=== PATIENT | female | born 1940 | race Caucasian/White ===

== ENCOUNTER 2023-06-01 11:30 | Outpatient (AMB) | payer MEDICARE, SELFPAY ==
[2023-06-01 11:34] VITALS: BP 140/72; PULSE 72; O2SAT 97; BMI 22.7
--- NOTE | 2023-06-01 11:34 | HO.NEPHOV_ITS ---
HPI HPI Comments History of Present Illness Details Ting is a pleasant 83-year-old woman with a history of chronic hyponatremia. Serum sodium has been fluctuating from the mid 120s to low 130s. Few years ago she had diverticulosis and underwent bowel surgery. At that time she was advised by the surgeon to drink plenty of water to avoid constipation. She has been drinking lots of water and apparently she was hospitalized in [facility] with severe hyponatremia with a sodium of 125 or so. Recently serum sodium was 127. She was put on of p.o. fluid restriction. Repeat serum sodium was 132 as of yesterday. She has been referred for further evaluation of hyponatremia. Recent thyroid function was normal. Renal function is normal with a creatinine of 0.5. Usually she drinks 1 cup of tea and 2 cups of coffee. Prior to last week she was drinking plenty of water but she has no cut back on water intake. She has replaced with Gatorade. She has a history of smoking several years ago smoked half pack to 1 pack for almost 20 years and quit smoking more than 20 years ago. She has COPD and is being followed by Dr. Gallego She is also undergoing cardiac evaluation. Today she denies any shortness of breath. No nausea vomiting. No polyuria polydipsia. No edema. All systems were reviewed [facility] Surgical History H/O: hysterectomy (~1993) Family History Father CHF (congestive heart failure) Mother CHF (congestive heart failure) HTN (hypertension) Social History Comment: Social Patient Tobacco Use Status: Former Tobacco user Vital Signs 06/01/23 11:34 Height 5 ft 1 in Weight 120 lb BMI 22.7 BP 140/72 H Blood Pressure Location Lt brachial Position Sitting Pulse 72 Pulse Source Pulse Oximeter Pulse Oximetry (%) 97 Oxygen Delivery Method Room Air Physical Exam Vital Signs: Last Vital Signs Pulse 72 06/01/23 11:34 BP 140/72 H 06/01/23 11:34 Pulse Ox 97 06/01/23 11:34 Oxygen Delivery Method Room Air 06/01/23 11:34 BMI result Body Mass Index 22.7 Const General: comfortable Nutritional Appearance: well nourished Orientation/consciousness: patient oriented x3 HEENT Head: No normal to inspection Mouth: moist mucous membranes Eyes Other: Strabismus Neck Neck: Yes supple and Yes no JVD Resp Auscultation: clear to auscultation bilaterally, no rales and rub present Cardio Jugular venous distension: no JVD Palpation: no palpable S3 and no palpable S4 Heart sounds: no rubs GI Palpation (GI): Soft to palpation and nontender Percussion: No Fluid wave present General: Yes no CVA tenderness Back/Spine/Pelvis Back: no CVA tenderness Skin General skin exam: no rashes or lesions noted Neuro General: patient oriented x3 Extrem General: Yes no pedal edema and No clubbing Assessment & Plan Assessment & Plan (1) Hyponatremia: Comment: Elderly woman with hyponatremia in the setting of COPD and excessive free water intake Code(s): E87.1 - Hypo-osmolality and hyponatremia Plan: Ting most likely has non osmotic ADH release in setting of COPD. Hyponatremia was confounded by consuming excess free water Thyroid function seems normal No clinical evidence to support adrenal insufficiency. Recommendations Check urine for sodium, creatinine, osmolality Check serum osmolality Goal is to maintain serum sodium more than 130 millimoles. I have encouraged her to limit free water intake. She can replace free water with Gatorade. Total fluid intake can be maintained around 40 oz. Given the history of hypertension I have encouraged her to stay on a regular sodium diet and I am not adding salt tablets. Recheck serum sodium in 1-2 weeks. If the serum sodium is less than 125 despite p.o. water restriction, I would consider adding urea powder to increase osmotic load. (2) HTN (hypertension): Code(s): I10 - Essential (primary) hypertension Plan: Blood pressure is acceptable No changes in antihypertensive regimen. Orders: Orders 2 Creatinine Urine 1 Week E87.1 - Hypo-osmolality and hyponatremia, I10 - Essential (primary) hypertension, N05.9 - Unspecified nephritic syndrome with unspecified morphologic changes Sodium Urine Random 1 Week E87.1 - Hypo-osmolality and hyponatremia, I10 - Essential (primary) hypertension, N18.9 - Chronic kidney disease, unspecified Basic Metabolic Panel 1 Week E87.1 - Hypo-osmolality and hyponatremia, I10 - Essential (primary) hypertension Osmolality, Serum 1 Week E87.1 - Hypo-osmolality and hyponatremia, I10 - Essential (primary) hypertension Osmolality Urine 1 Week E87.1 - Hypo-osmolality and hyponatremia, I10 - Essential (primary) hypertension UA and rflx microscopic 1 Week E87.1 - Hypo-osmolality and hyponatremia, I10 - Essential (primary) hypertension Coding Level of Care Code New Pt Level 4 (44314) Diagnoses Hyponatremia E87.1 HTN (hypertension) I10 Results Reviewed Results Reviewed: As of 05/31/2023 Serum sodium 132 Serum creatinine 0.5 Nephrology Results: No Data to Display
== END 2023-06-01 12:15 | disposition home or self-care (01) ==
PROVIDERS: PCP Internal Medicine; Referring Provider Internal Medicine; Visit Provider Internal Medicine Hypertension Specialist
DX: E87.1 Hypo-osmolality and hyponatremia (principal); I10 Essential (primary) hypertension
CPT/HCPCS: 99204

== ENCOUNTER → 2023-06-01 11:30 | Outpatient (BNVA) | payer MEDICARE, SELFPAY | PROVIDERS: PCP Internal Medicine; Referring Provider Internal Medicine; Visit Provider Internal Medicine Hypertension Specialist | DX: E87.1 Hypo-osmolality and hyponatremia (principal); I10 Essential (primary) hypertension | CPT/HCPCS: 99202 ==

== ENCOUNTER 2023-06-29 10:29 | Outpatient (REF) | payer MEDICARE, SELFPAY ==
[2023-06-29 12:18] LABS: Appearance Urine Clear; Color Urine Yellow; Glucose Urine UA Negative (Negative); Leukocyte Esterase Urine Negative (Negative); Nitrite Urine Negative (Negative); PH 6.5 (5.0-9.0); Urine Blood Negative (Negative); Urine Ketones Negative (Negative); Urine Protein Negative (Neg-Trace)
[2023-06-29 12:48] LABS: Creatinine Urine 20.06 mg/dL
[2023-06-29 13:04] LABS: Osmolality Urine 249 mosm/kg (373-1093)
== END 2023-06-29 10:30 | disposition home or self-care (01) ==
LOC: HO.HKASLDS 10:29
PROVIDERS: PCP Internal Medicine; Visit Provider Internal Medicine Hypertension Specialist
DX: I12.9 Hypertensive chronic kidney disease with stage 1 through stage 4 chronic kidney disease, or unspecified chronic kidney disease (principal); E87.1 Hypo-osmolality and hyponatremia; N05.9 Unspecified nephritic syndrome with unspecified morphologic changes; J44.9 Chronic obstructive pulmonary disease, unspecified; N18.9 Chronic kidney disease, unspecified; Z87.891 Personal history of nicotine dependence
CPT/HCPCS: 36415; 80048; 81003; 82570; 83930; 83935; 84300; 99212

== ENCOUNTER 2023-06-29 10:29 | Outpatient (AMB) | payer MEDICARE, SELFPAY ==
--- NOTE | 2023-06-29 10:32 | HO.NEPHOV ---
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 Serum sodium has been fluctuating from the mid 120s to low 130s. Few years ago she had diverticulosis and underwent bowel surgery. At that time she was advised by the surgeon to drink plenty of water to avoid constipation. She has been drinking lots of water and apparently she was hospitalized in [facility] with severe hyponatremia with a sodium of 125 or so. Recently serum sodium was 127. She was put on of p.o. fluid restriction. Repeat serum sodium was 132 as of yesterday. She has been referred for further evaluation of hyponatremia. Recent thyroid function was normal. Renal function is normal with a creatinine of 0.5. Usually she drinks 1 cup of tea and 2 cups of coffee. Prior to last week she was drinking plenty of water but she has no cut back on water intake. She has replaced with Gatorade. She has a history of smoking several years ago smoked half pack to 1 pack for almost 20 years and quit smoking more than 20 years ago. She has COPD and is being followed by Dr. Gallego She is also undergoing cardiac evaluation. Today she denies any shortness of breath. No nausea vomiting. No polyuria polydipsia. No edema. All systems were reviewed' 06/29/23 Feels better She has cut back on water [facility] Surgical History H/O: hysterectomy (~1993) Family History Father CHF (congestive heart failure) Mother CHF (congestive heart failure) HTN (hypertension) Social History Comment: Social Patient Tobacco Use Status: Former Tobacco user Physical Exam Vital Signs: Last Vital Signs BP 152/74 H 06/29/23 10:33 BMI result Body Mass Index 21.9 Const General: comfortable Nutritional Appearance: well nourished Orientation/consciousness: patient oriented x3 HEENT Head: No normal to inspection Mouth: moist mucous membranes Eyes Other: Strabismus Neck Neck: Yes supple and Yes no JVD Resp Auscultation: clear to auscultation bilaterally, no rales and rub present Cardio Jugular venous distension: no JVD Palpation: no palpable S3 and no palpable S4 Heart sounds: no rubs GI Palpation (GI): Soft to palpation and nontender Percussion: No Fluid wave present General: Yes no CVA tenderness Back/Spine/Pelvis Back: no CVA tenderness Skin General skin exam: no rashes or lesions noted Neuro General: patient oriented x3 Extrem General: Yes no pedal edema and No clubbing Results Reviewed Nephrology Results: No Data to Display Assessment & Plan Assessment & Plan (1) Hyponatremia: Comment: Elderly woman with hyponatremia in the setting of COPD and excessive free water intake Code(s): E87.1 - Hypo-osmolality and hyponatremia Category: Medical Plan: Ting most likely has non osmotic ADH release in setting of COPD. Hyponatremia was confounded by consuming excess free water Thyroid function seems normal No clinical evidence to support adrenal insufficiency. Goal is to maintain serum sodium more than 130 millimoles. I have encouraged her to limit free water intake. She can replace free water with Gatorade. Total fluid intake can be maintained around 40 oz. Given the history of hypertension I have encouraged her to stay on a regular sodium diet and I am not adding salt tablets. (2) HTN (hypertension): Code(s): I10 - Essential (primary) hypertension Category: Medical Plan: Blood pressure is acceptable No changes in antihypertensive regimen. Orders: Orders Basic Metabolic Panel Today E87.1 - Hypo-osmolality and hyponatremia Coding Level of Care Code Est Pt Level 4 (49534) Diagnoses Hyponatremia E87.1 HTN (hypertension) I10
[2023-06-29 10:33] VITALS: BP 152/74; BMI 21.9
== END 2023-06-29 10:55 | disposition home or self-care (01) ==
PROVIDERS: PCP Internal Medicine; Visit Provider Internal Medicine Hypertension Specialist
DX: E87.1 Hypo-osmolality and hyponatremia (principal); I10 Essential (primary) hypertension
CPT/HCPCS: 99214

== ENCOUNTER 2023-06-29 10:59 | Outpatient (REF) | payer MEDICARE, SELFPAY ==
[2023-06-29 12:53] LABS: Anion Gap 14 (12-20); Blood Urea Nitrogen 13 mg/dL (9-16); Calcium 9.6 mg/dL (8.4-10.2); Carbon Dioxide 24 mmol/L (22-29); Chloride 97 mmol/L (96-108); Estimated Glomerular Filt Rate > 60; Glucose Random 99 mg/dL (60-115); Potassium 4.5 mmol/L (3.3-5.1); Sodium 130 mmol/L (135-145)
[2023-06-29 13:00] LABS: Osmolality, Serum 272 mosm/kg (281-305)
== END 2023-06-29 11:00 | disposition home or self-care (01) ==
LOC: HO.HKASLDS 10:59
PROVIDERS: Visit Provider Internal Medicine Hypertension Specialist
DX: Z13.89 Encounter for screening for other disorder (principal)
CPT/HCPCS: 36415; 80048; 83930

== ENCOUNTER 2023-12-07 13:47 | Outpatient (AMB) | payer MEDICARE, SELFPAY ==
[2023-12-07 13:51] VITALS: BP 108/48; PULSE 65; O2SAT 97; BMI 21.3
--- NOTE | 2023-12-07 13:51 | HO.NEPHOV ---
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 Accompanied by: Self / Same As Patient Allergies No Known Allergies Allergy (Verified 12/07/23 13:55) Medication List - Last Reconciled 12/07/23 by Miguel Grover MD alprazolam 0.5 mg PO BID amlodipine 10 mg PO DAILY ascorbic acid (vitamin C) mg PO atorvastatin 10 mg PO DAILY cholecalciferol (vitamin D3) 25 mcg PO DAILY coenzyme Q10 (Co Q-10) 10 mg PO TID docusate sodium 50 mg PO DAILY famotidine (Pepcid) 20 mg PO DAILY fluticasone furoate-vilanterol 100-25 mcg/dose (Breo Ellipta) 1 ea inhalation DAILY fluticasone propion-salmeterol 250-50 mcg/dose (Advair Diskus) 1 inh inhalation BID folic acid 1 mg PO DAILY methotrexate sodium 20 mg PO QWEEK metoprolol tartrate 25 mg PO BID multivitamin 1 tab PO DAILY niacinamide 500 mg PO DAILY olmesartan 40 mg PO DAILY valacyclovir 500 mg PO DAILY vitamins A,C,H-kbol-qsyaqj 2,148 mcg-113 mg-45 mg-17.4mg (PreserVision AREDS) 2 tabs PO BID HPI Comments Details: Ting is a pleasant 83-year-old woman with a history of chronic hyponatremia. Serum sodium has been fluctuating from the mid 120s to low 130s. Few years ago she had diverticulosis and underwent bowel surgery. At that time she was advised by the surgeon to drink plenty of water to avoid constipation. She has been drinking lots of water and apparently she was hospitalized in [facility] with severe hyponatremia with a sodium of 125 or so. Recently serum sodium was 127. She was put on of p.o. fluid restriction. Repeat serum sodium was 132 as of yesterday. She has been referred for further evaluation of hyponatremia. Recent thyroid function was normal. Renal function is normal with a creatinine of 0.5. Usually she drinks 1 cup of tea and 2 cups of coffee. Prior to last week she was drinking plenty of water but she has no cut back on water intake. She has replaced with Gatorade. She has a history of smoking several years ago smoked half pack to 1 pack for almost 20 years and quit smoking more than 20 years ago. She has COPD and is being followed by Dr. Gallego She is also undergoing cardiac evaluation. Today she denies any shortness of breath. No nausea vomiting. No polyuria polydipsia. No edema. All systems were reviewed' 06/29/23;Feels better;She has cut back on water [facility] Surgical History H/O: hysterectomy (~1993) Family History Father CHF (congestive heart failure) Mother CHF (congestive heart failure) HTN (hypertension) Social History Comment: Social Patient Tobacco Use Status: Former Tobacco user Physical Exam Vital Signs: Last Vital Signs Pulse 65 12/07/23 13:51 BP 108/48 L 12/07/23 13:51 Pulse Ox 97 12/07/23 13:51 Oxygen Delivery Method Room Air 12/07/23 13:51 BMI result Body Mass Index 21.3 Results Reviewed Nephrology Results: Sodium 130 mmol/L (135-145) L 06/29/23 Potassium 4.5 mmol/L (3.3-5.1) 06/29/23 Chloride 97 mmol/L (96-108) 06/29/23 Carbon Dioxide 24 mmol/L (22-29) 06/29/23 BUN 13 mg/dL (9-16) 06/29/23 Creatinine 0.62 mg/dL (0.5-1.4) 06/29/23 Calcium 9.6 mg/dL (8.4-10.2) 06/29/23 Urine Protein Negative mg/dL (Neg-Trace) 06/29/23 Urine Creatinine 20.06 mg/dL 06/29/23 Assessment & Plan Assessment & Plan (1) Hyponatremia: Comment: Elderly woman with hyponatremia in the setting of COPD and excessive free water intake Code(s): E87.1 - Hypo-osmolality and hyponatremia Category: Medical Plan: Ting most likely has non osmotic ADH release in setting of COPD. Hyponatremia was confounded by consuming excess free water Thyroid function seems normal No clinical evidence to support adrenal insufficiency. Goal is to maintain serum sodium more than 130 millimoles. I have encouraged her to limit free water intake. She can replace free water with Gatorade. Total fluid intake can be maintained around 40 oz. Given the history of hypertension I have encouraged her to stay on a regular sodium diet and I am not adding salt tablets. Lab work schdeuled for tomorrow Shall track results (2) HTN (hypertension): Code(s): I10 - Essential (primary) hypertension Category: Medical Plan: Blood pressure is LOW Would decrease AMLODIPINE to 5 mg QD from 10mg QD Coding Level of Care Code Est Pt Level 4 (99076) Diagnoses Hyponatremia E87.1 HTN (hypertension) I10
[2023-12-07 14:17] VITALS: BP 110/50
== END 2023-12-07 14:19 | disposition home or self-care (01) ==
PROVIDERS: PCP Internal Medicine; Visit Provider Internal Medicine Hypertension Specialist
DX: E87.1 Hypo-osmolality and hyponatremia (principal); I10 Essential (primary) hypertension; J44.9 Chronic obstructive pulmonary disease, unspecified
CPT/HCPCS: 99214

== ENCOUNTER → 2023-12-07 13:47 | Outpatient (BNVA) | payer MEDICARE, SELFPAY | PROVIDERS: PCP Internal Medicine; Visit Provider Internal Medicine Hypertension Specialist | DX: E87.1 Hypo-osmolality and hyponatremia (principal); I10 Essential (primary) hypertension | CPT/HCPCS: 99212 ==

== ENCOUNTER 2024-03-01 09:36 | Outpatient (AMB) | payer MEDICARE, SELFPAY ==
[2024-03-01 09:37] VITALS: BP 134/62; PULSE 70; O2SAT 99; BMI 21.5
--- NOTE | 2024-03-01 09:37 | A.OFFVIS_ITS ---
Vital Signs 03/01/24 09:37 Height 5 ft 1 in Weight 114 lb BMI 21.5 BP 134/62 Blood Pressure Location Rt brachial Position Sitting Pulse 70 Pulse Source Doppler Pulse Oximetry (%) 99 Oxygen Delivery Method Nasal Cannula Oxygen Flow Rate 4 Intake Visit Reasons: COPD Allergies No Known Allergies Allergy (Verified 12/07/23 13:55) HPI HPI COPD: Details: 83-year-old lady, former 20-25 pack-year smoker, quit 1989 with underlying COPD supplemental oxygen dependent, using Inogen at [facility] for and home oxygen concentrator up to 4 L, previously followed by Dr. Gallego presents for evaluation. Patient states that she has not been using albuterol MDI or any other bronchodilators. She denies having recent pulmonary function testing. Patient does have CT chest from 2022 showing no pulmonary fibrosis. Patient complains of significant dyspnea on exertion and intermittent tachycardia. Patient denies family history of lung disease. [facility] Surgical History H/O: hysterectomy (~1993) Family History Father CHF (congestive heart failure) Mother CHF (congestive heart failure) HTN (hypertension) Social History Comment: Social Patient Tobacco Use Status: Former Tobacco user Review of Systems Const Denies daytime sleepiness, Denies excessive sweating, Denies fatigue, Denies fever(s), Denies lethargy, Denies malaise, Denies night sweats, Denies snoring and Denies weight loss Eyes Denies blurry vision and Denies itchy eyes ENT Denies nasal congestion, Denies post nasal drip, Denies sinus pain, Denies sinus pressure and Denies other ( Thrush) Card Reports lightheadedness, Reports palpitations and Reports dyspnea on exertion Resp Denies cough, Denies hemoptysis, Denies excessive phlegm production, Reports dyspnea on exertion, Denies snoring and Denies wheezing GI Denies abdominal pain and Denies heartburn Musc Denies myalgias, Denies arthralgias and Denies joint swelling Skin/Breast Denies rash Neuro Denies memory loss and Denies seizure-like activity Psych Denies abnormal sleep pattern, Denies anxiety and Denies memory loss Endo Denies excessive sweating, Denies fatigue and Reports palpitations Romel/Lymph Denies easy bruising Aller/Immun Denies itchy eyes and Denies wheezing Physical Exam Vital Signs: Last Vital Signs Pulse 70 03/01/24 09:37 BP 134/62 03/01/24 09:37 Pulse Ox 99 03/01/24 09:37 Oxygen Delivery Method Nasal Cannula 03/01/24 09:37 Oxygen Flow Rate 4 03/01/24 09:37 BMI result Body Mass Index 21.5 Const General: no acute distress and alert Nutritional Appearance: thin Orientation/consciousness: Other orientation findings ( oriented) HEENT Head: Yes atraumatic Eyes General: appearance normal, both eyes and all related structures Sclerae: sclerae normal EOM: EOMs intact bilaterally Neck Neck: Yes supple Lymphatic: no lymphadenopathy noted Resp Effort & Inspection: normal respiratory effort and no use of accessory muscles Auscultation: clear to auscultation bilaterally Cardio Rate: regular rate Rhythm: regular rhythm Heart sounds: no gallops, no murmurs and no rubs Skin General skin exam: other ( warm) Extrem General: No clubbing, No cyanosis and No edema Office Procedures 6 Minute Walk Time:: 10:20 SPO2 % at rest: 99 Pulse at rest: 73 SPO2 % during excercise: 84 Pulse during excercise: 88 SPO2 % after excercise: 94 Pulse after excercise: 82 Distance in yards walked: 50 Samira Score: 7 Performance Observations:: Patient walked on level ground unassisted. After 10 yards O2 saturation dropped to 84%. Stopped briefly and O2 applied at 1L with little effect. Increased to 2L via nasal cannula and after just 5 yards O2 saturation dropped again to 85%. O2 increased to 3 and then 4liters and was able to continue walk and maintain O2 saturation of 96%. Patient tires and has knee pain with ambulation. O2 switched to POC at level 3 and after approx 10 yards O2 saturation dropped to 89%. POC increased to level 4 and patient was able to complete the walk maintaining O2 saturation of 93-94%. [id number] - 6 Minute Walk Assessment & Plan Assessment & Plan (1) COPD (chronic obstructive pulmonary disease): Code(s): J44.9 - Chronic obstructive pulmonary disease, unspecified Category: Medical Plan: Likely underlying COPD of unclear severity suboptimally controlled. Start Anoro and albuterol MDI. Will obtain full PFT. (2) Supplemental oxygen dependent: Code(s): Z99.81 - Dependence on supplemental oxygen Category: Medical Plan: 6 minute walk test/supplemental oxygen evaluation performed. Patient continues to require supplemental oxygen utilizing Inogen setting 4 to maintain normal oximetry with exertion. Orders: Orders PFT pulmonary function test Today J44.9 - Chronic obstructive pulmonary disease, unspecified AMB 6 minute walk Today J44.9 - Chronic obstructive pulmonary disease, uns pecified Medications: New umeclidinium-vilanterol 62.5-25 mcg/actuation (Anoro Ellipta) 1 inh inhalation DAILY 1 ea 6RF albuterol sulfate 90 mcg/actuation 2 puffs inhalation 6XD PRN 1 ea 6RF shortness of breath or wheezing Coding Level of Care Code New Pt Level 4 (76329) Diagnoses COPD (chronic obstructive pulmonary disease) J44.9 Supplemental oxygen dependent Z99.81 CPT Codes Coding ([id number])
--- OUTSIDE RECORDS SUMMARY | 2024-03-01 10:48 | XMS_ITS ---
Author Name [facility] Organization Unknown Results Test Name/Text Value Interpretation Date Range Source TB AG 1-NIL 0.0191 Normal [id number] CTT MH TB AG 2-NIL 0.0241 Normal [id number] [facility] MH NIL 0.0191 Normal [id number] [facility] LYMPHOCYTES NO. BLD AUTO 1.5K/uL Normal [id number] 1 - 3.2 [facility] EOSINOPHIL NO. BLD AUTO 0K/uL Normal [id number] 0 - 0.5 [facility] MONOCYTES NFR BLD AUTO 15.4% Above high normal [id number] 2 - 12 [facility] LYMPHOCYTES NFR BLD AUTO 20.7% Normal [id number] 20 - 48 [facility] EOSINOPHIL NFR BLD AUTO 0.3% Normal [id number] 0 - 6 [facility] NEUTROPHILS NO. BLD AUTO 4.7K/uL Normal [id number] 1.8 - 7.8 [facility] BASOPHILS NFR BLD AUTO 0.6% Normal [id number] 0 - 2 [facility] MONOCYTES NO. BLD AUTO 1.1K/uL Above high normal [id number] 0 - 0.[address] [facility] NEUTROP[facility]IL[facility] NFR BLD AUTO 63% Normal [id number] 44 - [address] [facility] BASOPHILS IN BLOOD BY AUTOMATED COUNT 0K/uL Normal [id number] 0 - 0.2 [facility] CALCIUM SERPL MCNC 9.6mg/dL Normal [id number] 8.4 - 10 .2 [facility] ANION GAP SERPL SCNC 8mmol/L Normal 5 - 14 [facility] Glomerular filtration rate/1.73 sq M. predicted 90 Normal [id number] 60 - [facility] HCO3 SER SCNC 28mmol/L Normal 24 - 32 [facility] AST SERPL CCNC 28U/L Normal 5 - 40 [facility] GLUCOSE SERPL MCNC 92mg/dL Normal 70 - 199 [facility] BUN SERPL MCNC 16mg/dL Normal [id number] 7 - 17 [facility] CHLORIDE SERPL SCNC 95mmol/L Below low normal [id number] 98 - 107 [facility] ALBUMIN SERPL BCG MCNC 4.6g/dL Normal [id number] 3.5 - 5 [facility] ALP SERPL-CCNC 74U/L Normal 34 - 104 [facility] ALT SERPL CCNC 35U/L Normal 7 - [facility] CREAT [facility] MCNC 0.6mg/dL Normal [id number] 0.5 - 1 [facility] SODIUM SERPL SCNC 131mmol/L Below low normal [id number] 13 5 - 145 [facility] PROT SERPL MCNC 6.3g/dL Below low normal [id number] 6.4 - 8.5 [facility] BILIRUB SERPL MCNC 0.6mg/dL Normal 0.3 - 1 [facility] POTASSIUM SERPL SCNC 4.6mmol/L Normal [id number] 3.5 - 5.1 [facility] DIFFERENTIAL TYPE AUTOMATED Normal [facility] PLATELET NO. BLD AUTO 399K/uL Normal [id number] 150 - 450 [facility] RBC NO. BLD AUTO 3.11M/uL Below low normal [id number] 4.2 - 5.4 [facility] MCH RBC QN AUTO 36.9pg Above high normal [id number] 25 - 33 [facility] MCHC RBC AUTO MCNC 34.2g/dL Normal [id number] 32 - 36 [facility] HGB BLD MCNC 11.5g/dL Below low normal [id number] 12.5 - 16 [facility] WBC NO. BLD AUTO 7.3K/uL Normal [id number] 4 - 10.5 [facility] MCV RBC AUTO 107.9fL Above high normal [id number] 78 - 1 00 [facility] PMV BLD AUTO 6.9fL Below low normal [id number] 7.4 - 1 1.4 [facility] RDW RBC AUTO RTO 15.3% Normal [id number] 12.1 - 16. 2 [facility] HCT VFR BLD AUTO 33.6% Below low normal 37 - 47 [facility] ESR Bld Qn Photometric 3mm/h Normal 0 - 20 [facility] TSH SerPl DL<=0.005 mIU/L-aCnc 0.87uIU/mL Normal 0.45 - 5.33 [facility] VIT B12 SER MCNC 810pg/mL Normal 180 - 914 [facility] FOLATE SERPL MCNC 15.5ng/mL Normal 3 - [facility] PROT SERPL MCNC 6.4g/dL Normal 6.4 - 8.5 C [facility] BILIRUB SERPL MCNC 0.5mg/dL Normal 0.3 - 1 [facility] ALBUMIN/GLOB SERPL MRTO 2.6 Normal [facility] AST SERPL CCNC 23U/L Normal 5 - 40 [facility] ALBUMIN SERPL BCG MCNC 4.6g/dL Normal 3.5 - 5 [facility] ALP SERPL-CCNC 60U/L Normal 34 - 104 [facility] ALT SERPL CCNC 32U/L Normal 7 - 52 [facility] BILIRUB DIRECT SERPL MCNC 0.1mg/dL Normal 0 - 0.2 [facility] CREAT SERPL MCNC 0.5mg/dL Normal 0.5 - 1 [facility] CALCIUM SERPL MCNC 9.5mg/dL Normal 8.4 - 10 .2 [facility] SODIUM SERPL SCNC 130mmol/L Below low normal 13 5 - 145 [facility] ANION GAP SERPL SCNC 9mmol/L Normal 5 - 14 [facility] Glomerular filtration rate/1.73 sq M. predicted 94 Normal 60 - [facility] HCO3 SER SCNC 26mmol/L Normal 24 - 32 [facility] GLUCOSE SERPL MCNC 95mg/dL Normal [id number] 70 - 199 [facility] BUN SERPL MCNC 15mg/dL Normal [id number] 7 - 17 [facility] CHLORIDE SERPL SCNC 95mmol/L Below low normal [id number] 98 - 107 [facility] POTASSIUM SERPL SCNC 4.5mmol/L Normal [id number] 3.5 - 5.1 [facility] LDLc SerPl Calc-mCnc 51mg/dL Normal [id number] 50 - 1 30 [facility] TRIGL SERPL-MCNC 56mg/dL Normal [id number] - 150 [facility] CHOLEST SERPL-MCNC 139mg/dL Normal [id number] 0 - 200 [facility] HDLC SERPL-MCNC 77mg/dL Normal [id number] 33 - 92 C [facility] HGB BLD MCNC 11.2g/dL Below low normal [id number] 12.5 - 16 [facility] PLATELET NO. BLD AUTO 384K/uL Normal 150 - 450 [facility] WBC NO. BLD AUTO 8.3K/uL Normal [id number] 4 - 10.5 [facility] RBC NO. BLD AUTO 3.22M/uL Below low normal [id number] 4.2 - 5.4 [facility] MCH RBC QN AUTO 34.9pg Above high normal [id number] 25 - 33 [facility] MCHC RBC AUTO MCNC 33.4g/dL Normal [id number] 32 - 36 [facility] MCV RBC AUTO 104.6fL Above high normal [id number] 78 - 1 00 [facility] PMV BLD AUTO 7.5fL Normal [id number] 7.4 - 11.4 CTT HS RDW RBC AUTO RTO 15.4% Normal [id number] 12.1 - 16. 2 [facility] HCT VFR BLD AUTO 33.7% Below low normal [id number] 37 - 47 [facility] VIT B12 SER MCNC 665pg/mL Normal 180 - 914 [facility] FOLATE SERPL MCNC 16.2ng/mL Normal 3 - [facility] TSH SerPl DL<=0.005 mIU/L-aCnc 0.8uIU/mL Normal [id number] 0.45 - 5.33 [facility] PROT SERPL MCNC 6.7g/dL Normal [id number] 6.4 - 8.5 C [facility] BILIRUB SERPL MCNC 0.6mg/dL Normal [id number] 0.3 - 1 [facility] ALBUMIN/GLOB SERPL MRTO 2.2 Normal [id number] [facility] AST SERPL CCNC 26U/L Normal [id number] 5 - 40 [facility] ALBUMIN SERPL BCG MCNC 4.6g/dL Normal [id number] 3.5 - 5 [facility] ALP SERPL-CCNC 68U/L Normal [id number] 34 - 104 [facility] ALT SERPL CCNC 29U/L Normal [id number] 7 - 52 [facility] BILIRUB DIRECT SERPL MCNC 0.1mg/dL Normal [id number] 0 - 0.2 [facility] LDLc SerPl Calc-mCnc 55mg/dL Normal [id number] 50 - 1 30 [facility] TRIGL SERPL-MCNC 65mg/dL Normal [id number] - 150 [facility] CHOLEST SERPL-MCNC 135mg/dL Normal [id number] 0 - 200 [facility] HDLC SERPL-MCNC 67mg/dL Normal [id number] 33 - 92 C [facility] CREAT SERPL MCNC 0.4mg/dL Below low normal [id number] 0.5 - 1 [facility] CALCIUM SERPL MCNC 9.8mg/dL Normal [id number] 8.4 - 10 .2 [facility] SODIUM SERPL SCNC 128mmol/L Below low normal [id number] 13 5 - 145 [facility] ANION GAP SERPL SCNC 7mmol/L Normal [id number] 5 - 14 [facility] Glomerular filtration rate/1.73 sq M. predicted 99 Normal [id number] 60 - [facility] HCO3 SER SCNC 28mmol/L Normal [id number] 24 - 32 CTT [facility] GLUCOSE SERPL MCNC 91mg/dL Normal [id number] 70 - 199 [facility] BUN SERPL MCNC 11mg/dL Normal 7 - 17 [facility] CHLORIDE SERPL SCNC 93mmol/L Below low normal [id number] 98 - [address] [facility] POTASSIUM SERPL SCNC 5mmol/L Normal 3.5 - 5.1 [facility] ESR Bld Qn Photometric 6mm/h Normal 0 - 20 [facility] DIFFERENTIAL TYPE AUTOMATED Normal [facility] PLATELET NO. BLD AUTO 411K/uL Normal 150 - [address] [facility] RBC NO. BLD AUTO 3.31M/uL Below low normal 4.2 - 5.[address] [facility] LYMPHOCYTES NO. BLD AUTO 1K/uL Normal 1 - 3.[address] [facility] EOSINOPHIL NO. BLD AUTO 0K/uL Normal 0 - 0.5 [facility] MCH RBC QN AUTO 34.5pg Above high normal 25 - 33 [facility] MCHC RBC AUTO MCNC 34.3g/dL Normal 32 - 36 [facility] MONOCYTES NFR BLD AUTO 10.6% Normal 2 - 12 [facility] LYMPHOCYTES NFR BLD AUTO 15.7% Below low normal 20 - 48 [facility] EOSINOPHIL NFR BLD AUTO 0.5% Normal 0 - 6 [facility] HGB BLD MCNC 11.4g/dL Below low normal 12.5 - 16 [facility] NEUTROPHILS NO. BLD AUTO 4.7K/uL Normal 1.8 - 7.8 [facility] WBC NO. BLD AUTO 6.5K/uL Normal 4 - 10.5 [facility] BASOPHILS NFR BLD AUTO 0.6% Normal 0 - 2 [facility] MONOCYTES NO. BLD AUTO 0.7K/uL Normal 0 - 0.8 [facility] MCV RBC AUTO 100.5fL Above high normal 78 - 1 00 [facility] NEUTROPHILS NFR BLD AUTO 72.6% Normal 44 - 74 [facility] BASOPHILS IN BLOOD BY AUTOMATED COUNT 0K/uL Normal 0 - 0.[address] [facility] PMV BLD AUTO 7.4fL Normal 7.4 - 11.4 [facility] RDW RBC AUTO RTO 15.1% Normal [id number] 12.1 - 16. 2 [facility] HCT VFR BLD AUTO 33.3% Below low normal [id number] 37 - 47 [facility] Troponin I SerPl HS-mCnc 7ng/L Normal [id number] 0 - 14 [facility] CREAT SERPL MCNC 0.5mg/dL Normal [id number] 0.5 - 1 [facility] SODIUM SERPL SCNC 133mmol/L Below low normal [id number] 13 5 - 145 [facility] GLUCOSE SERPL MCNC 91mg/dL Normal [id number] 70 - 199 [facility] Glomerular filtration rate/1.73 sq M. predicted 94 Normal [id number] 60 - [facility] CHLORIDE SERPL SCNC 98mmol/L Normal [id number] 98 - 10 7 [facility] HCO3 SER SCNC 28mmol/L Normal [id number] 24 - 32 [facility] POTASSIUM SERPL SCNC 3.8mmol/L Normal [id number] 3.5 - 5.1 [facility] ANION GAP SERPL SCNC 7mmol/L Normal [id number] 5 - 14 [facility] BUN SERPL MCNC 9mg/dL Normal 7 - 17 [facility] CALCIUM SERPL MCNC 9mg/dL Normal [id number] 8.4 - 10 .2 [facility] BNP BLD MCNC 331pg/mL Above high normal [id number] 0 - 10 0 [facility] Troponin I SerPl HS-mCnc 6ng/L Normal [id number] 0 - 14 [facility] PT TIME PPP 12.3sec Normal [id number] 10.5 - 13.3 [facility]TT [facility] INR PPP 1 Normal [id number] 0.8 - 1.1 [facility] AN DIFFERENTIAL TYPE AUTOMATED Normal [id number] [facility] NEUTROPHILS NFR BLD AUTO 68.5% Normal [id number] 44 - 74 [facility] BASOPHILS NFR BLD AUTO 0.8% Normal [id number] 0 - 2 [facility] MONOCYTES NFR BLD AUTO 11.9% Normal [id number] 2 - 12 [facility] HCT VFR BLD AUTO 33.2% Below low normal [id number] 37 - 47 [facility] MONOCYTES NO. BLD AUTO 0.7K/uL Normal [id number] 0 - 0.8 [facility] RDW RBC AUTO RTO 15% Normal [id number] 12.1 - 16. 2 [facility] PLATELET NO. BLD AUTO 346K/uL Normal [id number] 150 - 450 [facility] EOSINOPHIL NO. BLD AUTO 0.2K/uL Normal [id number] 0 - 0.5 [facility] RBC NO. BLD AUTO 3.25M/uL Below low normal [id number] 4.2 - 5.4 [facility] MCH RBC QN AUTO 34.2pg Above high normal [id number] 25 - 33 [facility] MCHC RBC AUTO MCNC 33.5g/dL Normal [id number] 32 - 36 [facility] HGB BLD MCNC 11.1g/dL Below low normal [id number] 12.5 - 16 [facility] BASOPHILS IN BLOOD BY AUTOMATED COUNT 0K/uL Normal [id number] 0 - 0.2 [facility] WBC NO. BLD AUTO 6K/uL Normal [id number] 4 - 10.5 [facility] EOSINOPHIL NFR BLD AUTO 2.6% Normal [id number] 0 - 6 [facility] LYMPHOCYTES NFR BLD AUTO 16.2% Below low normal [id number] 20 - 48 [facility] MCV RBC AUTO 102.3fL Above high normal [id number] 78 - 1 00 [facility] NEUTROPHILS NO. BLD AUTO 4.1K/uL Normal [id number] 1.8 - 7.8 [facility] LYMPHOCYTES NO. BLD AUTO 1K/uL Normal [id number] 1 - 3.2 [facility] PMV BLD AUTO 7.1fL Below low normal [id number] 7.4 - 1 1.4 [facility] History of Medication Use Medication Directions Dispensed Refills Start Date End Date Status tobramycin 0.3 %-dexamethasone 0.1 % eye drops,suspension INSTILL 1 DROP INTO RIGHT EYE THREE TIMES A DAY SHAKE WELL 02/13 active chlorhexidine gluconate 0.12 % mouthwash RINSE MOUTH 3 TIMES DAILY DIRECTED DO NOT SWALLOW 024 02/13 active polymyxin B sulfate 10,000 unit-trimethoprim 1 mg/mL eye drops INSTILL 1 DROP INTO BOTH EYES 3 TIMES A DAY 02/13 active methotrexate sodium 2.5 mg tablet TAKE 8 TABLETS BY MOUTH ONE TIME PER WEEK 02/13 active olmesartan 40 mg tablet 1 02/13 active amlodipine 10 mg tablet 1 02/13 active atorvastatin 10 mg tablet 02/13 active prednisone 10 mg tablet 4 TABS X 2 DAYS, 2 TABS X 2 DAYS, 1 TAB X 2 DAYS THEN ORALLY ONCE A DAY 02/13 active albuterol sulfate HFA 90 mcg/actuation aerosol inhaler TAKE 2 PUFFS BY MOUTH EVERY 4-6 HOURS NEEDED 02/13 active triamcinolone acetonide 40 mg/mL suspension for injection Take 40 mg by injection route. 02/13 active clotrimazole 10 mg juan DISSOLVE SLOWLY IN MOUTH 5 TIMES A DAY FOR 14 DAYS. 02/13 active dexamethasone 0.75 mg tablet PLEASE SEE ATTACHED FOR DETAILED DIRECTIONS 02/13 active alprazolam 0.5 mg tablet TAKE 1 TABLET B Y MOUTH TWICE A DAY 02/13 active omeprazole 20 mg capsule,delayed release TAKE 1 CAPSULE BY MOUTH 2 TIMES A DAY 02/13 active halobetasol propionate 0.05 % topical cream APPLY TO AFFECTED AREAS OF HYPERTROPHIC LICHEN PLANUS TWICE A DAY NEEDED 02/13 active azithromycin 250 mg tablet TAKE 2 TABLETS BY MOUTH TODAY, THEN TAKE 1 TABLET DAILY FOR 4 DAYS DIRECTED 02/13 active cyclobenzaprine 5 mg tablet 1 TABLET ORALLY TWICE A DAY, NEEDED 14 DAYS 02/13 active folic acid 1 mg tablet TAKE 1 TABLET BY MOUTH EVERY DAY 02/13 active valacyclovir 500 mg tablet TAKE 1 TABLET EVERY DAY 02/13 active metaxalone 800 mg tablet TAKE 1 TABLET B Y MOUTH THREE TIMES A DAY FOR 10 DAYS 02/13 active lidocaine (PF) 100 mg/5 mL (2 %) injection syringe Take 4 mL by injection route. 02/13 active cephalexin 500 mg capsule TAKE 1 CAPSULE BY MOUTH TWICE A DAY FOR 10 DAYS 02/[address] 0.3 %-0.05 % eye drops,suspension INSTILL 1 DROP INTO AFFECTED EYE THREE TIMES A DAY NEEDED SHAKE WELL 02/13 active mupirocin 2 % topical ointment APPLY TOPICALLY TO OPEN SORES TWICE A DAY NEEDED 02/13 active celecoxib 200 mg capsule TAKE 1 CAPSULE BY MOUTH EVERY DAY WITH FOOD FOR 30 DAYS 02/13 active neomycin 3.5 mg/g-polymyxin B 10,000 unit/g-dexameth 0.1 % eye oint APPLY A SMALL AMOUNT OF OINTMENT ON RIGHT UPPER EYELID AND IN THE RIGHT EYE TWICE DAILY FOR ONE WEEK 02/13 active furosemide 20 mg tablet TAKE 1 TABLET BY MOUTH EVERY OTHER DAY 02/13 active metoprolol tartrate 25 mg tablet 02/13 active valacyclovir 1 gram tablet TAKE 1 TABLET BY MOUTH ONCE A DAY 02/13 active loteprednol etabonate 0.5 % eye drops,suspension INSTILL 1 DROP INTO BOTH EYES TWICE A DAY 02/13 active Breo Ellipta 100 mcg-25 mcg/dose powder for inhalation 02/13 active atorvastatin (LIPITOR) 10 mg tablet Take 1 tablet (10 mg total) by mouth. active propylene glycoL (SYSTANE BALANCE) 0.6 % ophthalmic solution Apply to eye. active Bifidobacterium infantis (ALIGN) 4 mg capsule Take 1 capsule (4 mg total) by mouth daily. active loteprednol (LOTEMAX) 0.5 % ophthalmic suspension INSTILL ONE DROP INTO RIGHT EYE THREE TIMES DAILY. active clotrimazole (MYCELEX) 10 mg juan DISSOLVE SLOWLY IN MOUTH 5 TIMES A DAY FOR 14 DAYS. active valACYclovir (VALTREX) 1000 mg tablet Take 1 tablet (1,000 mg total) by mouth daily. active metoprolol tartrate (LOPRESSOR) 25 mg Immediate Release tablet Take by mouth. active coenzyme Q10 200 mg capsule Take by mouth. active methotrexate 2.5 mg tablet active losartan (COZAAR) 100 mg tablet Take by mouth. active carboxymethylcellulose sodium (REFRESH TEARS) 0.5 % ophthalmic solution Apply to eye. active mupirocin (BACTROBAN) 2 % ointment APPLY TOPICALLY TO OPEN SORES TWICE A DAY NEEDED active TOBRADEX ST ophthalmic solution INSTILL 1 DROP INTO AFFECTED EYE THREE TIMES A DAY NEEDED SHAKE WELL active polymyxin B sulfate-trimethoprim (POLYTRIM) 10,000 unit- 1 mg/mL ophthalmic solution INSTILL 1 DROP INTO BOTH EYES 3 TIMES A DAY active olmesartan (BENICAR) 40 mg tablet Take 1 tablet (40 mg total) by mouth daily. active docusate sodium (COLACE) 100 mg capsule Take 1 capsule (100 mg total) by mouth. active oacvciub-iphchvsfl-mjirf ethasone (DEXACINE) 3.5 mg-10,000 unit/g-0.1 % ophthalmic ointment APPLY A SMALL AMOUNT OF OINTMENT ON RIGHT UPPER EYELID AND IN THE RIGHT EYE TWICE DAILY FOR ONE WEEK active albuterol sulfate 90 mcg/actuation HFA aerosol inhaler TAKE 2 PUFFS BY MOUTH EVERY 4-6 HORS NEEDED active ALPRAZolam (XANAX) 0.5 mg tablet active amLODIPine (NORVASC) 10 mg tablet active folic acid (FOLVITE) 1 mg tablet active docusate sodium (COLACE) 100 MG capsule Take 1 capsule (100 mg total) by mouth 2 (two) times a day. active Calcium Carbonate (CALCIUM 600 PO) Take by mouth. active valACYclovir (VALTREX) 500 MG tablet Take 1 tablet (500 mg total) by mouth every night at bedtime. active niacinamide 500 MG tablet Take 1 tablet (500 mg total) by mouth 2 (two) times a day. active albuterol 108 (90 Base) MCG/ACT inhaler TAKE 2 PUFFS BY MOUTH EVERY 4 TO 6 HOURS NEEDED active metoprolol tartrate (LOPRESSOR) 25 MG tablet TAKE 1 TABLET BY MOUTH TWICE DAILY active ALPRAZolam (XANAX) 0.5 MG tablet Take 1 tablet (0.5 mg total) by mouth every night at bedtime as needed for sleep. active amLODIPine (NORVASC) tablet 10 mg TAKE 1 TABLET BY MOUTH DAILY active olmesartan (BENICAR) tablet 40 mg Take 1 tablet (40 mg total) by mouth daily. active halobetasol (ULTRAVATE) 0.05 % cream Apply topically. active folic acid (FOLVITE) tablet 1 mg Take 3 tablets (3 mg total) by mouth daily. active METHOTREXATE PO Take 20 mg by mouth once a week. active atorvastatin (LIPITOR) 10 MG tablet Take 1 tablet (10 mg total) by mouth every evening. active Coenzyme Q10 (COQ-10) 200 MG CAPS Take by mouth. active Cholecalciferol (VITAMIN D) 1000 UNITS tablet Take by mouth. active METHOTREXATE PO Take 20 mg by mouth once a week. active olmesartan (BENICAR) tablet 40 mg Take 1 tablet (40 mg total) by mouth daily. active metoprolol tartrate (LOPRESSOR) 25 MG tablet TAKE 1 TABLET BY MOUTH TWICE DAILY active albuterol 108 (90 Base) MCG/ACT inhaler TAKE 2 PUFFS BY MOUTH EVERY 4 TO 6 HOURS NEEDED active Cholecalciferol (VITAMIN D) 1000 UNITS tablet Take by mouth. active atorvastatin (LIPITOR) 10 MG tablet Take 1 tablet (10 mg total) by mouth every evening. active ALPRAZolam (XANAX) 0.5 MG tablet Take 1 tablet (0.5 mg total) by mouth every night at bedtime as needed for sleep. active docusate sodium (COLACE) 100 MG capsule Take 1 capsule (100 mg total) by mouth 2 (two) times a day. active folic acid (FOLVITE) tablet 1 mg Take 3 tablets (3 mg total) by mouth daily. active furosemide (LASIX) 20 MG tablet Take 1 tablet (20 mg total) by mouth every other day. active amLODIPine (NORVASC) tablet 10 mg TAKE 1 TABLET BY MOUTH DAILY active halobetasol (ULTRAVATE) 0.05 % cream Apply topically. active XJS-SWG-Ounaxoav Oil-Vitamin E (THERA TEARS NUTRITION PO) Take by mouth. active Breo Ellipta 100-25 MCG/ACT inhaler active methotrexate 2.5 MG tablet Take 1 tablet (2.5 mg total) by mouth once a week. Pt takes 8 tabs once a week active Coenzyme Q10 (COQ-10) 200 MG CAPS Take by mouth. active iopamidol (ISOVUE-370) 76 % injection 110 mL 110 mL, Intravenous, IMG once as needed, contrast, Starting on 06/06/23 at 1138, For 1 dose, Radiology ContrastLot #: [id number] Date: 02/04/2026 completed niacinamide 500 MG tablet Take 1 tablet (500 mg total) by mouth 2 (two) times a day. active valACYclovir (VALTREX) 500 MG tablet Take 1 tablet (500 mg total) by mouth every night at bedtime. active carboxymethylcellulose (REFRESH PLUS) 0.5 % SOLN Apply to eye. active nitroglycerin (NITROSTAT) 2 % ointment 1 inch 1 inch, Topical, Once, On Tue06/06/23 at 1130, For 1 dose completed benzocaine-menthol (CEPACOL) lozenge 1 lozenge 1 lozenge, Oral, Once, On Tue06/06/23 at 0645, For 1 dose completed Breo ElliptaTakeNo date recordedNo form recordedNo frequency recordedNo route recordedNo set duration recordedNo set duration amount recordedactiveNo dosage strength recordedNo dosage strength units of measure recorded active methotrexateTakeNo date recordedNo form recordedNo frequency recordedNo route recordedNo set duration recordedNo set duration amount recordedsuspendedNo dosage strength recordedNo dosage strength units of measure recorded suspended prednisoneTakeNo natalia e recordedNo form recordedNo frequency recordedNo route recordedNo set duration recordedNo set duration amount recordedsuspendedNo dosage strength recordedNo dosage strength units of measure recorded suspended AlignTakeNo date recordedNo form recordedNo frequency recordedNo route recordedNo set duration recordedNo set duration amount recordedactiveNo dosage strength recordedNo dosage strength units of measure recorded active niacinamide 500 MG tablet Take 1 tablet (500 mg total) by mouth 2 (two) times a day. active losartanTakeNo date recordedNo form recordedNo frequency recordedNo route recordedNo set duration recordedNo set duration amount recordedsuspendedNo dosage strength recordedNo dosage strength units of measure recorded suspended amLODIPine (NORVASC) tablet 10 mg TAKE 1 TABLET BY MOUTH DAILY active traMADol (ULTRAM) 50 MG tablet Take 1 tablet (50 mg total) by mouth 2 times daily (every 12 hours) as needed for severe pain. Take every 8-12 hours as needed for pain active methotrexate 2.5 MG tablet Take 1 tablet (2.5 mg total) by mouth once a week. Pt takes 8 tabs once a week active Breo Ellipta 100-25 MCG/ACT inhaler active home oxygen 4 litersTakeNo date recordedNo form recordedNo frequency recordedNo route recordedNo set duration recordedNo set duration amount recordedactiveNo dosage strength recordedNo dosage strength units of measure recorded active alprazolamTake (oral)[id number] o frequency recordedoralNo set duration recordedNo set duration amount recordedactive0.5mg active TheraTearsTakeNo natalia e recordedNo form recordedNo frequency recordedNo route recordedNo set duration recordedNo set duration amount recordedactiveNo dosage strength recordedNo dosage strength units of measure recorded active furosemide (LASIX) 20 MG tablet Take 1 tablet (20 mg total) by mouth every other day. active amlodipineTake (oral)[id number] o frequency recordedoralNo set duration recordedNo set duration amount [id number] active folic acidTakeNo natalia e recordedNo form recordedNo frequency recordedNo route recordedNo set duration recordedNo set duration amount recordedactiveNo dosage strength recordedNo dosage strength units of measure recorded active Cholecalciferol (VITAMIN D) 1000 UNITS tablet Take by mouth. active Systane Ultra (PF)TakeNo date recordedNo form recordedNo frequency recordedNo route recordedNo set duration recordedNo set duration amount recordedactiveNo dosage strength recordedNo dosage strength units of measure recorded active olmesartanTakeNo natalia e recordedNo form recordedNo frequency recordedNo route recordedNo set duration recordedNo set duration amount recordedactiveNo dosage strength recordedNo dosage strength units of measure recorded active betamethasone acetate-betamethasone sodium phosphate (CELESTONE) injection 12 mg 12 mg, Intra-articular, Once PRN Procedure, Starting on Tue04/08/23 at 1100, For 1 dose completed ColaceTakeNo date recordedNo form recordedNo frequency recordedNo route recordedNo set duration recordedNo set duration amount recordedactiveNo dosage strength recordedNo dosage strength units of measure recorded active PreserVision AREDSTakeNo date recordedNo form recordedNo frequency recordedNo route recordedNo set duration recordedNo set duration amount recordedactiveNo dosage strength recordedNo dosage strength units of measure recorded active albuterol 108 (90 Base) MCG/ACT inhaler TAKE 2 PUFFS BY MOUTH EVERY 4 TO 6 HOURS NEEDED active Colace 100mg capsule 09/14 active acetaminophen (TYLENOL) 500 MG tablet Take 2 tablets (1,000 mg total) by mouth 3 times daily (every 8 hours). active metoprolol tartrateTakeNo date recordedNo form recordedNo frequency recordedNo route recordedNo set duration recordedNo set duration amount recordedsuspendedNo dosage strength recordedNo dosage strength units of measure recorded suspended olmesartanTakeNo natalia e recordedNo form recordedNo frequency recordedNo route recordedNo set duration recordedNo set duration amount recordedactiveNo dosage strength recordedNo dosage strength units of measure recorded active betamethasone acetate-betamethasone sodium phosphate (CELESTONE) injection 12 mg 12 mg, Intra-articular, Once PRN Procedure, Starting on Tue04/08/23 at 1100, For 1 dose completed ColaceTakeNo date recordedNo form recordedNo frequency recordedNo route recordedNo set duration recordedNo set duration amount recordedactiveNo dosage strength recordedNo dosage strength units of measure recorded active PreserVision AREDSTakeNo date recordedNo form recordedNo frequency recordedNo route recordedNo set duration recordedNo set duration amount recordedactiveNo dosage strength recordedNo dosage strength units of measure recorded active albuterol 108 (90 Base) MCG/ACT inhaler TAKE 2 PUFFS BY MOUTH EVERY 4 TO 6 HOURS NEEDED active XanaxTakeNo date recordedNo form recordedNo frequency recordedNo route recordedNo set duration recordedNo set duration amount recordedactiveNo dosage strength recordedNo dosage strength units of measure recorded active lidocaine (XYLOCAINE) 1 % injection 1 mL 1 mL, Intra-articular, Once PRN Procedure, Starting on Tue07/29/22 at 1412, For 1 dose completed olmesartan (BENICAR) tablet 40 mg Take 1 tablet (40 mg total) by mouth daily. active methotrexate sodiumTake (oral)[id number] o frequency recordedoralNo set duration recordedNo set duration amount recordedactive2.5mg active folic acid (FOLVITE) tablet 1 mg Take 3 tablets (3 mg total) by mouth daily. active mupirocinTake (topical)[id number] mentNo frequency recordedtopicalNo set duration recordedNo set duration amount recordedsuspended2% suspended carboxymethylcellulose (REFRESH PLUS) 0.5 % SOLN Apply to eye. active halobetasol (ULTRAVATE) 0.05 % cream Apply topically. active halobetasol propionateTakeNo date recordedNo form recordedNo frequency recordedNo route recordedNo set duration recordedNo set duration amount recordedactiveNo dosage strength recordedNo dosage strength units of measure recorded active valACYclovir (VALTREX) 500 MG tablet Take 1 tablet (500 mg total) by mouth every night at bedtime. active aspirinTakeNo date recordedNo form recordedNo frequency recordedNo route recordedNo set duration recordedNo set duration amount recordedactiveNo dosage strength recordedNo dosage strength units of measure recorded active niacinamideTakeNo date recordedNo form recordedNo frequency recordedNo route recordedNo set duration recordedNo set duration amount recordedactiveNo dosage strength recordedNo dosage strength units of measure recorded active ValtrexTakeNo date recordedNo form recordedNo frequency recordedNo route recordedNo set duration recordedNo set duration amount recordedactiveNo dosage strength recordedNo dosage strength units of measure recorded active docusate sodium (COLACE) 100 MG capsule Take 1 capsule (100 mg total) by mouth 2 (two) times a day. active metoprolol tartrate (LOPRESSOR) 25 MG tablet TAKE 1 TABLET BY MOUTH TWICE DAILY active atorvastatin (LIPITOR) 10 MG tablet Take 1 tablet (10 mg total) by mouth every evening. active Co q-10 200mg extra strength softgel active atorvastatinTake (oral)[id number] o frequency recordedoralNo set duration recordedNo set duration amount [id number] active [id number] Oil-Vitamin E (THERA TEARS NUTRITION PO) Take by mouth. 01/14/2 024 active methotrexateTakeNo date recordedNo form recordedNo frequency recordedNo route recordedNo set duration recordedNo set duration amount recordedsuspendedNo dosage strength recordedNo dosage strength units of measure recorded 024 suspended BREO ELLIPTA 100mcg-25mcg/actuation Powder for Inhalation active amlodipineTakeNo natalia e recordedNo form recordedNo frequency recordedNo route recordedNo set duration recordedNo set duration amount recordedsuspendedNo dosage strength recordedNo dosage strength units of measure recorded 024 suspended Co Q-10TakeNo date recordedNo form recordedNo frequency recordedNo route recordedNo set duration recordedNo set duration amount recordedactiveNo dosage strength recordedNo dosage strength units of measure recorded 024 active Coenzyme Q10 (COQ-10) 200 MG CAPS Take by mouth. active metoprolol tartrateTake (oral)[id number] o frequency recordedoralNo set duration recordedNo set duration amount [id number] active ALPRAZolam (XANAX) 0.5 MG tablet Take 1 tablet (0.5 mg total) by mouth every night at bedtime as needed for sleep. 024 active nystatinTake 5 ml (oral) 4 times per day for 7 days use for 72 hours after symptoms [id number] sion4 times per [id number] 100,000unit/mL 024 suspended KeflexTake 1 tablet (oral) 3 times per day for 10 [id number] times per [id number] d500mg 024 suspended albuterol sulfateTakeNo date recordedNo form recordedNo frequency recordedNo route recordedNo set duration recordedNo set duration amount recordedactiveNo dosage strength recordedNo dosage strength units of measure recorded active Olmesartan Medoxomil 40mg Tablet 023 active Amlodipine besylate 10mg tablet 023 active No known medications No known medications active lidocaine (XYLOCAINE) 1 % injection 1.5 mL 1.5 mL, Intra-articular, Once PRN Procedure, Starting on Amairani 07/29/22 at 1412, For 1 dose 07/07/2 023 completed bupivacaine (PF) (MARCAINE) 0.75 % injection 1 mL 1 mL, Intra-articular, Once PRN Procedure, Starting on Amairani 07/29/22 at 1412, For 1 dose 023 completed Problems Problem Status Onset Date Problem Type Date of Resolution Source Paronychia of toe active 2014-05-16 1 ProblemAct E[facility]_PODCRCT Nail dystrophy active 2023-11-15 8 EncounterDiagnosisAct ENS_PODCRCT PAD (peripheral artery disease) ([facility]) active EncounterDiagnosisAct CTTH NEMG Mitral annular calcification active EncounterDiagnosisAct CTTHN EMG Coronary artery disease involving [place] coronary artery of [place] heart without angina pectoris active EncounterDiagnosisAct CTTHNE MG Primary osteoarthritis of both knees active EncounterDiagnosisAct HHCCT Hypercholesteremia active ProblemAct CTTHJMH Hypertension active ProblemAct CTTHJM H Syncope active ProblemAct CTTHJMH Unspecified hearing loss, left ear active ProblemAct CT_PHYSONE Essential (primary) hypertension active ProblemAct CT_PHYSONE Chronic obstructive pulmonary disease, unspecified active ProblemAct CT_PHYSONE Paroxysmal supraventricular tachycardia active ProblemAct CTTHJMH Dislocation of left shoulder joint active 4 ProblemAct CTTHJMH Sprain of calcaneofibular ligament of right ankle, initial encounter active 2019-06-15 4 ProblemAct ENS_PODCR[facility] Hammer toe active 2019-12-17 0 ProblemAct [facility] Porokeratoma active 2016-08-14 8 ProblemAct ENS_PODCR[facility] Skin fissures - including other specified disorders of the skin and subcutaneous tissue active 2019-07-18 0 ProblemAct ENS_PODCRCT Tinea unguium, onychomycosis active 2 ProblemAct ENS_PODCRCT Hammer toe active 2019-12-17 0 ProblemAct ENS_PODCR[facility] Neuralgia and neuritis active 2019-10-17 5 ProblemAct E[facility]ODCR[facility] Other sprain of right foot, subsequent encounter active 8 ProblemAct ENS_PODCR[facility] XEROSIS active 7 ProblemAct ENS_PODCRCT INGROWING NAIL active 7 ProblemAct ENS_PODCRCT Cellulitis of left toe, paronychia active 2015-10-18 0 ProblemAct ENS_PODCRCT Wishes to postpone menstruation active 2 ProblemAct ENS_PODCRCT Epidermoid cyst active 2014-06-15 1 ProblemAct ENS[facility]POD[facility] CONTUSION OF TOE active 2 ProblemAct ENS_PODCRCT Abrasion, left great toe, initial encounter active 2018-09-15 9 ProblemAct ENS_PODCRCT Supraventricular tachycardia active ProblemAct CT_PHYSONE Traumatic complete tear of left rotator cuff active 2020-03-17 0 ProblemAct CTTHJMH Feared complaint without diagnosis active EncounterDiagnosisAct C T_YALEUC Ingrowing nail active 2023-11-15 8 EncounterDiagnosisAct ENS_PODCRCT Activity, walking, marching and hiking active 2018-09-15 9 ProblemAct ENS_PODCRCT Fall from chair or bed (event) active 2019-06-15 4 ProblemAct ENS_PODCRCT Pain in left toe(s) active 2 ProblemAct ENS_PODCRCT BUNION active 9 ProblemAct ENS_PODCRCT Contusion of right great toe with damage to nail, initial encounter active 2019-08-16 4 ProblemAct ENS_PODCRCT Other sprain of right foot, initial encounter active 2019-06-15 4 ProblemAct ENS_PODCRCT Hypertrophic lichen planus active EncounterDiagnosisAct CTTHJM H Arthritis of right knee active 4 ProblemAct CTTHJMH Hypertrophic lichen planus active ProblemAct CT_PHYSONE Acute pharyngitis, unspecified active 2023-05-16 8 ProblemAct CT_PHYSONE SOB (shortness of breath) active 6 ProblemAct CTTHJMH Diverticulosis of intestine, part unspecified, without perforation or abscess without bleeding active ProblemAct CT_PHYSONE Pain in right toe(s) active 2 ProblemAct ENS_PODCRCT Chest pain active EncounterDiagnosisAct CTTHSFRAN
[2024-03-01 10:56] VITALS: PULSE 73; O2SAT 99
== END 2024-03-01 11:50 | disposition home or self-care (01) ==
PROVIDERS: PCP Internal Medicine; Visit Provider Internal Medicine Pulmonary Disease
DX: J44.9 Chronic obstructive pulmonary disease, unspecified (principal); Z99.81 Dependence on supplemental oxygen
CPT/HCPCS: 94060; 94618; 94727; 94729; 99204

== ENCOUNTER → 2024-03-01 09:36 | Outpatient (BNVA) | payer MEDICARE, SELFPAY | PROVIDERS: PCP Internal Medicine; Visit Provider Internal Medicine Pulmonary Disease ==

== ENCOUNTER 2024-03-30 11:40 | Outpatient (AMB) | payer MEDICARE, SELFPAY ==
[2024-03-30 11:42] VITALS: BP 128/62; PULSE 72; O2SAT 100; BMI 21.5
--- NOTE | 2024-03-30 11:42 | A.OFFVIS_ITS ---
Vital Signs 03/30/24 11:42 Height 5 ft 1 in Weight 114 lb BMI 21.5 BP 128/62 Blood Pressure Location Rt brachial Position Sitting Pulse 72 Pulse Source Doppler Pulse Oximetry (%) 100 Oxygen Delivery Method Nasal Cannula Oxygen Flow Rate 4 Intake Visit Reasons: COPD/PFT Follow Up Allergies No Known Allergies Allergy (Verified 03/30/24 11:54) HPI HPI COPD/PFT Follow Up: Details: 83-year-old lady, former 20-25 pack-year smoker, quit 1989 with underlying COPD supplemental oxygen dependent, using Inogen at setting 4 and home oxygen concentrator up to 4 L, previously followed by Dr. Gallego presents for evaluation. Patient states that she has not been using albuterol MDI or any other bronchodilators. She denies having recent pulmonary function testing. Patient does have CT chest from 2022 showing no pulmonary fibrosis. Patient complains of significant dyspnea on exertion and intermittent tachycardia. Patient denies family history of lung disease. After the last office visit patient started on Anoro with some improvement her symptoms, she also finished a pulmonary function test. She denies acute exacerbations. [facility] Surgical History H/O: hysterectomy (~1993) Family History Father CHF (congestive heart failure) Mother CHF (congestive heart failure) HTN (hypertension) Social History Comment: Social Patient Tobacco Use Status: Former Tobacco user Review of Systems Const Denies daytime sleepiness, Denies excessive sweating, Denies fatigue, Denies fever(s), Denies lethargy, Denies malaise, Denies night sweats, Denies snoring and Denies weight loss Eyes Denies blurry vision and Denies itchy eyes ENT Denies nasal congestion, Denies post nasal drip, Denies sinus pain, Denies sinus pressure and Denies other ( Thrush) Card Denies chest pain, Denies pedal edema, Denies dyspnea, Reports dyspnea on exertion, Denies orthopnea and Denies paroxysmal nocturnal dyspnea Resp Denies cough, Denies hemoptysis, Denies excessive phlegm production, Denies dyspnea, Reports dyspnea on exertion, Denies snoring and Denies wheezing GI Denies abdominal pain and Denies heartburn Musc Denies myalgias, Denies arthralgias and Denies joint swelling Skin/Breast Denies rash Neuro Denies memory loss and Denies seizure-like activity Psych Denies abnormal sleep pattern, Denies anxiety and Denies memory loss Endo Denies excessive sweating, Denies fatigue and Denies heat intolerance Romel/Lymph Denies easy bruising Aller/Immun Denies itchy eyes, Denies seasonal rhinorrhea and Denies wheezing Physical Exam Vital Signs: Last Vital Signs Pulse 72 03/30/24 11:42 BP 128/62 03/30/24 11:42 Pulse Ox 100 03/30/24 11:42 Oxygen Delivery Method Nasal Cannula 03/30/24 11:42 Oxygen Flow Rate 4 03/30/24 11:42 BMI result Body Mass Index 21.5 Const General: no acute distress and alert Nutritional Appearance: not obese Orientation/consciousness: Other orientation findings ( oriented) HEENT Head: Yes atraumatic Eyes General: appearance normal, both eyes and all related structures Sclerae: sclerae normal EOM: EOMs intact bilaterally Neck Neck: Yes supple Lymphatic: no lymphadenopathy noted Resp Effort & Inspection: normal respiratory effort and no use of accessory muscles Auscultation: clear to auscultation bilaterally Cardio Rate: regular rate Rhythm: regular rhythm Heart sounds: no gallops, no murmurs and no rubs Skin General skin exam: other ( warm) Extrem General: No clubbing, No cyanosis and No edema Assessment & Plan Assessment & Plan (1) COPD (chronic obstructive pulmonary disease): Code(s): J44.9 - Chronic obstructive pulmonary disease, unspecified Category: Medical Plan: Pulmonary function test reviewed, underlying mild COPD. Now well controlled on Anoro and albuterol MDI. Continue current regimen. (2) Supplemental oxygen dependent: Code(s): Z99.81 - Dependence on supplemental oxygen Category: Medical Plan: Continue supplemental oxygen to maintain O2 saturation above 89%. (3) Dyspnea on exertion: Code(s): R06.09 - Other forms of dyspnea Category: Medical Plan: Multifactorial. Will start on iron supplement and obtain cardiopulmonary exercise test. Orders: Orders CA cardiopulmonary stress test Today R06.09 - Other forms of dyspnea Medications: New ferrous sulfate 325 mg PO DAILY 30 tabs 6RF Coding Level of Care Code Est Pt Level 4 (50485) Complex EM visit Add On G2211 Diagnoses COPD (chronic obstructive pulmonary disease) J44.9 Supplemental oxygen dependent Z99.81 Dyspnea on exertion R06.09
--- OUTSIDE RECORDS SUMMARY | 2024-03-30 12:24 | XMS_ITS | Encounter Summary ---
Author Organization [facility] Address [address] [place] [address] Care Team Providers Care Screen Stretcher Name Role Phone Jose Carlos Borja MD Primary Care Provider [phone] Encounter Details Date Type Department Care Team (Late st Contact Info) Description 08/12/2022 Telephone [facility] [address] [place] [phone] Nick Granados PA-C [address] [facility] [address] [place] [address] Social History Tobacco Use Types Packs/Day Years Used Date Smoking Tobacco: Never Assessed Sex and Gender Information Value Date Recorded Sex Assigned at Not on file Gender Identity Not on file Sexual Orientation Not on file documented as of this encounter Plan of Treatment Upcoming Encounters Date Type Department Care Team (Late st Contact Info) Description 08/29/2024 10:00 AM EDT Clinical Support [facility] [place] [address] [facility] [place] [phone] Ronaldo Hardwick MD [address] [place] [phone] [address]illo [address] [place], [place] [id number] documented as of this encounter Visit Diagnoses Not on filedocumented in this encounter Care Teams Screen Stretcher Relationship Specialty Start Date End Date Jose Carlos Borja MD PCP - General Internal Medicine 11/25/15 documented as of this encounter
--- OUTSIDE RECORDS SUMMARY | 2024-03-30 12:24 | XMS_ITS | Encounter Summary ---
Author Organization [facility] Address [address] [place] [address] Care Team Providers Care Jacket Preparer Name Role Phone Jose Carlos Borja MD Primary Care Provider Encounter Details Date Type Department Care Team (Late st Contact Info) Description 03/05/2022 Scanned Document [facility] [place] at [address] [phone] Provider, Generic Social History Tobacco Use Types Packs/Day Years Used Date Smoking Tobacco: Never Assessed Sex and Gender Information Value Date Recorded Sex Assigned at Not on file Gender Identity Not on file Sexual Orientation Not on file documented as of this encounter Plan of Treatment Upcoming Encounters Date Type Department Care Team (Late st Contact Info) Description 08/29/2024 10:00 AM EDT Clinical Support [facility] [address] [facility] [place] [phone] Ronaldo Hardwick MD [address] [place] [phone] Zee Portillo [address] [place], [place] [id number] documented as of this encounter Procedures Procedure Name Priority Date/Time Associated Diagnosis Comments BOOKING SHEETS-SCAN 03/05/2022 documented in this encounter Results * BOOKING SHEETS-SCAN (03/05/2022) Narrative 03/05/2022 Ordered by an unspecified provider. Generic Provider HX AMB PROCEDURES documented in this encounter Visit Diagnoses Not on filedocumented in this encounter Care Teams Jacket Preparer Relationship Specialty Start Date End Date Jose Carlos Borja MD PCP - General Internal Medicine 11/25/15 documented as of this encounter
--- OUTSIDE RECORDS SUMMARY | 2024-03-30 12:24 | XMS_ITS ---
Author Name Miley Morgan DPM Address [address] [place] [address] Phone Organization [facility] Care Team Providers Care Upward Bound Director Name Role Phone Jose Carlos Borja Primary Care Physician Jose Carlos Borja Unavailable Miley Morgan DPM Attending Physician [phone] Insurance Insurance Plan Name Insurance ID Group # Subscriber Name Relation Start and End Dates Insurance Type [employer] Medicare Complete [id number] MACKENZIE TURNER Self - Commercia l Social History Social History Observation Description SNOMED Code Qualifiers Comments Date Reported Category Start Date End Date Former smoker Former smoker [id number] 03/15/2024 Sm oking Status 2013 - - Problems Condition Effective Dates Condition Status Problem Name SNOMED Code ICD9/10 Code Painful left hallux 05/14/2010 Active INGROWING NAIL 05/14/2010 Active 727672633 - I ngrowing nail 693131281 703.0 PARONYCHIA TOE 05/14/2010 Active 478505319 - P aronychia of toe 906230056 681.11 INGROWING NAIL 10/23/2010 Active 781306299 - I ngrowing nail 242728321 703.0 BUNION 10/23/2010 Active 822406329 - Swe lling of first metatarsophalangeal joint of hallux 109861250 727.1 Painful left hallux 10/23/2010 Active CONTUSION OF TOE 08/16/2011 Active 924 .3 Painful left 4th toe 08/16/2011 Active INGROWING NAIL 04/20/2012 Active 225389039 - I ngrowing nail 792391405 703.0 XEROSIS 04/20/2012 Active 706.8 Painful nail left hallux 04/20/2012 Active Paronychia of toe 06/04/2014 Active 458131250 - Paronychia of toe 996489499 681.11 Epidermoid cyst 07/04/2014 Active 513797635 - Epidermoid cyst 940095312 706.2 Cellulitis of left toe, paronychia 11/14/2015 Active L03.032 Ingrowing nail 11/14/2015 Active 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 L85.2 Activity, walking, marching and hiking 10/12/2018 Active Y93.01 Abrasion, left great toe, initial encounter 10/12/2018 Active S90.412A Pain in left toe(s) 05/17/2019 Active M79.675 Tinea unguium, onychomycosis 05/17/2019 Active B35.1 Wishes to postpone menstruation 05/17/2019 Active 313453776 - Wishes t o postpone menstruation 653467920 Z41.8 Pain in right toe(s) 05/17/2019 Active M79.674 Sprain of calcaneofibular ligament of right ankle, initial encounter 06/28/2019 Active S93.411A Fall from chair or bed (event) 06/28/2019 Active 935171579 - Fall fro m chair or bed (event) 895502603 W07.XXXA Other sprain of right foot, initial encounter 06/28/2019 Active S93.691A Other sprain of right foot, subsequent encounter 07/23/2019 Active S93.691D Skin fissures - including other specified disorders of the skin and subcutaneous tissue 08/14/2019 Active L98.8 Contusion of right great toe with damage to nail, initial encounter 09/07/2019 Active S90.211A Dystrophia unguium 11/02/2019 Active 57008196 - Dystrophia unguium 95873850 L60.3 Neuralgia and neuritis 11/09/2019 Active M79.2 Hammer toe 01/04/2020 Active 092005522 - Hammer toe 13612 1008 M20.42 Hammer toe 01/04/2020 Active 463980033 - Hammer toe 25972 1008 M20.41 Medications RxNorm Code Drug Name Route Dose Frequency Date Status Generic Name NDC Code Verified on Colace 100mg capsule Oral 2015 Active 67662594 110 03/15/2024 11:56:00 AM Valtrex 500 MG Tablet Oral 2010 Active 18746510 930 03/15/2024 11:56:00 AM 8642476 BREO ELLIPTA 100mcg-25 mcg/actua tion Powder for Inhalatio n Respirato ry (Inhalati on) 0 Inhalant Inhale 1 Inhalation once daily 023 Active Fluticasone Furoate;Brayan anterol 69782059 910 03/15/2024 11:56:00 AM Vitamin d-1000 tablet Oral 018 Active 09633468 139 03/15/2024 11:56:00 AM Amlodipin e besylate 10mg tablet Oral 018 Active 86437759 509 03/15/2024 11:56:00 AM Methotrex ate fci Unknown 02/02 Active 96465835 102 03/15/2024 11:56:00 AM Folic Acid 02/02 Active [id number] 598 03/15/2024 11:56:00 AM Atorvasta tin calcium 10mg tablet Oral 018 Active 08960936 405 03/15/2024 11:56:00 AM Align Capsule Oral 2014 Active 03456967 866 03/15/2024 11:56:00 AM Multivita mins Tablet Oral 2010 Active 12181193 610 03/15/2024 11:56:00 AM Tears naturale forte lubricant eye drops Ophthalmi c 2015 Active 06409454 315 03/15/2024 11:56:00 AM Olmesarta n Medoxomil 40mg Tablet Oral 0 Tablet Take 1 Tablet by mouth once daily 023 Active 71006912 330 03/15/2024 11:56:00 AM 146674 Co q-10 200mg extra strength softgel Oral 018 Active Co-Enzyme Q-10 (Ubiquinone ) 08450377 414 03/15/2024 11:56:00 AM Xanax 0.5MG Tablet Oral 2014 Active 85514940 503 03/15/2024 11:56:00 AM Allergies, adverse reactions, alerts Medication/Agent Allergy Reaction Concern Status Date Recorded RxNorm Code Severity SNOMED Code Occur Date .No Known Drug Allergies 05/14/2010 12:05:38 PM Vital Signs Vital Name (Units) 03/15/2024 Time Loinc 12/02/2023 Time Loinc 09/14/2023 Time Loinc 07/01/2023 Time Loinc 05/17/2023 Time Loinc 12/02/2022 Time Loinc 09/23/2022 Time Loinc 07/30/2022 Time Loinc 06/18/2022 Time Loinc 05/20/2022 Time Loinc 03/23/2022 T lamonte Loinc 03/18/2022 Time Loinc 02/22/2022 Time Loinc 11/18/2021 Time Loinc 2021 Time Loinc 09/04/2021 Time Loinc 08/06/2021 Time Loinc 04/28/2021 Time Loinc Time Loinc 01/26/2021 Time Loinc 11/20/2020 Time Loinc 10/30/2020 Time Loinc 08/14/2020 Time Loinc 06/17/2020 Time Loinc 04/22/2020 Time Loinc 02/28/2020 Time L oinc 01/04/2020 Time Loinc 12/03/2019 Time Loinc 11/09/2019 Time Loinc Time Loinc 10/05/2019 Time Loinc 09/07/2019 Time Loinc 08/14/2019 Time Loinc 07/23/2019 Time Loinc 06/28/2019 Time Loinc 06/06/2019 Time Loinc 05/17/2019 Time Loinc 04/19/2019 Time Loinc 03/19/2019 Time Loinc 02/21/2019 Time Loinc 11/08/2018 Time L oinc 10/12/2018 Time Loinc 10/05/2018 Time Loinc 09/04/2018 Time Loinc 08/18/2018 Time Loinc 06/07/2018 Time Loinc 04/27/2018 Time Loinc 02/02/2018 Time Loinc 12/29/2017 Time Loinc 03/28/2017 Time Loinc 03/21/2017 Time Loinc 02/03/2017 Time Lo inc 01/18/2017 Time Loinc 11/15/2016 Time Loinc 08/31/2016 Time Loinc 05/25/2016 Time Loinc 11/14/2015 Time Loinc 07/04/2014 Time Loinc 06/20/2014 Time Loinc 06/10/2014 Time Loinc 06/04/2014 Time Loinc 05/28/2014 Time Loinc 04/20/2012 Time Loinc 08/16/2011 Time Loinc 10/23/2010 Time Loinc 05/14/2010 Time Loinc Height/L ength ([cm]) 160.02 11:57 8302-2 160.02 14:00 8302-2 160.02 09:27 8302-2 160.02 08:31 8302-2 160.02 11:46 8302-2 160.02 11:55 8302-2 160.02 12:24 8302-2 160.02 09:22 8302-2 160.02 10:47 8302-2 160.02 12:11 8302-2 160.02 09:56 8302-2 160.02 11:41 8302-2 160.02 13:47 8302-2 160.02 14:18 8302-2 160.02 10:23 8302-2 160.02 09:47 8302-2 160.02 11:04 8302-2 160.02 12:19 8302-2 160.02 10:51 8302-2 160.02 11:55 8302-2 160.02 10:32 8302-2 160.02 09:40 8302-2 160.02 09:22 8302-2 160.02 08:02 8302-2 160.02 14:15 8302-2 160.02 09:41 8302-2 160.02 09:43 8302-2 160.02 11:56 8302-2 160.02 10:06 8302-2 160.02 10:41 8302-2 160.02 13:02 8302-2 160.02 09:07 8302-2 160.02 15:15 8302-2 160.02 13:39 8302-2 160.02 09:01 8302-2 160.02 13:47 8302-2 160.02 10:27 8302-2 160.02 12:11 8302-2 160.02 10:31 8302-2 160.02 13:29 8302-2 160.02 13:32 8302-2 160.02 13:49 8302-2 160.02 11:48 8302-2 160.02 09:18 8302-2 160.02 11:50 8302-2 160.02 12:29 8302-2 160.02 14:46 8302-2 160.02 13:40 8302-2 160.02 14:14 8302-2 160.02 13:04 8302-2 160.02 11:05 8302-2 160.02 13:31 8302-2 160.02 10:56 8302-2 160.02 08:54 8302-2 160.02 09:22 8302-2 160.02 11:15 8302-2 160.02 08:33 8302-2 160.02 08:51 8302-2 160.02 11:42 8302-2 160.02 16:33 8302-2 160.02 14:30 8302-2 160.02 08:48 8302-2 160.02 10:10 8302-2 160.02 11:31 8302-2 160.02 09:29 8302-2 160.02 12:11 8302-2 Weight (kg) 53.52 11:57 06530- 7 53.52 14:00 44506- 7 51.71 09:27 49306- 7 52.62 08:31 92906- 7 54.43 11:46 09025- 7 54.43 11:55 00369- 7 54.43 12:24 91316- 7 54.43 09:22 39772- 7 54.43 10:47 48621- 7 53.52 12:11 74560- 7 57.61 09:56 37792- 7 57.61 11:41 59675- 7 53.98 13:47 00088- 7 57.61 14:18 70926- 7 56.25 10:23 08577- 7 57.61 09:47 13232- 7 57.61 11:04 39738- 7 57.61 12:19 96399- 7 57.61 10:51 14193- 7 57.61 11:55 80439- 7 58.06 10:32 19998- 7 58.06 09:40 56069- 7 58.51 09:22 45187- 7 58.06 08:02 78613- 7 58.97 14:15 28124- 7 58.97 09:41 98871- 7 58.97 09:43 74406- 7 57.61 11:56 80841- 7 59.42 10:06 01772- 7 61.24 10:41 20826- 7 60.78 13:02 64812- 7 60.78 09:07 57741- 7 62.14 15:15 51347- 7 62.14 13:39 97976- 7 68.95 09:01 96253- 7 63.5 13:47 67633- 7 63.5 10:27 95791- 7 63.05 12:11 81602- 7 61.69 10:31 62323- 7 62.6 13:29 15012- 7 62.14 13:32 51698- 7 62.14 13:49 74253- 7 61.24 11:48 67359- 7 62.14 09:18 11353- 7 62.14 11:50 78078- 7 62.14 12:29 06275- 7 61.24 14:46 97627- 7 61.69 13:40 18834- 7 65.77 14:14 16762- 7 65.77 13:04 51415- 7 65.77 11:05 48003- 7 65.32 13:31 62007- 7 64.86 10:56 22438- 7 64.86 08:54 52676- 7 64.86 09:22 46779- 7 64.86 11:15 03314- 7 63.5 08:33 79041- 7 57.15 08:51 49599- 7 57.15 11:42 20642- 7 57.15 16:33 05957- 7 57.15 14:30 10177- 7 58.51 08:48 65881- 7 64.45 10:10 80713- 7 64.45 11:31 05703- 7 65.36 09:29 60114- 7 64.8 12:11 18407- 7 Blood Pressure -Diastol ic (mm[Hg] - - - - - - - - - - - - - - - - - - - - - - - - - - - - - - - - - - - - - - - - - - - - - - - - - - - - - - - - - - - - - - 82 10:10 8462-4 79 11:31 8462-4 79 09:29 846 2-4 - Blood Pressure -Systoli c (mm[Hg]) - - - - - - - - - - - - - - - - - - - - - - - - - - - - - - - - - - - - - - - - - - - - - - - - - - - - - - - - - - - - - - 140 10:10 8480-6 143 11:31 8480-6 143 09: 29 8480-6 - O2 % BldC Oximetry (%) - - - - - - - - - - - - - - - - - - - - - - - - - - - - - - - - - - - - - - - - - - - - - - - - - - - - - - - - - - - - - - - - - - Body Temperat ure (Aneta) - - - - - - - - - - - - - - - - - - - - - - - - - - - - - - - - - - - - - - - - - - - - - - - - - - - - - - - - - - - - - - - - - - Heart Rate (/min) - - - - - - - - - - - - - - - - - - - - - - - - - - - - - - - - - - - - - - - - - - - - - - - - - - - - - - - - - - - - - - - - - - Respirat ion Rate (/min) - - - - - - - - - - - - - - - - - - - - - - - - - - - - - - - - - - - - - - - - - - - - - - - - - - - - - - - - - - - - - - - - - - Inhaled Oxygen Concentr ation (%) - - - - - - - - - - - - - - - - - - - - - - - - - - - - - - - - - - - - - - - - - - - - - - - - - - - - - - - - - - - - - - - - - - Body Mass Index (kg/m2) 20.9 11:57 47214- 5 20.9 14:00 34285- 5 20.2 09:27 80181- 5 20.5 08:31 90043- 5 21.3 11:46 07654- 5 21.3 11:55 60335- 5 21.3 12:24 73629- 5 21.3 09:22 42790- 5 21.3 10:47 38882- 5 20.9 12:11 01343- 5 22.5 09:56 81533- 5 22.5 11:41 04945- 5 21.1 13:47 06338- 5 22.5 14:18 10186- 5 22 10:23 44873- 5 22.5 09:47 72513- 5 22.5 11:04 69497- 5 22.5 12:19 70442- 5 22.5 10:51 44685- 5 22.5 11:55 72367- 5 22.7 10:32 11764- 5 22.7 09:40 74339- 5 22.8 09:22 63474- 5 22.7 08:02 12015- 5 23 14:15 42228- 5 23 09:41 09741- 5 23 09:43 25272- 5 22.5 11:56 70328- 5 23.2 10:06 44988- 5 23.9 10:41 01910- 5 23.7 13:02 65317- 5 23.7 09:07 73890- 5 24.3 15:15 80424- 5 24.3 13:39 23956- 5 26.9 09:01 41650- 5 24.8 13:47 74820- 5 24.8 10:27 45315- 5 24.6 12:11 50016- 5 24.1 10:31 67947- 5 24.4 13:29 99857- 5 24.3 13:32 12750- 5 24.3 13:49 04350- 5 23.9 11:48 80874- 5 24.3 09:18 61317- 5 24.3 11:50 60364- 5 24.3 12:29 61321- 5 23.9 14:46 58481- 5 24.1 13:40 48863- 5 25.7 14:14 87043- 5 25.7 13:04 67880- 5 25.7 11:05 20050- 5 25.5 13:31 60215- 5 25.3 10:56 24013- 5 25.3 08:54 62742- 5 25.3 09:22 84598- 5 25.3 11:15 02110- 5 24.8 08:33 07681- 5 22.3 08:51 42864- 5 22.3 11:42 97129- 5 22.3 16:33 31646- 5 22.3 14:30 18268- 5 22.8 08:48 42025- 5 25.2 10:10 24024- 5 25.2 11:31 09672- 5 25.5 09:29 92704- 5 25.31 12:11 81197- 5 Body Surface Area (m2) 2 11:57 3140-1 2 14:00 3140-1 2 09:27 3140-1 2 08:31 3140-1 2 11: 46 3140-1 2 11:55 3140-1 2 12:24 3140-1 2 09:22 3140-1 2 10:47 3140-1 2 12:11 31 40-1 2 09:56 3140-1 2 11:41 3140-1 2 13:47 3140-1 2 14:18 3140-1 2 10:23 31 40-1 2 09:47 3140-1 2 11:04 3140-1 2 12:19 3140-1 2 10:51 3140-1 2 11:55 3140-1 2 10:32 3140-1 2 09:40 3140-1 2 09:22 3140-1 2 08:02 3140-1 2 14:15 3140-1 2 09:41 3140-1 2 09:43 3140-1 2 11:56 3140-1 2 10:06 3140-1 2 10:41 3140-1 2 13:02 3140-1 2 09:07 3140-1 2 15:15 3140-1 2 13:39 3140-1 2 09:01 3140-1 2 13:47 3140-1 2 10:27 3140-1 2 12:11 3140-1 2 10:31 3140-1 2 13:29 3140-1 2 13:32 3140-1 2 13:49 3140-1 2 11:48 3140-1 2 09:18 3140-1 2 11:50 3140-1 2 12:29 3140-1 2 14:46 3140-1 2 13:40 3140-1 2 14:14 3140-1 2 13:04 3140-1 2 11:05 3140-1 2 13:31 3140-1 2 10:56 3140-1 2 08:54 3140-1 2 09:22 3140-1 2 11:15 3140-1 2 08:33 3140-1 2 08:51 3140-1 2 11:42 3140-1 2 16:33 3140-1 2 14:30 3140-1 2 08:48 3140-1 2 10:10 3140-1 2 11:31 3140-1 2 09:29 3140-1 2 12:11 3140-1 Height/L ength ([in_us] ) 63 11:57 8302-2 63 14:00 8302-2 63 09:27 8302-2 63 08:31 8302-2 63 11:46 8302-2 63 11:55 8302-2 63 12:24 8302-2 63 09:22 8302-2 63 10:47 8302-2 6 3 12:11 8302-2 63 09:56 8302-2 63 11:41 8302-2 63 13:47 8302-2 63 14:18 8302-2 6 3 10:23 8302-2 63 09:47 8302-2 63 11:04 8302-2 63 12:19 8302-2 63 10:51 8302-2 6 3 11:55 8302-2 63 10:32 8302-2 63 09:40 8302-2 63 09:22 8302-2 63 08:02 8302-2 6 3 14:15 8302-2 63 09:41 8302-2 63 09:43 8302-2 63 11:56 8302-2 63 10:06 8302-2 6 3 10:41 8302-2 63 13:02 8302-2 63 09:07 8302-2 63 15:15 8302-2 63 13:39 8302-2 6 3 09:01 8302-2 63 13:47 8302-2 63 10:27 8302-2 63 12:11 8302-2 63 10:31 8302-2 6 3 13:29 8302-2 63 13:32 8302-2 63 13:49 8302-2 63 11:48 8302-2 63 09:18 8302-2 6 3 11:50 8302-2 63 12:29 8302-2 63 14:46 8302-2 63 13:40 8302-2 63 14:14 8302-2 6 3 13:04 8302-2 63 11:05 8302-2 63 13:31 8302-2 63 10:56 8302-2 63 08:54 8302-2 6 3 09:22 8302-2 63 11:15 8302-2 63 08:33 8302-2 63 08:51 8302-2 63 11:42 8302-2 6 3 16:33 8302-2 63 14:30 8302-2 63 08:48 8302-2 63 10:10 8302-2 63 11:31 8302-2 6 3 09:29 8302-2 63 12:11 8302-2 Weight ([lb_av] ) 118 11:57 13878- 7 118 14:00 56483- 7 114 09:27 68646- 7 116 08:31 16238- 7 120 11:46 92513- 7 120 11:55 02025- 7 120 12:24 40236- 7 120 09:22 16919- 7 120 10:47 00390- 7 118 12:11 87200- 7 127 09:56 11539- 7 127 11:41 17663- 7 119 13:47 64392- 7 127 14:18 99520- 7 124 10:23 88153- 7 127 09:47 34598- 7 127 11:04 39530- 7 127 12:19 99978- 7 127 10:51 08943- 7 127 11:55 47153- 7 128 10:32 49491- 7 128 09:40 78294- 7 129 09:22 81044- 7 128 08:02 34950- 7 130 14:15 01989- 7 130 09:41 03551- 7 130 09:43 82014- 7 127 11:56 10389- 7 131 10:06 11746- 7 135 10:41 05106- 7 134 13:02 62776- 7 134 09:07 15882- 7 137 15:15 92838- 7 137 13:39 49993- 7 152 09:01 46738- 7 140 13:47 49406- 7 140 10:27 89875- 7 139 12:11 65155- 7 136 10:31 24263- 7 138 13:29 48889- 7 137 13:32 27022- 7 137 13:49 65082- 7 135 11:48 90310- 7 137 09:18 25493- 7 137 11:50 78647- 7 137 12:29 28366- 7 135 14:46 24099- 7 136 13:40 52041- 7 145 14:14 34811- 7 145 13:04 55768- 7 145 11:05 75821- 7 144 13:31 88286- 7 143 10:56 63639- 7 143 08:54 92926- 7 143 09:22 32990- 7 143 11:15 76309- 7 140 08:33 13128- 7 126 08:51 72155- 7 126 11:42 60157- 7 126 16:33 75667- 7 126 14:30 22007- 7 129 08:48 31770- 7 142 10:10 16752- 7 142 11:31 05923- 7 144 09:29 18828- 7 144 12:11 20886- 7 Body Temperat ure ([degF]) - - - - - - - - - - - - - - - - - - - - - - - - - - - - - - - - - - - - - - - - - - - - - - - - - - - - - - - - - - - - - - - - - - BMI Percenti le (%) - - - - - - - - - - - - - - - - - - - - - - - - - - - - - - - - - - - - - - - - - - - - - - - - - - - - - - - - - - - - - - - - - - Weight for Length Percenti le (%) - - - - - - - - - - - - - - - - - - - - - - - - - - - - - - - - - - - - - - - - - - - - - - - - - - - - - - - - - - - - - - - - - - Head Occipita l frontal Circumfe rence Percenti le (%) - - - - - - - - - - - - - - - - - - - - - - - - - - - - - - - - - - - - - - - - - - - - - - - - - - - - - - - - - - - - - - - - - - Procedures Procedure Name CPT Code SNOMED Code Diagnosis Provider Service Date Status OFFICE ESTABLISHED 10 MIN 34985 CONTUSION OF TOE Ronald Marquez, DPM 08/16/2011 PQRS: Non Smoker 1036F INGROWING NAIL Colt rt Rian, DPM 05/28/2014 PQRS: PNEUMOCOCCAL VAC GIVEN 4040F INGROWING NAIL Ton Modi, DPM 05/28/2014 ESTABLISHED OFFICE VISIT REGULAR 14220 BUNION Ton Modi, DPM 05/28/2014 ESTABLISHED OFFICE VISIT REGULAR 99211 INGROWING NAIL Ton Modi, DPM 05/28/2014 PQRS: BMI Normal G8420 INGROWING NAIL Colt rt Rian, DPM 05/28/2014 INITIAL OFFICE VISIT REGULAR 03560 PARONYCHIA TOE Ton Modi, DPM 06/04/2014 NAIL AVULSION 01015 INGROWING NAIL Ton Modi, DPM 06/10/2014 NAIL AVULSION 04386 PARONYCHIA TOE Miley Eddie, DPM 06/20/2014 NAIL AVULSION 90778 INGROWING NAIL Miley Eddie, DPM 06/20/2014 ESTABLISHED OFFICE VISIT REGULAR 63042 POROKERATOMA Miley Morgan, DPM 07/04/2014 NAIL AVULSION 40942 Cellulitis of left toe, paronychia Ronald Marquez, DPM 11/14/2015 NAIL AVULSION 85253 Ingrowing nail Ronald Marquez, DPM 11/14/2015 NAIL AVULSION 36540 Cellulitis of left toe, paronychia Ronald Marquez, DPM 05/25/2016 NAIL AVULSION 15998 Ingrowing nail Ronald Marquez, DPM 05/25/2016 NAIL AVULSION 71275 Cellulitis of left toe, paronychia Miley Morgan, DPM 08/31/2016 NAIL AVULSION 29602 Ingrowing nail Miley Morgan, DPM 08/31/2016 NAIL AVULSION 83241 Cellulitis of left toe, paronychia Miley Morgan, DPM 11/15/2016 NAIL AVULSION 44497 Ingrowing nail Miley Morgan, DPM 11/15/2016 NAIL AVULSION 06982 Cellulitis of left toe, paronychia Miley Morgan, DPM 01/18/2017 NAIL AVULSION 33530 Ingrowing nail Miley Morgan, DPM 01/18/2017 ESTABLISHED OFFICE VISIT REGULAR 20417 Ingrowing nail Miley Morgan, DPM 02/03/2017 ESTABLISHED OFFICE VISIT REGULAR 25110 Ingrowing nail Miley Morgan, DPM 03/21/2017 NAIL AVULSION 98226 Cellulitis of left toe, paronychia Miley Morgan, DPM 03/28/2017 NAIL AVULSION 52732 Ingrowing nail Miley Morgan, DPM 03/28/2017 ESTABLISHED OFFICE VISIT REGULAR 82351 Ingrowing nail Miley Morgan, DPM 12/29/2017 ESTABLISHED OFFICE VISIT REGULAR 74890 Ingrowing nail Miley Morgan, DPM 02/02/2018 ESTABLISHED OFFICE VISIT REGULAR 83052 Ingrowing nail Miley Morgan, DPM 03/06/2018 ESTABLISHED OFFICE VISIT REGULAR 47711 Ingrowing nail Miley Morgan, DPM 04/27/2018 ESTABLISHED OFFICE VISIT REGULAR 53459 Ingrowing nail Miley Morgan, DPM 06/07/2018 ESTABLISHED OFFICE VISIT REGULAR 61346 Ingrowing nail Ebony Arias, DPM 08/18/2018 ESTABLISHED OFFICE VISIT REGULAR 02704 Ingrowing nail Miley Morgan, DPM 09/04/2018 ESTABLISHED OFFICE VISIT REGULAR 58828 Ingrowing nail Miley Morgan, DPM 10/05/2018 NAIL AVULSION 09452 Cellulitis of left toe, paronychia Miley Morgan, DPM 10/12/2018 ESTABLISHED OFFICE VISIT REGULAR 97296 Abrasion, left great toe, initial encounter Miley Morgan, DPM 10/12/2018 ESTABLISHED OFFICE VISIT REGULAR 95256 Activity, walking, marching and hiking Miley Morgan, DPM 10/12/2018 ESTABLISHED OFFICE VISIT REGULAR 83664 Ingrowing nail Ebony Arias, DPM 11/08/2018 ESTABLISHED OFFICE VISIT REGULAR 29648 Ingrowing nail Miley Morgan, DPM 01/16/2019 ESTABLISHED OFFICE VISIT REGULAR 56293 Ingrowing nail Ebony Arias, DPM 02/21/2019 ESTABLISHED OFFICE VISIT REGULAR 77103 Ingrowing nail Miley Zamudios, DPM 03/19/2019 ESTABLISHED OFFICE VISIT REGULAR 64871 Ingrowing nail Miley Zamudios, DPM 04/19/2019 TRIMMING NONDYSTROPHIC NAILS GY - NON COVERED 77827LQ Non-covered foot care Mileylina Morgan, DPM 05/17/2019 ESTABLISHED OFFICE VISIT REGULAR 22536 Tinea unguium, onychomycosis Miley Eddie, DPM 05/17/2019 ESTABLISHED OFFICE VISIT REGULAR 82264 Pain in left toe(s) Miley Morgan, DPM 05/17/2019 ESTABLISHED OFFICE VISIT REGULAR 93449 Pain in right toe(s) Miley Morgan, DPM 05/17/2019 ESTABLISHED OFFICE VISIT REGULAR 72154 Ingrowing nail Miley Morgan, DPM 05/17/2019 NAIL AVULSION 48797 Cellulitis of left toe, paronychia Miley Eddie, DPM 06/06/2019 NAIL AVULSION 21962 Ingrowing nail Miley Zamudios, DPM 06/06/2019 XRAY ANKLE 2 VIEWS - RIGHT 42132RQ Sprain of calcaneofibular ligament of right ankle, initial encounter Miley Morgan, DPM 06/28/2019 XRAY FOOT 3 VIEWS - RIGHT 10856BH Other sprain of right foot, initial encounter Miley Morgan, DPM 06/28/2019 ESTABLISHED OFFICE VISIT EXTENDED 79203 Other sprain of right foot, initial encounter Mileylina Morgan, DPM 06/28/2019 ESTABLISHED OFFICE VISIT EXTENDED 71306 Fall from chair, initial encounter Mileylina Morgan, DPM 06/28/2019 ESTABLISHED OFFICE VISIT EXTENDED 13898 Sprain of calcaneofibular ligament of right ankle, initial encounter Miley Morgan, DPM 06/28/2019 ESTABLISHED OFFICE VISIT EXTENDED 23135 Ingrowing nail Miley Zamudios, DPM 06/28/2019 TRIMMING NONDYSTROPHIC NAILS GY - NON COVERED [id number] Non-covered foot care Miley Morgan, DPM 07/23/2019 ESTABLISHED OFFICE VISIT EXTENDED 55294 Tinea unguium, onychomycosis Miley Eddie, DPM 07/23/2019 ESTABLISHED OFFICE VISIT EXTENDED 33601 Pain in left toe(s) Miley Eddie, DPM 07/23/2019 ESTABLISHED OFFICE VISIT EXTENDED 79294 Pain in right toe(s) Miley Eddie, DPM 07/23/2019 ESTABLISHED OFFICE VISIT EXTENDED 51207 Other sprain of right foot, initial encounter Miley Morgan, DPM 07/23/2019 ESTABLISHED OFFICE VISIT EXTENDED 41526 Other sprain of right foot, subsequent encounter Miley Eddie, DPM 07/23/2019 ESTABLISHED OFFICE VISIT EXTENDED 20685 Activity, walking, marching and hiking Miley Morgan, DPM 07/23/2019 ESTABLISHED OFFICE VISIT REGULAR 84724 Skin fissures - including other specified disorders of the skin and subcutaneous tissue Miley Morgan, DPM 08/14/2019 ESTABLISHED OFFICE VISIT REGULAR 68894 Ingrowing nail Ebony Arias, DPM 09/07/2019 ESTABLISHED OFFICE VISIT REGULAR 72807 Contusion of right great toe with damage to nail, initial encounter Ebony Arias, DPM 09/07/2019 ESTABLISHED OFFICE VISIT REGULAR 59280 Activity, walking, marching and hiking Ebony Arias, DPM 09/07/2019 TRIMMING NONDYSTROPHIC NAILS GY - NON COVERED [id number] Non-covered foot care Miley Morgan, DPM 10/05/2019 NAIL AVULSION 09680 Cellulitis of left toe, paronychia Ebony Arias, DPM 11/02/2019 NAIL AVULSION 38930 Ingrowing nail Ebony Reid, DPM 11/02/2019 ESTABLISHED OFFICE VISIT REGULAR 00186 Nail dystrophy Ebony Arias, DPM 11/02/2019 ESTABLISHED OFFICE VISIT REGULAR 75169 Tinea unguium, onychomycosis Ebony Arias, DPM 11/02/2019 ESTABLISHED OFFICE VISIT REGULAR 76527 Ingrowing nail Ebony Arias, DPM 11/09/2019 ESTABLISHED OFFICE VISIT REGULAR 21317 Neuralgia and neuritis Ebony Arias, DPM 11/09/2019 ESTABLISHED OFFICE VISIT REGULAR 39972 Ingrowing nail Ebony Arias, DPM 12/03/2019 ESTABLISHED OFFICE VISIT REGULAR 94312 Tinea unguium, onychomycosis Ebony Richey Jeanette, DPM 12/03/2019 ESTABLISHED OFFICE VISIT REGULAR 85704 Nail dystrophy Ebony Rossi Reid, DPM 12/03/2019 ESTABLISHED OFFICE VISIT REGULAR 42691 Tinea unguium, onychomycosis Ebony Richey Jeanette, DPM 01/04/2020 ESTABLISHED OFFICE VISIT REGULAR 84001 Other hammer toe(s) (acquired), right foot Ebony Richey Jeanette, DPM 01/04/2020 ESTABLISHED OFFICE VISIT REGULAR 64184 Other hammer toe(s) (acquired), left foot Ebony Richey Jeanette, DPM 01/04/2020 TRIMMING NONDYSTROPHIC NAILS GY - NON COVERED [id number] Non-covered foot care Miley Morgan, DPM 02/28/2020 ESTABLISHED OFFICE VISIT REGULAR 03057 Tinea unguium, onychomycosis Miley Morgan, DPM 02/28/2020 ESTABLISHED OFFICE VISIT REGULAR 62408 Ingrowing nail Ebony Rossi Reid, DPM 04/22/2020 TRIMMING NONDYSTROPHIC NAILS GY - NON COVERED [id number] Non-covered foot care Miley Morgan, DPM 06/17/2020 ESTABLISHED OFFICE VISIT REGULAR 65708 Tinea unguium, onychomycosis Miley Morgan, DPM 06/17/2020 TRIMMING NONDYSTROPHIC NAILS GY - NON COVERED [id number] Non-covered foot care Miley Morgan, DPM 08/14/2020 TRIMMING NONDYSTROPHIC NAILS GY - NON COVERED [id number] Non-covered foot care Miley Morgan, DPM 10/30/2020 NAIL AVULSION 00689 Cellulitis of left toe, paronychia Miley Morgan, DPM 11/20/2020 NAIL AVULSION 43733 Ingrowing nail Miley Morgan, DPM 11/20/2020 TRIMMING NONDYSTROPHIC NAILS GY - NON COVERED [id number] Non-covered foot care Miley Morgan, DPM 01/26/2021 ESTABLISHED OFFICE VISIT Level 2 80220 Ingrowing nail Miley Morgan, DPM 02/03/2021 TRIMMING NONDYSTROPHIC NAILS GY - NON COVERED [id number] Non-covered foot care Miley Morgan, DPM 04/28/2021 TRIMMING NONDYSTROPHIC NAILS GY - NON COVERED [id number] Non-covered foot care Miley Morgan, DPM 08/06/2021 NAIL AVULSION 59935 Cellulitis of left toe, paronychia Miley Zamudios, DPM 09/04/2021 NAIL AVULSION 44572 Ingrowing nail Miley Zamudios, DPM 09/04/2021 TRIMMING NONDYSTROPHIC NAILS GY - NON COVERED [id number] Non-covered foot care Miley Morgan, DPM 10/15/2021 ESTABLISHED OFFICE VISIT Level 3 11422 Ingrowing nail Ebony Rossi Reid, DPM 11/18/2021 TRIMMING NONDYSTROPHIC NAILS GY - NON COVERED [id number] Non-covered foot care Miley Morgan, DPM 02/22/2022 NAIL AVULSION 49356 Cellulitis of left toe, paronychia Mileyfrederic Zamudios, DPM 02/22/2022 NAIL AVULSION 16821 Ingrowing nail Miley Zamudios, DPM 02/22/2022 NAIL AVULSION 99782 Cellulitis of left toe, paronychia Miley Zamudios, DPM 03/18/2022 NAIL AVULSION 95644 Ingrowing nail Miley Zamudios, DPM 03/18/2022 ESTABLISHED OFFICE VISIT Level 3 72197 Cellulitis of left toe, paronychia Miley Zamudios, DPM 03/23/2022 ESTABLISHED OFFICE VISIT Level 3 40137 Ingrowing nail Miley Zamudios, DPM 03/23/2022 TRIMMING NONDYSTROPHIC NAILS GY - NON COVERED [id number] Non-covered foot care Miley Morgan, DPM 05/20/2022 ESTABLISHED OFFICE VISIT Level 2 85032 Ingrowing nail Ebony Arias, DPM 06/18/2022 ESTABLISHED OFFICE VISIT Level 2 19989 Pain in left toe(s) Ebony Arias, DPM 06/18/2022 ESTABLISHED OFFICE VISIT Level 3 17909 Ingrowing nail Ebony Arias, DPM 07/30/2022 ESTABLISHED OFFICE VISIT Level 3 17494 Pain in left toe(s) Ebony Arias, DPM 07/30/2022 TRIMMING NONDYSTROPHIC NAILS GY - NON COVERED [id number] Non-covered foot care Miley Morgan, DPM 09/23/2022 TRIMMING NONDYSTROPHIC NAILS GY - NON COVERED [id number] Non-covered foot care Miley Morgan, DPM 12/02/2022 ESTABLISHED OFFICE VISIT Level 3 57749 Ingrowing nail Ebony Richey Jeanette, DPM 01/05/2023 ESTABLISHED OFFICE VISIT Level 3 70257 Pain in left toe(s) Ebony Rossi Reid, DPM 01/05/2023 NAIL AVULSION 85595 Cellulitis of left toe, paronychia Miley Morgan, DPM 05/17/2023 NAIL AVULSION 85877 Ingrowing nail Miley Morgan, DPM 05/17/2023 ESTABLISHED OFFICE VISIT Level 3 08011 Pain in left toe(s) Ebony Rossi Reid, DPM 07/01/2023 ESTABLISHED OFFICE VISIT Level 3 95378 Nail dystrophy Ebony Rossi Reid, DPM 07/01/2023 ESTABLISHED OFFICE VISIT Level 3 98678 Pain in left toe(s) Ebony Rossi Reid, DPM 09/14/2023 ESTABLISHED OFFICE VISIT Level 3 05676 Ingrowing nail Ebony Rossi Reid, DPM 09/14/2023 ESTABLISHED OFFICE VISIT Level 3 08442 Nail dystrophy Ebony Rossi Reid, DPM 12/02/2023 ESTABLISHED OFFICE VISIT Level 3 32370 Ingrowing nail Ebony Rossi Reid, DPM 12/02/2023 TRIMMING NONDYSTROPHIC NAILS GY - NON COVERED [id number] Non-covered foot care Miley Morgan, DPM 03/15/2024 Instructions No known clinical instructions No known recommended patient decision aids Family History Description SNOMED Code Relation Comments Date Reported Oc cur Date .[place] Mother 03/15/2024 .Circulatory Problems Father .Circulatory Problems Mother .Diabetes Sister 03/15/2024 .Diabetes Mother 03/15/2024 .Heart Disease Father 03/15/2024 .Heart Disease Mother 03/15/2024 arthritis Sister 03/15/2024 arthritis Mother 03/15/2024 History of encounters Condition Effective Dates Condition Status Problem Type SNOMED Code ICD9/10 Code 032467887 - Wishes to postpone menstruation 03/15/2024 Active 908605060 - Wishes to postpone menstruation 552045662 Z41.8 Plan of Treatment Planned Care Start Date Pending Lab Test -Pathology Request JANI 12/03/2019 12:46:21 PM
--- OUTSIDE RECORDS SUMMARY | 2024-03-30 12:24 | XMS_ITS | Clinical Summary ---
Author Organization [facility] Address [address] [address] Phone Care Team Providers Care Salt Maker Name Role Phone Jose Carlos Borja MD Primary Care Provider [phone] Allergies No known active allergies Medications amLODIPine (NORVASC) 10 MG tablet Take 10 mg by mouth 1 (one) time each day Active valACYclovir (VALTREX) 500 MG tablet Take 500 mg by mouth 1 (one) time each day Active metoprolol tartrate 25 MG tablet Take 25 mg by mouth 2 (two) times a day Active losartan (COZAAR) 100 MG tablet Take 100 mg by mouth 1 (one) time each day Active ALPRAZolam (XANAX) 0.5 MG tablet Take 0.5 mg by mouth at night if needed for anxiety Active atorvastatin (LIPITOR) 10 MG tablet Take 10 mg by mouth 1 (one) time each day Active Propylene Glycol (Systane Balance) 0.6 % solution Administer into affected eye(s) Active Multiple Vitamins-Minera ls (CENTRUM SILVER 50+WOMEN PO) Take 1 tablet by mouth 1 (one) time each day Active calcium carbonate-vitam in D 600-400 MG-UNIT per tablet Take 1 tablet by mouth 1 (one) time each day Active Coenzyme Q10 (Co Q10) 200 MG capsule Take 1 capsule by mouth 1 (one) time each day Active Probiotic Product (Align) capsule Take 1 capsule by mouth 1 (one) time each day Active docusate sodium (COLACE) 100 MG capsule Take 100 mg by mouth 1 (one) time each day Active Multiple Vitamins-Minera ls (PRESERVISION AREDS 2 PO) Take 1 capsule by mouth 2 (two) times a day Active predniSONE (DELTASONE) 1 MG tablet Take 6 mg by mouth 1 (one) time each day Active methotrexate (TREXALL) 10 MG tablet Take 20 mg by mouth 1 (one) time per week Follow directions carefully, and ask to explain any part you do not understand. Take exactly as directed. Active niacinamide 500 MG tablet Take 500 mg by mouth 1 (one) time each day Active folic acid (FOLVITE) 1 MG tablet Take 1 mg by mouth 1 (one) time each day Not on tu Active halobetasol (ULTRAVATE) 0.05 % cream Apply topically if needed Active Active Problems Problem Noted Date Diagnosed Date Hypo-osmolality and hyponatremia 12/01/2020 Hypertension 12/01/2020 Resolved Problems Problem Noted Date Diagnosed Date Resolved Date Hypercholesterolemia 12/01/2020 021 Paroxysmal supraventricular tachycardia 12/01/2020 12/01/2020 Syncope 12/01/2020 12/01/2020 Traumatic rupture of rotator cuff 2020 12/01/2020 Dislocation of shoulder joint 02/18/2020 12/01/2020 Arthritis of right knee 11/17/201811/14 Family History Medical History Relation Comments Heart disease Father hardening of the arteries Diabetes Mother Gout Mother Heart disease Mother several massive heart attacks Hypertension Mother Cancer Sibling sister Diana muhammad at age 71 Cancer Sister ovarian cancer Relation Status Comments Father Mother Sibling Sister Social History Tobacco Use Types Packs/Day Years Used Date Smoking Tobacco: Former Cigarettes 0.5 22 0 02/14/1967 - 1989 Smokeless Tobacco: Former Comments:Smoking History Inf o:Every day Alcohol Use Standard Drinks/Week Comments Yes 1 (1 standard drink = 0.6 oz pure alcohol) Alcoholic Drinks/day: Occasional social drink Comments Unknown Sex and Gender Information Value Date Recorded Sex Assigned at Not on file Legal Sex Female 5:00 PM EST Gender Identity Not on file Sexual Orientation Not on file Last Filed Vital Signs Vital Sign Reading Time Taken Comments Blood Pressure 130/80 12/01/2020 1:53 PM EDT Pulse 85 12/01/2020 1:53 PM EDT Temperature - - Respiratory Rate - - Oxygen Saturation 98% 12/01/2020 1:53 PM EDT Inhaled Oxygen Concentration - - Weight 61.2 kg (135 lb) 02/20/2018 12:01 PM EST Height 160 cm (5' 3 ) 02/20/2018 12:01 PM EST Body Mass Index 23.91 02/20/2018 12:01 PM EST Plan of Treatment Health Maintenance Due Date Last Done Comments Pneumococcal Vaccine: 65+ Ye ars (1 of 2 - PCV) 1946 Influenza Vaccine (#1) 2023 Hepatitis B Vaccine Aged Out No longe r eligible based on patient's age to complete this topic Insurance [facility] Care Teams Salt Maker Relationship Specialty Start Date End Date Jose Carlos Borja MD [address] [place] [address] PCP - General Internal Medicine 09/09/20
--- OUTSIDE RECORDS SUMMARY | 2024-03-30 12:24 | XMS_ITS | Clinical Summary ---
Author Organization [facility] Address [address] [place] [address] Phone Care Team Providers Care Expense Analyst Name Role Phone Jose Carlos Borja MD Primary Care Provider + [phone] Medications albuterol HFA (PROAIR HFA ; PROVENTIL HFA ; VENTOLIN HFA) 90 mcg/actuation inhaler TAKE 2 PUFFS BY MOUTH EVERY 4 TO 6 HOURS NEEDED 05/09/19 23 Active ALPRAZolam (XANAX) 0.5 mg tablet Take 1 tablet (0.5 mg total) by mouth at bedtime as needed. Max Daily Amount: 0.5 mg Active amLODIPine (NORVASC) 10 mg tablet TAKE 1 TABLET BY MOUTH DAILY 10/12/19 23 Active atorvastatin (LIPITOR) 10 mg tablet Take 1 tablet (10 mg total) by mouth at bedtime. Active fluticasone furoate-vilant Kari (Breo Ellipta) 100-25 mcg/dose inhaler 05/08/19 23 Active calcium carbonate (CALCIUM 600 ORAL) Take by mouth. Calcium Carbonate (CALCIUM 600 PO) Active carboxymethylc ellulose (Refresh Tears) 0.5 % ophthalmic solution Administer into affected eye(s). Active cholecalcifero l (VITAMIN D-3) 25 mcg (1,000 unit) tablet Take by mouth. Activ e coenzyme Q-10 200 mg capsule Take by mouth. Active UNABLE TO FIND Take by mouth. WIM-DWC-Reeklc ed Oil-Vitamin E (THERA TEARS NUTRITION PO) Active docusate sodium (COLACE) 100 mg capsule Take 1 capsule (100 mg total) by mouth 2 (two) times a day. 02/14/19 21 Active folic acid (FOLVITE) 1 mg tablet Take 3 tablets (3 mg total) by mouth 1 (one) time each day. 10/05/19 18 Active furosemide (LASIX) 20 mg tablet Take 1 tablet (20 mg total) by mouth every other day. 02/25/19 24 Active halobetasol (ULTRAVATE) 0.05 % cream Apply topically. Active methotrexate 2.5 mg tablet Take 1 tablet (2.5 mg total) by mouth 1 (one) time per week 12/12/19 18 Active metoprolol tartrate (LOPRESSOR) 25 mg tablet TAKE 1 TABLET BY MOUTH TWICE DAILY 11/13/19 23 Active niacinamide 500 mg tablet Take 1 tablet (500 mg total) by mouth 2 (two) times a day. 04/05/19 19 Active valACYclovir (VALTREX) 500 mg tablet Take 1 tablet (500 mg total) by mouth at bedtime. Active L. acidophilus/Bi fid. animalis (DAILY PROBIOTIC ORAL) Take by mouth. Activ e olmesartan (BENICAR) 40 mg tablet TAKE 1 TABLET BY MOUTH DAILY 90 tablet 1 03/27/19 25 Active olmesartan (BENICAR) 40 mg tablet Take 1 tablet (40 mg total) by mouth 1 (one) time each day. 04/12/19 23 025 Discontinued Active Problems Problem Noted Date Diagnosed Date Syncope 04/07/2023 Hypercholesteremia 04/07/2023 Hypertension 04/07/2023 Paroxysmal supraventricular tachycardia 04/07/19 24 SOB (shortness of breath) 01/19/2023 Traumatic complete tear of left rotator cuff 11/2020 Dislocation of left shoulder joint 02/18/2020 Arthritis of right knee 11/17/2018 Encounters Date Type Department Care Team Description 02/17/2024 2:03 PM EST - 02/17/2024 11:59 PM EST Hospital Encounter [facility] MRI [address] [place] [id number] Headache, unspecified; Dizziness Discharge Disposition: Home or Self Care from Last 3 Months Immunizations Name Administration Dates Next [employer] (ages 12 & older) [place] S-CoV-2 COVID-19, mRNA, LNP-S, jones-sucrose, preservative free 06/09/2021 [facility] SARS-CoV-2 COVID-19, mRNA, LNP-S, preservative free 12/25/2020,05/06/2020,04/15/2020 Surgical History Surgery Date Site/Laterality Comments HYSTERECTOMY PROCEDURE:HYSTERECTOMY COLECTOMY PROCEDURE:LAPAROSCOPIC COLON RESECTION;COMMENT:simoid diverculitis 2014 STEREOTACTIC CORE BIOPSY Right unknown Medical History Medical History Date Comments Hypertension DX:Hypertension Diverticulitis DX:Diverticuliti s Hypercholesteremia glaucoma DX:Hyperchole steremia Glaucoma DX:Glaucoma Deafness DX:Deafness Vertigo DX:Vertigo Syncope DX:Syncope Anemia DX:Anemia Paroxysmal supraventricular tachycardia (CMS/HCC) DX:Paroxysmal supraventricul ar tachycardia (HCC) Hypertrophic lichen planus 2017 DX:Hy pertrophic lichen planus;COMMENT:lower extremities Oxygen dependent DX:Oxygen depen dent Family History Medical History Relation Name Comments Heart disease Father Heart disease Mother Relation Name Status Comments Father Mother Social History Tobacco Use Types Packs/Day Years Used Date Smoking Tobacco: Former Cigarettes Q uit: 08/23/1989 Smokeless Tobacco: Never Alcohol Use Standard Drinks/Week Comments Yes 2 (1 standard drink = 0.6 oz pur e alcohol) Comments No Sex and Gender Information Value Date Recorded Sex Assigned at Not on file Legal Sex Female 2:48 PM EST Gender Identity Not on file Sexual Orientation Not on file Obstetrics History Para Term AB IAB SAB Ectopic Multiple Livin g Live Births 0 Last Filed Vital Signs Vital Sign Reading Time Taken Comments Blood Pressure 156/62 07/13/2023 10:24 AM EDT Sitting Right arm Pulse 63 07/13/2023 10:24 AM EDT Temperature - - Respiratory Rate - - Oxygen Saturation - - Inhaled Oxygen Concentration - - Weight 52.2 kg (115 lb) 12/20/2023 10:1 7 AM EST Height 154.9 cm (5' 1 ) 12/20/2023 10:1 7 AM EST Body Mass Index 21.73 12/20/2023 10:17 AM EST Plan of Treatment Upcoming Encounters Date Type Department Care Team (Late st Contact Info) Description 04/11/2024 9:30 AM EST Office Visit [facility] Cardiology - [place] [address] [place] [address] Mariely Flannery MD [address] [place] [address] Health Maintenance Due Date Last Done Comments DTaP,Tdap,and Td Vaccines (1 - Tdap) 1959 Pneumococcal Vaccine: 50+ Years (1 of 2 - PCV) 1960 Zoster Vaccines (1 of 2) 1991 Depression Screening 01/13/2022 Falls Risk Assessment 01/13/2022 Medicare Annual Wellness Visit 01/13/2022 Social Influencers of Health Screening 01/13/2022 COVID-19 Vaccine ( season) 2023 03/03/2023, 02/20/2022, 06/09/2021, Additional history exists Influenza Vaccine (#1) 2023 , 12/17/2020, 12/27/2018, Additional history exists Hypertension/CHF/CAD Annual BMP Blood Test 01/17/2025 01/18/2024, 12/08/2023, 12/08/2023, Additional history exists Cholesterol Screening (Lipid Panel) 08/09/2028 08/10/2023, 08/10/2023, 07/20/2023, Additional history exists Osteoporosis Screening (Bone Density Screening) 12/19/2033 12/20/2023, 06/15/2021, 12/29/2017 RSV Immunization Patients 60+ Years Old Completed 03/18/2023 HIB Vaccines Aged Out No longer eligi ble based on patient's age to complete this topic HPV Vaccines Aged Out No longer eligi ble based on patient's age to complete this topic Hepatitis A Vaccines Aged Out No long er eligible based on patient's age to complete this topic Hepatitis B Vaccines Aged Out No long er eligible based on patient's age to complete this topic IPV Vaccines Aged Out No longer eligi ble based on patient's age to complete this topic MMR Vaccines Aged Out No longer eligi ble based on patient's age to complete this topic Meningococcal ACWY Vaccine Aged Out N o longer eligible based on patient's age to complete this topic Meningococcal B Vacine Aged Out No lo nger eligible based on patient's age to complete this topic RSV Immunization Patients Under 20 months Aged Out No longer eligible based on patient's age to complete this topic Varicella Vaccines Aged Out No longer eligible based on patient's age to complete this topic Procedures Procedure Name Priority Date/Time Associated Diagnosis Comments MR ANGIO HEAD WO CONTRAST Routine 02/17/2024 3:54 PM EST Headache, unspecified Dizziness THYROID STIMULATING HORMONE Routine 01/18/2024 10:04 AM EST Essential hypertension, malignant 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) Chronic fatigue Idiopathic atrophic hypothyroidism Hyposmolality syndrome Shortness of breath Facial pain BASIC METABOLIC PANEL Routine 01/18/2024 10:04 AM EST Essential hypertension, malignant 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) Chronic fatigue Idiopathic atrophic hypothyroidism Hyposmolality syndrome Shortness of breath Facial pain COMPLETE BLOOD COUNT Routine 01/18/2024 10:04 AM EST Essential hypertension, malignant 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) Chronic fatigue Idiopathic atrophic hypothyroidism Hyposmolality syndrome Shortness of breath Facial pain C-REACTIVE PROTEIN Routine 01/18/2024 10 :04 AM EST Essential hypertension, malignant 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) Chronic fatigue Idiopathic atrophic hypothyroidism Hyposmolality syndrome Shortness of breath Facial pain SEDIMENTATION RATE Routine 01/18/2024 10 :04 AM EST Essential hypertension, malignant 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) Chronic fatigue Idiopathic atrophic hypothyroidism Hyposmolality syndrome Shortness of breath Facial pain B-TYPE NATRIURETIC PEPTIDE Routine 01/18/2024 10:04 AM EST Essential hypertension, malignant 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 ??No intracranial aneurysm. -------- FINAL REPORT -------- Dictated By: JULIANNE CODY Dictated Date: 02/20/2024 09:54 ET Assigned Physician: JULIANNE CODY Reviewed and Electronically Signed By: JULIANNE CODY Signed Date: 02/20/2024 09:57 ET Workstation ID: [id number] Transcribed By: Self Edit Transcribed Date: 02/20/2024 09:54 ET Narrative 02/20/2024 9:57 AM EST PROCEDURE: Head MRA INDICATION: Headache, aneurysm TECHNIQUE: Multiplanar, multisequence MRI of the brain Without contrast. ??Head MRA was performed without contrast using [id number] technique. ??3-D/MIP images were created on an independent workstation with direct supervision by the radiologist. COMPARISON: ??Brain MRI 12/18/2022 FINDINGS: Diffusion weighted imaging demonstrate no acute infarct, mass effect, hydrocephalus, or hemorrhage. Gqyu-za-[id number] MRA demonstrates patent intracranial vertebral arteries. Basilar and superior cerebellar arteries are patent. There is type origin of the right posterior cerebral artery, a normal variant. ??The posterior cerebral arteries are patent. The intracranial internal carotid arteries are patent. ??M1 and A1 segments are patent bilaterally. ??The more distal portions of the anterior and middle cerebral arteries are patent. No intracranial aneurysm. Procedure Note Julianne Cody MD - 02/20/2024 PROCEDURE: Head MRA INDICATION: Headache, aneurysm TECHNIQUE: Multiplanar, multisequence MRI of the brain Without contrast.Head MRA was performed without contrast using [id number] technique.3-D/MIP images were created on an independent workstation with directsupervision by the radiologist. COMPARISON: Brain MRI 12/18/2022 FINDINGS: Diffusion weighted imaging demonstrate no acute infarct, mass effect,hydrocephalus, or hemorrhage. Jcmj-jj-aljagd MRA demonstrates patent intracranial vertebral arteries. Basilar and superior cerebellar arteries are patent. There is type origin of the right posterior cerebral artery, anormal variant. The posterior cerebral arteries are patent. The intracranial internal carotid arteries are patent. M1 and A1 segmentsare patent bilaterally. The more distal portions of the anterior andmiddle cerebral arteries are patent. No intracranial aneurysm. IMPRESSION: Normal head MRA. No intracranial aneurysm. -------- FINAL REPORT -------- Dictated By: JULAINNE CODY Dictated Date: 02/20/2024 09:54 ET Assigned Physician: JULIANNE CODY Reviewed and Electronically Signed By: JULIANNE CODY Signed Date: 02/20/2024 09:57 ET Workstation ID: [id number] Transcribed By: Self Edit Transcribed Date: 02/20/2024 09:54 ET us Jose Carlos Borja MD IMG MRI PROCEDURES Final Res ult * Sedimentation rate (01/18/2024 10:04 AM EST) Sed Rate 10 0 - 20 mm/hr LAB HEMETOLOGY METHOD 01/18/2024 4:09 PM EST [facility] Blood Venous blood specimen / Unknown Venipuncture / Unknown 01/18/2024 10:04 AM EST 01/18/2024 10:04 AM EST us Jose Carlos Borja MD LAB BLOOD ORDERABLES Final R esult [facility] [address] [place] [address], [place] [phone] * (ABNORMAL) Complete blood count (01/18/2024 10:04 AM EST) WBC 7.6 4.0 - 10.5 K/mcL LAB HEMETOLOGY METHOD 01/18/2024 3:51 PM EST [facility] RBC 3.18(L) 4.20 - 5.40 M/mcL LAB HEMETOLOGY METHOD 01/18/2024 3:51 PM EST [facility] Hemoglobin 11.8(L) 12.5 - 16.0 g/dL LAB HEMETOLOGY METHOD 01/18/2024 3:51 PM [facility] Hematocrit 34.7(L) 37.0 - 47.0 % LAB HEMETOLOGY METHOD 01/18/2024 3:51 PM EST [facility] MCV 109.0(H) 78.0 - 100.0 FL LAB HEMETOLOGY METHOD 01/18/2024 3:51 PM [facility] MCH 37.0(H) 25.0 - 33.0 pcg LAB HEMETOLOGY METHOD 01/18/2024 3:51 PM [facility] MCHC 34.0 32.0 - 36.0 g/dL LAB HEMETOLOGY METHOD 01/18/2024 3:51 PM EST [facility] RDW 15.5 12.1 - 16.2 % LAB HEMETOLOGY METHOD 01/18/2024 3:51 PM [facility] Platelets 374 150 - 450 K/mcL LAB HEMETOLOGY METHOD 01/18/2024 3:51 PM [facility] MPV 7.5 7.4 - 11.4 FL LAB HEMETOLOGY METHOD 01/18/2024 3:51 PM [facility] Blood Venous blood specimen / Unknown Venipuncture / Unknown 01/18/2024 10:04 AM EST 01/18/2024 10:04 AM EST Jose Carlos Borja MD LAB BLOOD ORDERABLES Final R esult [facility] [address] [place] [phone], * C-reactive protein (01/18/2024 10:04 AM EST) C-Reactive Protein <0.5 <=0.9 mg/dL LAB CHEMISTRY METHOD 01/18/2024 3:17 PM EST [facility] Blood Venous blood specimen / Unknown Venipuncture / Unknown 01/18/2024 10:04 AM EST 01/18/2024 10:04 AM EST us Jose Carlos Borja MD LAB BLOOD ORDERABLES Final R esult Performing Organization Address City/[facility]/ZIP Co de Phone Number [facility] [address] [place] [phone], * Thyroid stimulating hormone (01/18/2024 10:04 AM EST) Pathologist [facility] TSH 1.16 0.45 - 5.33 mcIU/mL LAB CHEMISTRY METHOD 01/18/2024 3:26 PM EST [facility] Blood Venous blood specimen / Unknown Venipuncture / Unknown 01/18/2024 10:04 AM EST 01/18/2024 10:04 AM EST us Jose Carlos Borja MD LAB BLOOD ORDERABLES Final R esult Performing Organization Address City/[facility]/ZIP Co de Phone Number [facility] [address] [place] [phone], * (ABNORMAL) B-type natriuretic peptide (01/18/2024 10:04 AM EST) BNP 335(H) 0 - 100 pcg/mL LAB CHEMISTRY METHOD 01/18/2024 3:36 PM EST [facility] Blood Venous blood specimen / Unknown Venipuncture / Unknown 01/18/2024 10:04 AM EST 01/18/2024 10:04 AM EST us Jose Carlos Borja MD LAB BLOOD ORDERABLES Final R esult [facility] [address] [place] [address], [place] [phone] * (ABNORMAL) Basic metabolic panel (01/18/2024 10:04 AM EST) Sodium 134(L) 135 - 145 mmol/L LAB CHEMISTRY METHOD 01/18/2024 3:17 PM [facility] Potassium 4.6 3.5 - 5.1 mmol/L LAB CHEMISTRY METHOD 01/18/2024 3:17 PM [facility] Chloride 96(L) 98 - 107 mmol/L LAB CHEMISTRY METHOD 01/18/2024 3:17 PM [facility] CO2 30 24 - 32 mmol/L LAB CHEMISTRY METHOD 01/18/2024 3:17 PM [facility] Anion Gap 8 5 - 14 LAB CHEMISTRY METHOD 01/18/2024 3:17 PM [facility] Glucose 92 70 - 199 mg/dL LAB CHEMISTRY METHOD 01/18/2024 3:17 PM [facility] BUN 15 7 - 17 mg/dL LAB CHEMISTRY METHOD 01/18/2024 3:17 PM [facility] Creatinine 0.50 0.50 - 1.00 mg/dL LAB CHEMISTRY METHOD 01/18/2024 3:17 PM [facility] eGFR 94 >=60 mL/min/1. 73m2 LAB CHEMISTRY METHOD 01/18/2024 3:17 PM [facility] Comment:Calculation based on the??Chronic Kidney Disease Epidemiology Collaboration (CKD-EPI) equation refit??without adjustment for race. BUN/Creatinine Ratio 30.0(H) 12.0 - 20.0 LAB CHEMISTRY METHOD 01/18/2024 3:17 PM [facility] Calcium 9.6 8.4 - 10.2 mg/dL LAB CHEMISTRY METHOD 01/18/2024 3:17 PM [facility] Blood Venous blood specimen / Unknown Venipuncture / Unknown 01/18/2024 10:04 AM EST 01/18/2024 10:04 AM EST us Jose Carlos Borja MD LAB BLOOD ORDERABLES Final R esult [facility] [address] [place] [address], * BD Bone Density DXA Axial Skeleton (12/20/2023 11:45 AM EST) Anatomical Region Laterality Modality Wrist, Hip, L-spine Bone Densito metry 12/20/2023 12:0 6 PM EST Impressions 12/20/2023 12:08 PM EST 1. Osteoporosis. ??There has been a decrease of 1.4% in bone mineral density in the lumbar spine since the prior examination of 06/15/2021. ??There has been a decrease of 9.3% in bone mineral density in the right femur and a decrease of 7.7% in bone mineral density in the left femur. 2. FRAX analysis yields a 10-year probability of major osteoporotic fracture of 27.7% and a 10-year probability of hip fracture of 10.4%. Code [address] [facility] T[facility] -------- FINAL REPORT -------- Dictated By: Jose Maria Mayes Dictated Date: 12/20/2023 12:06 ET Assigned Physician: Jose Maria Mayes Reviewed and Electronically Signed By: Jose Maria Mayes Signed Date: 12/20/2023 12:08 ET Workstation ID: [id number] Transcribed By: Self Edit Transcribed Date: 12/20/2023 12:06 ET Narrative 12/20/2023 12:08 PM EST HISTORY: ??The patient is an 83-year-old postmenopausal female with clinical concern for metabolic bone disease. FINDINGS: ??Dual energy x-ray absorptiometry of the lumbar spine and femurs is performed. The mean bone mineral density at L1-L4 is 1.275 gm/cm2 which is 108% of that of young normals and 140% of that of age matched controls. This yields a T- score of 0.8 and a Z-score of 3.1 and there is therefore no evidence of osteoporosis or osteopenia here. The mean bone mineral density of the femurs bilaterally is 0.759 gm/cm2 which is 75% of that of young normals and 88% of that of age matched controls. ??This yields a T-score of -2.0 and a Z-score of 0.4 which is diagnostic of osteopenia. ??However, the T-score of the right femoral neck is -2.7 and that of the left femoral neck is -2.5 which is diagnostic of osteoporosis. Procedure Note Jose Maria Mayes MD - 12/20/2023 HISTORY: The patient is an 83-year-old postmenopausal female withclinical concern for metabolic bone disease. FINDINGS: Dual energy x-ray absorptiometry of the lumbar spine and femursis performed. The mean bone mineral density at L1-L4 is 1.275 gm/cm2 whichis 108% of that of young normals and 140% of that of age matched controls.This yields a T- score of 0.8 and a Z-score of 3.1 and there is thereforeno evidence of osteoporosis or osteopenia here. The mean bone mineral density of the femurs bilaterally is 0.759 gm/iw1zadwt is 75% of that of young normals and 88% of that of age matchedcontrols. This yields a T-score of -2.0 and a Z-score of 0.4 which isdiagnostic of osteopenia. However, the T-score of the right femoral neckis -2.7 and that of the left femoral neck is - 2.5 which is diagnostic ofosteoporosis. IMPRESSION: 1. Osteoporosis. There has been a decrease of 1.4% in bone mineraldensity in the lumbar spine since the prior examination of 06/15/2021.There has been a decrease of 9.3% in bone mineral density in the rightfemur and a decrease of 7.7% in bone mineral density in the left femur. 2. FRAX analysis yields a 10-year probability of major osteoporoticfracture of 27.7% and a 10-year probability of hip fracture of 10.4%. Code [facility]4667 [facility] T[facility] -------- FINAL REPORT -------- Dictated By: Jose Maria Mayes Dictated Date: 12/20/2023 12:06 ET Assigned Physician: Jose Maria Mayes Reviewed and Electronically Signed By: Jose Maria Mayes Signed Date: 12/20/2023 12:08 ET Workstation ID: [id number] Transcribed By: Self Edit Transcribed Date: 12/20/2023 12:06 ET Jose Carlos Borja MD IMG DXA PROCEDURES Final Res ult from Last 3 Months or Most Recently Relevant to Health Maintenance Insurance [employer] [place] [address] Care Teams Expense Analyst Relationship Specialty Start Date End Date Jose Carlos Borja MD [address] [place] [phone] PCP - General Internal Medicine 04/28/09
--- OUTSIDE RECORDS SUMMARY | 2024-03-30 12:24 | XMS_ITS | Clinical Summary ---
Author Organization [address] Address [address] [place] [phone] Care Team Providers Care System Consultant Name Role Phone No, Pcp (Do Not Change Name) Primary Care Provid er Unavailable Allergies No known active allergies Medications albuterol sulfate 90 mcg/actuation HFA aerosol inhaler TAKE 2 PUFFS BY MOUTH EVERY 4-6 HORS NEEDED 4 Active ALPRAZolam (XANAX) 0.5 mg tablet Active amLODIPine (NORVASC) 10 mg tablet 4 Active atorvastatin (LIPITOR) 10 mg tablet Take 1 tablet (10 mg total) by mouth. Active Bifidobacterium infantis (ALIGN) 4 mg capsule Take 1 capsule (4 mg total) by mouth daily. Active carboxymethylce llulose sodium (REFRESH TEARS) 0.5 % ophthalmic solution Apply to eye. Active clotrimazole (MYCELEX) 10 mg juan DISSOLVE SLOWLY IN MOUTH 5 TIMES A DAY FOR 14 DAYS. 4 Active docusate sodium (COLACE) 100 mg capsule Take 1 capsule (100 mg total) by mouth. Active folic acid (FOLVITE) 1 mg tablet Active losartan (COZAAR) 100 mg tablet Take by mouth. Activ e loteprednol (LOTEMAX) 0.5 % ophthalmic suspension INSTILL ONE DROP INTO RIGHT EYE THREE TIMES DAILY. 4 Active methotrexate 2.5 mg tablet Active metoprolol tartrate (LOPRESSOR) 25 mg Immediate Release tablet Take by mouth. 3 Active mupirocin (BACTROBAN) 2 % ointment APPLY TOPICALLY TO OPEN SORES TWICE A DAY NEEDED 4 Active neomycin-polymy savi-dexamethaso ne (DEXACINE) 3.5 mg-10,000 unit/g-0.1 % ophthalmic ointment APPLY A SMALL AMOUNT OF OINTMENT ON RIGHT UPPER EYELID AND IN THE RIGHT EYE TWICE DAILY FOR ONE WEEK 4 Active olmesartan (BENICAR) 40 mg tablet Take 1 tablet (40 mg total) by mouth daily. 4 Active polymyxin B sulfate-trimeth oprim (POLYTRIM) 10,000 unit- 1 mg/mL ophthalmic solution INSTILL 1 DROP INTO BOTH EYES 3 TIMES A DAY 4 Active propylene glycoL (SYSTANE BALANCE) 0.6 % ophthalmic solution Apply to eye. Active TOBRADEX ST ophthalmic solution INSTILL 1 DROP INTO AFFECTED EYE THREE TIMES A DAY NEEDED SHAKE WELL 4 Active coenzyme Q10 200 mg capsule Take by mouth. Active valACYclovir (VALTREX) 1000 mg tablet Take 1 tablet (1,000 mg total) by mouth daily. 4 Active Active Problems No known active problems Social History Tobacco Use Types Packs/Day Years Used Date Smoking Tobacco: Never Passive Smoke Exposure: Never Smokeless Tobacco: Never Tobacco Cessation:Counseling Given: Not Answered Alcohol Use Standard Drinks/Week Comments Never 0 (1 standard drink = 0.6 oz pur e alcohol) Comments Unknown Sex and Gender Information Value Date Recorded Sex Assigned at Not on file Legal Sex Female 9:24 AM EST Gender Identity Not on file Sexual Orientation Not on file Last Filed Vital Signs Vital Sign Reading Time Taken Comments Blood Pressure 131/67 10/14/2023 8:56 AM EDT Pulse 70 10/14/2023 8:56 AM EDT Temperature 36.8 ??C (98.2 ??F) 10/14/2023 8:56 AM ED T Respiratory Rate 20 10/14/2023 8:56 AM EDT Oxygen Saturation 100% 10/14/2023 8:56 AM EDT 4L 02 Inhaled Oxygen Concentration - - Weight 52.2 kg (115 lb) 10/14/2023 8:56 AM EDT Height 154.9 cm (5' 1 ) 10/14/2023 8:56 AM EDT Body Mass Index 21.73 10/14/2023 8:56 AM EDT Plan of Treatment Health Maintenance Due Date Last Done Comments Pneumococcal Vaccine (50+ years) (1 of 2 - PCV) 1947 HIV screening 1954 Tetanus adult (Td q 10,TDAP once) 1961 Lipid disorder screening 1981 Diabetes screening 1986 Shingles vaccine (Shingrix) (1 of 2 - Shingrix (RZV) 2 Dose Standard Series) 1991 Osteoporosis screening (bone density) 2006 RSV Discussion (1 - 1-dose 75+ series) 2016 Influenza vaccine 09/15/2023 03/03/2022 Covid-19 vaccine series ( season) 2023 06/09/2021, 12/25/2020, 05/06/2020, Additional history exists Breast cancer screening Discontinued Cervical cancer screening Discontinued Meningococcal Vaccine Aged Out No amalia susana eligible based on patient's age to complete this topic Insurance [facility] MGD Care Teams System Consultant Relationship Specialty Start Date End Date No, Pcp (Do Not Change Name) PCP - General 10/14/23
--- OUTSIDE RECORDS SUMMARY | 2024-03-30 12:24 | XMS_ITS | Clinical Summary ---
Author Organization [facility] Address [address] [place] [address] Care Team Providers Care Senior Care Manager Name Role Phone Jose Carlos Borja MD Primary Care Provider [phone] Allergies No known active allergies Medications Medication Sig Dispensed Refills Start Date End Date Status ALPRAZolam (XANAX) 0.5 MG tablet Take 1 tablet (0.5 mg total) by mouth every night at bedtime as needed for sleep. 0 Active atorvastatin (LIPITOR) 10 MG tablet Take 1 tablet (10 mg total) by mouth every evening. 0 Active valACYclovir (VALTREX) 500 MG tablet Take 1 tablet (500 mg total) by mouth every night at bedtime. 0 Active Coenzyme Q10 (COQ-10) 200 MG CAPS Take by mouth. 0 Active Cholecalciferol (VITAMIN D) 1000 UNITS tablet Take by mouth. 0 Active Probiotic Product (PROBIOTIC DAILY PO) Take by mouth. 0 Active ELC-BJU-Dejxpcnp Oil-Vitamin E (THERA TEARS NUTRITION PO) Take by mouth. 0 A ctive folic acid (FOLVITE) tablet 1 mg Take 3 tablets (3 mg total) by mouth daily. 3 10/04/2017 Active Calcium Carbonate (CALCIUM 600 PO) Take by mouth. 0 Acti ve niacinamide 500 MG tablet Take 1 tablet (500 mg total) by mouth 2 (two) times a day. 3 04/05/2018 Active docusate sodium (COLACE) 100 MG capsule Take 1 capsule (100 mg total) by mouth 2 (two) times a day. 30 capsule 0 02/15/2020 Active halobetasol (ULTRAVATE) 0.05 % cream Apply topically. 0 Active albuterol 108 (90 Base) MCG/ACT inhaler TAKE 2 PUFFS BY MOUTH EVERY 4 TO 6 HOURS NEEDED 0 05/08/2022 Active olmesartan (BENICAR) tablet 40 mg Take 1 tablet (40 mg total) by mouth daily. 90 tablet 3 04/11/2023 Active METHOTREXATE PO Take 20 mg by mouth once a week. 0 Active metoprolol tartrate (LOPRESSOR) 25 MG tablet TAKE 1 TABLET BY MOUTH TWICE DAILY 180 tablet 3 09/22/2023 Active amLODIPine (NORVASC) tablet 10 mg TAKE 1 TABLET BY MOUTH DAILY 90 tablet 3 09/22/2023 Active Active Problems Problem Noted Date Diagnosed Date SOB (shortness of breath) 01/19/2023 Traumatic complete tear of left rotator cuff 11/2020 Dislocation of left shoulder joint 02/18/2020 Arthritis of right knee 11/17/2018 Syncope Hypercholesteremia Hypertension Paroxysmal supraventricular tachycardia Family History Medical History Relation Name Comments Heart disease Father Heart disease Mother Relation Name Status Comments Father Mother Social History Tobacco Use Types Packs/Day Years Used Date Smoking Tobacco: Former Cigarettes Q uit: 08/23/1989 Smokeless Tobacco: Never Tobacco Cessation:Counseling Given: Not Answered Alcohol Use Standard Drinks/Week Comments Yes 2 (1 standard drink = 0.6 oz pur e alcohol) Drinks twice per week Sex and Gender Information Value Date Recorded Sex Assigned at Female 02/15/2020 4:02 PM EST Gender Identity Not on file Sexual Orientation Not on file Job Start Date Occupation Industry Not on file Not on file Not on file Last Filed Vital Signs Vital Sign Reading Time Taken Comments Blood Pressure 156/62 07/13/2023 10:24 AM EDT Pulse 63 07/13/2023 10:24 AM EDT Temperature 36.3 ??C (97.4 ??F) 06/06/2023 2:00 PM ED T Respiratory Rate 20 06/06/2023 2:15 PM EDT Oxygen Saturation 99% 07/13/2023 10:24 AM EDT Inhaled Oxygen Concentration - - Weight 52.2 kg (115 lb) 07/13/2023 10:24 AM EDT Height 154.9 cm (5' 1 ) 07/13/2023 10:24 AM EDT Body Mass Index 21.73 07/13/2023 10:24 AM EDT Plan of Treatment Health Maintenance Due Date Last Done Comments Depression Screening 1953 Preventative Health Evaluation 1959 DTap / Tdap / Td (1 - Tdap) 1960 Shingrix-Zoster Vaccine (1 of 2) 1991 Fall Risk Assessment 2006 Osteoporosis Screening (DEXA Scan) 2006 Pneumococcal Vaccine (1 of 1 - PCV) 2006 RSV Adult > 60+ Yrs or (1 - 1-dose 75+ series) 2016 COVID-19 Vaccine ( season) 2023 06/09/2021, 12/25/2020, 05/06/2020, Additional history exists Influenza Vaccine (#1) 2023 , 12/17/2020, 12/27/2018, Additional history exists Hepatitis B Vaccines Aged Out No long er eligible based on patient's age to complete this topic RSV Ped < 20 months Aged Out No longe r eligible based on patient's age to complete this topic Care Teams Senior Care Manager Relationship Specialty Start Date End Date Jose Carlos Borja MD [address] [address] PCP - General Internal Medicine 03/19/14
--- OUTSIDE RECORDS SUMMARY | 2024-03-30 12:24 | XMS_ITS | Continuity of Care Document ---
Author Organization [facility] Address [address] [place] [address] Phone [phone] Care Team Providers Care Animal Warden Name Role Phone Jose Carlos Borja M.D. Care Team Information Recei vane [phone] Problems Active Problems Provider Date Essential hypertension Drake Velasco M.D. O nset: 02/04/2022 Multinodular goiter Drake Velasco M.D. Onse t: 02/04/2022 Lichen planus Drake Velasco M.D. Onset: 1 04/07/2021 Social History Type Date Description Comments Sex Unknown ETOH Use Occasionally consumes alcoho l Tobacco Use Start: Unknown End: Unknown Patient is a former smoker Allergies and adverse reactions Description No Known Drug Allergies Medications Active Medications SIG Qnty Indications Ordering Provider Date Oadwaaj61vz Tablets 1 tab by mouth at supper 90tabs Drake Velasco M.D. 02/04/2022 Losartan Upipahjpz168ge Tablets 1 tab by mouth every day Unknown Metoprolol Ngwkjina89bm Tablets 1 tab by mouth twice a day 60tabs Unknown Amlodipine Jcpvnzqy71cu Tablets Unknown 0 000 Folic Fujp4lq Tablets Take 1 Tablet By Mouth Every Day Jomar Nix M.D. Qsoxoti504je Tablets 1 tab by mouth every day 42tabs Elvis Mac MD Alprazolam0.5mg Tablets Take 1 Tablet By Mouth Twice A Day Unknown Methotrexate2.5mg Tablets Take 8 Tablets By Mouth One Time Per Week Jomar Nix M.D. Vital Signs Date Vital Result Comment 05/25/2023 1:03pm BP Systolic 126 mmHg BP Diastolic 74 mmHg Heart Rate 72 /min Height 61.5 inches 5'1.50 Weight 120.25 lb BMI (Body Mass Index) 22.4 kg/m2 Medical Devices Description No Information Available Encounters Type Date Location Provider Dx Diagnosis Office Visit 05/25/2023 1:00p Main Office Drake Velasco M.D. E04.2 Nontoxic multinodular goiter Assessments Date Code Description Provider 05/25/2023 E04.2 Multinodular goiter Drake Bowles M.D. Plan of Treatment Future Appointment(s):* 05/24/2024 10:30 am - Drake Velasco M.D. at Main Office 05/25/2023 - Drake Velasco M.D.* E04.2 Multinodular goiter* New Xrays:* Ultrasound Thyroid, Scheduled: 07/21/23 Functional Status Description No Information Available Mental Status Description No Information Available Referrals Description No Information Available
--- OUTSIDE RECORDS SUMMARY | 2024-03-30 12:24 | XMS_ITS | Encounter Summary ---
Author Organization [facility] Address [address] [place] [address] Care Team Providers Care Sales Assistants And Salespersons Name Role Phone Jose Carlos Borja MD Primary Care Provider [phone] Encounter Details Date Type Department Care Team (Late st Contact Info) Description 03/02/2023 Telephone [facility] [address] [place] [phone] Nick Granados PA-C [address] [facility] [address] [place] [address] Social History Tobacco Use Types Packs/Day Years Used Date Smoking Tobacco: Never Assessed Sex and Gender Information Value Date Recorded Sex Assigned at Not on file Gender Identity Not on file Sexual Orientation Not on file documented as of this encounter Plan of Treatment Upcoming Encounters Date Type Department Care Team (Late st Contact Info) Description 08/29/2024 10:00 AM EDT Clinical Support [facility] [place] [address] [facility], [place] [phone] Ronaldo Hardwick MD [address] [place] [phone] Zee Portillo Au.D [address] [place], [place] [phone] documented as of this encounter Visit Diagnoses Not on filedocumented in this encounter Care Teams Sales Assistants And Salespersons Relationship Specialty Start Date End Date Jose Carlos Borja MD PCP - General Internal Medicine 11/25/15 documented as of this encounter
--- OUTSIDE RECORDS SUMMARY | 2024-03-30 12:24 | XMS_ITS | Clinical Summary ---
Author Organization [facility] Address [address] [place] [address] Care Team Providers Care Senior Java Engineer Name Role Phone Jose Carlos Borja MD Primary Care Provider [phone] Allergies No known active allergies Medications Medication Sig Dispensed Refills Start Date End Date Status traMADol (ULTRAM) 50 MG tabletIndications:Prim brittanie osteoarthritis of knee, unspecified laterality Take 1 tablet (50 mg total) by mouth 2 times daily (every 12 hours) as needed for severe pain. Take every 8-12 hours as needed for pain 15 tablet 08/12/2022 Active acetaminophen (TYLENOL) 500 MG tabletIndications:Prim brittanie osteoarthritis of knee, unspecified laterality Take 2 tablets (1,000 mg total) by mouth 3 times daily (every 8 hours). 120 tablet 08/12/2022 Active Active Problems No known active problems Encounters Date Type Department Care Team Description 02/29/2024 10:00 AM EST Office Visit [facility] [address], [place] [address] Ronaldo Hardwick MD Asymmetrical hearing loss (Primary Dx); Bilateral impacted cerumen from Last 3 Months Social History Tobacco Use Types Packs/Day Years Used Date Smoking Tobacco: Never Assessed Sex and Gender Information Value Date Recorded Sex Assigned at Not on file Gender Identity Not on file Sexual Orientation Not on file Last Filed Vital Signs Vital Sign Reading Time Taken Comments Blood Pressure - - Pulse - - Temperature - - Respiratory Rate - - Oxygen Saturation - - Inhaled Oxygen Concentration - - Weight 52.6 kg (116 lb) 02/29/2024 9:56 AM EST Height 154.9 cm (5' 1 ) 02/29/2024 9:56 AM EST Body Mass Index 21.92 02/29/2024 9:56 AM EST Plan of Treatment Upcoming Encounters Date Type Department Care Team (Late st Contact Info) Description 08/29/2024 10:00 AM EDT Clinical Support [facility] [place] [address] [facility], [place] [address] Ronaldo Hardwick MD [address] [address] Zee Portillo Au.D [address] [place], [place] [id number] Health Maintenance Due Date Last Done Comments DTaP/Tdap/Td Vaccines (1 - Tdap) 1960 Pneumococcal Vaccines 50+ (1 of 1 - PCV) 1991 Zoster (Shingles) Vaccine (1 of 2) 1991 DXA Bone Density (Females,Ages 65 and older) 2006 RSV Vaccine 60 years and older and Patients (1 - 1-dose 75+ series) 2016 Influenza Vaccine 09/15/2023 03/03/2022, , 12/27/2018, Additional history exists COVID-19 Vaccine ( season) 2023 03/03/2023, 02/20/2022, 06/09/2021, Additional history exists Hepatitis B Vaccines Aged Out No long er eligible based on patient's age to complete this topic Care Teams Senior Java Engineer Relationship Specialty Start Date End Date Jose Carlos Borja MD PCP - General Internal Medicine 11/25/15
--- OUTSIDE RECORDS SUMMARY | 2024-03-30 12:24 | XMS_ITS | Encounter Summary ---
Author Organization [facility] Address [address] [place] [address] Care Team Providers Care Vice President Diversity Name Role Phone Jose Carlos Borja MD Primary Care Provider Reason for Visit * Reason Comments Follow-up Hearing loss Encounter Details Date Type Department Care Team (Late st Contact Info) Description 02/29/2024 10:00 AM EST Office Visit [facility] [address] [place] [phone] Ronaldo Hardwick MD [address] [phone] Asymmetrical hearing loss (Primary Dx); Bilateral impacted cerumen Social History Tobacco Use Types Packs/Day Years Used Date Smoking Tobacco: Never Assessed Sex and Gender Information Value Date Recorded Sex Assigned at Not on file Gender Identity Not on file Sexual Orientation Not on file documented as of this encounter Last Filed Vital Signs Vital Sign Reading Time Taken Comments Blood Pressure - - Pulse - - Temperature - - Respiratory Rate - - Oxygen Saturation - - Inhaled Oxygen Concentration - - Weight 52.6 kg (116 lb) 02/29/2024 9:56 AM EST Height 154.9 cm (5' 1 ) 02/29/2024 9:56 AM EST Body Mass Index 21.92 02/29/2024 9:56 AM EST documented in this encounter Progress Notes * Ronaldo Hardwick MD - 02/29/2024 10:00 AM EST Images from the original note were not included. [address] [facility] [id number] Loc: [phone] Encounter Date: 02/29/2024 History of Present Illness: Ting Corrales is a 83 y.o. female returning today for a 6 month ear blockage follow-up. She is not hearing noises/voices as frequently as she was last visit. She had an MRA head and notes noise in the ears during the procedure and inquires about how she can avoid this issue next time. She is not on any blood thinning medications. Ting is feeling well with no new concerns today otherwise. Physical Exam General- No acute distress, Alert Eyes- Extra ocular muscles-intact, no scleral icterus Resp- Easy work of breathing, No Stridor/Stertor Neuro- CN II-XII grossly intact bilaterally Ears- Right: Normal pinna. No significant EAC edema, tympanic membrane visible and intact and without erythema. Left: Normal pinna. No significant EAC edema, tympanic membrane visible and intact and without erythema. Bilateral: impacted cerumen, left > right Procedures CERUMEN REMOVAL: Binocular microscopy was used to evaluate both ears today with cerumen found to beobstructing both ear canals. Under microscopy, the cerumen was removed with curette and microinstruments with improvement in visualization and patient symptoms. Visit Orders. 1. Bilateral impacted cerumen 2. Asymmetrical hearing loss Assessment & Plan Cerumen Impaction - Binocular microscopy was used to remove cerumen with use of several instrumentswith improvement in symptoms today. Follow up in 6 months. 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 Audiogram 08/17/23 showed normal sloping to moderate SNHL on the right and moderately-severe sloping to profound SNHL on the left. Continue hearing amplification. We will get an updated audiogram at follow-up. Ronaldo Hardwick MD I, Jasmine Dean, personally scribed the services dictated to me by Dr. Ronaldo Hardwick in this documentation on this date 02/29/2024. documented in this encounter Plan of Treatment Upcoming Encounters Date Type Department Care Team (Late st Contact Info) Description 08/29/2024 10:00 AM EDT Clinical Support [facility] [place] [address] [facility], [place] [phone] Ronaldo Hardwick MD [address] [place] [phone] Zee Portillo Au.D [address] [place], [place] [phone] documented as of this encounter Visit Diagnoses Diagnosis Asymmetrical hearing loss- Primary Unspecified hearing loss Bilateral impacted cerumen Impacted cerumen documented in this encounter Care Teams Vice President Diversity Relationship Specialty Start Date End Date Jose Carlos Borja MD PCP - General Internal Medicine 11/25/15 documented as of this encounter
--- OUTSIDE RECORDS SUMMARY | 2024-03-30 12:24 | XMS_ITS | Encounter Summary ---
Author Organization [facility] Address [address] [place] [address] Care Team Providers Care Tube Splicer Name Role Phone Jose Carlos Borja MD Primary Care Provider Encounter Details Date Type Department Care Team (Late st Contact Info) Description 10/06/2022 Scanned Document [facility] [address] [place], [place] [phone] Hermes Rubi MD [address] [place] [address] Social History Tobacco Use Types Packs/Day Years Used Date Smoking Tobacco: Never Assessed Sex and Gender Information Value Date Recorded Sex Assigned at Not on file Gender Identity Not on file Sexual Orientation Not on file documented as of this encounter Plan of Treatment Upcoming Encounters Date Type Department Care Team (Late st Contact Info) Description 08/29/2024 10:00 AM EDT Clinical Support [facility] [place] [address] [facility], [place] [phone] Ronaldo Hardwick MD [address] [address] Zee Portillo Au.D [address] [place], [place] [address] documented as of this encounter Visit Diagnoses Not on filedocumented in this encounter Care Teams Tube Splicer Relationship Specialty Start Date End Date Jose Carlos Borja MD PCP - General Internal Medicine 11/25/15 documented as of this encounter
== END 2024-03-30 12:14 | disposition home or self-care (01) ==
PROVIDERS: PCP Internal Medicine; Visit Provider Internal Medicine Pulmonary Disease
DX: J44.9 Chronic obstructive pulmonary disease, unspecified (principal); Z99.81 Dependence on supplemental oxygen; R06.09 Other forms of dyspnea
CPT/HCPCS: 99214; G2211

== ENCOUNTER → 2024-03-30 11:40 | Outpatient (BNVA) | payer MEDICARE, SELFPAY | PROVIDERS: PCP Internal Medicine; Visit Provider Internal Medicine Pulmonary Disease | DX: J44.9 Chronic obstructive pulmonary disease, unspecified (principal); R06.09 Other forms of dyspnea; Z99.81 Dependence on supplemental oxygen; Z79.899 Other long term (current) drug therapy | CPT/HCPCS: 99212 ==

== ENCOUNTER 2024-05-09 13:42 | Outpatient (AMB) | payer MEDICARE, SELFPAY ==
[2024-05-09 13:42] VITALS: BP 118/60; PULSE 73; O2SAT 100
--- NOTE | 2024-05-09 13:42 | HO.NEPHOV ---
Vital Signs 05/09/24 13:42 Height 5 ft 1 in BP 118/60 Blood Pressure Location Lt brachial Position Sitting Pulse 73 Pulse Source Pulse Oximeter Pulse Oximetry (%) 100 Oxygen Delivery Method Nasal Cannula Intake Visit Reasons: 5mon follow up/ Conf Animal Keeper Head Required: No Accompanied by: Friend Allergies No Known Allergies Allergy (Verified 05/09/24 13:44) Medication List - Last Reconciled 05/09/24 by Miguel Grover MD albuterol sulfate 90 mcg/actuation 2 puffs inhalation 6XD PRN alprazolam 0.5 mg PO BID amlodipine 10 mg PO DAILY ascorbic acid (vitamin C) mg PO atorvastatin 10 mg PO DAILY celecoxib 200 mg PO DAILY cholecalciferol (vitamin D3) 25 mcg PO DAILY coenzyme Q10 (Co Q-10) 10 mg PO TID docusate sodium 50 mg PO DAILY famotidine (Pepcid) 20 mg PO DAILY ferrous sulfate 325 mg PO DAILY folic acid 1 mg PO DAILY loteprednol etabonate 0.5% drps ophthalmic (eye) methotrexate sodium 20 mg PO QWEEK metoprolol tartrate 25 mg PO BID multivitamin 1 tab PO DAILY niacinamide 500 mg PO DAILY olmesartan 40 mg PO DAILY umeclidinium-vilanterol 62.5-25 mcg/actuation (Anoro Ellipta) 1 inh inhalation DAILY valacyclovir 500 mg PO DAILY vitamins A,C,U-dhcg-ubavrm 2,148 mcg-113 mg-45 mg-17.4mg (PreserVision AREDS) 2 tabs PO BID HPI Comments Details: Ting is a pleasant 83-year-old woman with a history of chronic hyponatremia. Serum sodium has been fluctuating from the mid 120s to low 130s. Few years ago she had diverticulosis and underwent bowel surgery. At that time she was advised by the surgeon to drink plenty of water to avoid constipation. She has been drinking lots of water and apparently she was hospitalized in [facility] with severe hyponatremia with a sodium of 125 or so. Recently serum sodium was 127. She was put on of p.o. fluid restriction. Repeat serum sodium was 132 as of yesterday. She has been referred for further evaluation of hyponatremia. Recent thyroid function was normal. Renal function is normal with a creatinine of 0.5. Usually she drinks 1 cup of tea and 2 cups of coffee. Prior to last week she was drinking plenty of water but she has no cut back on water intake. She has replaced with Gatorade. She has a history of smoking several years ago smoked half pack to 1 pack for almost 20 years and quit smoking more than 20 years ago. She has COPD and is being followed by Dr. Gallego She is also undergoing cardiac evaluation. Today she denies any shortness of breath. No nausea vomiting. No polyuria polydipsia. No edema. All systems were reviewed' 06/29/23;Feels better;She has cut back on water 05/09/24 c/o joint pains Started on Celebrex 3 days ago. Recent Na 130 PFSH Surgical History H/O: hysterectomy (~1993) Family History Father CHF (congestive heart failure) Mother CHF (congestive heart failure) HTN (hypertension) Social History Comment: Social Patient Tobacco Use Status: Former Tobacco user Physical Exam Vital Signs: Last Vital Signs Pulse 73 05/09/24 13:42 BP 118/60 05/09/24 13:42 Pulse Ox 100 05/09/24 13:42 Oxygen Delivery Method Nasal Cannula 05/09/24 13:42 Const General: comfortable Nutritional Appearance: well nourished Orientation/consciousness: patient oriented x3 HEENT Head: No normal to inspection Mouth: moist mucous membranes Eyes Other: Strabismus Neck Neck: Yes supple and Yes no JVD Resp Auscultation: clear to auscultation bilaterally and no rales Cardio Jugular venous distension: no JVD Palpation: no palpable S3 and no palpable S4 Heart sounds: no rubs GI Palpation (GI): Soft to palpation and nontender Percussion: No Fluid wave present General: Yes no CVA tenderness Back/Spine/Pelvis Back: no CVA tenderness Skin General skin exam: no rashes or lesions noted Neuro General: patient oriented x3 Extrem General: Yes no pedal edema and No clubbing Results Reviewed Nephrology Results: Sodium 130 mmol/L (135-145) L 06/29/23 Potassium 4.5 mmol/L (3.3-5.1) 06/29/23 Chloride 97 mmol/L (96-108) 06/29/23 Carbon Dioxide 24 mmol/L (22-29) 06/29/23 BUN 13 mg/dL (9-16) 06/29/23 Creatinine 0.62 mg/dL (0.5-1.4) 06/29/23 Calcium 9.6 mg/dL (8.4-10.2) 06/29/23 Urine Protein Negative mg/dL (Neg-Trace) 06/29/23 Urine Creatinine 20.06 mg/dL 06/29/23 Assessment & Plan Assessment & Plan (1) Hyponatremia: Comment: Elderly woman with hyponatremia in the setting of COPD and excessive free water intake Code(s): E87.1 - Hypo-osmolality and hyponatremia Category: Medical Plan: Ting most likely has non osmotic ADH release in setting of COPD. Hyponatremia was confounded by consuming excess free water Thyroid function seems normal No clinical evidence to support adrenal insufficiency. Goal is to maintain serum sodium more than 130 millimoles. I have encouraged her to limit free water intake. She can replace free water with Gatorade. Total fluid intake can be maintained around 40 oz. Given the history of hypertension I have encouraged her to stay on a regular sodium diet and I am not adding salt tablets. Currently on Celebrex Watch creatinine (2) HTN (hypertension): Code(s): I10 - Essential (primary) hypertension Category: Medical Plan: Blood pressure is acceptable. Orders: Orders Basic Metabolic Panel 1 Day E87.1 - Hypo-osmolality and hyponatremia Coding Level of Care Code Est Pt Level 4 (56908) Diagnoses Hyponatremia E87.1 HTN (hypertension) I10
--- OUTSIDE RECORDS SUMMARY | 2024-05-09 16:23 | XMS_ITS | Encounter Summary ---
Author Organization [facility] Address [address] [place] [address] Care Team Providers Care Digital Artist Name Role Phone JoseC arlos Borja MD Primary Care Provider [phone] Encounter Details Date Type Department Care Team (Late st Contact Info) Description 08/12/2022 [facility]phone [facility] [address] [place] [phone] Nick Granados PA-C [address] [facility] [address] [place] [address] Social History Tobacco Use Types Packs/Day Years Used Date Smoking Tobacco: Never Assessed Sex and Gender Information Value Date Recorded Sex Assigned at Not on file Gender Identity Not on file Sexual Orientation Not on file documented as of this encounter Plan of Treatment Upcoming Encounters Date Type Department Care Team (Late st Contact Info) Description 08/29/2024 10:00 AM EDT Clinical Support [facility] [place] [address] [facility] [place] [phone] Ronaldo Hardwick MD [address] [place] [phone] Zee Portillo Au.D [address] [place], [place] [id number] documented as of this encounter Visit Diagnoses Not on filedocumented in this encounter Care Teams Digital Artist Relationship Specialty Start Date End Date Jose Carlos Borja MD PCP - General Internal Medicine 11/25/15 documented as of this encounter
--- OUTSIDE RECORDS SUMMARY | 2024-05-09 16:23 | XMS_ITS | Encounter Summary ---
Author Organization [facility] Address [address] [place] [address] Care Team Providers Care Wire Technician Name Role Phone Jose Carlos Borja MD Primary Care Provider [phone] Encounter Details Date Type Department Care Team (Late st Contact Info) Description 03/05/2022 Scanned Document [facility] [place] at [address] [phone] Provider, Generic Social History Tobacco [...] Description 08/29/2024 10:00 AM EDT Clinical Support [facility] [address] [facility] [place] [phone] Ronaldo Hardwick MD [address] [place] [phone] Zee Portillo Au.D [address] [place], [place] [address] documented as of this encounter Procedures Procedure Name Priority Date/Time Associated Diagnosis Comments BOOKING SHEETS-SCAN 03/05/2022 documented in this encounter Results * BOOKING SHEETS-SCAN (03/05/2022) Narrative 03/05/2022 Ordered by an unspecified provider. Generic Provider HX AMB PROCEDURES documented in this encounter Visit Diagnoses Not on filedocumented in this encounter Care Teams Wire Technician Relationship Specialty Start Date End Date Jose Carlos Borja MD PCP - General Internal Medicine 11/25/15 documented as of this encounter
--- OUTSIDE RECORDS SUMMARY | 2024-05-09 16:23 | XMS_ITS | Encounter Summary ---
Author Organization [facility] Address [address] [place] [address] Phone Care Team Providers Care Community Outreach Advocate Name Role Phone Jose Carlos Borja MD Primary Care Provider [phone] Reason for Visit * Reason Comments Sore Throat Voice hoarseness. St arted Tuesday and has henrique increasing. Sore throat, she has pain in her right ear. Pt is on oxygen at baseline. She feels like her chest is congested. Her throat is burning. Cough Fever Encounter Details Date Type Department Care Team (Late st Contact Info) Description 04/23/2024 12:00 PM EDT Office Visit [facility] [address] [place] [address] Corby Machado PA [address] [place] [phone] Sore throat (Primary Dx); Viral URI with cough Social History Tobacco Use Types Packs/Day Years Used Date Smoking Tobacco: Never Passive Smoke Exposure: Never Smokeless Tobacco: Never Alcohol Use Standard Drinks/Week Comments Never 0 [...] Sign Reading Time Taken Comments Blood Pressure 140/74 04/23/2024 12:14 PM EDT Pulse 83 04/23/2024 12:14 PM EDT Temperature 36.8 ??C (98.2 ??F) 04/23/2024 1 2:14 PM EDT Respiratory Rate 20 04/23/2024 12:1 4 PM EDT Oxygen Saturation 100% 04/23/2024 12: 14 PM EDT on 4lpm, via a oxygen converter Inhaled Oxygen Concentration - - Weight 52.2 kg (115 lb) 04/23/2024 12:1 4 PM EDT Height - - Body Mass Index 21.73 10/14/2023 8:56 AM EDT documented in this encounter Patient Instructions * Patient Instructions* Corby Machado PA - 04/23/2024 12:00 PM EDT Patient Education Upper Respiratory Infection ED General Information You came to the Emergency Department (ED) for an upper respiratory infection or URI. A URI can affect your nose, throat, ears, and sinuses. A virus is the cause of almost all URIs and antibiotics will not help you feel better more quickly. The common cold is an example of a viral URI. URIs are easy to spread from person to person, most often through coughing or sneezing. A URI will almost always get better in a week or two without any treatment. What care is needed at home? Call your regular doctor to let them know you were in the ED. Make a follow-up appointment if you were told to. If you smoke, try to quit. Your doctor or nurse can help. Drink lots of fluids like water, juice, or broth. This will help replace any fluids lost if you have a runny nose or fever. Warm tea or soup can help soothe a sore throat. If the air in your home feels dry, use a cool mist humidifier. This can help a stuffy nose and makeit easier to breathe. You can also use saline nose drops or spray to relieve stuffiness. If you decide to take ilsw-ncb-ztqxvqe cough or cold medicines, follow the directions on the label carefully. Be sure you do not take more than 1 medicine that contains acetaminophen. Also, if you have a heart problem or high blood pressure, check with your doctor before you take any of these medicines. Wash your hands often. Cough or sneeze into a tissue or your elbow instead of your hands. When around others, you might also want to wear a face mask. These steps can help keep others around you healthy. When do I need to get emergency help? Return to the ED if: You have trouble breathing when talking or sitting still. When do I need to call the doctor? You have a fever of 100.4??F (38??C) or higher for several days, chills, a very bad sore throat, ramesh or sinus pain. You develop a new fever after several days of feeling the same or improving. You develop chest pain when you cough. You have a cough that lasts more than 10 days. You cough up blood. You have new or worsening symptoms. Last Reviewed Date 2021-03-17 Consumer Information Use and Disclaimer This generalized information is a limited summary of diagnosis, treatment, and/or medication information. It is not meant to be comprehensive and should be used as a tool to help the user understand and/or assess potential diagnostic and treatment options. It does NOT include all information about conditions, treatments, medications, side effects, or risks that may apply to a specific patient. Itis not intended to be medical advice or a substitute for the medical advice, diagnosis, or treatment of a health care provider based on the health care provider's examination and assessment of a patient???s specific and unique circumstances. Patients must speak with a health care provider for complete information about their health, medical questions, and treatment options, including any risks orbenefits regarding use of medications. This information does not endorse any treatments or medications as safe, effective, or approved for treating a specific patient. [employer]. and its affiliates disclaim any warranty or liability relating to this information or the use thereof. The use of this information is governed by the Terms of Use, available at https://www.[employer].com/en/know/uunkyvhq-fiarwbtsdnlaj-qimch Copyright Copyright ?? 3 [employer]. and its affiliates and/or licensors. All rights reserved. documented in this encounter Progress Notes * Corby Machado PA - 04/23/2024 12:00 PM EDT Subjective: Reason for Visit: Sore Throat (Voice hoarseness. Started Tuesday and has henrique increasing. Sore throat, she has pain in her right ear. Pt is on oxygen at baseline. She feels like her chest is congested. Her throat is burning. ), Cough, and Fever History provided by: self 84-year-old female with history of COPD presents to the urgent care with complaints of throat in nature times 1-2 days. No substernal chest pain or shortness of breath, currently wears oxygen daily. Mild cough which is nonproductive no fever or chills. Sore Throat Associated symptoms include coughing and a fever. Cough Associated symptoms include a fever. Fever Associated symptoms include coughing. History: No Known Allergies Past Medical History: Diagnosis Date COPD (chronic obstructive pulmonary disease) (HC Code) Deaf, left Dry eye Hyperlipidemia Hypoxemia PSVT (paroxysmal supraventricular tachycardia) (HC Code) Past Surgical History: Procedure Laterality Date CATARACT EXTRACTION COLON SURGERY HYSTERECTOMY KNEE SURGERY WRIST SURGERY Current Outpatient Medications: albuterol sulfate, TAKE 2 PUFFS BY MOUTH EVERY 4-6 HORS NEEDED ALPRAZolam, amLODIPine, atorvastatin, Take 1 tablet (10 mg total) by mouth. Bifidobacterium infantis, Take 1 capsule (4 mg total) by mouth daily. coenzyme Q10, Take by mouth. docusate sodium, Take 1 capsule (100 mg total) by mouth. methotrexate, metoprolol tartrate, Take by mouth. olmesartan, Take 1 tablet (40 mg total) by mouth daily. Systane Balance, Apply to eye. valACYclovir, Take 1 tablet (1,000 mg total) by mouth daily. carboxymethylcellulose sodium, Apply to eye. (Patient not taking: Reported on 04/23/2024) clotrimazole, DISSOLVE SLOWLY IN MOUTH 5 TIMES A DAY FOR 14 DAYS. (Patient not taking: Reported on 04/23/2024) folic acid, losartan, Take by mouth. loteprednol, INSTILL ONE DROP INTO RIGHT EYE THREE TIMES DAILY. mupirocin, APPLY TOPICALLY TO OPEN SORES TWICE A DAY NEEDED ivqkzott-nmvkxnred-awkmgsljtglvu, APPLY A SMALL AMOUNT OF OINTMENT ON RIGHT UPPER EYELID AND IN THERIGHT EYE TWICE DAILY FOR ONE WEEK polymyxin B sulfate-trimethoprim, INSTILL 1 DROP INTO BOTH EYES 3 TIMES A DAY Tobradex ST, INSTILL 1 DROP INTO AFFECTED EYE THREE TIMES A DAY NEEDED SHAKE WELL Objective: BP (!) 140/74 Pulse 83 Temp 98.2 ??F (36.8 ??C) (Oral) Resp 20 Wt 52.2 kg SpO2 100% Comment: on 4lpm, via a oxygen converter BMI 21.73 kg/m?? Physical Exam Vitals and nursing note reviewed. Constitutional: Appearance: Normal appearance. She is normal weight. HENT: Head: Normocephalic and atraumatic. Right Ear: Tympanic membrane, ear canal and external ear normal. Left Ear: Tympanic membrane, ear canal and external ear normal. Nose: Congestion present. Mouth/Throat: Mouth: Mucous membranes are moist. Pharynx: Oropharynx is clear. No oropharyngeal exudate or posterior oropharyngeal erythema. Eyes: Extraocular Movements: Extraocular movements intact. Conjunctiva/sclera: Conjunctivae normal. Pupils: Pupils are equal, round, and reactive to light. Cardiovascular: Rate and Rhythm: Normal rate and regular rhythm. Pulmonary: Effort: Pulmonary effort is normal. Breath sounds: Normal breath sounds. No wheezing, rhonchi or rales. Musculoskeletal: Cervical back: Normal range of motion and neck supple. Skin: General: Skin is warm and dry. Capillary Refill: Capillary refill takes less than 2 seconds. Neurological: General: No focal deficit present. Mental Status: She is alert and oriented to person, place, and time. Mental status is at baseline. Psychiatric: Mood and Affect: Mood normal. Behavior: Behavior normal. Thought Content: Thought content normal. Judgment: Judgment normal. Results Results for orders placed or performed in visit on 04/23/24 POCT SARS COV-2 (COVID-19) PCR/Influenza A+B (In-Clinic) Result Value Ref Range POC SARS-CoV-2 (COVID-19) PCR Not Detected Not Detected POC Influenza A Not Detected Not Detected POC Influenza B Not Detected Not Detected POC Kit Lot Number [id number] POC Expiration Date 1408550 POCT Strep A(In-Clinic) Result Value Ref Range POC Strep A Not Detected Not Detected POC Kit Lot Number [id number] POC Expiration Date [id number] No orders to display Orders Placed This Encounter Procedures POCT SARS COV-2 (COVID-19) PCR/Influenza A+B (In-Clinic) POCT Strep A(In-Clinic) Procedures Assessment & Plan: Encounter Diagnoses Code Name Primary? J02.9 Sore throat Yes Requested Prescriptions No prescriptions requested or ordered in this encounter Medical Decision Making: PCR testing is negative. Symptoms appear viral in nature. Plan is for her to olive picker Coricidin Keven medication anbn-qdx-umgqvfy for symptoms along with Alfredadebbie Manavjulia in a course of Medrol. Written instructions for viral URI. Antibiotics not indicated. Electronically Signed by NIGEL Jamison, April 23, 2024 documented in this encounter Plan of Treatment Not on file documented as of this encounter Procedures Procedure Name Priority Date/Time Associated Diagnosis Comments POCT SARS COV-2 (COVID-19) PCR/INFLUENZA A+B ([facility]) Routine 04/23/2024 12:42 PM EDT Sore throat POCT STREP A ([facility]) Routine 04/23/2024 12:41 PM EDT Sore throat documented in this encounter Results * POCT SARS COV-2 (COVID-19) PCR/Influenza A+B (In-Clinic) (04/23/2024 12:42 PM EDT) POC SARS-CoV-2 (COVID-19) PCR Not Detected Not Detected POC Influenza A Not Detected Not Detected POC Influenza B Not Detected Not Detected POC Kit Lot Number [id number] POC Expiration Date [id number] Nasal Swab 04/23/2024 12:4 2 PM EDT Corby MANNING POINT OF CARE ORDERS W/FUTURE Final Result * POCT Strep A(In-Clinic) (04/23/2024 12:41 PM EDT) POC Strep A Not Detected Not Detected POC Kit Lot Number [id number] POC Expiration Date [id number] Throat 04/23/2024 12:4 1 PM EDT Corby MANNING POINT OF CARE ORDERS W/FUTURE Final Result documented in this encounter Visit Diagnoses Diagnosis Sore throat- Primary Acute pharyngitis Viral URI with cough Acute upper respiratory infections of unspecified site documented in this encounter Care Teams Community Outreach Advocate Relationship Specialty Start Date End Date Jose Carlos Borja MD [address] [phone] PCP - General Internal Medicine 04/23/24 documented as of this encounter
--- OUTSIDE RECORDS SUMMARY | 2024-05-09 16:23 | XMS_ITS | Clinical Summary ---
Author Organization [facility] Address [address] [place] [address] Phone Care Team Providers Care Prospect Manager Name Role Phone Jose Carlos Borja MD Primary Care Provider + [phone] Allergies No known active allergies Medications albuterol HFA (PROAIR HFA ; PROVENTIL HFA ; VENTOLIN HFA) 90 mcg/actuation inhaler TAKE 2 PUFFS BY MOUTH EVERY 4 TO 6 HOURS NEEDED 3 Active ALPRAZolam (XANAX) 0.5 mg tablet Take 1 tablet (0.5 mg total) by mouth at bedtime as needed. Active amLODIPine (NORVASC) 10 mg tablet TAKE 1 TABLET BY MOUTH DAILY 3 Active atorvastatin (LIPITOR) 10 mg tablet Take 1 tablet (10 mg total) by mouth at bedtime. Active fluticasone furoate-vilante roL (Breo Ellipta) 100-25 mcg/dose inhaler 3 Active calcium carbonate (CALCIUM 600 ORAL) Take by mouth. Calcium Carbonate (CALCIUM 600 PO) Active carboxymethylce llulose (Refresh Tears) 0.5 % ophthalmic solution Administer into affected eye(s). Active cholecalciferol (VITAMIN D-3) 25 mcg (1,000 unit) tablet Take by mouth. Ac tive coenzyme Q-10 200 mg capsule Take by mouth. Active UNABLE TO FIND Take by mouth. FMI-VGL-Fmcfmcf d Oil-Vitamin E (THERA TEARS NUTRITION PO) Active docusate sodium (COLACE) 100 mg capsule Take 1 capsule (100 mg total) by mouth 2 (two) times a day. 1 Active folic acid (FOLVITE) 1 mg tablet Take 3 tablets (3 mg total) by mouth 1 (one) time each day. 8 Active furosemide (LASIX) 20 mg tablet Take 1 tablet (20 mg total) by mouth every other day. 4 Active halobetasol (ULTRAVATE) 0.05 % cream Apply topically. Active methotrexate 2.5 mg tablet Take 1 tablet (2.5 mg total) by mouth 1 (one) time per week 8 Active metoprolol tartrate (LOPRESSOR) 25 mg tablet TAKE 1 TABLET BY MOUTH TWICE DAILY 3 Active niacinamide 500 mg tablet Take 1 tablet (500 mg total) by mouth 2 (two) times a day. 9 Active valACYclovir (VALTREX) 500 mg tablet Take 1 tablet (500 mg total) by mouth at bedtime. Active L. acidophilus/Bif id. animalis (DAILY PROBIOTIC ORAL) Take by mouth. Active olmesartan (BENICAR) 40 mg tablet TAKE 1 TABLET BY MOUTH DAILY 90 tablet 1 5 Active Active Problems Problem Noted Date Diagnosed Date Syncope 04/07/2023 Hypercholesteremia 04/07/2023 Hypertension 04/07/2023 Paroxysmal supraventricular tachycardia 04/07/19 24 SOB (shortness of breath) 01/19/2023 Traumatic complete tear of left rotator cuff 11/2020 Dislocation of left shoulder joint 02/18/2020 Arthritis of right knee 11/17/2018 Encounters Date Type Department Care Team Description 05/08/2024 Telephone [facility] [address] [place] [address] Willow Aguirre RN Results 04/11/2024 9:30 AM EST Office Visit [facility] [address] [place] [address] Mariely Flannery MD 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 (Primary Dx); Primary hypertension; Pure hypercholesterolemia; PAD (peripheral artery disease) ([facility]); PSVT (paroxysmal supraventricular tachycardia) (CMS/HCC); Shortness of breath 02/17/2024 2:03 PM EST - 02/17/2024 11:59 PM EST Hospital Encounter [facility] MRI [address] [place] [address] Headache, unspecified; Dizziness Discharge Disposition: Home or Self Care from Last 3 Months Immunizations Name Administration Dates Next Due Pfizer (ages 12 & older) ILIANA S-CoV-2 COVID-19, mRNA, LNP-S, jones-sucrose, preservative free 06/09/2021 Pfizer SARS-CoV-2 COVID-19, mRNA, LNP-S, preservative free 12/25/2020,05/06/2020,04/15/2020 [...] Sign Reading Time Taken Comments Blood Pressure 128/80 04/11/2024 9:43 AM EST Pulse 63 04/11/2024 9:43 AM EST Temperature - - Respiratory Rate - - Oxygen Saturation 97% 04/11/2024 9:43 AM EST Inhaled Oxygen Concentration - - Weight 55.8 kg (123 lb) 04/11/2024 9:43 AM EST Height 154.9 cm (5' 1 ) 04/11/2024 9:43 AM EST Body Mass Index 23.24 04/11/2024 9:43 AM EST Plan of Treatment Upcoming Encounters Date Type Department Care Team (Late st Contact Info) Description 05/29/2024 11:00 AM EDT Ancillary Procedure [facility] Cardiology [facility] [address] [place] [address] 10/10/2024 10:30 AM EDT Office Visit [facility] [address] [place] [address] Mariely Flannery MD [address] [place], [place] [id number] Health Maintenance Due Date Last Done Comments [...] Procedure Name Priority Date/Time Associated Diagnosis Comments ECG 12-LEAD Routine 04/11/2024 11:13 AM EST 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 MR ANGIO HEAD WO CONTRAST Routine 02/17/2024 3:54 PM EST Headache, unspecified Dizziness BASIC METABOLIC PANEL Routine 01/18/2024 10:04 AM EST Essential hypertension, 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 ??Nonspecific J-point elevation in V2. us Mariely Flannery MD ECG ORDERABLES Final Result * MR Angio Head wo Contrast (02/17/2024 [...] Signed Date: 02/20/2024 09:57 ET Workstation ID: [id number] Transcribed By: Self Edit Transcribed Date: 02/20/2024 09:54 ET Narrative 02/20/2024 9:57 AM EST PROCEDURE: Head MRA INDICATION: Headache, aneurysm TECHNIQUE: Multiplanar, multisequence MRI of the brain Without contrast. ??Head MRA was performed without contrast using [id number] technique. ??3-D/MIP images were created on an independent workstation with direct supervision by the radiologist. COMPARISON: ??Brain MRI 12/18/2022 FINDINGS: Diffusion weighted imaging demonstrate no acute infarct, mass effect, hydrocephalus, or hemorrhage. Lagz-et-ycjrvh MRA demonstrates patent intracranial vertebral arteries. Basilar [...] contrast.Head MRA was performed without contrast using [id number]-iv-[id number] technique.3-D/MIP images were created on an independent workstation with directsupervision by the radiologist. COMPARISON: Brain MRI 12/18/2022 FINDINGS: Diffusion weighted imaging demonstrate no acute infarct, mass effect,hydrocephalus, or hemorrhage. [id number]-yw-[id number] MRA demonstrates patent intracranial vertebral arteries. Basilar [...] Signed Date: 02/20/2024 09:57 ET Workstation ID: [id number] Transcribed By: Self Edit Transcribed Date: 02/20/2024 09:54 ET Jose Carlos Borja MD IMG MRI PROCEDURES Final Res ult * (ABNORMAL) Basic metabolic panel (01/18/2024 10:04 AM EST) Sodium 134(L) 135 - 145 mmol/L LAB CHEMISTRY METHOD 01/18/2024 3:17 PM [facility] Potassium 4.6 3.5 - 5.1 mmol/L LAB CHEMISTRY METHOD 01/18/2024 3:17 PM [facility] Chloride 96(L) 98 - 107 mmol/L LAB CHEMISTRY METHOD 01/18/2024 3:17 PM [facility] CO2 30 24 - 32 mmol/L LAB CHEMISTRY METHOD 01/18/2024 3:17 PM [facility] Anion Gap 8 5 - 14 LAB CHEMISTRY METHOD 01/18/2024 3:17 PM [facility] Glucose 92 70 - 199 mg/dL LAB CHEMISTRY METHOD 01/18/2024 3:17 PM [facility] BUN 15 7 - 17 mg/dL LAB CHEMISTRY METHOD 01/18/2024 3:17 PM [facility] Creatinine 0.50 0.50 - 1.00 mg/dL LAB CHEMISTRY METHOD 01/18/2024 3:17 PM EST [facility] eGFR 94 >=60 mL/min/1. 73m2 LAB CHEMISTRY METHOD 01/18/2024 3:17 PM EST [facility] Comment:Calculation based on the??Chronic Kidney Disease Epidemiology Collaboration (CKD-EPI) equation refit??without adjustment for race. BUN/Creatinine Ratio 30.0(H) 12.0 - 20.0 LAB CHEMISTRY METHOD 01/18/2024 3:17 PM EST [facility] Calcium 9.6 8.4 - 10.2 mg/dL LAB CHEMISTRY METHOD 01/18/2024 3:17 PM EST [facility] Blood Venous blood specimen / Unknown Venipuncture / Unknown 01/18/2024 10:04 AM EST 01/18/2024 10:04 AM EST Jose Carlos Borja MD LAB BLOOD ORDERABLES Final R esult [facility] [address] [place] [address], [place] [phone] * BD Bone Density DXA Axial Skeleton [...] probability of hip fracture of 10.4%. Code [address] [facility] -------- FINAL REPORT -------- Dictated By: Jose Maria Mayes Dictated Date: 12/20/2023 12:06 ET Assigned Physician: Jose Maria Mayes Reviewed and Electronically Signed By: Jose Maria Mayes Signed Date: 12/20/2023 12:08 ET Workstation ID: [id number] Transcribed By: Self Edit Transcribed Date: 12/20/2023 [...] density of the femurs bilaterally is 0.759 gm/cf5fzbld is 75% of that of young normals [...] probability of hip fracture of 10.4%. Code [address]4556 [facility] -------- FINAL REPORT -------- Dictated By: Jose Maria Mayes Dictated Date: 12/20/2023 12:06 ET Assigned Physician: Jose Maria Mayes Reviewed and Electronically Signed By: Jose Maria Mayes Signed Date: 12/20/2023 12:08 ET Workstation ID: [id number] Transcribed By: Self Edit Transcribed Date: 12/20/2023 12:06 ET Jose Carlos Borja MD IMG DXA PROCEDURES Final Res ult from Last 3 Months or Most Recently Relevant to Health Maintenance Insurance [employer] Care Teams Prospect Manager Relationship Specialty Start Date End Date Jose Carlos Borja MD [address] [place] [address] PCP - General Internal Medicine 04/28/09
--- OUTSIDE RECORDS SUMMARY | 2024-05-09 16:23 | XMS_ITS | Encounter Summary ---
Author Organization [facility] Address [address] [place] [address] Care Team Providers Care Can Vacuum Tester Name Role Phone Jose Carlos Borja MD Primary Care Provider Encounter Details Date Type Department Care Team (Late st Contact Info) Description 10/06/2022 Scanned Document [facility] [address] [place], [place] [phone] Hermes Rubi MD [address] [place] [address] Social History Tobacco Use Types Packs/Day Years Used Date Smoking Tobacco: Never Assessed Sex and Gender Information Value Date Recorded Sex Assigned at Not on file Gender Identity Not on file Sexual Orientation Not on file documented as of this encounter Plan of Treatment Upcoming Encounters Date Type Department Care Team (Late st Contact Info) Description 08/29/2024 10:00 AM EDT Clinical Support [facility] [place] [address] [facility], [place] [phone] Ronaldo Hardwick MD [address] [address] Zee Portillo Au.D [address] [place], [place] [address] documented as of this encounter Visit Diagnoses Not on filedocumented in this encounter Care Teams Can Vacuum Tester Relationship Specialty Start Date End Date Jose Carlos Borja MD PCP - General Internal Medicine 11/25/15 documented as of this encounter
--- OUTSIDE RECORDS SUMMARY | 2024-05-09 16:23 | XMS_ITS | Encounter Summary ---
Author Organization [facility] Address [address] [place] [address] Care Team Providers Care Director Cpg Name Role Phone Jose Carlos Borja MD Primary Care Provider Reason for Referral * Imaging (Routine) - Authorized Specialty Diagnoses / Procedures Referred By Contac t Referred To Contact Cardiology Diagnoses Primary hypertension Shortness of breath Procedures Transthoracic echocardiogram (TTE) complete with PRN contrast, bubble, strain, and 3D order panel PA TTE W 2D IMAGE COMPLETE W DOPPLER ECHO & COLOR FLOW DOPPLER ECHO PA PRICE 2D COMPLETE W/CONTRAST OR W & WO CONTRAST WITH DOPPLER Mariely Paiz MD [address] [place] [address] Phone: tel: fax: [facility] [place] Referral ID Status Reason Start Date Expiration Date V isits Requested Visits Authorized [id number] Authorized 04/25/2024 04/11/2025 1 1 Reason for Visit * Reason Comments Follow-up Encounter Details Date Type Department Care Team (Latest Contact Info) Description 04/11/2024 9:30 AM EST Office Visit [facility] [address] [place] [phone] Mariely Paiz MD [address] [place] [id number] Atherosclerosis of afognak coronary artery of afognak heart without angina pectoris (Primary Dx); Primary hypertension; Pure hypercholesterolemia; PAD (peripheral artery disease) (CMS/HCC); PSVT (paroxysmal supraventricular tachycardia) (CMS/HCC); Shortness of breath Social History Tobacco Use Types Packs/Day Years [...] Mass Index 23.24 04/11/2024 9:43 AM EST documented in this encounter Progress Notes * Mariely Paiz MD - 04/11/2024 9:30 AM EST [facility] [address] [facility] [address] [place] [address] Ting Corrales is a 84 y.o. female who is here for Chief Complaint Patient presents with Follow-up Subjective: Routine follow up. Currently follows with Dr. 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 Requires 4 L NC for COPD. With O2 supplementation she is able to walk with walker assistance at least 300 feet, with limitingcomplaint of knee pain. No chest pain, palpitations. No fainting spells. No leg swelling. Review of Systems: GENERAL: No fatigue or malaise; HEENT: + hard of hearing CVS: No CP, palpitations, orthopnea or PND RSP: No cough or cold GI: no abdominal pain, nausea, vomiting, hematemesis, melena or hematochezia : No frequency or dysuria ID: no fever or chills MS: no myalgia ; + joint pain hands neck and knees Skin: no rashes Heme: no unusual bleeding or bruising Neurologic: no headache, + tingling in fingers periodically Psychiatric: No anxiety or depression Allergy/Immune: No hayfever/hives Past Medical History: Past Medical History: Diagnosis Date Anemia DX:Anemia Deafness DX:Deafness Diverticulitis DX:Diverticulitis Glaucoma DX:Glaucoma Hypercholesteremia glaucoma DX:Hypercholesteremia Hypertension DX:Hypertension Hypertrophic lichen planus 2017 DX:Hypertrophic lichen planus;COMMENT:lower extremities Oxygen dependent DX:Oxygen dependent Paroxysmal supraventricular tachycardia (CMS/HCC) DX:Paroxysmal supraventricular tachycardia (HCC) Syncope DX:Syncope Vertigo DX:Vertigo Past Surgical History: Past Surgical History: Procedure Laterality Date COLECTOMY PROCEDURE:LAPAROSCOPIC COLON RESECTION;COMMENT:simoid diverculitis 2014 HYSTERECTOMY PROCEDURE:HYSTERECTOMY STEREOTACTIC CORE BIOPSY Right unknown Medication: Current Outpatient Medications Medication Sig Dispense Refill albuterol HFA (PROAIR HFA ; PROVENTIL HFA ; VENTOLIN HFA) 90 mcg/actuation inhaler TAKE 2 PUFFS BY MOUTH EVERY 4 TO 6 HOURS NEEDED ALPRAZolam (XANAX) 0.5 mg tablet Take 1 tablet (0.5 mg total) by mouth at bedtime as needed. amLODIPine (NORVASC) 10 mg tablet TAKE 1 TABLET BY MOUTH DAILY atorvastatin (LIPITOR) 10 mg tablet Take 1 tablet (10 mg total) by mouth at bedtime. calcium carbonate (CALCIUM 600 ORAL) Take by mouth. Calcium Carbonate (CALCIUM 600 PO) carboxymethylcellulose (Refresh Tears) 0.5 % ophthalmic solution Administer into affected eye(s). cholecalciferol (VITAMIN D-3) 25 mcg (1,000 unit) tablet Take by mouth. coenzyme Q-10 200 mg capsule Take by mouth. docusate sodium (COLACE) 100 mg capsule Take 1 capsule (100 mg total) by mouth 2 (two) times a day. fluticasone furoate-vilanteroL (Breo Ellipta) 100-25 mcg/dose inhaler folic acid (FOLVITE) 1 mg tablet Take 3 tablets (3 mg total) by mouth 1 (one) time each day. furosemide (LASIX) 20 mg tablet Take 1 tablet (20 mg total) by mouth every other day. halobetasol (ULTRAVATE) 0.05 % cream Apply topically. L. acidophilus/Bifid. animalis (DAILY PROBIOTIC ORAL) Take by mouth. methotrexate 2.5 mg tablet Take 1 tablet (2.5 mg total) by mouth 1 (one) time per week metoprolol tartrate (LOPRESSOR) 25 mg tablet TAKE 1 TABLET BY MOUTH TWICE DAILY niacinamide 500 mg tablet Take 1 tablet (500 mg total) by mouth 2 (two) times a day. olmesartan (BENICAR) 40 mg tablet TAKE 1 TABLET BY MOUTH DAILY 90 tablet 1 UNABLE TO FIND Take by mouth. ODR-BMD-Zfoepzhw Oil-Vitamin E (THERA TEARS NUTRITION PO) valACYclovir (VALTREX) 500 mg tablet Take 1 tablet (500 mg total) by mouth at bedtime. No current facility-administered medications for this visit. Allergies: No Known Allergies Social History: Social History Tobacco Use Smoking status: Former Current packs/day: 0.00 Types: Cigarettes Quit date: 08/23/1989 Years since quittin.6 Smokeless tobacco: Never Substance Use Topics Alcohol use: Yes Alcohol/week: 2.0 standard drinks of alcohol Drug use: No Family History: Family History Problem Relation Name Age of Onset Heart disease Mother Heart disease Father Physical Examination: Visit Vitals BP 128/80 Pulse 63 Ht 1.549 m (61 ) Wt 55.8 kg (123 lb) SpO2 97% BMI 23.24 kg/m?? OB Status Postmenopausal Smoking Status Former BSA 1.54 m?? Gen: Well appearing, no acute distress Psych: Affect is appropriate Heent: Head and neck examination demonstrates anicteric sclerae and pink conjunctivae. Vasc: Jugular venous pulse is normal. No hepatojugular reflux. Carotid upstroke is brisk bilaterally and without bruits. Resp: Lungs are clear to auscultation. Card: Cardiac examination demonstrates regular rate and rhythm, no murmurs, no gallops or rubs. GI: Abdomen soft and non tender to palpation, + normoactive BS Ext: No peripheral edema. Superficial varicosities noted. DP pulses 2+ bilateral. Skin: Skin appears fragile with easy bruising otherwise warm and dry. 12 LEAD ECG: Normal sinus rhythm, 63 bpm. Nonspecific J-point elevation in V2. I have reviewed all recent available bloodwork Lab Results Component Value Date WBC 7.6 01/18/2024 RBC 3.18 (L) 01/18/2024 HCT 34.7 (L) 01/18/2024 HGB 11.8 (L) 01/18/2024 MCV 109.0 (H) 01/18/2024 MCH 37.0 (H) 01/18/2024 MCHC 34.0 01/18/2024 RDW 15.5 01/18/2024 MPV 7.5 01/18/2024 Lab Results Component Value Date BUN 15 01/18/2024 CREATININE 0.50 01/18/2024 NA 134 (L) 01/18/2024 K 4.6 01/18/2024 CL 96 (L) 01/18/2024 CO2 30 01/18/2024 CALCIUM 9.6 01/18/2024 No results found for: CHOL , HDL , LDLCALC , VLDL , TRIG No results found for: HGBA1C No results found for this or any previous visit. Assessment: Problem List Items Addressed This Visit Hypertension Relevant Orders CBC and differential Basic metabolic panel Transthoracic echocardiogram (TTE) complete with PRN contrast, bubble, strain, and 3D order panel Other Visit Diagnoses Atherosclerosis of afognak coronary artery of afognak heart without angina pectoris - Primary Relevant Orders Lipid panel CBC and differential Basic metabolic panel ECG 12 lead Pure hypercholesterolemia Relevant Orders Lipid panel Hepatic function panel PAD (peripheral artery disease) (CMS/HCC) Relevant Orders CBC and differential PSVT (paroxysmal supraventricular tachycardia) (CMS/HCC) Relevant Orders CBC and differential Shortness of breath Relevant Orders Transthoracic echocardiogram (TTE) complete with PRN contrast, bubble, strain, and 3D order panel Plan: 1. Coronary atherosclerosis - diagnosed by CT imaging of the chest 02/2022 LST 03/2022 : Normal LV ejection fraction 70%. Normal perfusion. Recent noncardiac chest pain for which she went to the ER. CTA coronaries: 05/2023: Mild LAD stenosis secondary to calcific plaque, mild RCA disease, heavily calcified mitral annulus. No interval chest pain. Has planned cardiopulmoary stress test care of Pulmonology. I reassured her that it is safe from cardiac standpoint to do so. Continue ASA 81 mg PO qd. Continue Metoprolol tartrate at 25 mg po bid Continue Atorvastatin 10 mg PO qhs. 2. Exertional shortness of breath in the setting of O2 dependent COPD and also with established history of diastolic dysfunction Obtain 2d echocardiogram to reevaluate filling pressure and cardiac structure. 3. Essential hypertension - BP well controlled on current therapy. Continue Metoprolol tartrate 25 mg PO BID Continue Amlodipine 10 mg PO qd. Continue Olmesartan 40 mg PO qd. Note that she has not been taking Furosemide 20 mg qod. She is euvolemic on exam. Okay to stay off this medication at this time. 4. Hyperlipidemia Lipids at goal as of 07/2023 Continue Atorvastatin 10 mg PO qhs. 5. PSVT No palpitations. Continue Metoprolol tartrate 25 mg PO BID. 6. Peripheral arterial disease USG carotids 10/2021: Mild atherosclerotic disease in bilateral carotid bulbs. CTA 08/2021 Head and neck - atherosclerotic plaque carotid bulbs Had RAULITO at [facility] okay. Abnormal LE thigh-brachial index, recommendation for LE arterial studies ( Outside Documents Tab) Most recent repeat carotid USG 01/2024: Less than 50% stenosis within bilateral internal carotid arteries. Incidental finding of thyroid nodules. I will defer to PCP in this regard. No new neurologic symptoms. No claudication Distal perfusion remains intact. Continue aspirin and statin as above. Orders Placed This Encounter Procedures Lipid panel Standing Status: Future Standing Expiration Date: 04/11/2025 Order Specific Question: Has the Patient Fasted? Answer: Yes Hepatic function panel Standing Status: Future Standing Expiration Date: 04/11/2025 Order Specific Question: Has the Patient Fasted? Answer: Yes CBC and differential Standing Status: Future Standing Expiration Date: 04/11/2025 Basic metabolic panel Standing Status: Future Standing Expiration Date: 04/11/2025 Order Specific Question: Has the Patient Fasted? Answer: Yes ECG 12 lead Order Specific Question: Reason for Exam: Answer: Hypertension, Unspec Transthoracic echocardiogram (TTE) complete with PRN contrast, bubble, strain, and 3D order panel Standing Status: Future Standing Expiration Date: 04/11/2025 Order Specific Question: Contrast Enhancement (Bubble Study or Definity) may be used if criteria listed in established evidence-based protocol has been identified. Answer: Contrast per evidence based protocol Comments: Alma Delia Order Specific Question: In what REGION should this be scheduled? Answer: [facility] CT [[id number]] MARIELY PAIZ MD [facility] Tel No [phone] documented in this encounter Plan of Treatment Upcoming Encounters Date Type Department Care Team (Late st Contact Info) Description 05/29/2024 11:00 AM EDT Ancillary Procedure [facility] [address] [place] [phone] 10/10/2024 10:30 AM EDT Office Visit [facility] [address] [place] [address] Mariely Paiz MD [address] [place] [address] [phone] Scheduled Orders Name Type Priority Associated Diagnoses Orde r Schedule Lipid panel Lab Routine Atherosclerosis of afognak coronary artery of afognak heart without angina pectoris Pure hypercholesterolemia 1 Occurrences starting 04/11/2024 until 04/11/2025 Hepatic function panel Lab Routine Pure hypercholesterolemia 1 Occurrences starting 04/11/2024 until 04/11/2025 CBC and differential Lab Routine Atherosclerosis of afognak coronary artery of afognak heart without angina pectoris Primary hypertension PAD (peripheral artery disease) (CMS/HCC) PSVT (paroxysmal supraventricular tachycardia) ([facility]/HCC) 1 Occurrences starting 04/11/2024 until 04/11/2025 Basic metabolic panel Lab Routine Atherosclerosis of afognak coronary artery of afognak heart without angina pectoris Primary hypertension 1 Occurrences starting 04/11/2024 until 04/11/2025 Transthoracic echocardiogram (TTE) complete with PRN contrast, bubble, strain, and 3D order panel Echocardiography Routine Primary hypertension Shortness of breath 1 Occurrences starting 04/11/2024 until 04/11/2025 documented as of this encounter Procedures Procedure Name Priority Date/Time Associated Diagnosis Comments ECG 12-LEAD Routine 04/11/2024 11:13 AM EST Atherosclerosis of afognak coronary artery of afognak heart without angina pectoris documented in this encounter Results * ECG 12 lead (04/11/2024 11:13 AM EST) Impressions Anna Marie Cabello - 04/11/2024 11:13 AM EST Normal sinus rhythm, 63 bpm. ??Nonspecific J-point elevation in V2. us Mariely Paiz MD ECG ORDERABLES Final Result documented in this encounter Visit Diagnoses Diagnosis Atherosclerosis of afognak coronary artery of afognak heart without angina pectoris- Primary Primary hypertension Unspecified essential hypertension Pure hypercholesterolemia PAD (peripheral artery disease) ([facility]) Unspecified peripheral vascular disease PSVT (paroxysmal supraventricular tachycardia) ([facility]) Paroxysmal supraventricular tachycardia Shortness of breath documented in this encounter Care Teams Director Cpg Relationship Specialty Start Date End Date Jose Carlos Borja MD [address] [place] [id number] PCP - General Internal Medicine 04/28/09 documented as of this encounter
--- OUTSIDE RECORDS SUMMARY | 2024-05-09 16:23 | XMS_ITS | Clinical Summary ---
Author Organization [facility] Address [address] [place] [address] Care Team Providers Care Drop Forge Operator Name Role Phone Jose Carlos Borja MD Primary Care Provider [phone] Allergies No known active allergies Medications Medication [...] Description 02/29/2024 10:00 AM EST Office Visit [facility] [address], [place] [address] Ronaldo Hardwick MD Asymmetrical hearing [...] Description 08/29/2024 10:00 AM EDT Clinical Support [facility] [place] [address] [facility], [place] [address] Ronaldo Hardwick MD [address] [address] Zee Portillo [address]D [address] [place], [place] [id number] Health Maintenance Due Date Last Done Comments [...] age to complete this topic Care Teams Drop Forge Operator Relationship Specialty Start Date End Date Jose Carlos Borja MD PCP - General Internal Medicine 11/25/15
--- OUTSIDE RECORDS SUMMARY | 2024-05-09 16:23 | XMS_ITS | Continuity of Care Document ---
Author Organization [facility] Address [address] [place] [address] Phone [phone] Care Team Providers Care Tooling Engineer Name Role Phone Jose Carlos Borja M.D. Care Team Information Recei vane [phone] Problems Active Problems Provider Date Essential hypertension [...] Medications SIG Qnty Indications Ordering Provider Date [id number] Tablets 1 tab by mouth at supper 90tabs Drake Velasco M.D. 02/04/2022 Losartan [id number] Tablets 1 tab by mouth every day Unknown Metoprolol [id number] Tablets 1 tab by mouth twice a day 60tabs Unknown Amlodipine [id number] Tablets Unknown 0 000 Folic Psuv2ox Tablets Take 1 Tablet By Mouth Every Day Jomar Nix M.D. [id number] Tablets 1 tab by mouth every day [...]
--- OUTSIDE RECORDS SUMMARY | 2024-05-09 16:23 | XMS_ITS | Clinical Summary ---
Author Organization [facility] Address [address] [address] Phone Care Team Providers Care Instructional Technologist Name Role Phone Jose Carlos Borja MD Primary Care Provider [phone] Allergies No known active allergies Medications amLODIPine [...] patient's age to complete this topic Insurance [facility] Care Teams Instructional Technologist Relationship Specialty Start Date End Date Jose Carlos Borja MD [address] [place] [address] PCP - General Internal Medicine 09/09/20
--- OUTSIDE RECORDS SUMMARY | 2024-05-09 16:23 | XMS_ITS | Data Portability ---
Author Organization [facility], [facility] Address [address] [place] [address] Care Team Providers Care Rigging And Controls Aircraft Mechanic Name Role Phone SHER JEAN Primary Care Provider [phone] Assessment No assessment recorded. Plan of Treatment Reminders Order Date Submit Date Provider Last Modified By Organization Details Last Modified Time Details Appointments None record ed. Lab None record ed. Referral None record ed. Procedures None record ed. Surgeries None record ed. Imaging None record ed. Medication Orders None record ed. Patient TargetsNo targets recorded. Patient InstructionsNo instructions recorded. Reason for Referral None Reported. Results Created Date Observation Date Name Description Value Unit Range Abnormal Flag Note LastModifiedBy Organization Detail LastModifiedTime 10/14/19 24 03/19/2020 imagi ng/di agnos tic resul t No observ ation record ed. [email or web address] Not Available 09/16 22:00:26 10/14/19 24 05/08/2020 imagi ng/di agnos tic resul t No observ ation record ed. [email or web address] Not Available 09/16 22:00:32 Result Notes None recorded. Problems Name Problem SNOMED Code Status Onset Date Resolution Date Notes Provider Name and Address Organization Details Recorded Time No complaint s [id number] Active Status: 'I'; Not Available [facility] 09:15:49 Closed fracture of distal phalanx of right thumb 256027179169 [id number] Active 2014 Problem Code: S62.524A ; Problem Code Type: ICD-10; Status: 'A'; Not Available [facility] 11:27:42 Pain of right shoulder joint [id number] 29811 Active 2015 Problem Code: M25.511; Problem Code Type: ICD-10; Status: 'A'; Not Available [facility] 11:27:42 Problem Notes None recorded. Procedures Surgical History Date Name Laterality Status Provider Name and Address Organization Details Recorded Time 4 Sports Shoulder Bilateral completed Frank Young PA-C [address], [place], [address], [facility] 11/24/2023 07:26:37 4 Sports Shoulder completed Frank Young PA-C [address], [place], [address], [facility] 08/25/2023 09:33:55 Imaging Results Imaging Date Name Status LastModified by Organiz ation Details LastModified Time 03/19/2020 imaging/diag nostic result completed Information not available 10/14/2023 22:00:26 05/08/2020 imaging/diag nostic result completed Information not available 10/14/2023 22:00:32 Procedure Notes None recorded. Medical Equipment None Reported. Medications Name Sig Start Date Stop Date Status Note LastModified by Organization Details LastModified Time celecoxib 200 mg capsule TAKE 1 CAPSULE BY MOUTH EVERY DAY WITH FOOD FOR 30 DAYS active Not Available Not Available No t Available clotrimazol e 10 mg juan DISSOLVE SLOWLY IN MOUTH 5 TIMES A DAY FOR 14 DAYS. active Not Available Not Available No t Available prednisone 10 mg tablet 4 TABS X 2 DAYS, 2 TABS X 2 DAYS, 1 TAB X 2 DAYS THEN ORALLY ONCE A DAY active Not Available Not Available No t Available atorvastati n 20 mg tablet active Not Available Not Available Not Available acitretin 10 mg capsule active Not Available Not Available Not Available atorvastati n 10 mg tablet 11/23 completed Not Available Not Available Not Available azithromyci n 250 mg tablet TAKE 2 TABLETS BY MOUTH TODAY, THEN TAKE 1 TABLET DAILY FOR 4 DAYS DIRECTED active Not Available Not Available No t Available valacyclovi r 1 gram tablet TAKE 1 TABLET BY MOUTH ONCE A DAY 11/23 completed Not Available Not Available Not Available valacyclovi r 500 mg tablet TAKE 1 TABLET EVERY DAY active Not Available Not Available No t Available tramadol 50 mg tablet PLEASE SEE ATTACHED FOR DETAILED DIRECTION S active Not Available Not Available No t Available alprazolam 0.5 mg tablet TAKE 1 TABLET BY MOUTH TWICE A DAY active Not Available Not Available No t Available methotrexat e sodium 2.5 mg tablet TAKE 8 TABLETS BY MOUTH ONE TIME PER WEEK active Not Available Not Available No t Available amlodipine 10 mg tablet active Not Available Not Available Not Available cephalexin 500 mg capsule TAKE 1 CAPSULE BY MOUTH TWICE A DAY FOR 10 DAYS active Not Available Not Available No t Available polymyxin B sulfate 10,000 unit-trimet hoprim 1 mg/mL eye drops INSTILL 1 DROP INTO BOTH EYES 3 TIMES A DAY active Not Available Not Available No t Available dexamethaso ne 0.75 mg tablet PLEASE SEE ATTACHED FOR DETAILED DIRECTION S active Not Available Not Available No t Available omeprazole 20 mg capsule,del ayed release TAKE 1 CAPSULE BY MOUTH 2 TIMES A DAY active Not Available Not Available No t Available folic acid 1 mg tablet TAKE 1 TABLET BY MOUTH EVERY DAY active Not Available Not Available No t Available halobetasol propionate 0.05 % topical cream APPLY TO AFFECTED AREAS OF HYPERTROP HIC LICHEN PLANUS TWICE A DAY NEEDED active Not Available Not Available No t Available mupirocin 2 % topical ointment APPLY TOPICALLY TO OPEN SORES TWICE A DAY NEEDED active Not Available Not Available No t Available furosemide 20 mg tablet TAKE 1 TABLET BY MOUTH EVERY OTHER DAY active Not Available Not Available No t Available loteprednol etabonate 0.5 % eye drops,suspe nsion INSTILL 1 DROP INTO BOTH EYES TWICE A DAY active Not Available Not Available No t Available albuterol sulfate HFA 90 mcg/actuati on aerosol inhaler TAKE 2 PUFFS BY MOUTH EVERY 4-6 HOURS NEEDED active Not Available Not Available No t Available tobramycin 0.3 %-dexametha sone 0.1 % eye drops,suspe nsion INSTILL 1 DROP INTO RIGHT EYE THREE TIMES A DAY SHAKE WELL active Not Available Not Available No t Available neomycin 3.5 mg/g-polymy savi B 10,000 unit/g-dexa meth 0.1 % eye oint APPLY A SMALL AMOUNT OF OINTMENT ON RIGHT UPPER EYELID AND IN THE RIGHT EYE TWICE DAILY FOR ONE WEEK active Not Available Not Available No t Available olmesartan 40 mg tablet TAKE 1 TABLET BY MOUTH EVERY DAY active Not Available Not Available No t Available metaxalone 800 mg tablet TAKE 1 TABLET BY MOUTH THREE TIMES A DAY FOR 10 DAYS active Not Available Not Available No t Available cyclobenzap rine 5 mg tablet 1 TABLET ORALLY TWICE A DAY, NEEDED 14 DAYS active Not Available Not Available No t Available metoprolol tartrate 25 mg tablet active Not Available Not Available No t Available chlorhexidi ne gluconate 0.12 % mouthwash RINSE MOUTH 3 TIMES DAILY DIRECTED DO NOT SWALLOW active Not Available Not Available No t Available Valtrex Valtrex 500MG Tablet 02/10 completed Statu s: 'Disc ontin ued'; Not Available Not Available Not Available Tobradex ST 0.3 %-0.05 % eye drops,suspe nsion INSTILL 1 DROP INTO AFFECTED EYE THREE TIMES A DAY NEEDED SHAKE WELL active Not Available Not Available No t Available Breo Ellipta 100 mcg-25 mcg/dose powder for inhalation active Not Available Not Available N ot Available Vitals Date Recorded Body height Body mass index (BMI) Body weight Provider Name and Address Organization Details Last Updated DateTime 08/02/2023 154.94 cm 21.7 kg/m2 73916.12 g [facility] 08/02/2023 13:01:13 Date Recorded Body height Body mass index (BMI) Body weight Provider Name and Address Organization Details Last Updated DateTime 08/25/2023 154.94 cm 21.7 kg/m2 85665.12 g [facility] 08/25/2023 08:58:50 Date Recorded Body height Body mass index (BMI) Body weight Provider Name and Address Organization Details Last Updated DateTime 11/24/2023 154.94 cm 21.7 kg/m2 62567.12 g [facility] 11/24/2023 09:40:02 Social History None recorded. Functional Status None recorded. Mental Status None recorded. Family History Nothing Reported. Medical History No medical history recorded. Gynecological HistoryNo gynecological history recorded. 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 [id number] 7115684 M05.811 M05.812 Congestive heart failure 75487054 I50.30 [id number] [facility] [address] [place] [address] 08/25/2023 08:54:49 08/25/2023 09:38:41 Full thickness rotator cuff tear 836405850 M75.121 M75.559 [id number] [facility] [address] [place] [address] 11/24/2023 09:27:39 11/24/2023 11:12:06 Full thickness rotator cuff tear 312533633 M75.121 M75.122 Health Concerns Section Related Observation LastModified by Organization Detai ls LastModified Time None Recorded Concern Status LastModified by Organization Details LastModified Time None Recorded Advance Directives Directive None Recorded Payers Encounter Date Sequence Insurance Name Policy Number Policy Morales Covered Member ID Morales Member ID Guarantor Name 08/02/2023 1 [facility] (MEDICARE REPLACEMENT/A DVANTAGE - PPO) [id number] Ting Corrales [id number] Ting Corrales 08/25/2023 1 [facility] (MEDICARE REPLACEMENT/A DVANTAGE - PPO) [id number] Ting Corrales [id number] Ting Corrales 11/24/2023 1 [facility] (MEDICARE REPLACEMENT/A DVANTAGE - PPO) [id number] Ting Corrales [id number] Ting Corrales Notes Date Note Type Note Provider Name and Address Organization Details Recorded Time 08/02/2023 text/html I am seeing the patient today under the supervision of Dr. Knutson who was available but who did not see the patient.HPI: Ting typically receives bilateral shoulder injections. Here today for prescheduled bilateral shoulder injection. She however recently started oral dexamethasone for a skin condition and is on an 18 day course. She has questions regarding whether she should receive additional corticosteroid on top of her current oral treatment.Past family, medical, social history and review of systems has been reviewed, updated and signed by me and is located in the patient? s chart.Examination: Exam deferred today.Impression: Rotator cuff arthropathy of bilateral shouldersPlan: Patient with a known history of bilateral shoulder rotator cuff arthropathy. Here today for repeat injection however given the information that she shares with her new oral regimen of dexamethasone I am recommending against additive corticosteroid at this time. She is a somewhat frail 83-year-old female. Administering multiple corticosteroids would increase her risk of complications such as adrenal insufficiency, Lan's disease, GI perforation and bleeding. She has arranged a follow-up appointment in 20 days so that we can do corticosteroid injection after completion of her dexamethasone taper. She is comfortable with this recommendation and plan. Frank Young PA-C [address] [place] [address] [address], [place], [address], [facility] 08/02/2023 13:30:44 08/25/2023 text/html I am seeing the patient today under the supervision of Dr. Cruz who was available but who did not see the patient.REASON FOR VISITPatient comes to the office with known bilateral shoulder rotator cuff arthropathy in an 83-year-old female. Here today for corticosteroid injection. The patient has done well with conservative management for their shoulder pain. Recently reports increasing discomfort over the past several weeks without injury. Pain is generalized about the shoulder and discomfort is noted at night.PAST MEDICAL/SURGICAL HISTORYCurrent medications and surgeries were reviewed per intake sheet.PHYSICAL FINDINGSThe patient is well appearing, in no apparent distress, alert and oriented to person, place and time. Gait is symmetric. No significant swelling, warmth or erythema about either shoulder.Bilateral Shoulder exam : ROM forward elevation 150? ? ?, ER 60? ? ?, IR to L5 there is mild tenderness to palpation about the shoulder, moderate pain through mid range manipulations. 4/5 strength of the shoulder. Good stability of the shoulder.Peripheral, vascular, lymphatic examination, skin, neurologic coordination, reflexes, sensation are within normal limits.ASSESSMENTChro jesus rotator cuff tears bilateral shoulders with rotator cuff arthropathy.PLANThe patient has done well with conservative management in regards to the shoulder. Continued conservative management recommended. Moderating activities with the upper extremity recommended also.The patient was offered and performed bilateral shoulder injections without incident today.. Patient tolerated the injection well. Moderating activities with the upper extremity recommended. The patient will follow up as symptoms require going forward. Frank Young PA-C [address], [place], [address], [facility] 08/25/2023 09:34:39 11/24/2023 text/html I am seeing the patient today under the supervision of Dr. Cruz who was available but who did not see the patient.REASON FOR VISITPatient comes to the office with known bilateral chronic rotator cuff disease. Patient returns for repeat bilateral corticosteroid injection today. No overall major changes. The patient has done well with conservative management for their shoulder pain. Recently reports increasing discomfort over the past several weeks without injury. Pain is generalized about the shoulder and discomfort is noted at night.PAST MEDICAL/SURGICAL HISTORYCurrent medications and surgeries were reviewed per intake sheet.PHYSICAL FINDINGSThe patient is well appearing, in no apparent distress, alert and oriented to person, place and time. Gait is symmetric. No significant swelling, warmth or erythema about either shoulder.Bilateral Shoulder exam : ROM forward elevation 130? ? ?, ER 60? ? ?, IR to L3 there is mild tenderness to palpation about the shoulder, moderate pain through mid range manipulations. 4/5 strength of the shoulder. Good stability of the shoulder.Peripheral, vascular, lymphatic examination, skin, neurologic coordination, reflexes, sensation are within normal limits.ASSESSMENTRota tor cuff tear complete the bilateral shoulders.PLANThe patient has done well with conservative management in regards to the shoulder. Continued conservative management recommended. Moderating activities with the upper extremity recommended also.After meticulous sterile preparation a total of 40mg of Kenalog and 4 cc of 1/4% Marcaine was injected into the bilateral. Patient tolerated the injection well. Moderating activities with the upper extremity recommended. The patient will follow up as symptoms require going forward. Frank Young PA-C [address], [place], [address], [facility] 11/24/2023 10:26:31 OBGyn Episode No OBEpisode recorded.
--- OUTSIDE RECORDS SUMMARY | 2024-05-09 16:23 | XMS_ITS | Encounter Summary ---
Author Organization Address [address] [place] [address] Care Team Providers Care Tomography Technologist Name Role Phone Jose Carlos Borja MD Primary Care Provider [phone] Reason for Visit * Reason Onset Date Comments Results 05/08/2024 Encounter Details Date Type Department Care Team (Late st Contact Info) Description 05/08/2024 Telephone [facility] [address] [place] [address] Willow Aguirre, AIMEE Results Social History Tobacco Use Types Packs/Day Years [...] on file documented as of this encounter Progress Notes * Willow Aguirre RN - 05/08/2024 4:36 PM EDT Images from the original note were not included. MD Willow Li RN Labs reviewed. NO interventions required. Mariely Flannery MD \ Pt is aware [facility] rn documented in this encounter Plan of Treatment Upcoming Encounters Date Type Department Care Team (Late st Contact Info) Description 05/29/2024 11:00 AM EDT Ancillary Procedure [facility] [address] [place] [address] 10/10/2024 10:30 AM EDT Office Visit [facility] [address] [place] [address] Mariely Flannery MD [address] [place] [phone] documented as of this encounter Visit Diagnoses Not on filedocumented in this encounter Care Teams Tomography Technologist Relationship Specialty Start Date End Date Jose Carlos Borja MD [address] [place] [address] PCP - General Internal Medicine 04/28/09 documented as of this encounter
--- OUTSIDE RECORDS SUMMARY | 2024-05-09 16:23 | XMS_ITS | Clinical Summary ---
Author Organization [facility] Address [address] [place] [address] Care Team Providers Care Pattern Shop Supervisor Name Role Phone Jose Carlos Borja MD Primary Care Provider [phone] Allergies No known active allergies Medications Medication [...] DAILY PO) Take by mouth. 0 Active LYH-KFY-[place] Oil-Vitamin E (THERA TEARS NUTRITION PO) Take [...] age to complete this topic Care Teams Pattern Shop Supervisor Relationship Specialty Start Date End Date Jose Carlos Borja MD [address] [address] PCP - General Internal Medicine 03/19/14
--- OUTSIDE RECORDS SUMMARY | 2024-05-09 16:23 | XMS_ITS | Encounter Summary ---
Author Organization [facility] Address [address] [place] [address] Care Team Providers Care Dip Tanker Name Role Phone Jose Carlos Borja MD Primary Care Provider [phone] Encounter Details Date Type Department Care Team (Late st Contact Info) Description 03/02/2023 Telephone [facility] [address] [place] [phone] Nick Granados PA-C [address] [place] [address] Social History Tobacco Use Types Packs/Day Years Used Date Smoking Tobacco: Never Assessed Sex and Gender Information Value Date Recorded Sex Assigned at Not on file Gender Identity Not on file Sexual Orientation Not on file documented as of this encounter Plan of Treatment Upcoming Encounters Date Type Department Care Team (Late st Contact Info) Description 08/29/2024 10:00 AM EDT Clinical Support [facility] [place] [address] [facility], [place] [phone] Ronaldo Hardwick MD [address] [place] [address] Zee Portillo Au.D [address] [place], [place] [id number] documented as of this encounter Visit Diagnoses Not on filedocumented in this encounter Care Teams Dip Tanker Relationship Specialty Start Date End Date Jose Carlos Borja MD PCP - General Internal Medicine 11/25/15 documented as of this encounter
--- OUTSIDE RECORDS SUMMARY | 2024-05-09 16:23 | XMS_ITS | Clinical Summary ---
Author Organization [address] Address [address] [place] [address] Care Team Providers Care Stitcher Hand Name Role Phone Jose Carlos Borja MD Primary Care Provider [phone] Allergies No known active allergies Medications albuterol [...] mg total) by mouth daily. 4 Active benzonatate (TESSALON) 200 mg capsuleIndicati ons:Viral URI with cough Take 1 capsule (200 mg total) by mouth 3 (three) times daily as needed for cough. 30 capsule 5 Active methylPREDNISol one (MEDROL DOSEPACK) 4 mg tabletIndicatio ns:Viral URI with cough follow package directions 21 tablet 5 05/01/19 25 Active Problems No known active problems Encounters Date Type Department Care Team Description 04/23/2024 12:00 PM EDT Office Visit [facility] [place] [address] [place] [address] Corby Machado PA Sore throat (Primary Dx); Viral URI with cough from Last 3 Months Social History Tobacco [...] lb) 04/23/2024 12:1 4 PM EDT Height 154.9 cm (5' 1 ) [...] 1991 Osteoporosis screening (bone density) 2006 RSV Immunization (1 - 1-dose 75+ series) 2016 Influenza vaccine 09/15/2023 03/03/2022 Covid-19 vaccine series ( season) 2023 06/09/2021, 12/25/2020, 05/06/2020, Additional history exists Breast cancer screening Discontinued Cervical cancer screening Discontinued Meningococcal Vaccine Aged Out No amalia susana eligible based on patient's age to complete this topic Procedures Procedure Name Priority Date/Time Associated Diagnosis Comments POCT SARS COV-2 (COVID-19) PCR/INFLUENZA A+B ([facility]) Routine 04/23/2024 12:42 PM EDT Sore throat POCT STREP A ([facility]) Routine 04/23/2024 12:41 PM EDT Sore throat from Last 3 Months Results * POCT SARS COV-2 (COVID-19) PCR/Influenza A+B (In-Clinic) (04/23/2024 12:42 PM EDT) POC SARS-CoV-2 (COVID-19) PCR Not Detected Not Detected POC Influenza A Not Detected Not Detected POC Influenza B Not Detected Not Detected POC Kit Lot Number [id number] POC Expiration Date [id number] Nasal Swab 04/23/2024 12:4 2 PM EDT Corby MANNING POINT OF CARE ORDERS W/FUTURE Final Result * POCT Strep A(In-Clinic) (04/23/2024 12:41 PM EDT) POC Strep A Not Detected Not Detected POC Kit Lot Number [id number] POC Expiration Date [id number] Throat 04/23/2024 12:4 1 PM EDT us Corby MANNING POINT OF CARE ORDERS W/FUTURE Final Result from Last 3 Months Insurance MGD Care Teams Stitcher Hand Relationship Specialty Start Date End Date Jose Carlos Borja MD [address] [id number] PCP - General Internal Medicine 04/23/24
== END 2024-05-09 13:56 | disposition home or self-care (01) ==
LOC: HO.HKAE 13:42
PROVIDERS: PCP Internal Medicine; Visit Provider Internal Medicine Hypertension Specialist
DX: E87.1 Hypo-osmolality and hyponatremia (principal); I10 Essential (primary) hypertension
CPT/HCPCS: 99214

== ENCOUNTER → 2024-05-09 13:42 | Outpatient (BNVA) | payer MEDICARE, SELFPAY | PROVIDERS: PCP Internal Medicine; Visit Provider Internal Medicine Hypertension Specialist | DX: E87.1 Hypo-osmolality and hyponatremia (principal); I10 Essential (primary) hypertension | CPT/HCPCS: 99212 ==

== ENCOUNTER 2024-10-09 13:16 | Outpatient (AMB) | payer MEDICARE, SELFPAY ==
[2024-10-09 13:18] VITALS: BP 118/62; PULSE 71; O2SAT 100; BMI 21.7
--- NOTE | 2024-10-09 13:18 | A.OFFVIS_ITS ---
Vital Signs 10/09/24 13:18 Height 5 ft 1 in Weight 115 lb BMI 21.7 BP 118/62 Blood Pressure Location Lt brachial Position Sitting Pulse 71 Pulse Source Pulse Oximeter Pulse Oximetry (%) 100 Oxygen Delivery Method Nasal Cannula Oxygen Flow Rate 4 Intake Visit Reasons: CPAP results Allergies No Known Allergies Allergy (Verified 10/09/24 13:30) HPI HPI CPAP results: Details: 84-year-old lady, former 20-25 pack-year smoker, quit 1989 with underlying COPD with apical scarring, supplemental oxygen dependent, using Inogen at setting 4 and home oxygen concentrator up to 4 L, previously followed by Dr. Gallego now followed for her underlying pulmonary concerns. After the last office visit patient had cardiopulmonary exercise test that showed no pulmonary limitation to patient's underlying exercise capacity. She also denies any recent exacerbations. [facility] Surgical History H/O: hysterectomy (~1993) Family History Father CHF (congestive heart failure) Mother CHF (congestive heart failure) HTN (hypertension) Social History Comment: Social Patient Tobacco Use Status: Former Tobacco user Review of Systems Const Denies daytime sleepiness, Denies excessive sweating, Denies fatigue, Denies fever(s), Denies lethargy, Denies malaise, Denies night sweats, Denies snoring and Denies weight loss Eyes Denies blurry vision and Denies itchy eyes ENT Denies nasal congestion, Denies post nasal drip, Denies sinus pain, Denies sinus pressure and Denies other ( Thrush) Card Denies chest pain, Denies pedal edema, Denies dyspnea, Reports dyspnea on exertion, Denies orthopnea and Denies paroxysmal nocturnal dyspnea Resp Denies cough, Denies hemoptysis, Denies excessive phlegm production, Denies dyspnea, Reports dyspnea on exertion, Denies snoring and Denies wheezing GI Denies abdominal pain and Denies heartburn Musc Denies myalgias, Denies arthralgias and Denies joint swelling Skin/Breast Denies rash Neuro Denies memory loss and Denies seizure-like activity Psych Denies abnormal sleep pattern, Denies anxiety and Denies memory loss Endo Denies excessive sweating, Denies fatigue and Denies heat intolerance Romel/Lymph Denies easy bruising Aller/Immun Denies itchy eyes, Denies seasonal rhinorrhea and Denies wheezing Physical Exam Vital Signs: Last Vital Signs Pulse 71 10/09/24 13:18 BP 118/62 10/09/24 13:18 Pulse Ox 100 10/09/24 13:18 Oxygen Delivery Method Nasal Cannula 10/09/24 13:18 Oxygen Flow Rate 4 10/09/24 13:18 BMI result Body Mass Index 21.7 Const General: no acute distress and alert Nutritional Appearance: not obese Orientation/consciousness: Other orientation findings ( oriented) HEENT Head: Yes atraumatic Eyes General: appearance normal, both eyes and all related structures Sclerae: sclerae normal EOM: EOMs intact bilaterally Neck Neck: Yes supple Lymphatic: no lymphadenopathy noted Resp Effort & Inspection: normal respiratory effort and no use of accessory muscles Auscultation: clear to auscultation bilaterally Cardio Rate: regular rate Rhythm: regular rhythm Heart sounds: no gallops, no murmurs and no rubs Skin General skin exam: other ( warm) Extrem General: No clubbing, No cyanosis and No edema Assessment & Plan Assessment & Plan (1) COPD (chronic obstructive pulmonary disease): Code(s): J44.9 - Chronic obstructive pulmonary disease, unspecified Category: Medical Plan: Well controlled on current regimen of Anoro and albuterol MDI. Continue current regimen. (2) Supplemental oxygen dependent: Code(s): Z99.81 - Dependence on supplemental oxygen Category: Medical Plan: Continue supplemental oxygen to maintain O2 saturation above 88%. (3) Dyspnea on exertion: Code(s): R06.09 - Other forms of dyspnea Category: Medical Plan: Results of cardiopulmonary exercise test reviewed, no pulmonary limitations noted. Patient continues to follow-up with her director of family service center. Coding Level of Care Code Est Pt Level 4 (22417) Complex EM visit Add On G2211 Diagnoses COPD (chronic obstructive pulmonary disease) J44.9 Supplemental oxygen dependent Z99.81 Dyspnea on exertion R06.09
--- OUTSIDE RECORDS SUMMARY | 2024-10-09 14:08 | XMS_ITS | Clinical Summary ---
Author Organization [facility] Address [address] [place] [address] Care Team Providers Care Appliance Counselor Name Role Phone Jose Carlos Borja MD Primary Care Provider [phone] Allergies No known active allergies Medications acetaminophen (TYLENOL) 500 MG tabletIndications: Primary osteoarthritis of knee, unspecified laterality Take 2 tablets (1,000 mg total) by mouth 3 times daily (every 8 hours). 120 tablet 3 Active traMADol (ULTRAM) 50 MG tabletIndications: Primary osteoarthritis of knee, unspecified laterality Take 1 tablet (50 mg total) by mouth 2 times daily (every 12 hours) as needed for severe pain. Take every 8-12 hours as needed for pain 30 tablet 5 Active methylPREDNISolone (MEDROL DOSEPAK) 4 MG tabletIndications: Cervicalgia follow package directions 21 tablet 5 Active Active Problems No known active problems Encounters Date Type Department Care Team Description 09/04/2024 10:30 AM EDT Office Visit [facility] [address] [place] [address] Torres Hardwick MD Primary osteoarthritis of both knees (Primary Dx) 08/29/2024 10:00 AM EDT Clinical Support [facility] [address] Floor [place] [id number] Ronaldo Hardwick MD Czaplicki, Allison, Au.D Sensorineural hearing loss, bilateral (Primary Dx); Mixed conductive and sensorineural hearing loss of left ear with restricted hearing of right ear; Bilateral impacted cerumen from Last 3 Months Social History Tobacco Use Types Packs/Day Years Used Date Smoking Tobacco: Never Assessed Comments Unknown Sex and Gender Information Value Date Recorded Sex Assigned at Not on file Legal Sex Female 3:50 PM EDT Gender Identity Not on file Sexual Orientation Not on file Last Filed Vital Signs Vital Sign Reading Time Taken Comments Blood Pressure - - Pulse - - Temperature - - Respiratory Rate - - Oxygen Saturation - - Inhaled Oxygen Concentration - - Weight 52.6 kg (116 lb) 08/29/2024 10:38 AM EDT Height 154.9 cm (5' 1 ) 08/29/2024 10:38 AM EDT Body Mass Index 21.92 08/29/2024 10:38 AM EDT Plan of Treatment Upcoming Encounters Date Type Department Care Team (Late st Contact Info) Description 11/27/2024 9:15 AM EDT Office Visit [facility] [address] [place] [address] Torres Hardwick MD [address] [facility] [address] [place] [address] 05/01/2025 10:00 AM EDT Office Visit [facility] [place] [address] [facility] [place] [address] Ronaldo Hardwick MD [address] [phone] Health Maintenance Due Date Last Done Comments DTaP/Tdap/Td Vaccines (1 - Tdap) 1960 Pneumococcal Vaccines 50+ (1 of 1 - PCV) 1991 Zoster (Shingles) Vaccine (1 of 2) 1991 DXA Bone Density (Females,Ages 65 and older) 2006 RSV Vaccine 60 years and older and Patients (1 - 1-dose 75+ series) 2016 COVID-19 Vaccine ( season) 2023 03/03/2023, 02/20/2022, 06/09/2021, Additional history exists Influenza Vaccine 09/14/2024 03/03/2022, , 12/27/2018, Additional history exists Hepatitis B Vaccines Aged Out No long er eligible based on patient's age to complete this topic Procedures Procedure Name Priority Date/Time Associated Diagnosis Comments MA ARTHROCENTESIS ASPIR&/INJ MAJOR JT/BURSA W/O US Routine 09/04/2024 10:30 AM EDT Primary osteoarthritis of both knees MA ARTHROCENTESIS ASPIR&/INJ MAJOR JT/BURSA W/O US Routine 09/04/2024 10:30 AM EDT Primary osteoarthritis of both knees BASIC COMPREHENSIVE AU Routine 10:00 AM EDT Sensorineural hearing loss, bilateral from Last 3 Months Results * MA ARTHROCENTESIS ASPIR&/INJ MAJOR JT/BURSA W/O US (09/04/2024 10:30 AM EDT) Torres Mitchell MD - 09/04/2024 10:30 AM EDT Torres Hardwick MD 09/04/2024 12:49 PM Lg Joint Arthro: R knee on 09/04/2024 10:30 AM Indications: pain Details: 22 G needle, anterolateral approach Medications: 12 mg betamethasone acetate-betamethasone sodium phosphate 6 (3-3) MG/ML Outcome: tolerated well, no immediate complications The steroid was given with 4 mL of 1% lidocaine. We discussed that diabetic patients may experience elevation in blood sugars with steroid injection and that the patient should monitor their blood sugars accordingly. Risks of infection, bleeding, injury, failure of the injection to work were reviewed and understood. They understand the injection may take a few days to work and will last for a variable amount of time, typically between 3-6 months for most patients. It will not relieve all pain but can improve symptoms. Procedure, treatment alternatives, risks and benefits explained, specific risks discussed. Consent was given by the patient. Patient was prepped and draped in the usual sterile fashion. Torres Hardwick MD PROCEDURE/MINOR SURGICAL ORDERABLES Final Result * MA ARTHROCENTESIS ASPIR&/INJ MAJOR JT/BURSA W/O US (09/04/2024 10:30 AM EDT) Narrative Torres Hardwick MD - 09/04/2024 10:30 AM EDT Torres Hardwick MD 09/04/2024 12:49 PM Lg Joint Arthro: L knee on 09/04/2024 10:30 AM Indications: pain Details: 22 G needle, anterolateral approach Medications: 12 mg betamethasone acetate-betamethasone sodium phosphate 6 (3-3) MG/ML Outcome: tolerated well, no immediate complications The steroid was given with 4 mL of 1% lidocaine. We discussed that diabetic patients may experience elevation in blood sugars with steroid injection and that the patient should monitor their blood sugars accordingly. Risks of infection, bleeding, injury, failure of the injection to work were reviewed and understood. They understand the injection may take a few days to work and will last for a variable amount of time, typically between 3-6 months for most patients. It will not relieve all pain but can improve symptoms. Procedure, treatment alternatives, risks and benefits explained, specific risks discussed. Consent was given by the patient. Patient was prepped and draped in the usual sterile fashion. us Torres Hardwick MD PROCEDURE/MINOR SURGICAL ORDERABLES Final Result * BASIC COMPREHENSIVE AU (08/29/2024 10:00 AM EDT) Zee Pak Au.D - 08/29/2024 10:00 AM EDT Karel Castro 08/29/2024 10:28 AM us Ronaldo Hardwick MD AMB ORDERABLE PERFORMABLE Fin al Result from Last 3 Months Insurance MEDICARE PART A & B [facility] [place] [phone] MEDICARE [id number] [place] [address] MEDICARE Care Teams Appliance Counselor Relationship Specialty Start Date End Date Jose Carlos Borja MD PCP - General Internal Medicine 11/25/15
--- OUTSIDE RECORDS SUMMARY | 2024-10-09 14:08 | XMS_ITS ---
Author Name [facility] Organization Unknown Results Test Name/Text Value Interpretation Date Range Source Chloride SerPl-sCnc 98.0 mmol/L 08/22/2024 98 - 10 7 [facility] Sodium SerPl-sCnc 132.0 mmol/L Below low normal 08/22/2024 1 35 - 145 [facility] BUN/Creat SerPl 17.5 08/22/2024 12 - 20 [facility] Calcium SerPl-mCnc 9.5 mg/dL 08/22/2024 8.4 - 10.2 [facility] Anion Gap SerPl Calc-sCnc 8.0 08/22/2024 5 - 14 [facility] BUN SerPl-mCnc 7.0 mg/dL 08/22/2024 7 - 17 [facility] CO2 SerPl-sCnc 26.0 mmol/L 08/22/2024 24 - 32 CT [facility] eGFRcr SerPlBld CKD-EPI 2020 98.0 mL/min/1.73m2 08/22/2024 - [facility] Glucose SerPl-mCnc 163.0 mg/dL 08/22/2024 70 - 199 [facility] Potassium SerPl-sCnc 4.1 mmol/L 08/22/2024 3.5 - 5.1 [facility] Creat SerPl-mCnc 0.4 mg/dL Below low normal 08/22/2024 0.5 - 1 [facility] Sodium Ur-sCnc 37.0 mmol/L Below low normal 08/22/2024 50 - 191 [facility] Osmolality Ur 231.0 mOsm/kg 08/22/2024 50 - 1200 C [facility] Sodium SerPl-sCnc 134.0 mmol/L Below low normal 08/22/2024 1 35 - 145 [facility] eGFRcr SerPlBld CKD-EPI 2020 98.0 mL/min/1.73m2 08/22/2024 - [facility] BUN SerPl-mCnc 5.0 mg/dL Below low normal 08/22/2024 7 - 17 [facility] CO2 SerPl-sCnc 26.0 mmol/L 08/22/2024 24 - 32 CT [facility] Glucose SerPl-mCnc 103.0 mg/dL Above high normal 08/22/2024 70 - 99 [facility] BUN/Creat SerPl 12.5 08/22/2024 12 - 20 [facility] Potassium SerPl-sCnc 3.5 mmol/L 08/22/2024 3.5 - 5.1 [facility] Chloride SerPl-sCnc 97.0 mmol/L Below low normal 08/22/2024 98 - 107 [facility] Anion Gap SerPl Calc-sCnc 11.0 08/22/2024 5 - 14 [facility] Calcium SerPl-mCnc 9.6 mg/dL 08/22/2024 8.4 - 10.2 [facility] Creat SerPl-mCnc 0.4 mg/dL Below low normal 08/22/2024 0.5 - 1 [facility] Osmolality SerPl 271.0 mOsm/kg Below low normal 08/22/2024 2 75 - 295 [facility] Sodium Ur-sCnc 60.0 mmol/L 08/21/2024 50 - 191 CT [facility] Creat Ur-mCnc 21.1 mg/dL 08/21/2024 [facility] Glucose Bld-mCnc 118.0 mg/dL 08/21/2024 70 - 199 [facility] Nitrite Ur Ql Negative 08/21/2024 - [facility] Glucose Ur Ql Negative 08/21/2024 - [facility] Leukocyte esterase Ur Ql Strip Negative 08/21/2024 - [facility] pH Ur 8.0 pH Abnormal 08/21/2024 5 - 8 [facility] N Ketones Ur-mCnc Negative 08/21/2024 - [facility] Prot Ur Strip-mCnc Negative 08/21/2024 - [facility] Hgb Ur Ql Negative 08/21/2024 - [facility] N Clarity Ur Clear 08/21/2024 - [facility] AN Sp Gr Ur <1.005 Below low normal 08/21/2024 1.005 - 1.03 [facility] Color Ur Yellow 08/21/2024 - [facility] Magnesium SerPl-mCnc 1.6 mg/dL Below low normal 08/21/2024 1.7 - 2.8 [facility] Phosphate SerPl-mCnc 2.8 mg/dL 08/21/2024 2.5 - 4.5 [facility] eGFRcr SerPlBld CKD-EPI 2020 98.0 mL/min/1.73m2 08/21/2024 - [facility] BUN/Creat SerPl 10.0 Below low normal 08/21/2024 12 - 2 0 [facility] Sodium SerPl-sCnc 127.0 mmol/L Below low normal 08/21/2024 1 35 - 145 [facility] Creat SerPl-mCnc 0.4 mg/dL Below low normal 08/21/2024 0.5 - 1 [facility] Chloride SerPl-sCnc 95.0 mmol/L Below low normal 08/21/2024 98 - 107 [facility] Calcium SerPl-mCnc 9.1 mg/dL 08/21/2024 8.4 - 10.2 [facility] ALT SerPl-cCnc 31.0 unit/L 08/21/2024 7 - 52 CT [facility] Albumin SerPl-mCnc 4.2 g/dL 08/21/2024 3.5 - 5 [facility] Glucose SerPl-mCnc 103.0 mg/dL 08/21/2024 70 - 199 [facility] Anion Gap SerPl Calc-sCnc 8.0 08/21/2024 5 - 14 [facility] Prot SerPl-mCnc 6.0 g/dL Below low normal 08/21/2024 6.4 - 8.5 [facility] AST SerPl-cCnc 41.0 unit/L Above high normal 08/21/2024 5 - 40 [facility] CO2 SerPl-sCnc 24.0 mmol/L 08/21/2024 24 - 32 CT [facility] Potassium SerPl-sCnc 4.3 mmol/L 08/21/2024 3.5 - 5.1 [facility] BUN SerPl-mCnc 4.0 mg/dL Below low normal 08/21/2024 7 - 17 [facility] ALP SerPl-cCnc 67.0 unit/L 08/21/2024 34 - 104 [facility] Bilirub SerPl-mCnc 0.5 mg/dL 08/21/2024 0.3 - 1 [facility] Lipase SerPl-cCnc 28.0 unit/L 08/21/2024 11 - 82 [facility] Monocytes # Bld Auto 0.6 K/mcL 08/21/2024 0 - 0.8 [facility] Eosinophil # Bld Auto 0.0 K/mcL 08/21/2024 0 - 0.5 [facility] MCHC RBC Auto-EntMCnc 33.8 g/dL 08/21/2024 32 - 36 [facility] RBC # Bld Auto 3.17 M/mcL Below low normal 08/21/2024 4.2 - 5.4 [facility] Monocytes NFr Bld Auto 14.6 % Above high normal 08/21/2024 2 - 12 [facility] Neutrophils NFr Bld Auto 65.1 % 08/21/2024 44 - 74 [facility] Basophils NFr Bld Auto 0.9 % 08/21/2024 0 - 2 [facility] Lymphocytes NFr Bld Auto 18.8 % Below low normal 08/21/2024 20 - 48 [facility] Platelet # Bld Auto 351.0 K/mcL 08/21/2024 150 - 4 50 [facility] MCH RBC Qn Auto 35.4 pcg Above high normal 08/21/2024 25 - 33 [facility] Hct VFr Bld Auto 33.1 % Below low normal 08/21/2024 37 - 47 [facility] Hgb Bld-mCnc 11.2 g/dL Below low normal 08/21/2024 12.5 - 16 [facility] RBC Auto 104.7 FL Above high normal 08/21/2024 78 - 100 C [facility] Eosinophil NFr Bld Auto 0.6 % 08/21/2024 0 - 6 [facility] RDW RBC Auto 14.1 % 08/21/2024 12.1 - 16.2 [facility] Lymphocytes # Bld Auto 0.8 K/mcL Below low normal 08/21/2024 1 - 3.2 [facility] WBC # Bld Auto 4.3 K/mcL 08/21/2024 4 - 10.5 [facility] Basophils # Bld Auto 0.0 K/mcL 08/21/2024 0 - 0.2 [facility] Neutrophils # Bld Auto 2.8 K/mcL 08/21/2024 1.8 - 7.8 [facility] PMV Bld Auto 7.3 FL Below low normal 08/21/2024 7.4 - 11. 4 [facility] NIL 0.0191 Normal 12/12/2023 [facility] TB AG 1-NIL 0.0191 Normal 12/12/2023 [facility] TB AG 2-NIL 0.0241 Normal 12/12/2023 [facility] CREAT SERPL MCNC 0.6 mg/dL Normal 12/08/2023 0.5 - 1 [facility] BUN SERPL MCNC 16.0 mg/dL Normal 12/08/2023 7 - 17 [facility] ALBUMIN SERPL BCG MCNC 4.6 g/dL Normal 12/08/2023 3.5 - 5 [facility] ALP SERPL-CCNC 74.0 U/L Normal 12/08/2023 34 - 104 [facility] GLUCOSE SERPL MCNC 92.0 mg/dL Normal 12/08/2023 70 - 199 [facility] AST SERPL CCNC 28.0 U/L Normal 12/08/2023 5 - 40 [facility] SODIUM SERPL SCNC 131.0 mmol/L Below low normal 12/08/2023 1 35 - [facility] BILIRUB [facility] MCNC 0.6 mg/dL Normal 12/08/2023 0.3 - 1 [facility] HCO3 SER SCNC 28.0 mmol/L Normal 12/08/2023 24 - 32 [facility] POTASSIUM SERPL SCNC 4.6 mmol/L Normal 12/08/2023 3.5 - 5.1 [facility] PROT SERPL MCNC 6.3 g/dL Below low normal 12/08/2023 6.4 - 8.5 [facility] ANION GAP SERPL SCNC 8.0 mmol/L Normal 12/08/2023 5 - 14 [facility] CALCIUM SERPL MCNC 9.6 mg/dL Normal 12/08/2023 8.4 - 10.2 [facility] ALT SERPL CCNC 35.0 U/L Normal 12/08/2023 7 - 52 [facility] CHLORIDE SERPL SCNC 95.0 mmol/L Below low normal 12/08/2023 98 - 107 [facility] Glomerular filtration rate/1.73 sq M. predicted 90.0 Normal 12/08/2023 60 - [facility] EOSINOPHIL NFR BLD AUTO 0.3 % Normal 12/08/2023 0 - 6 [facility] LYMPHOCY[facility] NFR BLD AUTO 20.7 % Normal 12/08/2023 20 - 48 [facility] BASOPHILS NFR BLD AUTO 0.6 % Normal 12/08/2023 0 - 2 [facility] NEUTROPHILS NO. BLD AUTO 4.7 K/uL Normal 12/08/2023 1.8 - 7.8 [facility] LYMPHOCYTES NO. BLD AUTO 1.5 K/uL Normal 12/08/2023 1 - 3.2 [facility] NEUTROPHILS NFR BLD AUTO 63.0 % Normal 12/08/2023 44 - 74 [facility] BASOPHILS IN BLOOD BY AUTOMATED COUNT 0.0 K/uL Normal 12/08/2023 0 - 0.2 [facility] MONOCYTES NFR BLD AUTO 15.4 % Above high normal 12/08/2023 2 - 12 [facility] EOSINOPHIL NO. BLD AUTO 0.0 K/uL Normal 12/08/2023 0 - 0.5 [facility] MONOCYTES NO. BLD AUTO 1.1 K/uL Above high normal 12/08/2023 0 - 0.8 [facility] MCH RBC QN AUTO 36.9 pg Above high normal 12/08/2023 25 - 33 [facility] MCHC RBC AUTO MCNC 34.2 g/dL Normal 12/08/2023 32 - 36 [facility] PMV BLD AUTO 6.9 fL Below low normal 12/08/2023 7.4 - 11. 4 [facility] WBC NO. BLD AUTO 7.3 K/uL Normal 12/08/2023 4 - 10.5 CT [facility] PLATELET NO. BLD AUTO 399.0 K/uL Normal 12/08/2023 150 - 450 [facility] RDW RBC AUTO RTO 15.3 % Normal 12/08/2023 12.1 - 16.2 [facility] DIFFERENTIAL TYPE AUTOMATED Normal 12/08/2023 C [facility] HCT VFR BLD AUTO 33.6 % Below low normal 12/08/2023 37 - 47 [facility] RBC NO. BLD AUTO 3.11 M/uL Below low normal 12/08/2023 4.2 - 5.4 [facility] HGB BLD MCNC 11.5 g/dL Below low normal 12/08/2023 12.5 - 16 [facility] MCV RBC AUTO 107.9 fL Above high normal 12/08/2023 78 - 100 [facility] AST SERPL CCNC 23.0 U/L Normal 08/10/2023 5 - 40 [facility] ALT SERPL CCNC 32.0 U/L Normal 08/10/2023 7 - 52 [facility] PROT SERPL MCNC 6.4 g/dL Normal 08/10/2023 6.4 - 8.5 [facility] ALP SERPL-CCNC 60.0 U/L Normal 08/10/2023 34 - 104 [facility] ALBUMIN SERPL BCG MCNC 4.6 g/dL Normal 08/10/2023 3.5 - 5 [facility] BILIRUB DIRECT SERPL MCNC 0.1 mg/dL Normal 08/10/2023 0 - 0.2 [facility] ALBUMIN/GLOB SERPL MRTO 2.6 Normal 08/10/2023 [facility] BILIRUB SERPL MCNC 0.5 mg/dL Normal 08/10/2023 0.3 - 1 [facility] FOLATE SERPL MCNC 15.5 ng/mL Normal 08/10/2023 3 - [facility] VIT B12 SER MCNC 810.0 pg/mL Normal 08/10/2023 180 - 914 [facility] SODIUM SERPL SCNC 130.0 mmol/L Below low normal 08/10/2023 1 35 - 145 [facility] ANION GAP SERPL SCNC 9.0 mmol/L Normal 08/10/2023 5 - 14 [facility] GLUCOSE SERPL MCNC 95.0 mg/dL Normal 08/10/2023 70 - 199 [facility] CREAT SERPL MCNC 0.5 mg/dL Normal 08/10/2023 0.5 - 1 [facility] Glomerular filtration rate/1.73 sq M. predicted 94.0 Normal 08/10/2023 60 - [facility] CALCIUM SERPL MCNC 9.5 mg/dL Normal 08/10/2023 8.4 - 10.2 [facility] CHLORIDE SERPL SCNC 95.0 mmol/L Below low normal 08/10/2023 98 - 107 [facility] POTASSIUM SERPL SCNC 4.5 mmol/L Normal 08/10/2023 3.5 - 5.1 [facility] HCO3 SER SCNC 26.0 mmol/L Normal 08/10/2023 24 - 32 [facility] BUN SERPL MCNC 15.0 mg/dL Normal 08/10/2023 7 - 17 [facility] ESR Bld Qn Photometric 3.0 mm/h Normal 08/10/2023 0 - 20 [facility] WBC NO. BLD AUTO 8.3 K/uL Normal 08/10/2023 4 - 10.5 [facility] HCT VFR BLD AUTO 33.7 % Below low normal 08/10/2023 37 - 47 [facility] PLATELET NO. BLD AUTO 384.0 K/uL Normal 08/10/2023 150 - 450 [facility] RBC NO. BLD AUTO 3.22 M/uL Below low normal 08/10/2023 4.2 - 5.4 [facility] RDW RBC AUTO RTO 15.4 % Normal 08/10/2023 12.1 - 16.2 [facility] MCH RBC QN AUTO 34.9 pg Above high normal 08/10/2023 25 - 33 [facility] PMV BLD AUTO 7.5 fL Normal 08/10/2023 7.4 - 11.4 [facility] MCHC RBC AUTO MCNC 33.4 g/dL Normal 08/10/2023 32 - 36 [facility] MCV RBC AUTO 104.6 fL Above high normal 08/10/2023 78 - 100 [facility] HGB BLD MCNC 11.2 g/dL Below low normal 08/10/2023 12.5 - 16 [facility] CHOLEST SERPL-MCNC 139.0 mg/dL Normal 08/10/2023 0 - 200 [facility] TRIGL SERPL-MCNC 56.0 mg/dL Normal 08/10/2023 - 150 [facility] LDLc SerPl Calc-mCnc 51.0 mg/dL Normal 08/10/2023 50 - 130 [facility] HDLC SERPL-MCNC 77.0 mg/dL Normal 08/10/2023 33 - 92 [facility] TSH SerPl DL<=0.005 mIU/L-aCnc 0.87 uIU/mL Normal 08/10/2023 0.45 - 5.33 [facility] FOLATE SERPL MCNC 16.2 ng/mL Normal 07/20/2023 3 - [facility] VIT B12 SER MCNC 665.0 pg/mL Normal 07/20/2023 180 - 914 [facility] CALCIUM SERPL MCNC 9.8 mg/dL Normal 07/20/2023 8.4 - 10.2 [facility] CREAT SERPL MCNC 0.4 mg/dL Below low normal 07/20/2023 0.5 - 1 [facility] Glomerular filtration rate/1.73 sq M. predicted 99.0 Normal 07/20/2023 60 - [facility] BUN SERPL MCNC 11.0 mg/dL Normal 07/20/2023 7 - 17 [facility] SODIUM SERPL SCNC 128.0 mmol/L Below low normal 07/20/2023 1 35 - 145 [facility] GLUCOSE SERPL MCNC 91.0 mg/dL Normal 07/20/2023 70 - 199 [facility] HCO3 SER SCNC 28.0 mmol/L Normal 07/20/2023 24 - 32 [facility] POTASSIUM SERPL SCNC 5.0 mmol/L Normal 07/20/2023 3.5 - 5.1 [facility] ANION GAP SERPL SCNC 7.0 mmol/L Normal 07/20/2023 5 - 14 [facility] CHLORIDE SERPL SCNC 93.0 mmol/L Below low normal 07/20/2023 98 - 107 [facility] ALP SERPL-CCNC 68.0 U/L Normal 07/20/2023 34 - 104 [facility] BILIRUB DIRECT SERPL MCNC 0.1 mg/dL Normal 07/20/2023 0 - 0.2 [facility] BILIRUB SERPL MCNC 0.6 mg/dL Normal 07/20/2023 0.3 - 1 [facility] AST SERPL CCNC 26.0 U/L Normal 07/20/2023 5 - 40 [facility] PROT SERPL MCNC 6.7 g/dL Normal 07/20/2023 6.4 - 8.5 [facility] ALBUMIN/GLOB SERPL MRTO 2.2 Normal 07/20/2023 [facility] ALBUMIN SERPL BCG MCNC 4.6 g/dL Normal 07/20/2023 3.5 - 5 [facility] ALT SERPL CCNC 29.0 U/L Normal 07/20/2023 7 - 52 [facility] MCH RBC QN AUTO 34.5 pg Above high normal 07/20/2023 25 - 33 [facility] PLATELET NO. BLD AUTO 411.0 K/uL Normal 07/20/2023 150 - 450 [facility] NEUTROPHILS NFR BLD AUTO 72.6 % Normal 07/20/2023 44 - 74 [facility] DIFFERENTIAL TYPE [facility]OMATED Normal 07/20/[facility]23 [facility] PMV BLD AUTO 7.4 fL Normal 07/20/2023 7.4 - 11.[facility] RBC NO. BLD AUTO 3.31 M/uL Below low normal 07/20/2023 4.2 - 5.4 [facility] HGB BLD MCNC 11.4 g/dL Below low normal 07/20/2023 12.5 - 16 [facility] EOSINOPHIL NO. BLD AUTO 0.0 K/uL Normal 07/20/2023 0 - 0.5 [facility] MCHC RBC AUTO MCNC 34.3 g/dL Normal 07/20/2023 32 - 36 [facility] MCV RBC AUTO 100.5 fL Above high normal 07/20/2023 78 - 100 [facility] BASOPHILS IN BLOOD BY AUTOMATED COUNT 0.0 K/uL Normal 07/20/2023 0 - 0.2 [facility] LYMPHOCYTES NFR BLD AUTO 15.7 % Below low normal 07/20/2023 20 - 48 [facility] HCT VFR BLD AUTO 33.3 % Below low normal 07/20/2023 37 - 47 [facility] EOSINOPHIL NFR BLD AUTO 0.5 % Normal 07/20/2023 0 - 6 [facility] NEUTROPHILS NO. BLD AUTO 4.7 K/uL Normal 07/20/2023 1.8 - 7.8 [facility] LYMPHOCYTES NO. BLD AUTO 1.0 K/uL Normal 07/20/2023 1 - 3.2 [facility] MONOCYTES NO. BLD AUTO 0.7 K/uL Normal 07/20/2023 0 - 0.8 [facility] BASOPHILS NFR BLD AUTO 0.6 % Normal 07/20/2023 0 - 2 [facility] RDW RBC AUTO RTO 15.1 % Normal 07/20/2023 12.1 - 16.2 [facility] WBC NO. BLD AUTO 6.5 K/uL Normal 07/20/2023 4 - 10.5 [facility] MONOCYTES NFR BLD AUTO 10.6 % Normal 07/20/2023 2 - 12 [facility] ESR Bld Qn Photometric 6.0 mm/h Normal 07/20/2023 0 - 20 [facility] HDLC SERPL-MCNC 67.0 mg/dL Normal 07/20/2023 33 - [address] [facility] LDLc SerPl Calc-mCnc 55.0 mg/dL Normal 07/20/2023 50 - 130 [facility] CHOLEST SERPL-MCNC 135.0 mg/dL Normal 07/20/2023 0 - 200 [facility] TRIGL SERPL-MCNC 65.0 mg/dL Normal 07/20/2023 - 150 [facility] TSH SerPl DL<=0.005 mIU/L-aCnc 0.8 uIU/mL Normal 07/20/2023 0.45 - 5.33 [facility] Troponin I SerPl HS-mCnc 7.0 ng/L Normal 06/06/2023 0 - 14 [facility] HCO3 SER SCNC 28.0 mmol/L Normal 06/06/2023 24 - 32 [facility] BUN SERPL MCNC 9.0 mg/dL Normal 06/06/2023 7 - 17 [facility] GLUCOSE SERPL MCNC 91.0 mg/dL Normal 06/06/2023 70 - 199 [facility] CHLORIDE SERPL SCNC 98.0 mmol/L Normal 06/06/2023 98 - 10 7 [facility] CALCIUM SERPL MCNC 9.0 mg/dL Normal 06/06/2023 8.4 - 10.2 [facility] ANION GAP SERPL SCNC 7.0 mmol/L Normal 06/06/2023 5 - 14 [facility] Glomerular filtration rate/1.73 sq M. predicted 94.0 Normal 06/06/2023 60 - [facility] CREAT SERPL MCNC 0.5 mg/dL Normal 06/06/2023 0.5 - 1 [facility] SODIUM SERPL SCNC 133.0 mmol/L Below low normal 06/06/2023 1 35 - 145 [facility] POTASSIUM SERPL SCNC 3.8 mmol/L Normal 06/06/2023 3.5 - 5.1 [facility] INR PPP 1.0 Normal 06/06/2023 0.8 - 1.1 [facility] PT TIME PPP 12.3 sec Normal 06/06/2023 10.5 - 13.3 [facility]AH Troponin I SerPl HS-mCnc 6.0 ng/L Normal 06/06/2023 0 - 14 [facility] BNP BLD MCNC 331.0 pg/mL Above high normal 06/06/2023 0 - 10 0 [facility] MCV RBC AUTO 102.3 fL Above high normal 06/06/2023 78 - 100 [facility] BASOPHILS NFR BLD AUTO 0.8 % Normal 06/06/2023 0 - 2 [facility] EOSINOPHIL NFR BLD AUTO 2.6 % Normal 06/06/2023 0 - 6 [facility] HGB BLD MCNC 11.1 g/dL Below low normal 06/06/2023 12.5 - 16 [facility] WBC NO. BLD AUTO 6.0 K/uL Normal 06/06/2023 4 - 10.5 CT [facility] HCT VFR BLD AUTO 33.2 % Below low normal 06/06/2023 37 - 47 [facility] MCHC RBC AUTO MCNC 33.5 g/dL Normal 06/06/2023 32 - 36 [facility] NEUTROPHILS NO. BLD AUTO 4.1 K/uL Normal 06/06/2023 1.8 - 7.8 [facility] MONOCYTES NO. BLD AUTO 0.7 K/uL Normal 06/06/2023 0 - 0.8 [facility] MONOCYTES NFR BLD AUTO 11.9 % Normal 06/06/2023 2 - 12 [facility] DIFFERENTIAL TYPE AUTOMATED Normal 06/06/2023 C [facility] LYMPHOCYTES NO. BLD AUTO 1.0 K/uL Normal 06/06/2023 1 - 3.2 [facility] BASOPHILS IN BLOOD BY AUTOMATED COUNT 0.0 K/uL Normal 06/06/2023 0 - 0.2 [facility] RDW RBC AUTO RTO 15.0 % Normal 06/06/2023 12.1 - 16.2 [facility] LYMPHOCYTES NFR BLD AUTO 16.2 % Below low normal 06/06/2023 20 - 48 [facility] PLATELET NO. BLD AUTO 346.0 K/uL Normal 06/06/2023 150 - 450 [facility] EOSINOPHIL NO. BLD AUTO 0.2 K/uL Normal 06/06/2023 0 - 0.5 [facility] NEUTROPHILS NFR BLD AUTO 68.5 % Normal 06/06/2023 44 - 74 [facility] RBC NO. BLD AUTO 3.25 M/uL Below low normal 06/06/2023 4.2 - 5.4 [facility] MCH RBC QN AUTO 34.2 pg Above high normal 06/06/2023 25 - 33 [facility] PMV BLD AUTO 7.1 fL Below low normal 06/06/2023 7.4 - 11. 4 [facility] History of Medication Use Medication Directions Dispensed Refills Start Date End Date Status sodium chloride 0.9 % infusion 75 mL/hr, intravenous, Continuous, Starting on Tue08/22/24 at 0809, For 10 hours 025 08/22 active amLODIPine (NORVASC) tablet 10 mg 10 mg, oral, Daily, First dose on Tue08/22/24 at 0900, Hold for SBP < 110 07/09/2 025 active cholecalciferol (VITAMIN D-3) tablet 1,000 Units 1,000 Units, oral, Daily, First dose on Tue08/22/24 at 0900, 1000 units = 25 mcg of cholecalciferol (VITAMIN D3) active formoterol (PERFOROMIST) 20 mcg/2 mL nebulizer solution 20 mcg [Order 1 Start] Name: formoterol (PERFOROMIST) 20 mcg/2 mL nebulizer solution 20 mcg Signed Summary: 20 mcg, nebulization, 2 times daily, First dose on Tue08/22/24 at 0900, Therapeutic substitution for ANORO ELLIPTA is formoterol neb twice daily and revefenacin neb once daily. [Order 1 End] [Order 2 active lactobacillus acidoph-l.bulgar packet 1 packet 1 packet, oral, 3 times daily with meals, First dose on Tue08/22/24 at 0808 active losartan (COZAAR) tablet 100 mg 100 mg, oral, Daily, First dose on Tue08/22/24 at 0900 active metoprolol tartrate (LOPRESSOR) tablet 25 mg 25 mg, oral, 2 times daily, First dose on Tue08/22/24 at 0900, Hold for SBP less than 110, heart rate less than 55 active iopamidoL (ISOVUE-370) 370 mg iodine /mL (76 %) injection 55 mL 55 mL, intravenous, Once in imaging, Starting on Tue08/21/24 at 1454, For 1 dose 08/21 completed sodium chloride 0.9 % flush 10 mL 10 mL, intravenous, Once, On Tue08/21/24 at 1454, For 1 dose 08/21 completed sodium chloride 0.9 % intravenous solution 50 mL 50 mL, intravenous, Once in imaging, Starting on Tue08/21/24 at 1452, For 1 dose 08/21 completed celecoxib (CeleBREX) 200 mg capsule Take 1 capsule (200 mg total) by mouth 1 (one) time each day. 025 08/22 aborted Anoro Ellipta 62.5-25 mcg/actuation inhaler Inhale 1 puff by mouth 1 (one) time each day. active methylPREDNISolone (MEDROL DOSEPAK) 4 MG tablet follow package directions active benzonatate (TESSALON) 200 mg capsule Take 1 capsule (200 mg total) by mouth 3 (three) times daily as needed for cough. active methylPREDNISolone (MEDROL DOSEPACK) 4 mg tablet follow package directions active olmesartan (BENICAR) 40 mg tablet TAKE 1 TABLET BY MOUTH DAILY active triamcinolone acetonide 40 mg/mL suspension for injection Take 40 mg by injection route. active clotrimazole (MYCELEX) 10 mg juan DISSOLVE SLOWLY IN MOUTH 5 TIMES A DAY FOR 14 DAYS. active amLODIPine (NORVASC) 10 mg tablet active valACYclovir (VALTREX) 1000 mg tablet Take 1 tablet (1,000 mg total) by mouth daily. active polymyxin B sulfate-trimethoprim (POLYTRIM) 10,000 unit- 1 mg/mL ophthalmic solution INSTILL 1 DROP INTO BOTH EYES 3 TIMES A DAY active jeqwwucv-kuhgyeiod-xeych ethasone (DEXACINE) 3.5 mg-10,000 unit/g-0.1 % ophthalmic ointment APPLY A SMALL AMOUNT OF OINTMENT ON RIGHT UPPER EYELID AND IN THE RIGHT EYE TWICE DAILY FOR ONE WEEK active olmesartan (BENICAR) tablet 40 mg Take 1 tablet (40 mg total) by mouth daily. active furosemide (LASIX) 20 mg tablet Take 1 tablet (20 mg total) by mouth every other day. active metoprolol tartrate (LOPRESSOR) 25 mg tablet TAKE 1 TABLET BY MOUTH TWICE DAILY active metoprolol tartrate (LOPRESSOR) 25 MG tablet TAKE 1 TABLET BY MOUTH TWICE DAILY active metoprolol tartrate (LOPRESSOR) 25 MG tablet TAKE 1 TABLET BY MOUTH TWICE DAILY active amLODIPine (NORVASC) 10 mg tablet TAKE 1 TABLET BY MOUTH DAILY active amLODIPine (NORVASC) tablet 10 mg TAKE 1 TABLET BY MOUTH DAILY active acetaminophen (TYLENOL) 500 MG tablet Take 2 tablets (1,000 mg total) by mouth 3 times daily (every 8 hours). 023 09/02 active traMADol (ULTRAM) 50 MG tablet Take 1 tablet (50 mg total) by mouth 2 times daily (every 12 hours) as needed for severe pain. Take every 8-12 hours as needed for pain active betamethasone acetate-betamethasone sodium phosphate (CELESTONE) injection 12 mg 12 mg, Intra-articular, Once PRN Procedure, Starting on Tue11/09/23 at 0945, For 1 dose 023 11/08 completed bupivacaine (PF) (MARCAINE) 0.75 % injection 1 mL 1 mL, Intra-articular, Once PRN Procedure, Starting on Tue07/29/22 at 1412, For 1 dose 023 07/29 completed lidocaine (XYLOCAINE) 1 % injection 1 mL 1 mL, Intra-articular, Once PRN Procedure, Starting on Tue07/29/22 at 1412, For 1 dose 023 07/29 completed BREO ELLIPTA 100mcg-25mcg/actuation Powder for Inhalation active albuterol HFA (PROAIR HFA ; PROVENTIL HFA ; VENTOLIN HFA) 90 mcg/actuation inhaler TAKE 2 PUFFS BY MOUTH EVERY 4 TO 6 HOURS NEEDED active Breo Ellipta 100-25 MCG/ACT inhaler 07/12 aborted fluticasone furoate-vilanteroL (Breo Ellipta) 100-25 mcg/dose inhaler active olmesartan (BENICAR) tablet 40 mg Take 1 tablet (40 mg total) by mouth daily. active docusate sodium (COLACE) 100 mg capsule Take 1 capsule (100 mg total) by mouth 2 (two) times a day. active docusate sodium (COLACE) 100 MG capsule Take 1 capsule (100 mg total) by mouth 2 (two) times a day. active docusate sodium (COLACE) 100 MG capsule Take 1 capsule (100 mg total) by mouth 2 (two) times a day. active mupirocinTake (topical)[id number] mentNo frequency recordedtopicalNo set duration recordedNo set duration amount recordedsuspended2% suspended amlodipineTake (oral)[id number] o frequency recordedoralNo set duration recordedNo set duration amount [id number] active niacinamide 500 mg tablet Take 1 tablet (500 mg total) by mouth 2 (two) times a day. active niacinamide 500 MG tablet Take 1 tablet (500 mg total) by mouth 2 (two) times a day. active methotrexate 2.5 mg tablet Take 1 tablet (2.5 mg total) by mouth 1 (one) time per week active methotrexate 2.5 MG tablet Take 1 tablet (2.5 mg total) by mouth once a week. Pt takes 8 tabs once a week active methotrexate tablet 20 mg 20 mg, oral, Weekly, First dose (after last modification) on Tue08/22/24 at 1134, HAZARDOUS Drug Precautions - Low Risk (Category A/NIOSH Group 1) Antineoplastic Tablet/Capsule: - Single pair of ASTM standard D6978 certified chemotherapy gloves - Eye protection (goggles or face shield) required only active folic acid (FOLVITE) 1 mg tablet Take 3 tablets (3 mg total) by mouth 1 (one) time each day. active folic acid (FOLVITE) tablet 1 mg 1 mg, oral, Daily, First dose on Tue08/22/24 at 0900 active Co q-10 200mg extra strength softgel active carboxymethylcellulose (REFRESH PLUS) 0.5 % SOLN Apply to eye. 07/12 aborted home oxygen 4 litersTakeNo date recordedNo form recordedNo frequency recordedNo route recordedNo set duration recordedNo set duration amount recordedactiveNo dosage strength recordedNo dosage strength units of measure recorded active aspirinTakeNo date recordedNo form recordedNo frequency recordedNo route recordedNo set duration recordedNo set duration amount recordedactiveNo dosage strength recordedNo dosage strength units of measure recorded active Systane Ultra (PF)TakeNo date recordedNo form recordedNo frequency recordedNo route recordedNo set duration recordedNo set duration amount recordedactiveNo dosage strength recordedNo dosage strength units of measure recorded active methotrexateTakeNo date recordedNo form recordedNo frequency recordedNo route recordedNo set duration recordedNo set duration amount recordedsuspendedNo dosage strength recordedNo dosage strength units of measure recorded suspended ColaceTakeNo date recordedNo form recordedNo frequency recordedNo route recordedNo set duration recordedNo set duration amount recordedactiveNo dosage strength recordedNo dosage strength units of measure recorded active ValtrexTakeNo date recordedNo form recordedNo frequency recordedNo route recordedNo set duration recordedNo set duration amount recordedactiveNo dosage strength recordedNo dosage strength units of measure recorded active albuterol sulfateTakeNo date recordedNo form recordedNo frequency recordedNo route recordedNo set duration recordedNo set duration amount recordedactiveNo dosage strength recordedNo dosage strength units of measure recorded active metoprolol tartrateTakeNo date recordedNo form recordedNo frequency recordedNo route recordedNo set duration recordedNo set duration amount recordedsuspendedNo dosage strength recordedNo dosage strength units of measure recorded suspended Breo ElliptaTakeNo date recordedNo form recordedNo frequency recordedNo route recordedNo set duration recordedNo set duration amount recordedactiveNo dosage strength recordedNo dosage strength units of measure recorded active alprazolam 0.5 mg tablet TAKE 1 TABLET B Y MOUTH TWICE A DAY active amlodipine 10 mg tablet active Anoro Ellipta 62.5 mcg-25 mcg/actuation powder for inhalation INHALE 1 PUFF DAILY active azithromycin 250 mg tablet TAKE 2 TABLETS BY MOUTH TODAY, THEN TAKE 1 TABLET DAILY FOR 4 DAYS DIRECTED active Breo Ellipta 100 mcg-25 mcg/dose powder for inhalation active chlorhexidine gluconate 0.12 % mouthwash RINSE MOUTH 3 TIMES DAILY DIRECTED DO NOT SWALLOW active cyclobenzaprine 5 mg tablet 1 TABLET ORALLY TWICE A DAY, NEEDED 14 DAYS active ferrous sulfate 325 mg (65 mg iron) tablet TAKE 1 TABLET BY MOUTH DAILY active methotrexate sodium 2.5 mg tablet TAKE 8 TABLETS BY MOUTH ONE TIME PER WEEK active mupirocin 2 % topical ointment APPLY TOPICALLY TO OPEN SORES TWICE A DAY NEEDED active omeprazole 20 mg capsule,delayed release TAKE 1 CAPSULE BY MOUTH 2 TIMES A DAY active Tobradex ST 0.3 %-0.05 % eye drops,suspension INSTILL 1 DROP INTO AFFECTED EYE THREE TIMES A DAY NEEDED SHAKE WELL active valacyclovir 500 mg tablet TAKE 1 TABLET EVERY DAY active ALPRAZolam (XANAX) 0.5 mg tablet active ALPRAZolam (XANAX) 0.5 mg tablet Take 1 tablet (0.5 mg total) by mouth at bedtime as needed. active atorvastatin (LIPITOR) 10 mg tablet Take 1 tablet (10 mg total) by mouth. active atorvastatin (LIPITOR) 10 mg tablet Take 1 tablet (10 mg total) by mouth at bedtime. active atorvastatin (LIPITOR) 10 MG tablet Take 1 tablet (10 mg total) by mouth every evening. active carboxymethylcellulose (REFRESH PLUS) 0.5 % SOLN Apply to eye. active carboxymethylcellulose (Refresh Tears) 0.5 % ophthalmic solution Administer into affected eye(s). active cholecalciferol (VITAMIN D-3) 25 mcg (1,000 unit) tablet Take by mouth. active Cholecalciferol (VITAMIN D) 1000 UNITS tablet Take by mouth. active coenzyme Q-10 200 mg capsule Take by mouth. active VPK-RNW-Uisfuzrx Oil-Vitamin E (THERA TEARS NUTRITION PO) Take by mouth. a ctive docusate sodium (COLACE) 100 mg capsule Take 1 capsule (100 mg total) by mouth. active folic acid (FOLVITE) 1 mg tablet active halobetasol (ULTRAVATE) 0.05 % cream Apply topically. active halobetasol (ULTRAVATE) 0.05 % cream Apply topically. active halobetasol (ULTRAVATE) 0.05 % cream Apply topically. active L. acidophilus/Bifid. animalis (DAILY PROBIOTIC ORAL) Take by mouth. activ e METHOTREXATE PO Take 20 mg by mouth once a week. active mv-min/FA/vit K/lutein/zeaxant (PRESERVISION AREDS 2 PLUS MV ORAL) Take 1 tablet by mouth 1 (one) time each day. active Probiotic Product (PROBIOTIC DAILY PO) Take by mouth. active valACYclovir (VALTREX) 500 mg tablet Take 1 tablet (500 mg total) by mouth at bedtime. active Allergies Allergen Reaction Severity Comment Documented Date Source Statu s .NO KNOWN DRUG ALLERGIES ENS_POD CRCT Problems Problem Status Onset Date Problem Type Date of Resolution Source Mitral annular calcification active EncounterDiagnosisAct CTTHN EMG Traumatic complete tear of left rotator cuff active 2020-03-17 0 ProblemAct CT_THSFRAN Left lower quadrant abdominal pain active EncounterDiagnosisAct CT_T HSFRAN PAD (peripheral artery disease) ([facility]) active EncounterDiagnosisAct CTTH NEMG Diarrhea active 8 ProblemAct CT_THSFRAN SOB (shortness of breath) active 6 ProblemAct CT_THSFRAN Arthritis of right knee active 4 ProblemAct CT_THSFRAN Hypercholesteremia active 2023-03-18 2 ProblemAct CT_THSFRAN Hyponatremia active 8 ProblemAct CT_THSFRAN Coronary artery disease involving [place] coronary artery of [place] heart without angina pectoris active EncounterDiagnosisAct CTTHNE MG Syncope active 2023-03-18 2 ProblemAct CT_THSFRAN Dislocation of left shoulder joint active 4 ProblemAct CT_THSFRAN Hypertension active 2023-03-18 2 ProblemAct CT_THSFRAN Paroxysmal supraventricular tachycardia (CMS/HCC V24) active 2023-03-18 2 ProblemAct CT_THSFRAN Chest pain active EncounterDiagnosisAct CTTHSFRAN Syncope active ProblemAct CTTHJMH Paroxysmal supraventricular tachycardia active ProblemAct CTTHJMH Hypertrophic lichen planus active EncounterDiagnosisAct CTTHJM H Hypertension active ProblemAct CTTHJM H Hypercholesteremia active ProblemAct CTTHJMH Wishes to postpone menstruation active 2 ProblemAct ENS_PODCRCT Hammer toe active 2019-12-17 0 ProblemAct ENS_PODCRCT Dystrophia unguium active 2019-10-16 8 ProblemAct ENS_PODCRCT Ingrowing nail active 2024-07-15 7 EncounterDiagnosisAct ENS_PODCRCT Pain in left toe(s) active 2024-07-15 7 EncounterDiagnosisAct ENS_PODCRCT Fall from chair or bed (event) active 2019-06-15 4 ProblemAct ENS_PODCRCT Neuralgia and neuritis active 2019-10-17 5 ProblemAct ENS_PODCRCT Cellulitis of left toe, paronychia active 2015-10-18 0 ProblemAct ENS_PODCRCT INGROWING NAIL active 7 ProblemAct ENS_PODCRCT XEROSIS active 7 ProblemAct ENS_PODCRCT Paronychia of toe active 2014-05-16 1 ProblemAct ENS_PODCRCT Abrasion, left great toe, initial encounter active 2018-09-15 9 ProblemAct ENS_PODCRCT Skin fissures - including other specified disorders of the skin and subcutaneous tissue active 2019-07-18 0 ProblemAct ENS_PODCRCT CONTUSION OF TOE active 2 ProblemAct ENS_PODCRCT Epidermoid cyst active 2014-06-15 1 ProblemAct ENS_PODCRCT Activity, walking, marching and hiking active 2018-09-15 9 ProblemAct ENS_PODCRCT Tinea unguium, onychomycosis active 2 ProblemAct ENS_PODCRCT Sprain of calcaneofibular ligament of right ankle, initial encounter active 2019-06-15 4 ProblemAct ENS_PODCRCT Other sprain of right foot, initial encounter active 2019-06-15 4 ProblemAct ENS_PODCRCT Other sprain of right foot, subsequent encounter active 8 ProblemAct ENS_PODCRCT Pain in right toe(s) active 2 ProblemAct ENS_PODCRCT Contusion of right great toe with damage to nail, initial encounter active 2019-08-16 4 ProblemAct ENS_PODCRCT Hammer toe active 2019-12-17 0 ProblemAct ENS_PODCRCT Porokeratoma active 2016-08-14 8 ProblemAct ENS_PODCRCT BUNION active 9 ProblemAct ENS_PODCRCT Essential (primary) hypertension active ProblemAct CT_PHYSONE Unspecified hearing loss, left ear active ProblemAct CT_PHYSONE Sore throat active EncounterDiagnosisAct CT_YALEUC Supraventricular tachycardia active ProblemAct CT_PHYSONE Diverticulosis of intestine, part unspecified, without perforation or abscess without bleeding active ProblemAct CT_PHYSONE Hypertrophic lichen planus active ProblemAct CT_PHYSONE Chronic obstructive pulmonary disease, unspecified active ProblemAct CT_PHYSONE Viral URI with cough active EncounterDiagnosisA ct CT_YALEUC Acute pharyngitis, unspecified active 2023-05-16 8 ProblemAct CT_PHYSONE Disorder of shoulder active 2024-03-18 7 ProblemAct ENS_AONECT Immunizations Vaccine Date Source Lot Number Status Pfizer (ages 12 & older) ILIANA S-CoV-2 COVID-19, mRNA, LNP-S, jones-sucrose, preservative free 06/09/2021 CT_TUCKERSFRAN [id number] completed Pfizer SARS-CoV-2 COVID-19, mRNA, LNP-S, preservative free 12/25/2020 CT_SFRAN [id number] completed Pfizer SARS-CoV-2 COVID-19, mRNA, LNP-S, preservative free 05/06/2020 CT_SFRAN [id number] completed Pfizer SARS-CoV-2 COVID-19, mRNA, LNP-S, preservative free 04/15/2020 CT_SFRAN [id number] completed Encounters Encounter Type Encounter Reason Primary Diagnosis Location Date Ambulatory Pain Pain [facility] 5 Ambulatory Sensorineural hearin g loss, bilateral Sensorineural hearing loss, bilateral [facility] [place] 5 Emergency abd pain, low sodium Left lower quadrant pain [facility] 5 Ambulatory Cervicalgia Cervicalgia [facility] [place] 5 Ambulatory [place] 5 Ambulatory Bilateral primary osteoarthritis of knee Bilateral primary osteoarthritis of knee [facility] 5 Ambulatory Acute pharyngitis Acute pharyngitis [facility] 5 Ambulatory [facility] 5 Ambulatory [facility] 5 Ambulatory Follow-up Atherosclerotic heart disease of [place] coronary artery without angina pectoris [facility] 5 Ambulatory [facility] 5 Ambulatory [facility] 5 Ambulatory Follow-up Follow-up [facility] 5 Ambulatory [facility] 4 Ambulatory [facility] 4 Ambulatory [facility] 4 Ambulatory [facility] 4 Ambulatory [facility] 4 Ambulatory Hypertrophic lichen planus Hypertrophic lichen planus [facility] 4 Ambulatory [place] 4 Ambulatory Bilateral primary osteoarthritis of knee Bilateral primary osteoarthritis of knee [facility] 4 Ambulatory Person with feared complaint in whom no diagnosis was made Person with feared complaint in whom no diagnosis was made [place] [facility] 4 Ambulatory Essential (primary) hypertension Essential (primary) hypertension [facility] 4 Ambulatory Essential (primary) hypertension Essential (primary) hypertension [facility] 4 Emergency Chest pain, unspecified Chest pain, unspecified [facility] Ambulatory Bilateral primary osteoarthritis of knee Bilateral primary osteoarthritis of knee [facility] 4 Ambulatory Unilateral primary osteoarthritis, right knee Unilateral primary osteoarthritis, right knee [facility] 3 Emergency Phlebitis and thrombophlebitis of unspecified site Phlebitis and thrombophlebitis of unspecified site [facility] 3 Ambulatory [place] [place] 3 Ambulatory Bilateral primary osteoarthritis of knee Bilateral primary osteoarthritis of knee [facility] 3 Ambulatory [facility] 3 Ambulatory Unilateral primary osteoarthritis, right knee Unilateral primary osteoarthritis, right knee [facility] 3 Ambulatory Bilateral primar y osteoarthritis of knee [facility] 3 Care Team Organization Name Specialty Phone Email Start Date End Da te [facility] 07/10/2024 [facility] 06/07/2024 10/03/2024 [facility] 04/25/2024 [facility] 12/2024 [facility] 04/11/2024 [facility] 10/14/2023 [facility] 06/07/2023 08/28/2024 [facility] 06/06/2023 [facility] 05/27/202306/14 [facility] 03/06/2023 [facility] 12/17/2022 [facility] 11/19/2022 [facility] 11/05/2022 08/28/2024 [facility] 11/04/2022 [facility] Primary [facility] 10/29/2022 10/29/2022 [facility] 10/29/2022 [facility]ER [facility] Primary Care 07/29/2022 025 Griselda Lerner [facility]
--- OUTSIDE RECORDS SUMMARY | 2024-10-09 14:08 | XMS_ITS | Encounter Summary ---
Author Organization [facility] Address [address] [place] [address] Care Team Providers Care Medical Accounts Receivable Specialist Name Role Phone Jose Carlos Borja MD Primary Care Provider [phone] Encounter Details Date Type Department Care Team (Late st Contact Info) Description 03/02/2023 Telephone Orthopedic [facility] [address] [place] [phone] Nick Granados PA-C [address] [facility] [address] [place] [address] Social History Tobacco Use Types Packs/Day Years [...] 11/27/2024 9:15 AM EDT Office Visit Orthopedic [address] [place] [address] Torres Hardwick MD [address] [facility] [address] [place] [address] 05/01/2025 10:00 AM EDT Office Visit [facility] [place] [address] [facility], [place] [phone] Ronaldo Hardwick MD [address] [address] documented as of this encounter Visit Diagnoses Not on filedocumented in this encounter Care Teams Medical Accounts Receivable Specialist Relationship Specialty Start Date End Date Jose Carlos Borja MD PCP - General Internal Medicine 11/25/15 documented as of this encounter
--- OUTSIDE RECORDS SUMMARY | 2024-10-09 14:08 | XMS_ITS | Encounter Summary ---
Author Organization [facility] Address [address] [place] [address] Care Team Providers Care Station Operator Name Role Phone Jose Carlos Borja MD Primary Care Provider [phone] Encounter Details Date Type Department Care Team (Late st Contact Info) Description 03/05/2022 Scanned Document [facility] at [address] [phone] Provider, Generic Social History Tobacco [...] 9:15 AM EDT [facility] [address] [place] [address] Torres Hardwick MD [address] [facility] [address] [place] [address] 05/01/2025 10:00 AM EDT Office Visit [facility] [place] [address] [facility], [place] [phone] Ronaldo Hardwick MD [address] [phone] documented as of this encounter Procedures Procedure Name Priority Date/Time Associated Diagnosis Comments BOOKING SHEETS-SCAN 03/05/2022 documented in this encounter Results * BOOKING SHEETS-SCAN (03/05/2022) Narrative 03/05/2022 Ordered by an unspecified provider. us Generic Provider HX AMB PROCEDURES Final Result documented in this encounter Visit Diagnoses Not on filedocumented in this encounter Care Teams Station Operator Relationship Specialty Start Date End Date Jose Carlos Borja MD PCP - General Internal Medicine 11/25/15 documented as of this encounter
--- OUTSIDE RECORDS SUMMARY | 2024-10-09 14:08 | XMS_ITS | Continuity of Care Document ---
Author Organization [facility] Address [address] [place] [address] Phone [phone] Care Team Providers Care Microsoft Solutions Architect Name Role Phone Jose Carlos Borja M.D. Care Team Information Recei vane [phone] Problems Active Problems Provider Date Essential hypertension Drake Velasco M.D. O nset: 02/04/2022 Multinodular goiter Drake Velasco M.D. Onse t: 02/04/2022 Lichen planus Drake Velasco M.D. Onset: 1 04/07/2021 Social History Type Date Description Comments Sex Female Sex Unknown ETOH Use Occasionally consumes alcoho l Tobacco Use Start: Unknown End: Unknown Patient is a former smoker Allergies and adverse reactions Description No Known Drug Allergies Medications Active Medications SIG Qnty Indications Ordering Provider Date [id number] Tablets 1 tab by mouth at supper 90tabs Drake Velasco M.D. 02/04/2022 Losartan [id number] Tablets 1 tab by mouth every day Unknown Metoprolol Faccackl43ln Tablets 1 tab by mouth twice a day 60tabs Unknown Amlodipine Xwslxchc82bs Tablets Unknown 0 000 Folic Dzvx8ho Tablets Take 1 Tablet By Mouth Every Day Jomar Nix M.D. [id number] Tablets 1 tab by mouth every day [...] Bowles M.D. Plan of Treatment Future Appointment(s):* 02/20/2025 10:45 am - Drake Velasco M.D. at Main Office 05/25/2023 - Drake Velasco M.D.* E04.2 Multinodular goiter* New Xrays:* Ultrasound Thyroid, Scheduled: 07/21/23 Functional Status Description No Information Available Mental Status Description No Information Available Referrals Description No Information Available
--- OUTSIDE RECORDS SUMMARY | 2024-10-09 14:08 | XMS_ITS | Encounter Summary ---
Author Organization [facility] Address [address] [place] [address] Care Team Providers Care Continuity Reader Name Role Phone Jose Carlos Borja MD Primary Care Provider Encounter Details Date Type Department Care Team (Late st Contact Info) Description 10/06/2022 Scanned Document Orthopedic [address] [place] [address] [phone] Hermes Rubi MD [address] [facility] [address] [place] [address] Social History Tobacco Use Types Packs/Day Years [...] 11/27/2024 9:15 AM EDT Office Visit Orthopedic [address] [place] [address] Torres Hardwick MD [address] [facility] [address] [place] [address] 05/01/2025 10:00 AM EDT Office Visit [facility] [place] [address] [facility], [place] [phone] Ronaldo Hardwick MD [address] [address] documented as of this encounter Visit Diagnoses Not on filedocumented in this encounter Care Teams Continuity Reader Relationship Specialty Start Date End Date Jose Carlos Borja MD PCP - General Internal Medicine 11/25/15 documented as of this encounter
--- OUTSIDE RECORDS SUMMARY | 2024-10-09 14:08 | XMS_ITS | Clinical Summary ---
Author Organization [facility] Address [address] [place] [address] Care Team Providers Care Stage Hand Name Role Phone Jose Carlos Borja MD Primary Care Provider [phone] Allergies No known active allergies Medications Medication [...] DAILY PO) Take by mouth. 0 Active [id number]-Lmmmfkrv Oil-Vitamin E (THERA TEARS NUTRITION PO) Take [...] 63 07/13/2023 10:24 AM EDT Temperature 36.3 C (97.4 F) 06/06/2023 2:00 PM EDT Respiratory Rate 20 06/06/2023 2:15 PM EDT [...] 1-dose 75+ series) 2016 COVID-19 Vaccine ( - season) 2023 06/09/2021, 12/25/2020, 05/06/2020, Additional history exists Influenza Vaccine (#1) 2024 , 12/17/2020, 12/27/2018, Additional history exists Hepatitis B Vaccines Aged Out No long er eligible based on patient's age to complete this topic RSV Ped < 20 months Aged Out No longe r eligible based on patient's age to complete this topic Care Teams Stage Hand Relationship Specialty Start Date End Date Jose Carlos Borja MD [address] [address] PCP - General Internal Medicine 03/19/14
--- OUTSIDE RECORDS SUMMARY | 2024-10-09 14:08 | XMS_ITS | Clinical Summary ---
Author Organization [facility] Address [address] [place] [address] Phone Care Team Providers Care Burlapper Name Role Phone Jose Carlos Borja MD Primary Care Provider + [phone] Allergies No known active allergies Medications albuterol HFA (PROAIR HFA ; PROVENTIL HFA ; VENTOLIN HFA) 90 mcg/actuation inhaler TAKE 2 PUFFS BY MOUTH EVERY 4 TO 6 HOURS NEEDED 3 Active ALPRAZolam (XANAX) 0.5 mg tablet Take 1 tablet (0.5 mg total) by mouth at bedtime as needed. Active atorvastatin (LIPITOR) 10 mg tablet Take 1 tablet (10 mg total) by mouth at bedtime. Active calcium carbonate (CALCIUM 600 ORAL) Take by mouth. Calcium Carbonate (CALCIUM 600 PO) Active carboxymethylce llulose (Refresh Tears) 0.5 % ophthalmic solution Administer into affected eye(s). Active cholecalciferol (VITAMIN D-3) 25 mcg (1,000 unit) tablet Take by mouth. Ac tive coenzyme Q-10 200 mg capsule Take by mouth. Active UNABLE TO FIND Take by mouth. GAD-OBY-Dnybkjs d Oil-Vitamin E (THERA TEARS NUTRITION PO) Active folic acid (FOLVITE) 1 mg tablet Take 1 tablet (1 mg total) by mouth 1 (one) time each day. 8 Active halobetasol (ULTRAVATE) 0.05 % cream Apply topically. Active methotrexate 2.5 mg tablet Take 8 tablets (20 mg total) by mouth 1 (one) time per week 8 Active niacinamide 500 mg tablet Take 1 tablet (500 mg total) by mouth 2 (two) times a day. 9 Active valACYclovir (VALTREX) 500 mg tablet Take 1 tablet (500 mg total) by mouth at bedtime. Active L. acidophilus/Bif id. animalis (DAILY PROBIOTIC ORAL) Take by mouth. Active olmesartan (BENICAR) 40 mg tablet TAKE 1 TABLET BY MOUTH DAILY 90 tablet 3 5 Active Anoro Ellipta 62.5-25 mcg/actuation inhaler Inhale 1 puff by mouth 1 (one) time each day. 5 Active mv-min/FA/vit K/lutein/zeaxan t (PRESERVISION AREDS 2 PLUS MV ORAL) Take 1 tablet by mouth 1 (one) time each day. Active amLODIPine (NORVASC) 10 mg tablet TAKE 1 TABLET BY MOUTH DAILY 90 tablet 5 Active metoprolol tartrate (LOPRESSOR) 25 mg tablet TAKE 1 TABLET BY MOUTH TWICE DAILY 180 tablet 5 Active Active Problems Problem Noted Date Diagnosed Date Hyponatremia 08/21/2024 Diarrhea 08/21/2024 Syncope 04/07/2023 Hypercholesteremia 04/07/2023 Hypertension 04/07/2023 Paroxysmal supraventricular tachycardia (CMS/HCC V24) 04/07/2023 SOB (shortness of breath) 01/19/2023 Traumatic complete tear of left rotator cuff 11/2020 Dislocation of left shoulder joint 02/18/2020 Arthritis of right knee 11/17/2018 Encounters Date Type Department Care Team Description 09/06/2024 1:15 PM EDT Consult General Surgery - [address] [place] [phone] Hermes Henry MD Lower abdominal pain (Primary Dx) 08/22/2024 Home Care Visit [facility] [address] [phone] Kaylin Ellis RN 08/22/2024 Home Health Admission [facility] [address] [place] [phone] Yamila Srinivasan 08/21/2024 11:21 AM EDT - 08/22/2024 2:30 PM EDT Hospital Encounter [facility] Emergency [address] [place] [address] Tiki Riggs DO Ancion, Jean, MD Sanders, William M, MD Ariste, Clotaire, MD Left lower quadrant abdominal pain (Primary Dx); Acute diarrhea; Acute hyponatremia Discharge Disposition: Home or Self Care from Last 3 Months Immunizations Name Administration Dates Next Due Pfizer (ages 12 & older) ILIANA S-CoV-2 COVID-19, mRNA, LNP-S, jones-sucrose, preservative free 06/09/2021 Pfizer SARS-CoV-2 COVID-19, mRNA, LNP-S, preservative free 12/25/2020,05/06/2020,04/15/2020 Surgical History Surgery Date Site/Laterality Comments HYSTERECTOMY PROCEDURE:HYSTERECTOMY COLECTOMY PROCEDURE:LAPAROSCOPIC COLON RESECTION;COMMENT:simoid diverculitis 2015 STEREOTACTIC CORE BIOPSY Right unknown Medical History Medical History Date Comments Hypertension DX:Hypertension Diverticulitis DX:Diverticuliti s Hypercholesteremia glaucoma DX:Hyperchole steremia Glaucoma DX:Glaucoma Deafness DX:Deafness Vertigo DX:Vertigo Syncope DX:Syncope Anemia DX:Anemia Paroxysmal supraventricular tachycardia (CMS/HCC V24) DX:Paroxysmal supraventricul ar tachycardia (HCC) Hypertrophic lichen [...] Value Date Recorded Sex Assigned at Female 08/21/2024 11:24 AM EDT Legal Sex Female 2:48 PM EST Gender Identity Female 08/21/2024 11:24 AM EDT Sexual Orientation Straight 08/21/2024 11 :24 AM EDT Obstetrics History Para Term AB IAB SAB Ectopic Multiple Livin g Live Births 0 Last Filed Vital Signs Vital Sign Reading Time Taken Comments Blood Pressure 136/71 09/06/2024 1:03 PM EDT Pulse 82 09/06/2024 1:03 PM EDT Temperature 36.5 C (97.7 F) 09/06/2024 1:03 PM EDT Respiratory Rate 19 08/22/2024 11:30 AM EDT Oxygen Saturation 99% 08/22/2024 11:30 AM EDT Inhaled Oxygen Concentration - - Weight 50.8 kg (112 lb) 09/06/2024 1:03 PM EDT Height 152.4 cm (5') 09/06/2024 1:03 PM EDT Body Mass Index 21.87 09/06/2024 1:03 PM EDT Plan of Treatment Upcoming Encounters Date Type Department Care Team (Late st Contact Info) Description 10/10/2024 10:30 AM EDT Office Visit [facility] Cardiology [facility] [address] [place] [phone] Mariely Flannery MD [address] [place] [id number] Health Maintenance Due Date Last Done Comments DTaP,Tdap,and Td Vaccines (1 - Tdap) 1959 Pneumococcal Vaccine: 50+ Years (1 of 2 - PCV) 1960 Zoster Vaccines (1 of 2) 1991 Medicare Annual Wellness Visit 01/13/2022 Social Influencers of Health Screening 01/13/2022 COVID-19 Vaccine ( season) 2023 03/03/2023, 02/20/2022, 06/09/2021, Additional history exists Depression Screening 02/15/2024 Influenza Vaccine (#1) 2024 , 12/17/2020, 12/27/2018, Additional history exists Falls Risk Assessment 08/21/2025 08/21/2024 Hypertension/CHF/CAD Annual BMP Blood Test 08/22/2025 08/22/2024, 08/22/2024, 08/21/2024, Additional history exists Cholesterol Screening (Lipid Panel) 05/10/2029 05/10/2024, 08/10/2023, 08/10/2023, Additional history exists Osteoporosis Screening (Bone Density Screening) 12/19/2033 12/20/2023, 06/15/2021, 12/29/2017 RSV Immunization Adult Patients Completed 03/18/2023 HIB Vaccines Aged Out No [...] age to complete this topic Meningococcal B Vaccine Aged Out No l onger eligible based on patient's age to complete this topic RSV Immunization Patients Under 20 months Aged Out No longer eligible based on patient's age to complete this topic Varicella Vaccines Aged Out No longer eligible based on patient's age to complete this topic Procedures Procedure Name Priority Date/Time Associated Diagnosis Comments BASIC METABOLIC PANEL STAT 08/22/2024 1:33 PM EDT OSMOLALITY, URINE STAT 08/22/2024 11: 12 AM EDT SODIUM, URINE, RANDOM STAT 08/22/2024 11:12 AM EDT OSMOLALITY STAT 08/22/2024 7:56 AM EDT BASIC METABOLIC PANEL STAT 08/22/2024 7:56 AM EDT CREATININE, URINE, RANDOM STAT 08/21/2024 7:06 PM EDT SODIUM, URINE, RANDOM STAT 08/21/2024 7:06 PM EDT POCT GLUCOSE BLOOD Routine 08/21/2024 6: [address] ABDOMEN PELVIS W CONTRAST STAT 08/21/2024 2:50 PM EDT XR CHEST 2 VIEWS STAT 08/21/2024 2:26 PM EDT RHYTHM ECG, REPORT Routine 08/21/2024 1: 53 PM EDT ROWLEY URINE CULTURE TUBE STAT 08/21/2024 12:06 PM EDT URINALYSIS WITH REFLEX MICROSCOPIC AND CULTURE STAT 08/21/2024 12:06 PM EDT URINALYSIS WITH REFLEX MICROSCOPIC AND CULTURE STAT 08/21/2024 12:06 PM EDT CBC WITH AUTO DIFFERENTIAL STAT 08/21/2024 11:04 AM EDT PHOSPHORUS STAT 08/21/2024 11:04 AM EDT MAGNESIUM STAT 08/21/2024 11:04 AM EDT LIPASE STAT 08/21/2024 11:04 AM EDT COMPREHENSIVE METABOLIC PANEL STAT 08/21/2024 11:04 AM EDT CBC AND DIFFERENTIAL STAT 08/21/2024 11:04 AM EDT ECG 12-LEAD STAT 08/21/2024 11:03 AM EDT LIPID PANEL Routine 05/10/2024 8:35 AM EDT Hyposmolality syndrome Essential hypertension, 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 Sodium 132(L) 135 - 145 mmol/L LAB CHEMISTRY METHOD 08/22/2024 2:33 PM EDT [facility] Potassium 4.1 3.5 - 5.1 mmol/L LAB CHEMISTRY METHOD 08/22/2024 2:33 PM EDT [facility] Chloride 98 98 - 107 mmol/L LAB CHEMISTRY METHOD 08/22/2024 2:33 PM EDT [facility] CO2 26 24 - 32 mmol/L LAB CHEMISTRY METHOD 08/22/2024 2:33 PM EDT [facility] Anion Gap 8 5 - 14 LAB CHEMISTRY METHOD 08/22/2024 2:33 PM EDT [facility] Glucose 163 70 - 199 mg/dL LAB CHEMISTRY METHOD 08/22/2024 2:33 PM EDT [facility] BUN 7 7 - 17 mg/dL LAB CHEMISTRY METHOD 08/22/2024 2:33 PM EDT [facility] Creatinine 0.40(L) 0.50 - 1.00 mg/dL LAB CHEMISTRY METHOD 08/22/2024 2:33 PM EDT [facility] eGFR 98 >=60 mL/min/1. 73m2 LAB CHEMISTRY METHOD 08/22/2024 2:33 PM EDT [facility] Comment:Calculation based on the Chronic Kidney Disease Epidemiology Collaboration (CKD-EPI) equation refit without adjustment for race. BUN/Creatinine Ratio 17.5 12.0 - 20.0 LAB CHEMISTRY METHOD 08/22/2024 2:33 PM EDT [facility] Calcium 9.5 8.4 - 10.2 mg/dL LAB CHEMISTRY METHOD 08/22/2024 2:33 PM EDT [facility] Blood Venous blood specimen / Unknown Venipuncture / Unknown 08/22/2024 1:33 PM EDT 08/22/2024 2:03 PM EDT us Toney Mobley MD LAB BLOOD ORDERABLES Final Resul t Performing Organization Address [facility]/ZIP Co de Phone Number [facility] [address] [place] [address], [place] [phone] * (ABNORMAL) Sodium, urine, random (08/22/2024 11:12 AM EDT) Only the most recent of2 resultswithin the time period is included. Sodium, Ur 37(L) 50 - 191 mmol/L LAB CHEMISTRY METHOD 08/22/2024 12:15 PM EDT [facility] Urine Urine specimen obtained by clean catch procedure / Unknown 08/22/2024 11:12 AM EDT 08/22/2024 11:38 AM EDT us Toney Mobley MD LAB URINE ORDERABLES Final Resul t Performing Organization Address [facility] Co de Phone Number [facility] [address] [place] [address], [place] [phone] * Osmolality, urine (08/22/2024 11:12 AM EDT) Osmolality, Urine 231 50 - 1,200 mOsm/kg LAB CHEMISTRY METHOD 08/22/2024 11:56 AM EDT [facility] Urine Urine specimen obtained by clean catch procedure / Unknown 08/22/2024 11:12 AM EDT 08/22/2024 11:38 AM EDT us Toney Mobley MD LAB URINE ORDERABLES Final Resul t Performing Organization Address [facility]/ZIP Co de Phone Number [facility] [address] [place] [address], [place] [phone] * (ABNORMAL) Osmolality (08/22/2024 7:56 AM EDT) Osmolality Susan 271(L) 275 - 295 mOsm/kg LAB CHEMISTRY METHOD 08/22/2024 8:51 AM EDT [facility] Blood Venous blood specimen / Unknown Venipuncture / Unknown 08/22/2024 7:56 AM EDT 08/22/2024 8:27 AM EDT Toney Mobley MD LAB BLOOD ORDERABLES Final Resul t Performing Organization Address [facility] Co de Phone Number [facility] [address] [place] [address], * Creatinine, urine, random (08/21/2024 7:06 PM EDT) Creatinine, Urine 21.1 mg/dL LAB CHEMISTRY METHOD 08/21/2024 7:40 PM EDT [facility] Urine Urine specimen obtained by clean catch procedure / Unknown Non-blood Collection / Unknown 08/21/2024 7:06 PM EDT 08/21/2024 7:12 PM EDT Narrative [facility] - 08/21/2024 7:40 PM EDT No reference range has been established for this assay (test result). Tiki Riggs DO LAB URINE ORDERABLES Fi nal Result Performing Organization Address City/[facility]/ZIP Co de Phone Number [facility] [address] [place] [address], [place] [phone] * POCT Glucose, blood (08/21/2024 6:17 PM EDT) Glucose POCT 118 70 - 199 mg/dL 08/21/2024 6:18 PM EDT [facility] Comment: Fasting Reference Range: 70-99 mg/dL Non-Fasting Reference Range: 70-199 mg/dL Blood Capillary blood specimen / Unknown 08/21/2024 6:17 PM EDT 08/21/2024 6:20 PM EDT us Toney Mobley MD LAB POINT OF CARE TE ST DOCKED DEVICE UNSOLICITED RESULTS Final Result [facility] [address] [place] [address], [place] [phone] * CT Abdomen Pelvis w Contrast (08/21/2024 2:50 PM EDT) Anatomical Region Laterality Modality Body Computed Tomogra phy 08/21/2024 3:30 PM EDT Impressions 08/21/2024 3:37 PM EDT 1. Negative for acute process in the abdomen or pelvis. 2. Colonic diverticulosis. 3. Small hiatal hernia. 4. Aortic and coronary atherosclerosis and heavy mitral annular calcifications. Report reviewed and signed by : Dr. Racheal Kate on 08/21/2024 3:37 PM. Workstation Name - [id number] -------- FINAL REPORT -------- Dictated By: Racheal Kate Dictated Date: 08/21/2024 15:30 ET Assigned Physician: Racheal Kate Reviewed and Electronically Signed By: Racheal Kate Signed Date: 08/21/2024 15:37 ET Workstation ID: [id number] Transcribed By: Self Edit Transcribed Date: 08/21/2024 15:30 ET Narrative 08/21/2024 3:[address] OF THE ABDOMEN AND PELVIS WITH IV CONTRAST CLINICAL HISTORY: Diverticulitis suspected TECHNIQUE: Serial axial images obtained. Sagittal reconstructed images obtained. Coronal reconstructed images obtained. Exam is performed with 100 mL of Isovue-300 intravenous contrast. Per PQRS, CT exam is performed using one or more of the following dose reduction techniques: Automated exposure control, adjustment of the mA and/or KV according to patient size, or use of iterative reconstruction techniques. COMPARISON: 03/22/2014 FINDINGS: HEART: Coronary artery calcifications. Heavy mitral annular calcifications. LOWER THORAX: No pleural effusion seen. No consolidation. VISUALIZED CHEST LIN: Visualized chest lin are unremarkable. VISCERA: Trace pelvic free fluid is nonspecific. VASCULATURE: Aortic atherosclerosis. ESOPHAGUS: Visualized portions of the esophagus are unremarkable. STOMACH: Small hiatal hernia. PANCREAS: Appearance is unremarkable. GALLBLADDER: Appearance is unremarkable. LIVER: Appearance is unremarkable. ADRENALS: Appearance is unremarkable. SPLEEN: Appearance is unremarkable. KIDNEYS: Appearance is unremarkable. BLADDER: Appearance is unremarkable. GENITAL: Status post hysterectomy. SMALL BOWEL: Appearance is unremarkable. Negative for small bowel dilatation. APPENDIX: The appendix is not seen. COLON: Colonic diverticulosis and postoperative changes in the rectosigmoid colon. ABDOMINAL/PELVIC LIN: Unremarkable. BONES: Generalized osteopenia with degenerative changes of the spine, including facet arthropathy at L3-L4 and L4-L5. Chronic compression deformity of L5 with up to 50% loss in height of the vertebral body. Grade 1 anterolisthesis of L4 on L5. Old right rib fractures. Procedure Note Racheal Kate MD - 08/21/2024 CT OF THE ABDOMEN AND PELVIS WITH IV CONTRAST CLINICAL HISTORY: Diverticulitis suspected TECHNIQUE: Serial axial images obtained. Sagittal reconstructed images obtained. Coronal reconstructed images obtained. Exam is performed with 100 mL of Isovue-300 intravenous contrast. Per PQRS, CT exam is performed using one or more of the following dosereduction techniques: Automated exposure control, adjustment of the mAand/or KV according to patient size, or use of iterative reconstructiontechniques. COMPARISON: 03/22/2014 FINDINGS: HEART: Coronary artery calcifications. Heavy mitral annular calcifications. LOWER THORAX: No pleural effusion seen. No consolidation. VISUALIZED CHEST LIN: Visualized chest lin are unremarkable. VISCERA: Trace pelvic free fluid is nonspecific. VASCULATURE: Aortic atherosclerosis. ESOPHAGUS: Visualized portions of the esophagus are unremarkable. STOMACH: Small hiatal hernia. PANCREAS: Appearance is unremarkable. GALLBLADDER: Appearance is unremarkable. LIVER: Appearance is unremarkable. ADRENALS: Appearance is unremarkable. SPLEEN: Appearance is unremarkable. KIDNEYS: Appearance is unremarkable. BLADDER: Appearance is unremarkable. GENITAL: Status post hysterectomy. SMALL BOWEL: Appearance is unremarkable. Negative for small boweldilatation. APPENDIX: The appendix is not seen. COLON: Colonic diverticulosis and postoperative changes in therectosigmoid colon. ABDOMINAL/PELVIC LIN: Unremarkable. BONES: Generalized osteopenia with degenerative changes of the spine,including facet arthropathy at L3-L4 and L4-L5. Chronic compressiondeformity of L5 with up to 50% loss in height of the vertebral body. Grade1 anterolisthesis of L4 on L5. Old right rib fractures. IMPRESSION: 1. Negative for acute process in the abdomen or pelvis. 2. Colonic diverticulosis. 3. Small hiatal hernia. 4. Aortic and coronary atherosclerosis and heavy mitral annularcalcifications. Report reviewed and signed by : Dr. Racheal Kate on 08/21/2024 3:37 PM.Workstation Name - [id number] -------- FINAL REPORT -------- Dictated By: Racheal Kate Dictated Date: 08/21/2024 15:30 ET Assigned Physician: Racheal Kate Reviewed and Electronically Signed By: Racheal Kate Signed Date: 08/21/2024 15:37 ET Workstation ID: [id number] Transcribed By: Self Edit Transcribed Date: 08/21/2024 15:30 ET Tiik Riggs DO IMG CT PROCEDURES Final Result * XR Chest 2 Views (08/21/2024 2:26 PM EDT) Anatomical Region Laterality Modality Body Radiographic Lacey ging 08/21/2024 2:49 PM EDT Impressions 08/21/2024 2:53 PM EDT Chronic obstructive pulmonary disease. No acute cardiopulmonary abnormality. Report reviewed and signed by : Dr. Stewart Alvarado on 08/21/2024 2:53 PM. Workstation Name - [id number] -------- FINAL REPORT -------- Dictated By: Stewart Alvarado Dictated Date: 08/21/2024 14:49 ET Assigned Physician: Stewart Alvarado Reviewed and Electronically Signed By: Stewart Alvarado Signed Date: 08/21/2024 14:53 ET Workstation ID: [id number] Transcribed By: Self Edit Transcribed Date: 08/21/2024 14:49 ET Narrative 08/21/2024 2:53 PM EDT EXAM: XR CHEST 2 VIEWS CLINICAL INFORMATION: chest pain COMPARISON: 01/25/2017 TECHNIQUE: Chest radiograph, 2 views FINDINGS: Lungs are hyperexpanded in this patient with chronic emphysematous disease. No acute pulmonary abnormality. No pulmonary consolidation, pleural effusion or pneumothorax. Cardiac silhouette is normal in size. The mitral valve annulus is calcified. There is atherosclerotic calcification of the aorta. The hilar contours are normal. Bones appear to be diffusely osteopenic. Moderate spondylosis of the thoracic spine. There appears to be chronic mild decreased height of a lower thoracic vertebral body. Procedure Note Stewart Alvarado MD - 08/21/2024 EXAM: XR CHEST 2 VIEWS CLINICAL INFORMATION: chest pain COMPARISON: 01/25/2017 TECHNIQUE: Chest radiograph, 2 views FINDINGS: Lungs are hyperexpanded in this patient with chronic emphysematousdisease. No acute pulmonary abnormality. No pulmonary consolidation, pleuraleffusion or pneumothorax. Cardiac silhouette is normal in size. The mitral valve annulus iscalcified. There is atherosclerotic calcification of the aorta. Thehilar contours are normal. Bones appear to be diffusely osteopenic. Moderate spondylosis of thethoracic spine. There appears to be chronic mild decreased height of alower thoracic vertebral body. IMPRESSION: Chronic obstructive pulmonary disease. No acute cardiopulmonaryabnormality. Report reviewed and signed by : Dr. Stewart Alvarado on 08/21/2024 2:53 PM.Workstation Name - [id number] -------- FINAL REPORT -------- Dictated By: Stewart Alvarado Dictated Date: 08/21/2024 14:49 ET Assigned Physician: Stewart Alvarado Reviewed and Electronically Signed By: Stewart Alvarado Signed Date: 08/21/2024 14:53 ET Workstation ID: [id number] Transcribed By: Self Edit Transcribed Date: 08/21/2024 14:49 ET Tiki Riggs DO IMG XR PROCEDURES Final Result * RHYTHM ECG, REPORT (08/21/2024 1:53 PM EDT) Tiki Boswell DO - 08/21/2024 1:53 PM EDT Tiki Riggs DO 08/22/2024 5:42 PM ECG Rhythm Interpretation and Report Date/Time: 08/21/2024 1:53 PM Performed by: Tiki Riggs DO Authorized by: Tiki Riggs DO ECG interpreted by ED Physician in the absence of a sewing machine operator semiautomatic: yes Previous ECG: Previous ECG: Compared to current Similarity: Changes noted Comparison ECG info: PACs now present Interpretation: Interpretation: non-specific Rate: ECG rate assessment: normal Rhythm: Rhythm: sinus rhythm Ectopy: Ectopy: PAC QRS: QRS axis: Normal QRS intervals: Normal QRS conduction: normal ST segments: ST segments: Normal T waves: T waves: normal Q waves: Abnormal Q-waves: not present Tiki Riggs DO ECG ORDERABLES Final R esult * (ABNORMAL) Urinalysis with reflex microscopic and culture (08/21/2024 12:06 PM EDT) Color, Urine Yellow Yellow, Colorless LAB URINALYSIS - AUTOMATED METHOD 08/21/2024 12:27 PM EDT [facility] Clarity, Urine Clear Clear LAB URINALYSIS - AUTOMATED METHOD 08/21/2024 12:27 PM EDT [facility] Specific [place] Urine <1.005(L) 1.005 - 1.030 LAB URINALYSIS - AUTOMATED METHOD 08/21/2024 12:27 PM T [facility] pH, Urine 8.0(A) 5.0 - 8.0 pH LAB URINALYSIS - AUTOMATED METHOD 08/21/2024 12:27 PM EDT [facility] Leukocytes, Urine Negative Negative WBCs/mcL LAB URINALYSIS - AUTOMATED METHOD 08/21/2024 12:27 PM EDT [facility] Nitrite, Urine Negative Negative LAB URINALYSIS - AUTOMATED METHOD 08/21/2024 12:27 PM EDT [facility] Protein, Urine Negative Negative mg/dL LAB URINALYSIS - AUTOMATED METHOD 08/21/2024 12:27 PM EDT [facility] Glucose, Urine Negative Negative mg/dL LAB URINALYSIS - AUTOMATED METHOD 08/21/2024 12:27 PM EDT [facility] Ketones, Urine Negative Negative mg/dL LAB URINALYSIS - AUTOMATED METHOD 08/21/2024 12:27 PM EDT [facility] Blood, Urine Negative Negative mg/dL LAB URINALYSIS - AUTOMATED METHOD 08/21/2024 12:27 PM EDT [facility] Urine Urine specimen obtained by clean catch procedure / Unknown Non-blood Collection / Unknown 08/21/2024 12:06 PM EDT 08/21/2024 12:14 PM EDT us Mely MANNING LAB URINE ORDERABLES Final Resul t [facility] [address] [place] [address], [place] [phone] * Row[place] urine culture tube (08/21/2024 12:06 PM EDT) Extra Tube Hold for add-ons. 08/21/2024 2:01 PM EDT [facility] Comment:Auto resulted. Urine Urine specimen obtained by clean catch procedure / Unknown Non-blood Collection / Unknown 08/21/2024 12:06 PM EDT 08/21/2024 12:14 PM EDT us Mely MANNING LAB URINE ORDERABLES Final Resul t [facility] [address] [place] [address], [place] [phone] * (ABNORMAL) CBC auto differential (08/21/2024 11:04 AM EDT) WBC 4.3 4.0 - 10.5 K/[facility] LAB HEMETOLOGY METHOD 08/21/2024 11:25 AM EDT [facility] RBC 3.17(L) 4.20 - 5.40 M/[facility] LAB HEMETOLOGY METHOD 08/21/2024 11:25 AM EDT [facility] Hemoglobin 11.2(L) 12.5 - 16.0 g/dL LAB HEMETOLOGY METHOD 08/21/2024 11:25 AM EDT [facility] Hematocrit 33.1(L) 37.0 - 47.0 % LAB HEMETOLOGY METHOD 08/21/2024 11:25 AM EDT [facility] MCV 104.7(H) 78.0 - 100.0 FL LAB HEMETOLOGY METHOD 08/21/2024 11:25 AM EDT [facility] MCH 35.4(H) 25.0 - 33.0 pcg LAB HEMETOLOGY METHOD 08/21/2024 11:25 AM EDT [facility] MCHC 33.8 32.0 - 36.0 g/dL LAB HEMETOLOGY METHOD 08/21/2024 11:25 AM EDT [facility] RDW 14.1 12.1 - 16.2 % LAB HEMETOLOGY METHOD 08/21/2024 11:25 AM EDT [facility] Platelets 351 150 - 450 K/mcL LAB HEMETOLOGY METHOD 08/21/2024 11:25 AM EDT [facility] MPV 7.3(L) 7.4 - 11.4 FL LAB HEMETOLOGY METHOD 08/21/2024 11:25 AM EDT [facility] Neutrophils Relative 65.1 44.0 - 74.0 % LAB HEMETOLOGY METHOD 08/21/2024 11:25 AM EDT [facility] Lymphocytes Relative 18.8(L) 20.0 - 48.0 % LAB HEMETOLOGY METHOD 08/21/2024 11:25 AM EDT [facility] Monocytes Relative 14.6(H) 2.0 - 12.0 % LAB HEMETOLOGY METHOD 08/21/2024 11:25 AM EDT [facility] Eosinophils Relative 0.6 0.0 - 6.0 % LAB HEMETOLOGY METHOD 08/21/2024 11:25 AM EDT [facility] Basophils Relative 0.9 0.0 - 2.0 % LAB HEMETOLOGY METHOD 08/21/2024 11:25 AM EDT [facility] Neutrophils Absolute 2.80 1.80 - 7.80 K/mcL LAB HEMETOLOGY METHOD 08/21/2024 11:25 AM EDT [facility] Lymphocytes Absolute 0.80(L) 1.00 - 3.20 K/mcL LAB HEMETOLOGY METHOD 08/21/2024 11:25 AM EDT [facility] Monocytes Absolute 0.60 0.00 - 0.80 K/mcL LAB HEMETOLOGY METHOD 08/21/2024 11:25 AM EDT [facility] Eosinophils Absolute 0.00 0.00 - 0.50 K/mcL LAB HEMETOLOGY METHOD 08/21/2024 11:25 AM EDT [facility] Basophils Absolute 0.00 0.00 - 0.20 K/mcL LAB HEMETOLOGY METHOD 08/21/2024 11:25 AM EDT [facility] Blood Venous blood specimen / Unknown Venipuncture / Unknown 08/21/2024 11:04 AM EDT 08/21/2024 11:17 AM EDT us Mely MANNING LAB BLOOD ORDERABLES Final Resul t [facility] [address] [place] [address], * Phosphorus (08/21/2024 11:04 AM EDT) Phosphorus 2.8 2.5 - 4.5 mg/dL LAB CHEMISTRY METHOD 08/21/2024 11:50 AM EDT [facility] Blood Venous blood specimen / Unknown Venipuncture / Unknown 08/21/2024 11:04 AM EDT 08/21/2024 11:17 AM EDT us Mely MANNING LAB BLOOD ORDERABLES Final Resul t Performing Organization Address City/[facility]/ZIP Co de Phone Number [facility] [address] [place] [address], [place] [phone] * (ABNORMAL) Magnesium (08/21/2024 11:04 AM EDT) Magnesium 1.6(L) 1.7 - 2.8 mg/dL LAB CHEMISTRY METHOD 08/21/2024 11:50 AM EDT [facility] Blood Venous blood specimen / Unknown Venipuncture / Unknown 08/21/2024 11:04 AM EDT 08/21/2024 11:17 AM EDT us Mely MANNING LAB BLOOD ORDERABLES Final Resul t Performing Organization Address City/[facility]/ZIP Co de Phone Number [facility] [address] [place] [address], [place] [phone] * Lipase (08/21/2024 11:04 AM EDT) Pathologist [facility] Lipase 28 11 - 82 unit/L LAB CHEMISTRY METHOD 08/21/2024 11:50 AM EDT [facility] Blood Venous blood specimen / Unknown Venipuncture / Unknown 08/21/2024 11:04 AM EDT 08/21/2024 11:17 AM EDT us Mely MANNING LAB BLOOD ORDERABLES Final Resul t Performing Organization Address City/[facility]/ZIP Co de Phone Number [facility] [address] [place] [address], [place] [phone] * (ABNORMAL) Comprehensive Metabolic Panel (CMP) (08/21/2024 11:04 AM EDT) Sodium 127(L) 135 - 145 mmol/L LAB CHEMISTRY METHOD 08/21/2024 11:50 AM [facility] Potassium 4.3 3.5 - 5.1 mmol/L LAB CHEMISTRY METHOD 08/21/2024 11:50 AM [facility] Chloride 95(L) 98 - 107 mmol/L LAB CHEMISTRY METHOD 08/21/2024 11:50 AM [facility] CO2 24 24 - 32 mmol/L LAB CHEMISTRY METHOD 08/21/2024 11:50 AM [facility] Anion Gap 8 5 - 14 LAB CHEMISTRY METHOD 08/21/2024 11:50 AM [facility] Glucose 103 70 - 199 mg/dL LAB CHEMISTRY METHOD 08/21/2024 11:50 AM [facility] BUN 4(L) 7 - 17 mg/dL LAB CHEMISTRY METHOD 08/21/2024 11:50 AM [facility] Creatinine 0.40(L) 0.50 - 1.00 mg/dL LAB CHEMISTRY METHOD 08/21/2024 11:50 AM [facility] eGFR 98 >=60 mL/min/1. 73m2 LAB CHEMISTRY METHOD 08/21/2024 11:50 AM [facility] Comment:Calculation based on the Chronic Kidney Disease Epidemiology Collaboration (CKD-EPI) equation refit without adjustment for race. BUN/Creatinine Ratio 10.0(L) 12.0 - 20.0 LAB CHEMISTRY METHOD 08/21/2024 11:50 AM [facility] Calcium 9.1 8.4 - 10.2 mg/dL LAB CHEMISTRY METHOD 08/21/2024 11:50 AM [facility] AST (SGOT) 41(H) 5 - 40 unit/L LAB CHEMISTRY METHOD 08/21/2024 11:50 AM [facility] ALT (SGPT) 31 7 - 52 unit/L LAB CHEMISTRY METHOD 08/21/2024 11:50 AM EDT [facility] Alkaline Phosphatase 67 34 - 104 unit/L LAB CHEMISTRY METHOD 08/21/2024 11:50 AM EDT [facility] Total Protein 6.0(L) 6.4 - 8.5 g/dL LAB CHEMISTRY METHOD 08/21/2024 11:50 AM EDT [facility] Albumin 4.2 3.5 - 5.0 g/dL LAB CHEMISTRY METHOD 08/21/2024 11:50 AM EDT [facility] Total Bilirubin 0.5 0.3 - 1.0 mg/dL LAB CHEMISTRY METHOD 08/21/2024 11:50 AM EDT [facility] Blood Venous blood specimen / Unknown Venipuncture / Unknown 08/21/2024 11:04 AM EDT 08/21/2024 11:17 AM EDT us Mely MANNING LAB BLOOD ORDERABLES Final Resul t [facility] [address] [place] [address], [place] [phone] * ECG 12 lead (08/21/2024 11:03 AM EDT) Ventricular Rate ECG 69 BPM GEMUSE Atrial Rate 69 BPM GEMUSE P-R Interval 142 ms GEMUSE QRS Duration 84 ms GEMUSE Q-T Interval 384 ms GEMUSE QTc 411 ms GEMUSE P Wave [place] 53 degrees GEMUSE R [place] 37 degrees GEMUSE T [place] 22 degrees GEMUSE ECG Interpretation Sinus rhythm with premature atrial complexes Otherwise normal ECG When compared with ECG of 06-JUN-2023 06:10, premature atrial complexes are now present Confirmed by Mariely Flannery ([id number]) on 08/22/2024 8:00:40 PM GEMUSE 08/21/2024 11:0 3 AM EDT 08/22/2024 8:00 PM EDT us Mely MANNING ECG ORDERABLES Final Result GEMUSE * (ABNORMAL) Lipid panel (05/10/2024 8:35 AM EDT) Cholesterol 127 0 - 200 mg/dL LAB CHEMISTRY METHOD 05/10/2024 11:37 AM EDT [facility] Triglycerides 56 <150 mg/dL LAB CHEMISTRY METHOD 05/10/2024 11:37 AM EDT [facility] HDL 72 33 - 92 mg/dL LAB CHEMISTRY METHOD 05/10/2024 11:37 AM EDT [facility] LDL Calculated 44(L) 50 - 130 mg/dL LAB CHEMISTRY METHOD 05/10/2024 11:37 AM EDT [facility] VLDL Cholesterol Gerardo 11.2 mg/dL LAB CHEMISTRY METHOD 05/10/2024 11:37 AM EDT [facility] Comment:No established refer ence range. Blood Venous blood specimen / Unknown Venipuncture / Unknown 05/10/2024 8:35 AM EDT 05/10/2024 8:35 AM EDT us Jose Carlos Borja MD LAB BLOOD ORDERABLES Final R esult Performing Organization Address City/[facility]/ZIP Co de Phone Number [facility] [address] [place] [address], [place] [phone] * BD Bone Density DXA Axial Skeleton (12/20/2023 11:45 AM EST) Anatomical Region Laterality Modality Wrist, Hip, L-spine Bone Densito metry 12/20/2023 12:0 6 PM EST Impressions 12/20/2023 12:08 PM EST 1. Osteoporosis. There has been a decrease of 1.4% in bone mineral density in the lumbar spine since the prior examination of 06/15/2021. There has been a decrease of 9.3% in bone mineral density in the right femur and a decrease of 7.7% in bone mineral density in the left femur. 2. FRAX analysis yields a 10-year probability of major osteoporotic fracture of 27.7% and a 10-year probability of hip fracture of 10.4%. Code [address] CT Teleradiology -------- FINAL REPORT -------- Dictated By: Jose Maria Mayes Dictated Date: 12/20/2023 12:06 ET Assigned Physician: Jose Maria Mayes Reviewed and Electronically Signed By: Jose Maria Mayes Signed Date: 12/20/2023 12:08 ET Workstation ID: [id number] Transcribed By: Self Edit Transcribed Date: 12/20/2023 12:06 ET Narrative 12/20/2023 12:08 PM EST HISTORY: The patient is an 83-year-old postmenopausal female with clinical concern for metabolic bone disease. FINDINGS: Dual energy x-ray absorptiometry of the lumbar spine and femurs is performed. The mean bone mineral density at L1-L4 is 1.275 gm/cm2 which is 108% of that of young normals and 140% of that of age matched controls. This yields a T-score of 0.8 and a Z-score of 3.1 and there is therefore no evidence of osteoporosis or osteopenia here. The mean bone mineral density of the femurs bilaterally is 0.759 gm/cm2 which is 75% of that of young normals and 88% of that of age matched controls. This yields a T-score of -2.0 and a Z-score of 0.4 which is diagnostic of osteopenia. However, the T-score of the right femoral neck [...] density of the femurs bilaterally is 0.759 gm/nf8ymofq is 75% of that of young normals [...] probability of hip fracture of 10.4%. Code 83987 CT Teleradiology -------- FINAL REPORT -------- Dictated By: Jose Maria Mayes Dictated Date: 12/20/2023 12:06 ET Assigned Physician: Jose Maria Mayes Reviewed and Electronically Signed By: Jose Maria Mayes Signed Date: 12/20/2023 12:08 ET Workstation ID: [id number] Transcribed By: Self Edit Transcribed Date: 12/20/2023 12:06 ET Jose Carlos Borja MD [facility] DXA PROCEDURES Final Res ult from Last 3 Months or Most Recently Relevant to Health Maintenance Insurance [employer] MEDICARE Advance Directives * Full Code - Default (Latest Code Status on File) Date Activated Date Inactivated Comments 08/22/2024 7:37 AM 08/22/2024 4:41 PM This is order is used when code status has not been discussed with the patient, or code status is otherwise unknown/unconfirmed To update the patient's code status, place a code status order. Do not modify or discontinue any currently active code status orders. Care Teams Burlapper Relationship Specialty Start Date End Date Jose Carlos Borja MD [address] [place] [address] PCP - General Internal Medicine 04/28/09
--- OUTSIDE RECORDS SUMMARY | 2024-10-09 14:08 | XMS_ITS | Clinical Summary ---
Author Organization [facility] Address [address] [address] Phone Care Team Providers Care Operator Specialist Communications Name Role Phone Jose Carlos Borja MD Primary Care Provider [phone] Allergies No known active allergies Medications amLODIPine [...] Due Date Last Done Comments Pneumococcal Vaccine: 50+ Ye ars (1 of 2 - PCV) 1960 Influenza Vaccine (#1) 2024 03/03/2022 Hepatitis B Vaccine Aged Out No longe r eligible based on patient's age to complete this topic Insurance [facility] Address[facility] [address] [place] [address] [facility] Care Teams Operator Specialist Communications Relationship Specialty Start Date End Date Jose Carlos Borja MD [address] [place] [address] PCP - General Internal Medicine 09/09/20
--- OUTSIDE RECORDS SUMMARY | 2024-10-09 14:08 | XMS_ITS | Clinical Summary ---
Author Organization [address] Address [address] [place] [address] Care Team Providers Care Inside Solar Sales Consultant Name Role Phone Jose Carlos Borja MD Primary Care Provider [phone] Allergies No known active allergies Medications albuterol [...] needed for cough. 30 capsule 5 Active Active Problems No known active [...] 84 04/23/2024 12:14 PM EDT Temperature 36.8 C (98.2 F) 04/23/2024 12:14 PM EDT Respiratory Rate 20 04/23/2024 12:1 [...] Health Maintenance Due Date Last Done Comments HIV screening 1954 Pneumococcal Vaccine (50+ years) (1 of 2 - PCV) 1960 Tetanus adult (Td q 10,TDAP once) 1961 Lipid disorder screening 1981 Diabetes screening 1986 Shingles vaccine (Shingrix) (1 of 2 - Shingrix (RZV) 2 Dose Standard Series) 1991 Osteoporosis screening (bone density) 2006 RSV Immunization (1 - 1-dose 75+ series) 2016 Covid-19 vaccine series ( season) 2023 06/09/2021, 12/25/2020, 05/06/2020, Additional history exists Influenza vaccine 10/15/2024 03/03/2022 Breast cancer screening Discontinued Cervical cancer screening Discontinued Colon cancer screening, Colonoscopy Discontinued Meningococcal Vaccine Aged Out No amalia susana eligible based on patient's age to complete this topic Insurance Care Teams Inside Solar Sales Consultant Relationship Specialty Start Date End Date Jose Carlos Borja MD PCP - General Internal Medicine 04/23/24
== END 2024-10-09 13:52 | disposition home or self-care (01) ==
LOC: HO.HPS 13:17
PROVIDERS: PCP Internal Medicine; Visit Provider Internal Medicine Pulmonary Disease
DX: J44.9 Chronic obstructive pulmonary disease, unspecified (principal); Z99.81 Dependence on supplemental oxygen; R06.09 Other forms of dyspnea
CPT/HCPCS: 99214; G2211

== ENCOUNTER → 2024-10-09 13:16 | Outpatient (BNVA) | payer MEDICARE, SELFPAY | PROVIDERS: PCP Internal Medicine; Visit Provider Internal Medicine Pulmonary Disease | DX: R06.09 Other forms of dyspnea (principal); J44.9 Chronic obstructive pulmonary disease, unspecified; Z99.81 Dependence on supplemental oxygen | CPT/HCPCS: 99212 ==

== ENCOUNTER 2024-11-07 13:42 | Outpatient (AMB) | payer MEDICARE, SELFPAY ==
--- OUTSIDE RECORDS SUMMARY | 2024-10-11 10:01 | XMS_ITS ---
Author Organization [facility] Address [facility] [place], [place] [id number] Care Team Providers Care Bead Picker Name Role Phone SHER JEAN Primary Care Provider [phone] REGINALD OQUENDO [phone] REASON FOR VISIT [facility] Call Encounters Encounter Location Date Provider Diagnosis [facility] [address] [place] [address] 10/11/2024 SHER JEAN PLAN OF TREATMENT Next Appt Details Provider Name:SHER LEVINE, 05/06/2025 01:15:00 PM, [address] [place], [address],
--- OUTSIDE RECORDS SUMMARY | 2024-10-12 11:09 | XMS_ITS ---
Author Organization [facility] Address [address] [place] [id number] Care Team Providers Care Assurance Engineer Name Role Phone SHER JEAN Primary Care Provider REGINALD OQUENDO [phone] REASON FOR VISIT 2 (W)xray Encounters Encounter Location Date Provider Diagnosis [address] [address] 10/12/2024 SHER JEAN PLAN OF TREATMENT Next Appt Details Provider Name:SHER LEVINE, 05/06/2025 01:15:00 PM, [address] [place], [address],
--- OUTSIDE RECORDS SUMMARY | 2024-10-12 11:12 | XMS_ITS ---
Author Organization [facility] Address [address] [place] [id number] Care Team Providers Care Metal Fabricator Helper Name Role Phone SHER JEAN Primary Care Provider [phone] REGINALD OQUENDO [phone] REASON FOR VISIT 2 (W)xrays Encounters Encounter Location Date Provider Diagnosis [address] [address] 10/12/2024 SHER JEAN PLAN OF TREATMENT Next Appt Details Provider Name:SHER LEVINE, 05/06/2025 01:15:00 PM, [address] [place], [address],
--- OUTSIDE RECORDS SUMMARY | 2024-10-12 12:29 | XMS_ITS ---
Author Organization [facility] Address [facility] [place], [place] [id number] Care Team Providers Care Stand In Name Role Phone SHER JEAN Primary Care Provider REGINALD OQUENDO [phone] REASON FOR VISIT requesting a call back Encounters Encounter Location Date Provider Diagnosis [address] [address] 10/12/2024 SHER JEAN PLAN OF TREATMENT Next Appt Details Provider Name:SHER LEVINE, 05/06/2025 01:15:00 PM, [address] [place], [address],
--- OUTSIDE RECORDS SUMMARY | 2024-10-17 04:45 | XMS_ITS ---
Author Organization [facility] Address [facility] [place], [place] [id number] Care Team Providers Care Transit Coach Operator Name Role Phone SHER JEAN Primary Care Provider REGINALD OQUENDO [phone] REASON FOR VISIT fax last 2 lab results Encounters Encounter Location Date Provider Diagnosis [address] [address] 10/17/2024 SHER JEAN PLAN OF TREATMENT Next Appt Details Provider Name:SHER LEVINE, 05/06/2025 01:15:00 PM, [address] [place], [address],
--- NOTE | 2024-11-07 13:44 | HO.NEPHOV_ITS ---
Vital Signs 11/07/24 13:46 Height 5 ft 1 in Weight 114 lb BMI 21.5 BP 112/52 L Blood Pressure Location Lt brachial Position Sitting Pulse 66 Pulse Source Pulse Oximeter Pulse Oximetry (%) 100 Oxygen Delivery Method Nasal Cannula Intake Visit Reasons: 6mon follow-up w/labs-LVM Incubator Tender Required: No Accompanied by: Self / Same As Patient Allergies No Known Allergies Allergy (Verified 10/09/24 13:30) Medication List - Last Reconciled 11/07/24 by Miguel Grover MD albuterol sulfate 90 mcg/actuation 2 puffs inhalation 6XD PRN alprazolam 0.5 mg PO BID amlodipine 10 mg PO DAILY ascorbic acid (vitamin C) mg PO atorvastatin 10 mg PO DAILY celecoxib 200 mg PO DAILY cholecalciferol (vitamin D3) 25 mcg PO DAILY coenzyme Q10 (Co Q-10) 10 mg PO TID docusate sodium 50 mg PO DAILY famotidine (Pepcid) 20 mg PO DAILY ferrous sulfate 325 mg PO DAILY folic acid 1 mg PO DAILY loteprednol etabonate 0.5% drps ophthalmic (eye) methotrexate sodium 20 mg PO QWEEK metoprolol tartrate 25 mg PO BID multivitamin 1 tab PO DAILY niacinamide 500 mg PO DAILY olmesartan 40 mg PO DAILY umeclidinium-vilanterol 62.5-25 mcg/actuation (Anoro Ellipta) 1 inh inhalation DAILY valacyclovir 500 mg PO DAILY vitamins A,C,I-rnen-acwpem 2,148 mcg-113 mg-45 mg-17.4mg (PreserVision AREDS) 2 tabs PO BID HPI Comments Details: Ting is a pleasant 83-year-old woman with a history of chronic hyponatremia. Serum sodium has been fluctuating from the mid 120s to low 130s. Few years ago she had diverticulosis and underwent bowel surgery. At that time she was advised by the surgeon to drink plenty of water to avoid constipation. She has been drinking lots of water and apparently she was hospitalized in [facility] with severe hyponatremia with a sodium of 125 or so. Recently serum sodium was 127. She was put on of p.o. fluid restriction. Repeat serum sodium was 132 as of yesterday. She has been referred for further evaluation of hyponatremia. Recent thyroid function was normal. Renal function is normal with a creatinine of 0.5. Usually she drinks 1 cup of tea and 2 cups of coffee. Prior to last week she was drinking plenty of water but she has no cut back on water intake. She has replaced with Gatorade. She has a history of smoking several years ago smoked half pack to 1 pack for almost 20 years and quit smoking more than 20 years ago. She has COPD and is being followed by Dr. Gallego She is also undergoing cardiac evaluation. Today she denies any shortness of breath. No nausea vomiting. No polyuria polydipsia. No edema. All systems were reviewed' 06/29/23;Feels better;She has cut back on water 05/09/24 ; c/o joint pains ;Started on Celebrex 3 days ago. Recent Na 130 11/07/2024. - The patient is an 84-year-old female presenting with hyponatremia and hypertension. - Hyponatremia: Sodium level at 133, stable. - Hypertension: Managed with amlodipine, olmesartan, metoprolol; BP stable at 112/52 mmHg. - Syncope: Episodes controlled with swine extension field specialist-prescribed medication. - Constipation: Uses MiraLax as needed. - Kidney stones (suspected): Ultrasound scheduled for evaluation. [facility] Surgical History H/O: hysterectomy (~1993) Family History Father CHF (congestive heart failure) Mother CHF (congestive heart failure) HTN (hypertension) Social History Comment: Social Patient Tobacco Use Status: Former Tobacco user Physical Exam Vital Signs: Last Vital Signs Pulse 66 11/07/24 13:46 BP 112/52 L 11/07/24 13:46 Pulse Ox 100 11/07/24 13:46 Oxygen Delivery Method Nasal Cannula 11/07/24 13:46 BMI result Body Mass Index 21.5 Comfortable Neck supple no JVD. Lungs entry equal no rales. Heart S1-S2 heard no gallop or rub. Abdomen soft nontender. Neuro alert awake oriented. No asterixis. Extremities no edema. Results Reviewed Results Reviewed: August 2024 Serum sodium 133 Nephrology Results: Sodium, (135-145) 130 mmol/L L 06/29/23 Potassium, (3.3-5.1) 4.5 mmol/L 24 Chloride, (96-108) 97 mmol/L 24 Carbon Dioxide, (22-29) 24 mmol/L 24 BUN, (9-16) 13 mg/dL 06/29/23 Creatinine, (0.5-1.4) 0.62 mg/dL 06/29/23 Calcium, (8.4-10.2) 9.6 mg/dL 06/29/23 Assessment & Plan Assessment & Plan (1) Hyponatremia: Comment: Elderly woman with hyponatremia in the setting of COPD and excessive free water intake Code(s): E87.1 - Hypo-osmolality and hyponatremia Category: Medical Plan: Ting most likely has non osmotic ADH release in setting of COPD. Hyponatremia was confounded by consuming excess free water Thyroid function seems normal No clinical evidence to support adrenal insufficiency. At present serum sodium is in the normal range Goal is to maintain serum sodium more than 130 millimoles. I have encouraged her to limit free water intake. Total fluid intake can be maintained around 40 oz. Given the history of hypertension I have encouraged her to stay on a regular sodium diet and I am not adding salt tablets. (2) HTN (hypertension): Code(s): I10 - Essential (primary) hypertension Category: Medical Plan: Blood pressure is acceptable. Orders: Orders Basic Metabolic Panel 6 Months E87.1 - Hypo-osmolality and hyponatremia Coding Level of Care Code Est Pt Level 4 (80805) Diagnoses Hyponatremia E87.1 HTN (hypertension) I10
[2024-11-07 13:46] VITALS: BP 112/52; PULSE 66; O2SAT 100; BMI 21.5
--- OUTSIDE RECORDS SUMMARY | 2024-11-07 16:08 | XMS_ITS | Clinical Summary ---
Author Organization [facility] Address [address] [place] [address] Care Team Providers Care Drafter Seismograph Name Role Phone Jose Carlos Borja MD Primary Care Provider [phone] Allergies No known active allergies Medications Medication [...] DAILY PO) Take by mouth. 0 Active FVT-OUA-Oafcxmxy Oil-Vitamin E (THERA TEARS NUTRITION PO) Take [...] - 1-dose 75+ series) 2016 COVID-19 Vaccine (5 - 2024- season) 2024 06/09/2021, 12/25/2020, 05/06/2020, Additional history exists Influenza Vaccine (#1) 2024 , 12/17/2020, 12/27/2018, Additional history exists Hepatitis B Vaccines Aged Out No long er eligible based on patient's age to complete this topic RSV Ped < 20 months Aged Out No longe r eligible based on patient's age to complete this topic Care Teams Drafter Seismograph Relationship Specialty Start Date End Date Jose Carlos Borja MD [address] [address] PCP - General Internal Medicine 03/19/14
--- OUTSIDE RECORDS SUMMARY | 2024-11-07 16:08 | XMS_ITS | Clinical Summary ---
Author Organization [address] Address [address] [place] [address] Care Team Providers Care All Source Collection Manager Name Role Phone Jose Carlos Borja MD Primary Care Provider [phone] Allergies No known active allergies Medications albuterol [...] - 1-dose 75+ series) 2016 Influenza vaccine 09/14/2024 03/03/2022 Covid-19 vaccine series ( season) 2024 06/09/2021, 12/25/2020, 05/06/2020, Additional history exists Breast cancer screening Discontinued Cervical cancer screening Discontinued Colon cancer screening, Colonoscopy Discontinued Meningococcal B Vaccine Aged Out No l onger eligible based on patient's age to complete this topic Meningococcal Vaccine Aged Out No amalia susana eligible based on patient's age to complete this topic Insurance [address] [address] MGD Care Teams All Source Collection Manager Relationship Specialty Start Date End Date Jose Carlos Borja MD PCP - General Internal Medicine 04/23/24
--- OUTSIDE RECORDS SUMMARY | 2024-11-07 16:08 | XMS_ITS | Encounter Summary ---
Author Organization [facility] Address [address] [place] [address] Care Team Providers Care Print Production Coordinator Name Role Phone Jose Carlos Borja MD Primary Care Provider [phone] Encounter Details Date Type Department Care Team (Late st Contact Info) Description 03/02/[address] [facility] [address] [place] [id number] Nick Granados PA-C [address] [facility] [address] [place] [address] Social History Tobacco Use Types Packs/Day Years [...] 11/27/2024 9:15 AM EDT Office Visit Orthopedic [address] [place] [address] Torres Hardwick MD [address] [facility] [address] [place] [address] 05/01/2025 10:00 AM EDT Office Visit [facility] [address] [facility], [place] [phone] Ronaldo Hardwick MD [address] [address] documented as of this encounter Visit Diagnoses Not on filedocumented in this encounter Care Teams Print Production Coordinator Relationship Specialty Start Date End Date Jose Carlos Borja MD PCP - General Internal Medicine 11/25/15 documented as of this encounter
--- OUTSIDE RECORDS SUMMARY | 2024-11-07 16:08 | XMS_ITS | Clinical Summary ---
Author Organization [facility] Address [address] [place] [address] Care Team Providers Care Statistical Geneticist Name Role Phone Jose Carlos Borja MD Primary Care Provider [phone] Allergies No known active allergies Medications acetaminophen [...] 10:30 AM EDT [facility] [address] [place] [address] Torres Hardwick MD Primary osteoarthritis of both knees (Primary Dx) 08/29/2024 10:00 AM EDT Clinical Support [facility] [address] First Floor [place] [phone] Ronaldo Hardwick MD Czaplicki, Allison, Au.D Sensorineural [...] 9:15 AM EDT [facility] [address] [place] [address] Torres Hardwick MD [address] [facility] [address] [place] [address] 05/01/2025 10:00 AM EDT Office Visit [facility] [place] [address] [facility], [place] [phone] Ronaldo Hardwick MD [address] [id number] Health Maintenance Due Date Last Done Comments Advance Care Planning 1940 DTaP/Tdap/Td Vaccines (1 - Tdap) 1960 Pneumococcal Vaccines 50+ (1 of 1 - PCV) 1991 Zoster (Shingles) Vaccine (1 of 2) 1991 DXA Bone Density (Females,Ages 65 and older) 2006 RSV Vaccine 60 years and older and Patients (1 - 1-dose 75+ series) 2016 Influenza Vaccine 09/14/2024 03/03/2022, , 12/27/2018, Additional history exists COVID-19 Vaccine (2024- season) 2024 03/03/2023, 02/20/2022, 06/09/2021, Additional history exists Hepatitis B Vaccines Aged Out No long er eligible based on patient's age to complete this topic Procedures Procedure Name Priority Date/Time Associated Diagnosis Comments MI ARTHROCENTESIS ASPIR&/INJ MAJOR JT/BURSA W/O US Routine 09/04/2024 10:30 AM EDT Primary osteoarthritis of both knees MI ARTHROCENTESIS ASPIR&/INJ MAJOR JT/BURSA W/O US Routine 09/04/2024 10:30 AM EDT Primary osteoarthritis of both knees BASIC COMPREHENSIVE AU Routine 10:00 AM EDT Sensorineural hearing loss, bilateral from Last 3 Months Results * MI ARTHROCENTESIS ASPIR&/INJ MAJOR JT/BURSA W/O US (09/04/2024 [...] MD PROCEDURE/MINOR SURGICAL ORDERABLES Final Result * MI ARTHROCENTESIS ASPIR&/INJ MAJOR JT/BURSA W/O US (09/04/2024 [...] Months Insurance MEDICARE PART A & B [facility] MEDICARE [facility] MEDICARE [facility] MEDICARE Care Teams Statistical Geneticist Relationship Specialty Start Date End Date Jose Carlos Borja MD PCP - General Internal Medicine 11/25/15
--- OUTSIDE RECORDS SUMMARY | 2024-11-07 16:09 | XMS_ITS | Continuity of Care Document ---
Author Organization [facility] Address [address] [facility] [address] [place] [address] Phone [phone] Care Team Providers Care Drop Press Hand Name Role Phone Jose Carlos Borja M.D. Care Team Information Recei vane [phone] Problems Active Problems Provider Date Essential hypertension [...] Medications SIG Qnty Indications Ordering Provider Date Ekmgxyd60js Tablets 1 tab by mouth at supper 90tabs Drake Velasco M.D. 02/04/2022 Losartan Djatpmqww060mw Tablets 1 tab by mouth every day Unknown Metoprolol Encmsqqy78tr Tablets 1 tab by mouth twice a day 60tabs Unknown Amlodipine Pmxqjzwh15at Tablets Unknown 0 000 Folic Eipj9af Tablets Take 1 Tablet By Mouth Every Day Jomar Nix M.D. Utfntkx446in Tablets 1 tab by mouth every day [...]
--- OUTSIDE RECORDS SUMMARY | 2024-11-07 16:09 | XMS_ITS | Clinical Summary ---
Author Organization [facility] Address [address] [place] [address] Phone Care Team Providers Care Target Man Name Role Phone Jose Carlos Borja MD Primary Care Provider + [phone] Allergies No known active allergies Medications albuterol [...] mouth. Calcium Carbonate (CALCIUM 600 PO) Active carboxymethylcel lulose (Refresh Tears) 0.5 % ophthalmic solution Administer into affected eye(s). Active cholecalciferol (VITAMIN D-3) 25 mcg (1,000 unit) tablet Take by mouth. Activ e coenzyme Q-10 200 mg capsule Take by mouth. Active UNABLE TO FIND Take by mouth. AEP-TMQ-Cuszgly d Oil-Vitamin E (THERA TEARS NUTRITION PO) [...] total) by mouth at bedtime. Active L. acidophilus/Bifi d. animalis (DAILY PROBIOTIC ORAL) Take by mouth. Activ e olmesartan (BENICAR) 40 mg tablet TAKE 1 TABLET BY MOUTH DAILY 90 tablet 3 5 Active Anoro Ellipta 62.5-25 mcg/actuation inhaler Inhale 1 puff by mouth 1 (one) time each day. 5 Active mv-min/FA/vit K/lutein/zeaxant (PRESERVISION AREDS 2 PLUS MV ORAL) Take 1 tablet by mouth 1 (one) time each day. Active amLODIPine (NORVASC) 10 mg tablet TAKE 1 TABLET BY MOUTH DAILY 90 tablet 5 Active metoprolol tartrate (LOPRESSOR) 25 mg tablet TAKE 1 TABLET BY MOUTH TWICE DAILY 180 tablet 5 Active peg 400-propylene glycol, PF, (Systane, PF,) 0.4-0.3 % dropperette Administer into affected eye(s). Active Active Problems Problem Noted Date Diagnosed Date Hyponatremia 08/21/2024 Diarrhea 08/21/2024 Syncope 04/07/2023 Hypercholesteremia 04/07/2023 Hypertension 04/07/2023 Paroxysmal supraventricular tachycardia (CMS/HCC V24) 04/07/2023 SOB (shortness of breath) 01/19/2023 Traumatic complete tear of left rotator cuff 11/2020 Dislocation of left shoulder joint 02/18/2020 Arthritis of right knee 11/17/2018 Encounters Date Type Department Care Team Description 10/10/2024 10:30 AM EDT Office Visit [facility] - [place] [address] [place] [address] Mariely Flannery MD Primary hypertension (Primary Dx); Atherosclerosis of [place] coronary artery of [place] heart without angina pectoris; Pure hypercholesterolemia; PAD (peripheral artery disease) (CMS/HCC V24); PSVT (paroxysmal supraventricular tachycardia) (CMS/HCC V24) 09/06/2024 1:15 PM EDT Consult General Surgery - [place] [address] [place] [address] Hermes Henry MD Lower abdominal pain (Primary Dx) 08/22/2024 Home Care Visit [facility] [address] [facility] 2nd [place] [address] Kaylin Ellis RN 08/21/2024 11:21 AM EDT - 08/22/2024 2:30 PM EDT Hospital Encounter [facility] Emergency [address] [place] [address] Tiki Riggs DO Ancion, Jean, MD Sanders, William M, MD Ariste, Clotaire, MD Left lower quadrant abdominal pain (Primary Dx); Acute diarrhea; Acute hyponatremia Discharge Disposition: Home or Self Care from Last 3 Months Immunizations Name Administration Dates Next Due [employer] (ages 12 & older) ILIANA S-CoV-2 COVID-19, [...] supraventricul ar tachycardia (HCC) 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;COMMENT:lower extremities Oxygen dependent [...] Sign Reading Time Taken Comments Blood Pressure 122/64 10/10/2024 10:56 AM EDT Pulse 67 10/10/2024 10:56 AM EDT Temperature 36.5 C (97.7 F) 09/06/2024 1:03 PM EDT Respiratory Rate 19 08/22/2024 11:30 AM EDT Oxygen Saturation 90% 10/10/2024 10:56 AM EDT Inhaled Oxygen Concentration - - Weight 53.5 kg (118 lb) 10/10/2024 10:56 AM EDT Height 152.4 cm (5') 10/10/2024 10:56 AM EDT Body Mass Index 23.05 10/10/2024 10:56 AM EDT Plan of Treatment Upcoming Encounters Date Type Department Care Team (Late st Contact Info) Description 04/10/2025 9:30 AM EST Office [place] [facility] [address] [place] [phone] Mariely Flannery MD [address] [place] [address] Health Maintenance Due Date Last Done Comments DTaP,Tdap,and Td Vaccines (1 - Tdap) 1959 Pneumococcal Vaccine: 50+ Years (1 of 2 - PCV) 1959 Zoster Vaccines (1 of 2) 1991 Medicare Annual Wellness Visit 01/13/2022 Social Influencers of Health Screening 01/13/2022 Depression Screening 02/15/2024 COVID-19 Vaccine ( season) 2024 03/03/2023, 02/20/2022, 06/09/2021, Additional history exists Influenza Vaccine (#1) 2024 [...] Date/Time Associated Diagnosis Comments ECG 12-LEAD Routine 10/10/2024 1:13 PM EDT Primary hypertension Atherosclerosis of [place] coronary artery of [place] heart without angina pectoris PAD (peripheral artery disease) ([facility] V24) PSVT (paroxysmal supraventricular tachycardia) ([facility] V24) BASIC METABOLIC PANEL STAT 08/22/2024 1:33 PM [...] Relevant to Health Maintenance Results * (ABNORMAL) ECG 12 lead (10/10/2024 1:13 PM EDT) Only the most recent of2 resultswithin the time period is included. Amalias Freddei Bridges - 10/10/2024 1:13 PM EDT Normal sinus rhythm, [address] segment changes. us Mariely Flannery MD ECG ORDERABLES Final Result * (ABNORMAL) Basic metabolic panel (08/22/2024 1:33 PM EDT) Only the most recent of2 resultswithin the time period is included. Sodium 132(L) 135 - 145 mmol/L LAB CHEMISTRY METHOD 08/22/2024 2:33 PM EDT [facility] Potassium 4.1 3.5 - 5.1 mmol/L LAB CHEMISTRY METHOD 08/22/2024 2:33 PM EDT [facility] Chloride 98 98 - 107 mmol/L LAB CHEMISTRY METHOD 08/22/2024 2:33 PM EDT [facility] CO2 26 24 - 32 mmol/L LAB CHEMISTRY METHOD 08/22/2024 2:33 PM EDT [facility] Anion Gap 8 5 - 14 LAB CHEMISTRY METHOD 08/22/2024 2:33 PM EDT [facility] Glucose 163 70 - 199 mg/dL LAB CHEMISTRY METHOD 08/22/2024 2:33 PM EDT [facility] BUN 7 7 - 17 mg/dL LAB CHEMISTRY METHOD 08/22/2024 2:33 PM EDT [facility] Creatinine 0.40(L) 0.50 - 1.00 mg/dL LAB CHEMISTRY METHOD 08/22/2024 2:33 PM EDT [facility] eGFR 98 >=60 mL/min/1. 73m2 LAB CHEMISTRY METHOD 08/22/2024 2:33 PM EDT [facility] Comment:Calculation based on the Chronic Kidney Disease Epidemiology Collaboration (CKD-EPI) equation refit without adjustment for race. BUN/Creatinine Ratio 17.5 12.0 - 20.0 LAB CHEMISTRY METHOD 08/22/2024 2:33 PM EDT [facility] Calcium 9.5 8.4 - 10.2 mg/dL LAB CHEMISTRY METHOD 08/22/2024 2:33 PM EDT [facility] Blood Venous blood specimen / Unknown Venipuncture / Unknown 08/22/2024 1:33 PM EDT 08/22/2024 2:03 PM EDT us Toney Mobley MD LAB BLOOD ORDERABLES Final Resul t [facility] [address] [place] [address], * (ABNORMAL) Sodium, urine, random (08/22/2024 11:12 AM EDT) Only the most recent of2 resultswithin the time period is included. Sodium, Ur 37(L) 50 - 191 mmol/L LAB CHEMISTRY METHOD 08/22/2024 12:15 PM EDT [facility] Urine Urine specimen obtained by clean catch procedure / Unknown 08/22/2024 11:12 AM EDT 08/22/2024 11:38 AM EDT us Toney Mobley MD LAB URINE ORDERABLES Final Resul t Performing Organization Address [facility] Co de Phone Number [facility] [address] [place] [address], [place] [phone] * Osmolality, urine (08/22/2024 11:12 AM EDT) Osmolality, Urine 231 50 - 1,200 mOsm/kg LAB CHEMISTRY METHOD 08/22/2024 11:56 AM EDT [facility] Urine Urine specimen obtained by clean catch procedure / Unknown 08/22/2024 11:12 AM EDT 08/22/2024 11:38 AM EDT us Toney Mobley MD LAB URINE ORDERABLES Final Resul t Performing Organization Address [facility] de Phone Number [facility] [address] [place] [address], [place] [phone] * (ABNORMAL) Osmolality (08/22/2024 7:56 AM EDT) Osmolality Susan 271(L) 275 - 295 mOsm/kg LAB CHEMISTRY METHOD 08/22/2024 8:51 AM EDT [facility] Blood Venous blood specimen / Unknown Venipuncture / Unknown 08/22/2024 7:56 AM EDT 08/22/2024 8:27 AM EDT us Toney Mobley MD LAB BLOOD ORDERABLES Final Resul t Performing Organization Address [facility] Co de Phone Number [facility] [address] [place] [address], [place] [phone] * Creatinine, urine, random (08/21/2024 7:06 PM EDT) Creatinine, Urine 21.1 mg/dL LAB CHEMISTRY METHOD 08/21/2024 7:40 PM EDT [facility] Urine Urine specimen obtained by clean catch procedure / Unknown Non-blood Collection / Unknown 08/21/2024 7:06 PM EDT 08/21/2024 7:12 PM EDT Narrative [facility] - 08/21/2024 7:40 PM EDT No reference range has been established for this assay (test result). Tiki Riggs DO LAB URINE ORDERABLES Fi nal Result Performing Organization Address [facility]/ZIP Co de Phone Number [facility] [address] [place] [address], [place] [phone] * POCT Glucose, blood (08/21/2024 6:17 PM EDT) [facility] Glucose POCT 118 70 - 199 mg/dL 08/21/2024 6:18 PM EDT [facility] Comment: Fasting Reference Range: 70-99 mg/dL Non-Fasting Reference Range: 70-199 mg/dL Blood Capillary blood specimen / Unknown 08/21/2024 6:17 PM EDT 08/21/2024 6:20 PM EDT Toney Mobley MD LAB POINT OF CARE TE ST DOCKED DEVICE UNSOLICITED RESULTS Final Result Performing Organization Address [facility]/ZIP Co de Phone Number [facility] [address] [place] [address], [place] [phone] * CT Abdomen Pelvis w Contrast (08/21/2024 [...] on 08/21/2024 3:37 PM. Workstation Name - [id number] -------- FINAL REPORT -------- Dictated By: Racheal Kate Dictated Date: 08/21/2024 15:30 ET Assigned Physician: Racheal Kate Reviewed and Electronically Signed By: Racheal Kate Signed Date: 08/21/2024 15:37 ET Workstation ID: [id number] Transcribed By: Self Edit Transcribed Date: 08/21/2024 [...] Kate on 08/21/2024 3:37 PM.Workstation Name - [id number] -------- FINAL REPORT -------- Dictated By: Racheal Kate Dictated Date: 08/21/2024 15:30 ET Assigned Physician: Racheal Kate Reviewed and Electronically Signed By: Racheal Kate Signed Date: 08/21/2024 15:37 ET Workstation ID: [id number] Transcribed By: Self Edit Transcribed Date: 08/21/2024 15:30 ET us Tiki Riggs DO IMG CT PROCEDURES Final Result * XR Chest 2 Views (08/21/2024 2:26 PM EDT) Anatomical Region Laterality Modality Body Radiographic Lacey ging 08/21/2024 2:49 PM EDT Impressions 08/21/2024 2:53 PM EDT Chronic obstructive pulmonary disease. No acute cardiopulmonary abnormality. Report reviewed and signed by : Dr. Stewart Alvarado on 08/21/2024 2:53 PM. Workstation Name - [id number] -------- FINAL REPORT -------- Dictated By: Stewart Alvarado Dictated Date: 08/21/2024 14:49 ET Assigned Physician: Stewart Alvarado Reviewed and Electronically Signed By: Stewart Alvarado Signed Date: 08/21/2024 14:53 ET Workstation ID: [id number] Transcribed By: Self Edit Transcribed Date: 08/21/2024 [...] Alvarado on 08/21/2024 2:53 PM.Workstation Name - [id number] -------- FINAL REPORT -------- Dictated By: Stewart Alvarado Dictated Date: 08/21/2024 14:49 ET Assigned Physician: Stewart Alvarado Reviewed and Electronically Signed By: Stewart Alvarado Signed Date: 08/21/2024 14:53 ET Workstation ID: [id number] Transcribed By: Self Edit Transcribed Date: 08/21/2024 [...] ED Physician in the absence of a client delivery manager: yes Previous ECG: Previous ECG: Compared to current Similarity: Changes noted Comparison ECG info: PACs now present Interpretation: Interpretation: non-specific Rate: ECG rate assessment: normal Rhythm: Rhythm: sinus rhythm Ectopy: Ectopy: PAC QRS: QRS axis: Normal QRS intervals: Normal QRS conduction: normal ST segments: ST segments: Normal T waves: T waves: normal Q waves: Abnormal Q-waves: not present us Tiki Riggs DO ECG ORDERABLES Final R esult * (ABNORMAL) Urinalysis with reflex microscopic and culture (08/21/2024 12:06 PM EDT) Color, Urine Yellow Yellow, Colorless LAB URINALYSIS - AUTOMATED METHOD 08/21/2024 12:27 PM EDT [facility] Clarity, Urine Clear Clear LAB URINALYSIS - AUTOMATED METHOD 08/21/2024 12:27 PM EDT [facility] Specific [place] Urine <1.005(L) 1.005 - 1.030 LAB URINALYSIS - AUTOMATED METHOD 08/21/2024 12:27 PM EDT [facility] pH, Urine 8.0(A) 5.0 - 8.0 pH LAB URINALYSIS - AUTOMATED METHOD 08/21/2024 12:27 PM EDT [facility] Leukocytes, Urine Negative Negative WBCs/mcL LAB URINALYSIS - AUTOMATED METHOD 08/21/2024 12:27 PM EDT [facility] Nitrite, Urine Negative Negative LAB URINALYSIS - AUTOMATED METHOD 08/21/2024 12:27 PM EDT [facility] Protein, Urine Negative Negative mg/dL LAB URINALYSIS - AUTOMATED METHOD 08/21/2024 12:27 PM EDT [facility] Glucose, Urine Negative Negative mg/dL LAB URINALYSIS - AUTOMATED METHOD 08/21/2024 12:27 PM EDT [facility] Ketones, Urine Negative Negative mg/dL LAB URINALYSIS - AUTOMATED METHOD 08/21/2024 12:27 PM EDT [facility] Blood, Urine Negative Negative mg/dL LAB URINALYSIS - AUTOMATED METHOD 08/21/2024 12:27 PM EDT [facility] Urine Urine specimen obtained by clean catch procedure / Unknown Non-blood Collection / Unknown 08/21/2024 12:06 PM EDT 08/21/2024 12:14 PM EDT us Mely MANNING LAB URINE ORDERABLES Final Resul t [facility] [address] [place] [address], [place] [phone] * [place] urine culture tube (08/21/2024 12:06 PM EDT) [facility] Extra Tube Hold for add-ons. 08/21/2024 2:01 PM EDT [facility] Comment:Auto resulted. Urine Urine specimen obtained by clean catch procedure / Unknown Non-blood Collection / Unknown 08/21/2024 12:06 PM EDT 08/21/2024 12:14 PM EDT Mely MANNING LAB URINE ORDERABLES Final Resul t [facility] [address] [place] [address], [place] [phone] * (ABNORMAL) CBC auto differential (08/21/2024 11:04 AM EDT) [facility] WBC 4.3 4.0 - 10.5 K/mcL LAB HEMETOLOGY METHOD 08/21/2024 11:25 AM EDT [facility] RBC 3.17(L) 4.20 - 5.40 M/mcL LAB HEMETOLOGY METHOD 08/21/2024 11:25 AM EDT [facility] Hemoglobin 11.2(L) 12.5 - 16.0 g/dL LAB HEMETOLOGY METHOD 08/21/2024 11:25 AM EDT [facility] Hematocrit 33.1(L) 37.0 - 47.0 % LAB HEMETOLOGY METHOD 08/21/2024 11:25 AM EDT [facility] MCV 104.7(H) 78.0 - 100.0 FL LAB HEMETOLOGY METHOD 08/21/2024 11:25 AM EDT [facility] MCH 35.4(H) 25.0 - 33.0 pcg LAB HEMETOLOGY METHOD 08/21/2024 11:25 AM EDT [facility] MCHC 33.8 32.0 - 36.0 g/dL LAB HEMETOLOGY METHOD 08/21/2024 11:25 AM EDT [facility] RDW 14.1 12.1 - 16.2 % LAB HEMETOLOGY METHOD 08/21/2024 11:25 AM EDT [facility] Platelets 351 150 - 450 K/mcL LAB HEMETOLOGY METHOD 08/21/2024 11:25 AM EDT [facility] MPV 7.3(L) 7.4 - 11.4 FL LAB HEMETOLOGY METHOD 08/21/2024 11:25 AM EDT [facility] Neutrophils Relative 65.1 44.0 - 74.0 % LAB HEMETOLOGY METHOD 08/21/2024 11:25 AM EDT [facility] Lymphocytes Relative 18.8(L) 20.0 - 48.0 % LAB HEMETOLOGY METHOD 08/21/2024 11:25 AM EDT [facility] Monocytes Relative 14.6(H) 2.0 - 12.0 % LAB HEMETOLOGY METHOD 08/21/2024 11:25 AM EDT [facility] Eosinophils Relative 0.6 0.0 - 6.0 % LAB HEMETOLOGY METHOD 08/21/2024 11:25 AM EDT [facility] Basophils Relative 0.9 0.0 - 2.0 % LAB HEMETOLOGY METHOD 08/21/2024 11:25 AM EDT [facility] Neutrophils Absolute 2.80 1.80 - 7.80 K/mcL LAB HEMETOLOGY METHOD 08/21/2024 11:25 AM EDT [facility] Lymphocytes Absolute 0.80(L) 1.00 - 3.20 K/mcL LAB HEMETOLOGY METHOD 08/21/2024 11:25 AM EDT [facility] Monocytes Absolute 0.60 0.00 - 0.80 K/mcL LAB HEMETOLOGY METHOD 08/21/2024 11:25 AM EDT [facility] Eosinophils Absolute 0.00 0.00 - 0.50 K/mcL LAB HEMETOLOGY METHOD 08/21/2024 11:25 AM EDT [facility] Basophils Absolute 0.00 0.00 - 0.20 K/mcL LAB HEMETOLOGY METHOD 08/21/2024 11:25 AM EDT [facility] Blood Venous blood specimen / Unknown Venipuncture / Unknown 08/21/2024 11:04 AM EDT 08/21/2024 11:17 AM EDT Mely MANNING LAB BLOOD ORDERABLES Final Resul t [facility] [address] [place] [address], * Phosphorus (08/21/2024 11:04 AM EDT) Phosphorus 2.8 2.5 - 4.5 mg/dL LAB CHEMISTRY METHOD 08/21/2024 11:50 AM EDT [facility] Blood Venous blood specimen / Unknown Venipuncture / Unknown 08/21/2024 11:04 AM EDT 08/21/2024 11:17 AM EDT Mely MANNING LAB BLOOD ORDERABLES Final Resul t [facility] [address] [place] [address], * (ABNORMAL) Magnesium (08/21/2024 11:04 AM EDT) Magnesium 1.6(L) 1.7 - 2.8 mg/dL LAB CHEMISTRY METHOD 08/21/2024 11:50 AM EDT [facility] Blood Venous blood specimen / Unknown Venipuncture / Unknown 08/21/2024 11:04 AM EDT 08/21/2024 11:17 AM EDT us Mely MANNING LAB BLOOD ORDERABLES Final Resul t Performing Organization Address [facility]/ZIP Co de Phone Number [facility] [address] [place] [address], [place] [phone] * Lipase (08/21/2024 11:04 AM EDT) Lipase 28 11 - 82 unit/L LAB CHEMISTRY METHOD 08/21/2024 11:50 AM EDT [facility] Blood Venous blood specimen / Unknown Venipuncture / Unknown 08/21/2024 11:04 AM EDT 08/21/2024 11:17 AM EDT us Mely MANNING LAB BLOOD ORDERABLES Final Resul t Performing Organization Address [facility]/ZIP Co de Phone Number [facility] [address] [place] [address], [place] [phone] * (ABNORMAL) Comprehensive Metabolic Panel (CMP) (08/21/2024 11:04 AM EDT) Sodium 127(L) 135 - 145 mmol/L LAB CHEMISTRY METHOD 08/21/2024 11:50 AM EDT [facility] Potassium 4.3 3.5 - 5.1 mmol/L LAB CHEMISTRY METHOD 08/21/2024 11:50 AM EDT [facility] Chloride 95(L) 98 - 107 mmol/L LAB CHEMISTRY METHOD 08/21/2024 11:50 AM EDT [facility] CO2 24 24 - 32 mmol/L LAB CHEMISTRY METHOD 08/21/2024 11:50 AM EDT [facility] Anion Gap 8 5 - 14 LAB CHEMISTRY METHOD 08/21/2024 11:50 AM EDT [facility] Glucose 103 70 - 199 mg/dL LAB CHEMISTRY METHOD 08/21/2024 11:50 AM EDT [facility] BUN 4(L) 7 - 17 mg/dL LAB CHEMISTRY METHOD 08/21/2024 11:50 AM [facility] Creatinine 0.40(L) 0.50 - 1.00 mg/dL LAB CHEMISTRY METHOD 08/21/2024 11:50 AM [facility] eGFR 98 >=60 mL/min/1. 73m2 LAB CHEMISTRY METHOD 08/21/2024 11:50 AM [facility] Comment:Calculation based on the Chronic Kidney Disease Epidemiology Collaboration (CKD-EPI) equation refit without adjustment for race. BUN/Creatinine Ratio 10.0(L) 12.0 - 20.0 LAB CHEMISTRY METHOD 08/21/2024 11:50 AM [facility] Calcium 9.1 8.4 - 10.2 mg/dL LAB CHEMISTRY METHOD 08/21/2024 11:50 AM [facility] AST (SGOT) 41(H) 5 - 40 unit/L LAB CHEMISTRY METHOD 08/21/2024 11:50 AM [facility] ALT (SGPT) 31 7 - 52 unit/L LAB CHEMISTRY METHOD 08/21/2024 11:50 AM [facility] Alkaline Phosphatase 67 34 - 104 unit/L LAB CHEMISTRY METHOD 08/21/2024 11:50 AM [facility] Total Protein 6.0(L) 6.4 - 8.5 g/dL LAB CHEMISTRY METHOD 08/21/2024 11:50 AM [facility] Albumin 4.2 3.5 - 5.0 g/dL LAB CHEMISTRY METHOD 08/21/2024 11:50 AM [facility] Total Bilirubin 0.5 0.3 - 1.0 mg/dL LAB CHEMISTRY METHOD 08/21/2024 11:50 AM [facility] Blood Venous blood specimen / Unknown Venipuncture / Unknown 08/21/2024 11:04 AM EDT 08/21/2024 11:17 AM EDT us Mely MANNING LAB BLOOD ORDERABLES Final Resul t Performing Organization Address City/[facility]/ZIP Co de Phone Number [facility] [address] [place] [address], [place] [phone] * (ABNORMAL) Lipid panel (05/10/2024 8:35 AM EDT) Cholesterol 127 0 - 200 mg/dL LAB CHEMISTRY METHOD 05/10/2024 11:37 AM EDT [facility] Triglycerides 56 <150 mg/dL LAB CHEMISTRY METHOD 05/10/2024 11:37 AM EDT [facility] HDL 72 33 - 92 mg/dL LAB CHEMISTRY METHOD 05/10/2024 11:37 AM EDT [facility] LDL Calculated 44(L) 50 - 130 mg/dL LAB CHEMISTRY METHOD 05/10/2024 11:37 AM EDT [facility] VLDL Cholesterol Gerardo 11.2 mg/dL LAB CHEMISTRY METHOD 05/10/2024 11:37 AM EDT [facility] Comment:No established refer ence range. Blood Venous blood specimen / Unknown Venipuncture / Unknown 05/10/2024 8:35 AM EDT 05/10/2024 8:35 AM EDT us Jose Carlos Borja MD LAB BLOOD ORDERABLES Final R esult [facility] [address] [place] [address], [place] [phone] * BD Bone Density DXA Axial Skeleton [...] probability of hip fracture of 10.4%. Code [address] [facility] -------- FINAL REPORT -------- Dictated By: Jose Maria Mayes Dictated Date: 12/20/2023 12:06 ET Assigned Physician: Jose Maria Mayes Reviewed and Electronically Signed By: Jose Maria Mayes Signed Date: 12/20/2023 12:08 ET Workstation ID: [id number] Transcribed By: Self Edit Transcribed Date: 12/20/2023 [...] density of the femurs bilaterally is 0.759 gm/wf3thpre is 75% of that of young normals [...] probability of hip fracture of 10.4%. Code [address]4622 [facility] -------- FINAL REPORT -------- Dictated By: Jose Maria Mayes Dictated Date: 12/20/2023 12:06 ET Assigned Physician: Jose Maria Mayes Reviewed and Electronically Signed By: Jose Maria Mayes Signed Date: 12/20/2023 12:08 ET Workstation ID: [id number] Transcribed By: Self Edit Transcribed Date: 12/20/2023 12:06 ET Jose Carlos Borja MD IM DXA PROCEDURES Final Res ult from Last [...] currently active code status orders. Care Teams Target Man Relationship Specialty Start Date End Date Jose Carlos Borja MD [address] [place] [id number] PCP - General Internal Medicine 04/28/09
--- OUTSIDE RECORDS SUMMARY | 2024-11-07 16:09 | XMS_ITS | Encounter Summary ---
Author Organization [facility] Address [address] [place] [address] Care Team Providers Care Data Security Administrator Name Role Phone Jose Carlos Borja MD Primary Care Provider Encounter Details Date Type Department Care Team (Late st Contact Info) Description 10/06/2022 Scanned Document Orthopedic [address] [phone] Hermes Rubi MD [address] [facility] [address] [place] [address] Social History Tobacco Use Types Packs/Day Years [...] 11/27/2024 9:15 AM EDT Office Visit Orthopedic [address] [place] [address] Torres Hardwick MD [address] [facility] [address] [place] [address] 05/01/2025 10:00 AM EDT Office Visit [facility] [place] [address] [facility], [place] [phone] Ronaldo Hardwick MD [address] [address] documented as of this encounter Visit Diagnoses Not on filedocumented in this encounter Care Teams Data Security Administrator Relationship Specialty Start Date End Date Jose Carlos Borja MD PCP - General Internal Medicine 11/25/15 documented as of this encounter
--- OUTSIDE RECORDS SUMMARY | 2024-11-07 16:09 | XMS_ITS | Encounter Summary ---
Author Organization [facility] Address [address] [place] [address] Care Team Providers Care Lunch Truck Driver Name Role Phone Jose Carlos Borja MD Primary Care Provider Encounter Details Date Type Department Care Team (Late st Contact Info) Description 03/05/2022 Scanned Document [facility] [place] at [address] [phone] Provider, Generic Social History Tobacco [...] 9:15 AM EDT [facility] Visit [facility] [address] [place] [address] Torres Hardwick MD [address] [facility] [address] [place] [address] 05/01/2025 10:00 AM EDT Office Visit [facility] [place] [address] [facility], [place] [id number] Ronaldo Hardwick MD [address] [phone] documented as of this encounter Procedures Procedure Name Priority Date/Time Associated Diagnosis Comments BOOKING SHEETS-SCAN 03/05/2022 documented in this encounter Results * BOOKING SHEETS-SCAN (03/05/2022) Narrative 03/05/2022 Ordered by an unspecified provider. us Generic Provider HX AMB PROCEDURES Final Result documented in this encounter Visit Diagnoses Not on filedocumented in this encounter Care Teams Lunch Truck Driver Relationship Specialty Start Date End Date Jose Carlos Borja MD PCP - General Internal Medicine 11/25/15 documented as of this encounter
--- OUTSIDE RECORDS SUMMARY | 2024-11-07 16:09 | XMS_ITS | Patient Health Record ---
Author Organization [facility] Address [address], [place] [id number] Care Team Providers Care Restaurant Area Director Name Role Phone SHER JEAN Primary Care Provider REGINALD OQUENDO Unavailable [phone] SHERRY DOTY Unavailable [phone] EDEN LOYD Unavailable [phone] ALLERGIES No Known Allergies REASON FOR REFERRAL Reason *FAXED 02/03/24* Rafa Centeon question COPD send copy of Dr. Usama Melendrez's notes and reports over to him Diagnosis 1 Chronic obstructive pulmonary disease, unspecified COPD type (J44.9) Referral Organization [facility] Referring Provider First Name SHER Referring Provider Last Name TED Referring Provider Speciality Internal edicine Referred Provider ADAN FERRO Referred Provider Specialty Pulmonary Di seases General Notes Tiki MCDUFFIE Referr al Specialist 02/03/2024 10:43:07 AM > FAXED REF AND NOTES TO DR FERRO Referral Priority Routine Reason 02/21/24 w appt Refe rral to Dr. pelletier or partner at [facility] for frequent headaches send copy of the MRI CAT scan labs my note to them Diagnosis 1 Frequent headaches ( R51.9) Referral Organization [facility] Referring Provider First Name SHER Referring Provider Last Name TED Referring Provider Speciality Internal edicine Referred Provider TERESA PELLETIER Referred Provider Specialty Neurology General Notes Vilma MCDUFFIE 07/2024 04:02:41 PM > per office protocol medical referral and notes have been faxed to [facility] at [phone]>faxed diagnostics separately to same fax number>requesting URGENT VISIT>NO referral required with pt's insurance plan Referral Priority Urgent Reason hiatal hernia Referral Organization [facility] Referring Provider First Name REGINALD Referring Provider Last Name JERE Referring Provider Speciality Physician Log Inspector Referred Provider ALAN KAMARA Referred Provider Specialty Surgery General Notes Patient has Dr. Vinicius Kamara, general surgeon, tomorrow, 08/30/2024 at 8am and they have not received the referral for patient. , , Reason: hiatal hernia, , , She can not be seen unless they receive this referral, [address] [place] [address], Please call patient once this is complete, patient is very upset that no referral has been complete., Adri MCDUFFIE [place] 08/29/2024 04:39:37 PM > faxed referral to f: [phone], Leeann MCDUFFIE Referrals 08/31/2024 09:59:23 AM > Referrals, No, Not Required, The member's plan does not require a referral for network specialty care., FAXED TO [phone] Referral Priority Routine Reason Consultation Dr. denisha oconnell nephrology well-known to the patient. Hyponatremia Diagnosis 1 Hyponatremia (E87.1) [facility] Referring Provider First Name SHER Referring Provider Last Name TED Referring Provider [facility] edicine Referral Priority Stat Reason Referral to [facility] for diffuse arthralgias send a copy of my note labs and the labs in last year to them Diagnosis 1 Osteoarthritis, unsp ecified osteoarthritis type, unspecified site (M19.90) Referral [facility] Referring Provider First Name SHER Referring Provider Last Name TED Referring Provider [facility] edicine Referral Priority Routine MEDICATIONS Medication SIG (Take, Route, Frequency, Duration) Notes Start Date End Date Status Atorvastatin Calcium 10 MG TAKE 1 TABLET BY MOUTH ONCE DAILY for 90 Active Advair Diskus 250-50 MCG/DOSE 1 puff(s) inhaled BID for 30 day(s) 10/05/2006 Active ALPRAZolam 0.5 MG TAKE 1 TABLET BY ALYSSA TH TWICE A DAY for 30 10/09/2024 Active Valtrex 500 MG 1 tablet orally QD Active amLODIPine Besylate 10 MG 1 tablet Orally Once a day for 30 day(s) Active Methotrexate (PF) 20 MG/0.4ML as directed Subcutaneous Active Olmesartan Medoxomil 40 MG 1 tablet Orally Once a day for 30 day(s) Active Metoprolol Tartrate 25 MG 1 tablet with food Orally Twice a day for 30 day(s) twice a day Active Anoro Ellipta 62.5-25 MCG/ACT 1 puff Inhalation Once a day Active Celecoxib 200 MG TAKE 1 CAPSULE BY [facility] EVERY DAY for 30 Active SOCIAL HISTORY Tobacco Use: Social History Observation Description Date Details (start date - stop date) Former Smoker NA - NA Sex Assigned At : Social History Observation Description Sex Assigned At Unknown Smoking Question Answer Notes Are you a: former smoker PROBLEMS Problem Type ICD Code Onset Dates Problem Status W/U Status Risk SNOMED Code Notes Problem Gastro-esophageal reflux disease without esophagitis (K21.9) Active confirmed Gastro-esophage al reflux disease without esophagitis (018492383) Problem Essential (primary) hypertension (I10) Active confirmed Essential hypertension (21118238) Problem Chronic fatigue, unspecified (R53.82) Active confirmed Chronic fatigue syndrome (disorder) (28585247) Problem 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) Active confirmed Atrophy o f thyroid - acquired (906584904) Problem Disorder of lipoprotein metabolism, unspecified (E78.9) Active confirmed Disorder of lipoprotein storage and metabolism (disorder) (507897910) Problem Anxiety disorder, unspecified (F41.9) Active confirmed Anxiety disorder (605841486) Problem Age-related osteoporosis without current pathological fracture (M81.0) Active confirmed Age-related osteoporosis (266207167) Problem Chronic obstructive pulmonary disease, unspecified COPD type (J44.9) Active confirmed 56696222 Problem TIA (transient ischemic attack) (G45.9) Active confirmed 936929304 Problem Mild anemia (D64.9) Active confirmed 999638894 Problem History of anemia (Z86.2) Active confirmed 413397050 Problem Osteoarthritis, unspecified osteoarthritis type, unspecified site (M19.90) Active confirmed 091417795 Problem Acute diverticulitis (K57.92) Active confirmed 208113683 Problem Grade II diastolic dysfunction (I51.89) Active confirmed 0187445 VITAL SIGNS Blood pressure diastolic 76 mm Hg 10/04/2024 Height 66 in 10/04/2024 Blood pressure systolic 133 mm Hg 10/04/2024 Weight 114 lbs 10/04/2024 BMI 18.40 kg/m2 10/04/2024 Encounters Encounter Location Date Provider Diagnosis [address] [address] 11/25/2023 SHER JEAN Essential (primary) hypertension I10 and Disorder of lipoprotein metabolism, unspecified E78.[address] [address] 12/07/[address] [address] 12/07/[address] [address] 12/09/[address] [address] 12/16/2023 SHER JEAN Other specified disorders of bone density and structure, unspecified site M85.80 and Asymptomatic menopausal state Z78.[address] [address] 12/21/[address] [address] 01/16/2024 SHER JEAN Essential (primary) hypertension I10 ; Disorder of lipoprotein metabolism, unspecified E78.9 ; Anxiety disorder, unspecified F41.9 ; Chronic obstructive pulmonary disease, unspecified COPD type J44.9 ; Chronic fatigue, unspecified R53.82 ; Atrophy of thyroid (acquired) E03.4 ; Hyponatremia E87.1 ; Shortness of breath R06.02 and Occipital headache R51.[address] [address] 01/16/[address] [address] 01/17/[address] [address] 01/18/[address] [address] 01/24/2024 [facility] [address] [place] [address] 02/16/2024 SHER JEAN [facility] [address] [place] [address] 02/16/2024 SHER JEAN Frequent headaches R51.9 [facility] [address] [place] [address] 02/17/2024 SHER JEAN [facility] [address] [place] [address] 02/20/2024 SHER JEAN [facility] [address] [place] [address] 02/20/2024 SHER JEAN [facility] [address] [place] [address] 02/20/2024 SHER JEAN Frequent headaches R51.9 [facility] [address] [place] [address] 05/03/2024 SHER JEAN Essential (primary) hypertension I10 ; Disorder of lipoprotein metabolism, unspecified E78.9 ; Anxiety disorder, unspecified F41.9 ; Chronic obstructive pulmonary disease, unspecified COPD type J44.9 ; Chronic fatigue, unspecified R53.82 ; Atrophy of thyroid (acquired) E03.4 ; Hyponatremia E87.1 ; Age-related osteoporosis without current pathological fracture M81.0 and Grade II diastolic dysfunction I51.89 [facility] [address] [place] [address] 05/03/2024 SHER JEAN [facility] [address] [place] [address] 05/07/2024 SHER JEAN [facility] [address] [place] [address] 05/10/2024 SHER JEAN Mild anemia D64.9 [facility] [address] [place] [address] 05/10/2024 SHER JEAN [facility] [address] [place] [address] 06/18/2024 SHER JEAN [address] [address] 06/19/2024 SHER JEAN [facility] [address] [place] [address] 06/19/2024 SHER JEAN [address] [address] 08/02/2024 SHER JEAN [facility] [address] [place] [address] 08/06/2024 SHER JEAN Acute diverticulitis K57.92 [facility] [address] [place] [address] 08/06/2024 SHER JEAN Generalized abdominal pain R10.84 ; Essential (primary) hypertension I10 ; Disorder of lipoprotein metabolism, unspecified E78.9 ; Anxiety disorder, unspecified F41.9 and Chronic fatigue, unspecified R53.82 [facility] [address] [place] [address] 08/07/2024 SHER JEAN Essential (primary) hypertension I10 and Hyponatremia E87.1 [facility] [address] [place] [address] 08/10/2024 SHER JEAN [facility] [address] [place] [address] 08/14/2024 EDEN LOYD Diverticulitis K57.92 [facility] [address] [place] [address] 08/15/2024 SHER JEAN Essential (primary) hypertension I10 and Hyponatremia E87.1 [facility] [address] [place] [address] 08/15/2024 SHER JEAN [facility] [address] [place] [address] 08/16/2024 SHER JEAN [facility] [address] [place] [address] 08/18/2024 SHERRY DOTY [facility] [address] [place] [address] 08/20/2024 SHER JEAN History of anemia Z86.2 and Diverticulitis K57.92 [facility] [address] [place] [address] 08/21/2024 SHER JEAN Hyponatremia E87.1 [facility] [address] [place] [address] 08/21/2024 SHER JEAN [facility] [address] [place] [address] 08/21/2024 SHER JEAN [facility] [address] [place] [address] 08/22/2024 SHER JEAN Essential (primary) hypertension I10 ; Disorder of lipoprotein metabolism, unspecified E78.9 ; Anxiety disorder, unspecified F41.9 ; Hyponatremia E87.1 and Generalized abdominal pain R10.84 [facility] [address] [place] [address] 08/22/2024 [facility] [address] [place] [address] 08/22/[address] [address] 08/23/[address] [address] 08/24/[address] [address] 08/28/[address] [address] 08/29/[address] [address] 08/30/[address] [address] 09/03/[address] [address] 09/03/[address] [address] 09/05/[address] [address] 09/20/[address] [address] 09/24/[address] [address] 10/04/2024 SHER JEAN Essential (primary) hypertension I10 ; Disorder of lipoprotein metabolism, unspecified E78.9 ; Anxiety disorder, unspecified F41.9 ; Chronic fatigue, unspecified R53.82 ; Chronic obstructive pulmonary disease, unspecified COPD type J44.9 ; Atrophy of thyroid (acquired) E03.4 ; Hyponatremia E87.1 ; Encounter for screening mammogram for malignant neoplasm of breast Z12.31 ; Osteoporosis screening Z13.820 ; Right flank pain R10.9 and Osteoarthritis, unspecified osteoarthritis type, unspecified site M19.90 [facility] [address] [place] [address] 10/09/2024 SHER JEAN [facility] [address] [place] [address] 10/11/2024 SHER TED [facility] [address] [place] [address], [place] [address] 10/11/2024 SHER JEAN Acute pain of left shoulder M25.512 [facility] [address] [place] [address] 10/11/2024 SHER JEAN [facility] [address] [place] [address], [place] [address] 10/11/2024 SHER TED [facility] [address] [place] [address], [place] [address] 10/12/2024 SHER TED [facility] [address] [place] [address], [place] [address] 10/12/2024 SHER TED [facility] [address] [place] [address], [place] [address] 10/12/2024 SHER JEAN [facility] [address] [place] [address], [place] [address] 10/17/2024 SHER JEAN ASSESSMENTS Encounter Date Diagnosis Assessment Notes Treatment Notes Treatment Clinical Notes Section Notes 01/16/2024 Essential (primary) hypertension (ICD-10 - I10) Blood pressure stable. No change in therapy. Check EKG normal sinus rhythm. Check basic metabolic profile 01/16/2024 Disorder of lipoprotein metabolism, unspecified (ICD-10 - E78.9) Continue statin therapy check LFTs lipid profile follow-up in 6 months 11/25/2023 Essential (primary) hypertension (ICD-10 - I10) 11/25/2023 Disorder of lipoprotein metabolism, unspecified (ICD-10 - E78.9) 12/16/2023 Other specified disorders of bone density and structure, unspecified site (ICD-10 - M85.80) 12/16/2023 Asymptomatic menopausal state (ICD-10 - Z78.0) 05/03/2024 Essential (primary) hypertension (ICD-10 - I10) Blood pressure stable well-controlled no change in therapy check EKG 05/03/2024 Disorder of lipoprotein metabolism, unspecified (ICD-10 - E78.9) Continue statin therapy check lipid profile LDL goal less than 70 optimally follow-up in 6 months if at goal 02/16/2024 Frequent headaches (ICD-10 - R51.9) 02/20/2024 Frequent headaches (ICD-10 - R51.9) 10/04/2024 Essential (primary) hypertension (ICD-10 - I10) Blood pressure stable well-controlled no change in therapy check EKG sinus rhythm 10/04/2024 Disorder of lipoprotein metabolism, unspecified (ICD-10 - E78.9) Continue statin therapy check lipid profile follow-up in 6 months if at goal 05/10/2024 Mild anemia (ICD-10 - D64.9) 08/06/2024 Acute diverticulitis (ICD-10 - K57.92) 08/06/2024 Essential (primary) hypertension (ICD-10 - I10) Recheck blood pressure 130/78 therefore no change in medication regimen patient's blood pressure at home with monitoring on a regular basis is always 130/80 or less 08/06/2024 Generalized abdominal pain (ICD-10 - R10.84) Check CBC with a differential check LFTs check UA. If increased abdominal pain emergency room. Await CAT scan on Tuesday. Continue with Augmentin for the present time 08/07/2024 Essential (primary) hypertension (ICD-10 - I10) 08/07/2024 Hyponatremia (ICD-10 - E87.1) 08/14/2024 Diverticulitis (ICD-10 - K57.92) Ciprofloxacin (Cipro) 500 mg 1 tablet twice a day for 10 days. Metronidazole (Flagyl) 500 mg 1 tablet 3 times a day for 10 days. Plenty of liquids. Light/bland diet avoid high-fiber foods, dairy, alcohol, caffeine. Brat diet, grilled chicken, hamburger. Small portions more frequently. Plenty of liquids. Follow-up with Dr. Jean in 10 days, sooner if needed. Go to ER if marked worsening pain, high fevers, vomiting or blood per rectum or other worsening symptoms. 08/15/2024 Essential (primary) hypertension (ICD-10 - I10) 08/15/2024 Hyponatremia (ICD-10 - E87.1) 08/20/2024 Diverticulitis (ICD-10 - K57.92) 08/20/2024 History of anemia (ICD-10 - Z86.2) 08/21/2024 Hyponatremia (ICD-10 - E87.1) 08/22/2024 Essential (primary) hypertension (ICD-10 - I10) 08/22/2024 Disorder of lipoprotein metabolism, unspecified (ICD-10 - E78.9) 10/11/2024 Acute pain of left shoulder (ICD-10 - M25.512) 08/06/2024 Disorder of lipoprotein metabolism, unspecified (ICD-10 - E78.9) Stable recheck in 6 months continue statin 08/22/2024 Anxiety disorder, unspecified (ICD-10 - F41.9) 10/04/2024 Anxiety disorder, unspecified (ICD-10 - F41.9) Stable continue with above medication 05/03/2024 Anxiety disorder, unspecified (ICD-10 - F41.9) Stable doing well 01/16/2024 Anxiety disorder, unspecified (ICD-10 - F41.9) Chronic anxiety tolerating low-dose benzodiazepine without significant side effects. Understands risks of long-term treatment 01/16/2024 Chronic obstructive pulmonary disease, unspecified COPD type (ICD-10 - J44.9) 08/22/2024 Hyponatremia (ICD-10 - E87.1) 05/03/2024 Chronic obstructive pulmonary disease, unspecified COPD type (ICD-10 - J44.9) Continue with a neuro Advair and as needed beta-2 and oxygen follow-up with pulmonary 08/06/2024 Anxiety disorder, unspecified (ICD-10 - F41.9) Stable doing well 10/04/2024 Chronic fatigue, unspecified (ICD-10 - R53.82) Stable multifactorial check CBC basic metabolic LFTs TSH etc. 08/22/2024 Generalized abdominal pain (ICD-10 - R10.84) 08/06/2024 Chronic fatigue, unspecified (ICD-10 - R53.82) 10/04/2024 Chronic obstructive pulmonary disease, unspecified COPD type (ICD-10 - J44.9) 05/03/2024 Chronic fatigue, unspecified (ICD-10 - R53.82) Stable multifactorial check routine labs check thyroid CBC etc. 01/16/2024 Chronic fatigue, unspecified (ICD-10 - R53.82) 10/04/2024 Atrophy of thyroid (acquired) (ICD-10 - E03.4) TSH 05/03/2024 Atrophy of thyroid (acquired) (ICD-10 - E03.4) 01/16/2024 Atrophy of thyroid (acquired) (ICD-10 - E03.4) Stable check TSH follow-up in 6 months 10/04/2024 Hyponatremia (ICD-10 - E87.1) No symptoms. History of hyponatremia recheck sodium level 01/16/2024 Hyponatremia (ICD-10 - E87.1) Recheck lites no symptoms at the present time 05/03/2024 Hyponatremia (ICD-10 - E87.1) Off diuretics recheck electrolytes fluid status seems euvolemic 10/04/2024 Encounter for screening mammogram for malignant neoplasm of breast (ICD-10 - Z12.31) 05/03/2024 Age-related osteoporosis without current pathological fracture (ICD-10 - M81.0) Calcium plus D twice daily weightbearing exercise recommend biphosphonate follow-up with endocrinology 01/16/2024 Shortness of breath (ICD-10 - R06.02) Set up follow-up chest x-ray. Check BMP. Question secondary to diastolic dysfunction await cardiology input also set up chest CT 10/04/2024 Osteoporosis screening (ICD-10 - Z13.820) Calcium plus vitamin D 1 twice daily bone density every 2 years will start Fosamax 05/03/2024 Grade II diastolic dysfunction (ICD-10 - I51.89) Stable. No overt CHF at the present time fluid status seems stable 01/16/2024 Occipital headache (ICD-10 - R51.9) Check CT of the head. Check CBC sed rate CRP. Add Celebrex 200 mg a day. 10/04/2024 Right flank pain (ICD-10 - R10.9) 10/04/2024 Osteoarthritis, unspecified osteoarthritis type, unspecified site (ICD-10 - M19.90) 05/03/2024 Other With regard to arthritis we will check a sed rate CBC etc. give a trial of 1 to 2 weeks of Celebrex follow-up in 2 weeks by phone PLAN OF TREATMENT Pending Test Test Name Order Date MRI Cervical Spine without contrast 08/14 MIBI with Dobutamine 12/03/2022 EKG 12/03/2022 US Lower Extremity Veins Duplex Right US Retroperitoneal, Complete (Renal & Bl adder) 10/04/2024 CXR 12/02/2022 CT Head with IV contrast 12/03/2022 Future Test Test Name Order Date BASIC METABOLIC PANEL 01/16/2023 CBC (COMPLETE BLOOD COUNT) 01/16/2023 FOLIC ACID 01/16/2023 IRON AND TIBC 01/16/2023 OSMOLALITY SERUM 01/16/2023 OSMOLALITY URINE RANDOM 01/16/2023 VITAMIN B12 01/16/2023 BMP8+eGFR-044559 05/26/2023 Osmolality-539733 05/27/2023 Osmolality, Urine-426324 05/27/2023 BMP8+eGFR-102754 05/27/2023 BMP8+eGFR-822854 07/19/2023 Hemoglobin E7j-193621 08/07/2023 CBC, Platelet, w/o Differential-018983 0 08/07/2023 Lipid Panel-466585 08/07/2023 Hepatic Function Panel [id number] 2023 BMP8+eGFR-083257 08/07/2023 Hemoglobin T3c-320495 11/28/2023 CBC, Platelet, w/o Differential-534830 1 BMP8+eGFR-234301 11/28/2023 TSH-450093 01/09/2024 CBC, Platelet, w/o Differential-356181 1 03/10/2023 Lipid Panel-358679 01/09/2024 BMP8+eGFR-768702 01/09/2024 Sedimentation Yxtz-Tnkbwadbhx-171006 03/2023 C-Reactive Protein, Quant-464653 024 B-Type Natriuretic Peptide-657158 2023 CBC, Platelet, w/o Differential-006740 0 04/27/2024 Lipid Panel-807083 04/27/2024 Hepatic Function Panel [id number] 2024 BMP8+eGFR-696443 04/27/2024 Hemoglobin X4x-942624 05/03/2024 Sedimentation Dknv-Oeauztmojz-676301 C-Reactive Protein, Quant-795402 025 Rheumatoid Arthritis Profile-741061 04/15 Iron and TIBC-897676 05/10/2024 Ferritin-320211 05/10/2024 Reticulocyte Count-725224 05/10/2024 Amylase-507360 08/06/2024 Lipase-072249 08/06/2024 Urinalysis, Complete w/ME-515025 025 Sedimentation Wisn-Pmnofcutqd-585906 CBC, Platelet, w/o Differential-138520 0 08/06/2024 Hepatic Function Panel [id number] 2024 BMP8+eGFR-094535 08/06/2024 CBC With Differential/Platelet-507894 Hepatic Function Panel ([id number] 2024 GGT-216638 09/27/2024 TSH-731891 09/27/2024 CBC, Platelet, w/o Differential-935215 0 09/27/2024 Lipid Panel-265668 09/27/2024 HCV Antibody-897556 09/27/2024 Comp. 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 [facility] Appendectomy Left lobe of the thyroid nodule. Endocri nologist Dr. Freitas Hypertension Hyperlipidemia Vaccination status COVID 3 s hots. Flu shot q. year. Pneumovax x2. Tdap 2020 Shingrix negative Right total knee replacement Carotid ultrasound October 2021 mild a therosclerotic disease Ultrasound of thyroid December 2021 left lower pole nodule CT of the brain September 2021 negative Ultrasound right lower extremity Septemb er 2021 negative Bone density June 2021 osteopenia Mammogram June 2021 negative Ultrasound of the abdomen January 2021 negative Cholesterol June 2022 total 138 LDL 43 HD L 86 B12 folic acid normal 2022 TSH normal 2022 Cardiac echo April 2022 EF 6 0% grade 2 diastolic dysfunction moderately dilated left atrium no significant valvular disease Status post total abdominal hysterectomy Status post laparoscopic colon resection 2014 for diverticulitis Arterial circulation lower extremity Jul normal History of hyponatremia Dr. Mirza nephdoris ologist Colonoscopy January 2016 normal recheck 2025 COPD . Mildly reduced diffusio n lung capacity OV December MRI of the brain negative MRI of the brain December [address] Gallego. 2 024 follow-up consultation shortness of breath out of proportion to her PFTs 6-minute walk study etc. Echo May 2023 left ventric ular size normal normal wall thickness ejection fraction 60 to 65% grade 3 severe diastolic dysfunction. Right ventricle mildly dilated left atrium severely dilated agitated saline bubble study was performed was normal no evidence of right to left shunt Endocrinology follow-up Apr2023 multinodular goiter with dominant left thyroid nodule Dr. Freitas Renal Dr. Spivey May for hyponatremia recommended keeping sodium greater than 130. restricting free water and drinking Gatorade. Non osmotic ADH release CT of the abdomen July 2023 L5 compressi on otherwise negative Bone density December [address] cervical spine August 2019 for progress danny degenerative arthritis CT abdomen pelvis August 2023 constipation L5 compression fracture Echo April 2023 EF 60% grade 3 diastolic dysfunction Mammogram December 2023 normal MRI of the head February [address] January 2024 centrilobular emp hysema no nodules Bone density December 2023 for osteoporo sis MRA of the brain February [address] of the abdomen July 2024 right sided short segment diverticulosis. Right inguinal hernia. Chronic hyponatremia nephrology consulta tion April [address]24 Dr. norton Surgical History Surgery Date(Month/Year) hysterectomy 1993
== END 2024-11-07 14:01 | disposition home or self-care (01) ==
LOC: HO.HKAE 13:43
PROVIDERS: PCP Internal Medicine; Visit Provider Internal Medicine Hypertension Specialist
DX: E87.1 Hypo-osmolality and hyponatremia (principal); I10 Essential (primary) hypertension
CPT/HCPCS: 99214

== ENCOUNTER → 2024-11-07 13:42 | Outpatient (BNVA) | payer MEDICARE, SELFPAY | PROVIDERS: PCP Internal Medicine; Visit Provider Internal Medicine Hypertension Specialist | DX: E87.1 Hypo-osmolality and hyponatremia (principal); I10 Essential (primary) hypertension | CPT/HCPCS: 99212 ==